=== PATIENT | female | born 1950 | race Caucasian/White ===

== ENCOUNTER 2016-04-05 08:00 | Day surgery (SDC) | payer BC ==
[2016-03-30 13:09] VITALS: BMI 69.1
--- NOTE | 2016-04-05 04:27 | P.GSHP ---
History of Present Illness H&P Date: 04/05/16 CHIEF COMPLAINT: GERD HISTORY OF PRESENT ILLNESS: The patient is a 65-year-old female who presents reports gastroesophageal reflux disease. Upper endoscopy was offered for further evaluation and management. PAST MEDICAL HISTORY: Please see list. PAST SURGICAL HISTORY: Please see list. MEDICATIONS: Please see list. ALLERGIES: Please see list. SOCIAL HISTORY: No illicit drug use FAMILY HISTORY: No reports of Crohn disease or ulcerative colitis. REVIEW OF ORGAN SYSTEMS: CONSTITUTIONAL: No reports of fevers or chills. GI: Denies any blood in stools or constipation. PHYSICAL EXAM: VITAL SIGNS: Stable GENERAL: Well-developed and pleasant in no acute distress. HEENT: No scleral icterus. Extraocular movements grossly intact. Moist buccal mucosa. NECK: Supple without lymphadenopathy. CHEST: Unlabored respirations. Equal bilateral excursions. CARDIOVASCULAR: Regular rate and rhythm. Distal 2+ pulses. ABDOMEN: Soft, nondistended. MUSCULOSKELETAL: No clubbing, cyanosis, or edema. ASSESSMENT: 1. Gastroesophageal reflux disease PLAN: 1. Recommend proceeding with an upper endoscopy Past Medical History Past Medical History: Eye Disorder, Fibromyalgia, GERD/Reflux, Hypertension, Memory Impairment, Osteoarthritis (OA), Thyroid Disorder Additional Past Medical History / Comment(s): macular degeneration and glaucoma merle eyes,axonal neuropathy, morbid obesity. IBS-freq diarrhea, states hands shakey. PT RECIDES AT [facility] AND "[facility]" TAKES CARE OF PATIENTS MEDICATIONS. BONE SPUR LT HIP, BULGING DISCS IN BACK, INCONTINENCE OF BOWEL AND BLADDER, KIDNEY DISEASE, MENTALLY DISABLED. CONTACT # FOR "[facility]" CELL #[phone]. ([phone]) , PT GUARDIAN IS AMY LOTT AND HIMSELF AND HIS DAUGHTER , ELIZABETH( RAMAN LOTT'S DAUGHTER) PROVIDE TRANSPORTATION TO PTS PAIN CLINIC APPTS. History of Any Multi-Drug Resistant Organisms: None Reported Past Surgical History: Adenoidectomy, Bariatric Surgery, Orthopedic Surgery, Tonsillectomy Additional Past Surgical History / Comment(s): GASTRIC SLEEVE 2009, PANNICULECTOMY,TRIGGER FINGER RELEASE,PAIN CLINIC PROCEDURE,EGD'S W/ DILATATION , LAMINECTOMY, CYST REMOVED FROM LT OVARY, KNEE INJECTIONS Past Anesthesia/Blood Transfusion Reactions: Family History of Problems w/ Anesthesia, Motion Sickness Additional Past Anesthesia/Blood Transfusion Reaction / Comment(s): PT AND BROTHER STATES "PT HAS NARROW AIRWAY", /BROTHER HAS CONFUSION WITH VERSED Past Psychological History: Depression Additional Psychological History / Comment(s): developmentally disabled". PER BROTHER ALBERTO- PT IS PATHOLOGICAL LIAR AND WILL SAY ANYTHING TO GET THE RESULTS SHE WANTS. ALSO STATES HAS SEVERE LIMITED COGNITIVE ABILITIES (CAN ONLY THINK OF THE HERE AND NOW) DOES NOT COMPREHEND PAST OR FUTURE TENSES. HAS IQ OF 62 Smoking Status: Never smoker Past Alcohol Use History: None Reported Past Drug Use History: None Reported - Past Family History Mother Family Medical History: Cancer, CVA/TIA Additional Family Medical History / Comment(s): PERSONALITY DISORDER, ALCOHOLIC, ABUSIVE, pharyngeal cancer, kidney disease Father Family Medical History: Cancer Additional Family Medical History / Comment(s): PANCREAS Brother(s) Family Medical History: Renal Disease Additional Family Medical History / Comment(s): CHRONIC RENAL FAILURE,CIDP NEUROPATHY Medications and Allergies Home Medications Medication Instructions Recorded Confirmed Type Levothyroxine Sodium [Synthroid] 25 mcg PO DAILY@0800 04/02/14 03/30/16 History Omeprazole [PriLOSEC] 40 mg PO DAILY@0800 04/02/14 03/30/16 History Cyanocobalamin [Vitamin B-12] 500 mcg PO DAILY@0800 10/18/15 03/30/16 History Ergocalciferol [Vitamin D2 50,000 unit PO TH 10/18/15 03/30/16 History (DRISDOL)] lamoTRIgine [LaMICtal] 50 mg PO BID@0800,2100 01/28/16 03/30/16 History Valsartan 320 mg PO DAILY@0800 03/05/16 03/30/16 History Albuterol Sulfate [Proair Hfa] 2 puff INHALATION RT-Q6H PRN 03/06/16 03/30/16 History Clotrimazole/Betameth Lotion 1 applic TOPICAL BID@0800,1700 03/06/16 03/30/16 History [Lotrisone] Loperamide [Imodium] 2 mg PO TID PRN 03/06/16 03/30/16 History Triamcinolone 0.1% Cream [Kenalog] 1 applic TOPICAL DAILY@0800 03/06/16 History Vortioxetine Hydrobromide 10 mg PO DAILY@0800 03/06/16 03/30/16 History [Trintellix] Mometasone Furoate [Mometasone 1 applic TOPICAL DAILY 03/30/16 03/30/16 History Furoate 0.1%] amLODIPine BESYLATE [Norvasc] 5 mg PO DAILY 03/30/16 03/30/16 History Allergies Allergy/AdvReac Type Severity Reaction Status Date / Time cefazolin sodium [From Ancef] Allergy Rash/Hives Verified 03/30/16 11:55 etodolac [From Lodine] Allergy Rash/Hives Verified 03/30/16 11:55 Iodinated Contrast Media - Allergy Rash/Hives Verified 03/30/16 11:55 Oral and [Iodinated Contrast Media - IV Dye] Iodine and Iodide Containing Allergy Rash/Hives Verified 03/30/16 11:55 Produc levofloxacin [From Levaquin] Allergy Swelling Verified 03/30/16 11:55 NSAIDS (Non-Steroidal Allergy Rash/Hives Verified 03/30/16 11:55 Anti-Inflamma sulfamethoxazole AdvReac Confusion Verified 03/30/16 11:55 [From Bactrim] trimethoprim [From Bactrim] AdvReac Confusion Verified 03/30/16 11:55
[~2016-04-05 08:00] MED LIST: LACTATED RINGERS 1,000 ML IV SCH; LIDOCAINE 1% 20 ML VIAL (10MG/ML) FOR IV START INTRADERMA PRN
[2016-04-05 08:31] VITALS: TEMP 97.4
[2016-04-05] MEDS ORDERED: PROPOFOL 10 MG/ML 20 ML VIAL IV ONE (08:38)
[2016-04-05] MEDS ORDERED: LIDOCAINE 1% INJ 10MG/ML (20 ML MDV) ONE (08:38)
--- NOTE | 2016-04-05 08:57 | P.PCN ---
Date of Procedure: 04/05/16 Description of Procedure: PREOPERATIVE DIAGNOSIS: Status post sleeve gastrectomy. Dysphagia. POSTOPERATIVE DIAGNOSIS: Status post sleeve gastrectomy. Dysphagia. Erosive esophagitis, chronic. Diaphragmatic hiatal hernia without obstruction. Chronic superficial gastritis. OPERATION: Esophagogastroduodenoscopy. SURGEON: Marisol Snow MD ANESTHESIA: MAC. INDICATIONS: The patient is a 65-year-old female who presents with a history of sleeve gastrectomy with dysphagia. She is over 5 years out from her bariatric procedure. Benefits and risks of the procedure were described. Informed consent was obtained. DESCRIPTION: The patient was brought into the endoscopy suite and laid in the left lateral decubitus position. An Olympus gastroscope was passed along the posterior oropharynx down to the distal esophagus where the squamocolumnar junction was at 37 centimeters from the incisors remarkable for chronic erosive esophagitis, LA grade A without ulceration. The stomach was entered where she had a 3-cm hiatal hernia with a diaphragmatic hiatus found at 40 cm. The sleeve reservoir was large allowing retroflexion of the scope to view the lower esophageal valve. Mild encroachment along the angularis incisura was also identified. Chronic gastritis albeit mild was found along the antrum. The first through third portion of the duodenum was examined and unremarkable. The stomach was desufflated. The patient tolerated the procedure well. FINDINGS: No acute ulceration found along her sleeve. No corkscrewing of her sleeve gastrectomy. Squamocolumnar junction at 37 cm from the incisors. Diaphragmatic hiatus at 40 cm. Large gastric reservoir with prior history of sleeve gastrectomy allowing retroflexion of the gastroscope along the antrum. Hiatal hernia 3 cm, fixed. LA grade A erosive esophagitis. No active duodenitis. Chronic gastritis. Mild encroachment along angularis incisura. RECOMMENDATIONS: Upper endoscopy as needed. May benefit from antireflux operation with hiatal hernia repair. Continue with current therapy. Recommend barium swallow for further investigative studies. Plan - Discharge Summary Discharge Medication List Levothyroxine Sodium [Synthroid] 25 mcg PO DAILY@79904/02/14 [History] Omeprazole [PriLOSEC] 40 mg PO DAILY@79904/02/14 [History] Cyanocobalamin [Vitamin B-12] 500 mcg PO DAILY@79910/18/15 [History] Ergocalciferol [Vitamin D2 (DRISDOL)] 50,000 unit PO TH 10/18/15 [History] lamoTRIgine [LaMICtal] 50 mg PO BID@0800,2100 01/28/16 [History] Valsartan 320 mg PO DAILY@0800 03/05/16 [History] Albuterol Sulfate [Proair Hfa] 2 puff INHALATION RT-Q6H PRN 03/06/16 [History] Clotrimazole/Betameth Lotion [Lotrisone] 1 applic TOPICAL BID@0800,1700 [History] Loperamide [Imodium] 2 mg PO TID PRN 03/06/16 [History] Triamcinolone 0.1% Cream [Kenalog] 1 applic TOPICAL DAILY@0800 03/06/16 [History ] Vortioxetine Hydrobromide [Trintellix] 10 mg PO DAILY@0800 03/06/16 [History] Baclofen [Lioresal] 5 mg PO TID #60 tab 03/07/16 [Rx] Doxepin [SINEquan] 30 mg PO HS cap 03/07/16 [Rx] Gabapentin [Neurontin] 600 mg PO TID #60 cap 03/07/16 [Rx] fentaNYL 50MCG/HR PATCH [Duragesic 50MCG/HR] 1 patch TRANSDERM Q72H #10 patch [Rx] Mometasone Furoate [Mometasone Furoate 0.1%] 1 applic TOPICAL DAILY 03/30/16 [ History] amLODIPine BESYLATE [Norvasc] 5 mg PO DAILY 03/30/16 [History] Follow up Appointment(s)/Referral(s): Marisol Snow MD [STAFF PHYSICIAN] - 04/12/16 Patient Instructions/Handouts: *[facility] - (Anesthesia) Endoscopy Discharge Instructions Discharge Disposition: HOME SELF-CARE
[2016-04-05 09:03] VITALS: RESP 18
[2016-04-05 09:32] VITALS: BP 138/78; PULSE 78
== END 2016-04-05 09:42 | disposition home or self-care (01) ==
LOC: ORWHC2ENDO 08:00
PROVIDERS: ATTEND Surgery Plastic and Reconstructive Surgery
DX: K21.0 Gastro-esophageal reflux disease with esophagitis (principal); I10 Essential (primary) hypertension; K44.9 Diaphragmatic hernia without obstruction or gangrene; K29.50 Unspecified chronic gastritis without bleeding; M79.7 Fibromyalgia; H35.30 Unspecified macular degeneration; R13.10 Dysphagia, unspecified; Z98.84 Bariatric surgery status; Z88.2 Allergy status to sulfonamides; Z88.8 Allergy status to other drugs, medicaments and biological substances; Z88.1 Allergy status to other antibiotic agents; Z91.041 Radiographic dye allergy status; Z79.899 Other long term (current) drug therapy; E66.01 Morbid (severe) obesity due to excess calories
CPT/HCPCS: 43235; J2001; J2704; 99153

== ENCOUNTER → 2016-04-26 | Outpatient (CLI) | payer BC ==
[2016-04-26 15:56] VITALS: BP 142/77; PULSE 74; RESP 18; TEMP 97.8; BMI 64.9
--- NOTE | 2016-04-26 23:55 | PN ---
DATE OF SERVICE: 04/26/2016 CHIEF COMPLAINT: Bariatric assessment. HISTORY OF PRESENT ILLNESS: Aubree Condon is a 65-year-old female with a very complicated bariatric history. She is accompanied by her guardian and actually has her brother, who is also co-guardianship on the phone. At the time of my evaluation, a group conference phone call was performed in the presence of her guardian as well as Rich, her brother, Sasha, nurse territory development manager, as well as Rachel, global marketing coordinator. Aubree Condon is a 65-year-old female who has a history of a previous sleeve gastrectomy performed at an outside institution several years ago. At her height of 4 feet 11 inches, her highest weight was 411 pounds. Today she comes in weighing 321 pounds. She has maintained a 90-pound weight loss. She has only achieved 34% excess weight loss. Her body mass index has been reduced from 83.2 to 64.9. Since her last visit in February 2016, she has maintained her weight loss. Prior to that she had lost another 13 pounds between December and January 2016. The main concerns of her guardians include poor followup, including the patient's inability to follow directions for her bariatric diet. Despite having additional aids such as a dietitian and personal trainers, the patient has difficulty maintaining her weight loss and following through with the program. Her family and guardians expressed concern. The patient did complete an upper endoscopy which was consistent with a symptomatic diaphragmatic hernia. At the time of my evaluation she denied any epigastric abdominal pain. She also reported to her guardian that her reflux is under control. Her medications including omeprazole control her symptoms. She reports occasional heartburn, particularly after eating fuller. She personally is interested in additional surgical options. Of note, upon my previous assessment after endoscopy, options including revisional surgery were reviewed, as she does have hiatal hernia. PAST MEDICAL HISTORY: 1. Morbid obesity. 2. Chronic pain syndrome. 3. Hypertension. 4. Gastroesophageal reflux disease. 5. Hypothyroidism. 6. Depression. 7. Seizure disorder. 8. Fibromyalgia. 9. Osteoarthritis. 10. Macular degeneration. 11. Glaucoma. 12. Axonal neuropathy. 13. Irritable bowel syndrome. 14. Diaphragmatic hiatal hernia. PAST SURGICAL HISTORY: 1. Adenoidectomy. 2. Sleeve gastrectomy. 3. Tonsillectomy. 4. Trigger finger release. 5. Multiple pain clinic procedures. 6. EGD with dilatation. 7. Laminectomy. MEDICATIONS: 1. Lamictal. 2. Duragesic. 3. Norvasc. 4. Trintellix. 5. Valsartan. 6. Kenalog. 7. Prilosec. 8. Mometasone topically. 9. Imodium. 10. Synthroid. 11. Neurontin. 12. Vitamin D. 13. Sinequan. 14. Vitamin B12. 15. Lotrisone. 16. Baclofen. 17. ProAir. ALLERGIES: 1. ANCEF. 2. LODINE. 3. IV CONTRAST. 4. LEVAQUIN. 5. NSAIDs. SOCIAL HISTORY: Her brother is her durable power of plant maintenance worker. No history of tobacco use. FAMILY HISTORY: Notable for morbid obesity. REVIEW OF SYSTEMS: CONSTITUTIONAL: Highest weight of 411 pounds. [place] body weight of 123 pounds. Current weight of 321 pounds. Body mass index of 64.9, reduced from 83.2. She has maintained a 90-pound weight loss. Body mass index has been reduced by 18 points. She has only achieved 34% excess weight loss. GASTROINTESTINAL: Has a diaphragmatic hiatal hernia confirmed by upper endoscopy. Also she reports gastroesophageal reflux disease. She also has history of irritable bowel syndrome, per discussion with her brother. NEUROLOGICAL: The patient also has a history of stroke with sequelae of blindness. This is blindness of the right eye. GENITOURINARY: History of acute renal failure approximately one week ago. HEENT: No reports of troubles with hearing. Otherwise, the troubles with her vision. Has intermittent dysphagia. ENDOCRINE: History of hypothyroidism. No reports of diabetes. RESPIRATORY: No noted report of sleep apnea. No reports of dyspnea on exertion. CARDIOVASCULAR: History of hypertension. No reports of recent chest pain. MUSCULOSKELETAL: History of diffuse joint arthritis. PSYCH: History of depression including bipolar. HEMATOLOGIC: No reports of easy bruising or bleeding. PHYSICAL EXAM: VITAL SIGNS: 97.8, 74, 18, 142/77, 4 feet 11 inches, 321 pounds. Body mass index 64.9. ABDOMEN: Protuberant, soft, nontender. GENERAL: Well-developed female in no acute distress. HEENT: No scleral icterus. Extraocular movements grossly intact. Moist buccal mucosa. Wears glasses. Hears conversational speech. NECK: Supple without lymphadenopathy. CHEST: Nonlabored respirations. Equal bilateral excursions. CARDIOVASCULAR: Regular rate and rhythm. MUSCULOSKELETAL: No clubbing, cyanosis, or edema. NEURO: No focal or lateralizing signs. Cranial nerves II to XII grossly intact. PSYCH: Flat affect. Alert and oriented to person, place, and time. STUDIES: Upper endoscopy report was reviewed with the patient's family with findings of a diaphragmatic hiatal hernia. No evidence of Curiel's esophagus was identified. Her hiatal hernia is approximately 3 cm. She had a large gastric reservoir identified with mild chronic gastritis. ASSESSMENT: 1. Morbid obesity due to excess calories. 2. Body mass index has been reduced from 83.2 to 64.9. 3. Prior history of acute renal failure, improved. 4. Dietary surveillance and counseling. 5. History of sleeve gastrectomy. 6. History of panniculectomy. 7. History of weight gain following bariatric procedure. 8. Depression. 9. Osteoarthritis. 10. Hypercholesterolemia. 11. Medical noncompliance with dietary plans of bariatric surgery. 12. Diaphragmatic hiatal hernia. 13. Gastroesophageal reflux disease. PLAN: 1. We had a lengthy discussion, at least over 30 minutes, regarding the complexity of Aubree's care. Her main challenge includes compliance with the care plan. 2. Her family also expressed alternatives of dietitian, including nutrition visits and home assessments and evaluations that have been performed. Aubree often selects foods that are inappropriate for her dietary guidelines. 3. As Aubree expresses concern about her gastroesophageal reflux disease, in fact this is fairly controlled with medications. We did discuss avoidance of trigger foods. 4. As she has been high risk for many surgical interventions, I did review all options, including nonsurgical versus surgical. As her hiatal hernia is not life-threatening, an alternative of medical management with medications may be feasible. 5. Should she wish to pursue any surgical intervention, I have recommended a specialty care center in [place], where she can benefit from potentially additional weight loss if she chooses. I did review with her that a revisional procedure is very high risk. More importantly, this may also pose mortality. This was communicated with the patient's guardians, including brother. 6. Alternatives include weight loss centers, specifically as a dormitory-style obesity clinic. Centers such as [facility] were reviewed, where she would be an in-house tenant and would be on strict 24-hour surveillance of weight loss for a prolonged period of time based on tuition. This option was discussed with the patient's guardian and brother, which they found feasible. 7. I have addressed all their potential questions and concerns regarding revisional surgery as well as hiatal hernia repair. Any surgical intervention, even laparoscopic, may pose some challenge, as the patient has more importantly noncompliance. 8. We have expressed to the patient's guardian and family that at the Bariatric Center we are most concerned about her well-being and her safety. We have recommended alternatives such as referral to a tuition-based dormitory-style weight loss center. Upon completion of our discussion, her family and guardian agreed to look into alternatives for weight loss which would most benefit Aubree. Thank you very much for allowing me to participate in the care of your patient. I have expressed that supervised weight loss may be performed; however, its success is based on Aubree's personal motivation. VIOLETTE
== END | disposition home or self-care (01) ==
LOC: BARWHC3 14:22
PROVIDERS: ATTEND Surgery Plastic and Reconstructive Surgery
DX: E66.01 Morbid (severe) obesity due to excess calories (principal); Z68.44 Body mass index [BMI] 60.0-69.9, adult; Z70.3 Counseling related to combined concerns regarding sexual attitude, behavior and orientation; Z09 Encounter for follow-up examination after completed treatment for conditions other than malignant neoplasm; Z90.3 Acquired absence of stomach [part of]; F32.9 Major depressive disorder, single episode, unspecified; M19.90 Unspecified osteoarthritis, unspecified site; E78.00 Pure hypercholesterolemia, unspecified; Z91.19 Patient's noncompliance with other medical treatment and regimen; K44.9 Diaphragmatic hernia without obstruction or gangrene; K21.9 Gastro-esophageal reflux disease without esophagitis; I10 Essential (primary) hypertension; E03.9 Hypothyroidism, unspecified; M79.7 Fibromyalgia; G40.909 Epilepsy, unspecified, not intractable, without status epilepticus; H35.30 Unspecified macular degeneration; H40.9 Unspecified glaucoma; G62.9 Polyneuropathy, unspecified; K58.9 Irritable bowel syndrome, unspecified; Z88.1 Allergy status to other antibiotic agents; Z88.6 Allergy status to analgesic agent; Z88.8 Allergy status to other drugs, medicaments and biological substances; Z91.041 Radiographic dye allergy status; Z79.899 Other long term (current) drug therapy
CPT/HCPCS: 99211

== ENCOUNTER → 2016-05-01 | Outpatient (CLI) | payer BC ==
--- NOTE | 2016-05-01 14:49 | XR ---
EXAMINATION TYPE: XR chest 2V DATE OF EXAM: 05/01/2016 2:43 PM COMPARISON: 03/04/16 HISTORY: Shortness of breath TECHNIQUE: Frontal and lateral views of the chest are obtained. FINDINGS: Scattered senescent parenchymal changes noted. Hyperinflation compatible with COPD. No evidence for infiltrate. No evidence for atelectasis. Heart size is stable. Mediastinal structures are stable and grossly unremarkable. No evidence for hilar prominence. Degenerative changes dorsal spine. IMPRESSION: 1. No evidence for acute pulmonary disease.
== END | disposition home or self-care (01) ==
LOC: RADXRMAIN 14:27
PROVIDERS: ATTEND Family Medicine
DX: R91.8 Other nonspecific abnormal finding of lung field (principal)
CPT/HCPCS: 71020

== ENCOUNTER 2016-05-11 08:50 | Day surgery (SDC) | payer BC ==
[2016-05-10 08:16] VITALS: BMI 66.0
[2016-05-11 09:49] VITALS: TEMP 97.6
[2016-05-11] MEDS: LACTATED RINGERS 1,000 ML IV SCH ×2 (09:50→09:56)
[2016-05-11] MEDS ORDERED: LIDOCAINE 1% 20 ML VIAL (10MG/ML) FOR IV START INTRADERMA ONE (09:51)
[2016-05-11] MEDS ORDERED: TRIAMCINOLONE ACETONIDE 40 MG/ML 1 ML VIAL ONE (09:52)
[2016-05-11] MEDS ORDERED: fentaNYL (PF) 50 MCG/ML 2 ML AMP ONE (09:52)
[2016-05-11] MEDS ORDERED: MIDAZOLAM 2 MG/2 ML VIAL ONE (09:52)
--- NOTE | 2016-05-11 10:40 | FL ---
Fluoroscopy INDICATION: Pain FINDINGS: Fluoroscopy time: 16 seconds. Images obtained: 4. IMPRESSIONS: 1. Documentation of fluoroscopy.
[2016-05-11] MEDS ORDERED: IV FLUID CONTINUATION 1,000 ML IV ONE (10:42)
[2016-05-11 10:46] VITALS: RESP 18
[2016-05-11 11:20] VITALS: BP 135/78; PULSE 78
--- NOTE | 2016-05-11 11:29 | P.PCN ---
Date of Procedure: 05/11/16 Surgeon: Aguila Dias Pathology: none sent Condition: stable Disposition: PACU Description of Procedure: PREOPERATIVE DIAGNOSIS: Lumbar spondylosis without myelopathy and facet arthropathy POSTOPERATIVE DIAGNOSIS: Lumbar spondylosis without myelopathy and facet arthropathy PROCEDURES: Left Radiofrequency thermocoagulation, L2, L3 and L4 medial branch, with fluoroscopic guidance. ANESTHESIA: 1% lidocaine plain; Conscious sedation with versed/fentanyl EBL: Minimal PROCEDURE INDICATION: The patient with low back pain secondary to lumbar arthropathy who had more than 50% relief of pain with previous diagnostic lumbar medial branch block with bupivacaine x 2. Patient presents for left sided RFA today after good relief from right sided procedure in January; no use of blood thinners. PROCEDURE DESCRIPTION / TECHNIQUE: The patient was seen and identified in the preoperative area. Risks, benefits, complications, and alternatives were discussed with the patient (including but not limited to incomplete pain relief , bleeding, infection, nerve damage, and allergies to medications), the patient agreed to proceed with the procedure and signed the consent after all questions were answered. Patient was taken to the OR and time out was completed to verify proper patient , position, laterality of pain, and allergies. Pt was placed in the prone position. IV was started. Vital signs remained stable throughout the procedure. A pillow was placed under the patients chest to decrease lordosis. The lumbosacral area was prepped and draped in the usual sterile fashion. Vital signs were closely monitored during the procedure. Conscious sedation was used during the procedure to decrease patients anxiety. Using AP and then oblique fluoroscopy, the eye of the James dog corresponding to the connection between the superior and transverse articular processes of left L2, L3 and L4 vertebral bodies were identified, marked, and localized with 1% lidocaine. Subsequently, a 20 gauge, 100-mm radiofrequency cannula with a 10-mm active tip was advanced guided by fluoroscopy to each of the eyes of the James dog at left L2, L3, and L4 medial branches. Each site then underwent sensory testing at 50 Hz and 0 to 1 volt and motor testing at 2 Hz and 0 to 3 volt with local stimulation, but no radicular symptoms down the legs. Thereafter the left L2, L3, and L4 medial branch sites underwent radiofrequency thermocoagulation at 80 degrees Celsius for 90 seconds after injecting 0.5 ml of PF lidocaine 1%. After thermocoagulation, 1 ml of the block solution containing Kenalog 40 mg and 2 mL of preservative-free normal saline was injected at the left L2, L3, and L4 medial branch levels after negative aspiration of CSF and blood and with no paresthesias. Cannulas were retracted while injecting lidocaine 1% until the needles were removed. At the end of the procedure, the skin was cleansed and bandages were applied. COMPLICATIONS: No acute complications. DISPOSITION / PLANS: The patient was placed in a supine position and transferred to the recovery area in a stable condition for observation and was discharged from the recovery room after meeting discharge criteria. Home discharge instructions given to the patient by the staff. The patient was reexamined prior to discharge and there were no issues. The patient will schedule a follow up in clinic in 4-6 weeks.
--- NOTE | 2016-05-13 06:15 | CDI ---
Dear Dr. iDas, Per your procedure note, Conscious sedation with Versed/Fentanyl is documented. The Pain Procedure Recored, however, has MAC checked off under anesthesia plan. This is conflicting documentation that needs clarification for proper reporting purposes. Please clarify if the anesthesia provided Araceli Condon was MAC ( Monitored Anesthesia Care) or Conscioius sedation/Moderate sedation. Please document this clarification on an addendum to the procedure note. Thank you for your time, Lucretia Goode,[facility] Outpatient Electrical Drafter Ofelia griffin [employer] [email or web address]
== END 2016-05-11 11:20 | disposition home or self-care (01) ==
LOC: ORPAIN 08:50
PROVIDERS: ATTEND Anesthesiology
DX: M47.816 Spondylosis without myelopathy or radiculopathy, lumbar region (principal); M46.96 Unspecified inflammatory spondylopathy, lumbar region
CPT/HCPCS: 99152; 64635; 64636 ×2; J2250; J3301; J3010

== ENCOUNTER 2016-05-28 11:32 | Emergency (ER) | payer BC ==
[2016-05-28 11:46] VITALS: BP 149/72; PULSE 87; RESP 18; TEMP 98
--- NOTE | 2016-05-28 12:02 | ED ---
General Adult HPI - General Chief complaint: Extremity Injury, Lower Stated complaint: RT KNEE PAIN Time Seen by Provider: 05/28/16 11:46 Source: patient, RN notes reviewed Mode of arrival: wheelchair Limitations: no limitations - History of Present Illness Initial comments: Patient's a 65-year-old female who presents emergency room today with a chief complaint of injury to the right knee that occurred approximately a week ago. She does admit that she believes she twisted it when she was stepping up into her house. She missed the pain in the proximal tibia. She states worse with flexion. She states she is able to bear weight and [place] but does have pain. Denies any other complaints associated symptoms. Patient denies any recent fever, chills, shortness of breath, chest pain, back pain, abdominal pain , nausea or vomiting, numbness or tingling, dysuria or hematuria, constipation or diarrhea, headaches or visual changes, or any other complaints. - Related Data Home Medications Medication Instructions Recorded Confirmed Levothyroxine Sodium [Synthroid] 25 mcg PO QAM 04/02/14 05/28/16 Omeprazole [PriLOSEC] 40 mg PO QAM 04/02/14 05/28/16 lamoTRIgine [LaMICtal] 100 mg PO QAM 01/28/16 05/28/16 Valsartan 320 mg PO QAM 03/05/16 05/28/16 Albuterol Sulfate [Proair Hfa] 2 puff INHALATION RT-Q6H PRN 03/06/16 05/28/16 Loperamide [Imodium] 2 mg PO TID PRN 03/06/16 05/28/16 Vortioxetine Hydrobromide 10 mg PO QAM 03/06/16 05/28/16 [Trintellix] amLODIPine BESYLATE [Norvasc] 5 mg PO DAILY 03/30/16 05/28/16 Doxepin [SINEquan] 20 mg PO HS 05/10/16 05/28/16 fentaNYL 75MCG/HR PATCH [Duragesic 1 applic TOPICAL Q72H 05/10/16 05/28/16 75MCG/HR] Baclofen [Lioresal] 10 mg PO TID 05/28/16 05/28/16 Cyanocobalamin (Vitamin B-12) 1,000 mcg PO QAM 05/28/16 05/28/16 [Vitamin B-12] Fluticasone Propionate [Flonase 1 spray EA NOSTRIL QAM 05/28/16 05/28/16 Allergy Relief] Previous Rx's Medication Instructions Recorded Gabapentin [Neurontin] 600 mg PO TID #60 cap 03/07/16 Allergies Allergy/AdvReac Type Severity Reaction Status Date / Time cefazolin sodium [From Ancef] Allergy Rash/Hives Verified 05/28/16 11:44 etodolac [From Lodine] Allergy Rash/Hives Verified 05/28/16 11:44 Iodinated Contrast Media - Allergy Rash/Hives Verified 05/28/16 11:44 Oral and [Iodinated Contrast Media - IV Dye] Iodine and Iodide Containing Allergy Rash/Hives Verified 05/28/16 11:44 Produc levofloxacin [From Levaquin] Allergy Swelling Verified 05/28/16 11:44 NSAIDS (Non-Steroidal Allergy Rash/Hives Verified 05/28/16 11:44 Anti-Inflamma sulfamethoxazole AdvReac Confusion Verified 05/28/16 11:44 [From Bactrim] trimethoprim [From Bactrim] AdvReac Confusion Verified 05/28/16 11:44 Review of Systems ROS Statement: Those systems with pertinent positive or pertinent negative responses have been documented in the HPI. ROS Other: All systems not noted in ROS Statement are negative. Past Medical History Past Medical History: Eye Disorder, Fibromyalgia, GERD/Reflux, Hypertension, Osteoarthritis (OA), Thyroid Disorder Additional Past Medical History / Comment(s): macular degeneration and glaucoma merle eyes,axonal neuropathy, morbid obesity will be having sleep study Jan 2016. IBS-freq diarrhea, states hands shakey. PT RECIDES AT [facility] AND "[facility]" TAKES CARE OF PATIENTS MEDICATIONS. CONTACT # FOR "[facility]" #[phone]. , PT GUARDIAN IS AMY LOTT AND HIMSELF AND HIS DAUGHTER , [facility] PROVIDE TRANSPORTATION TO PTS PAIN CLINIC APPTS. History of Any Multi-Drug Resistant Organisms: None Reported Past Surgical History: Adenoidectomy, Bariatric Surgery, Orthopedic Surgery, Tonsillectomy Additional Past Surgical History / Comment(s): GASTRIC SLEEVE 2009, PANNICULECTOMY,TRIGGER FINGER RELEASE,PAIN CLINIC PROCEDURE,EGD'S W/ DILATATION , laminnectomy Past Anesthesia/Blood Transfusion Reactions: Family History of Problems w/ Anesthesia, Motion Sickness Additional Past Anesthesia/Blood Transfusion Reaction / Comment(s): PT AND BROTHER STATES "PT HAS NARROW AIRWAY", /BROTHER HAS CONFUSION WITH VERSED Past Psychological History: Depression Additional Psychological History / Comment(s): developmentally disabled" Smoking Status: Never smoker Past Alcohol Use History: None Reported Past Drug Use History: None Reported - Past Family History Mother Family Medical History: Cancer Additional Family Medical History / Comment(s): PERSONALITY DISORDER, ALCOHOLIC, ABUSIVE, pharyngeal cancer, kidney disease Father Family Medical History: Cancer Additional Family Medical History / Comment(s): PANCREAS Brother(s) Family Medical History: Renal Disease Additional Family Medical History / Comment(s): CHRONIC RENAL FAILURE,CIDP NEUROPATHY General Exam - General Exam Comments Initial Comments: General: The patient is awake and alert, in no distress, and does not appear acutely ill. Neck: The neck is supple, there is no tenderness or JVD. Cardiovascular: There is a regular rate and rhythm. No murmur, rub or gallop is appreciated. Respiratory: Lungs are clear to auscultation, respirations are non-labored, breath sounds are equal. No wheezes, stridor, rales, or rhonchi. Musculoskeletal: Patient does have a normal appearance of the right knee when compared bilaterally. No obvious swelling. No deformity. Patient and laboratory able to bear weight. Mild tenderness over the proximal tibia. No other bony tenderness. Negative Homans. Neurological: A&O x 3. CN II-XII intact, There are no obvious motor or sensory deficits. Coordination appears grossly intact. Speech is normal. Skin: Skin is warm and dry and no rashes or lesions are noted. Psychiatric: Normal mood and affect. Limitations: no limitations Course Vital Signs 05/28/16 11:45 Temperature 98.0 F Pulse Rate 87 Respiratory 18 Rate Blood Pressure 149/72 O2 Sat by Pulse 98 Oximetry Medical Decision Making - Medical Decision Making X-ray reviewed are unremarkable. Results were discussed with the patient. Patient placed in Baljit wrap. Advised follow-up with orthopedic doctor over the next 2 days. Advised return for any other concerns. Advised ice elevate the affected area. Disposition Clinical Impression: Knee pain Disposition: HOME SELF-CARE Condition: Good Instructions: Knee Pain (ED) Additional Instructions: Please continue to ice elevate affected area and use Baljit wrap on up and moving around. Please do not sleep with the Baljit wrap on. Please follow-up the orthopedic doctor over the next 2 days. Please return to emergency room if the symptoms increase or worsen or for any other concerns. Referrals: Miguel Estrada DO [Primary Care Provider] - 1-2 days Chris Caceres MD [REFERRING] - 1-2 days Time of Disposition: 13:05
--- NOTE | 2016-05-28 12:43 | XR ---
EXAMINATION TYPE: XR knee complete RT DATE OF EXAM ORDERED: 05/28/2016 12:39 PM HISTORY: Pain. COMPARISON: None. FINDINGS: There is mild peaking of intercondylar spines. Joint spaces are reasonably well-maintained . No fracture, dislocation or joint effusion is seen. IMPRESSION: EARLIEST CHANGES OF OSTEOARTHRITIS.
== END 2016-05-28 13:14 | disposition home or self-care (01) ==
LOC: EC 11:32
DX: M25.561 Pain in right knee (principal); K21.9 Gastro-esophageal reflux disease without esophagitis; I10 Essential (primary) hypertension; M79.7 Fibromyalgia; K58.9 Irritable bowel syndrome, unspecified; F32.9 Major depressive disorder, single episode, unspecified; E07.9 Disorder of thyroid, unspecified; M19.90 Unspecified osteoarthritis, unspecified site; Z79.52 Long term (current) use of systemic steroids; Z79.899 Other long term (current) drug therapy; Z91.041 Radiographic dye allergy status; Z88.1 Allergy status to other antibiotic agents; Z88.6 Allergy status to analgesic agent; Z88.2 Allergy status to sulfonamides; Z88.8 Allergy status to other drugs, medicaments and biological substances; X50.1XXA Overexertion from prolonged static or awkward postures, initial encounter; Y92.009 Unspecified place in unspecified non-institutional (private) residence as the place of occurrence of the external cause
CPT/HCPCS: 99283

== ENCOUNTER → 2016-06-13 | Outpatient (CLI) | payer BC ==
[2016-06-13 12:57] VITALS: BP 149/69; PULSE 149; RESP 16; TEMP 98
--- NOTE | 2016-06-13 15:22 | P.PN ---
Subjective This is follow-up visit for this patient with a history of severe and chronic low back pain secondary to lumbar degenerative disc disease lumbar facet arthropathy, and failed back surgery syndrome and lumbar area we have done interventional pain management injection, Radiofrequency ablation of the medial branch lumbar area, she benefited significantly from the radiofrequency, but she continue to have Low back pain, the intensity of the pain increased with any activity, she denies any change in bowel movement or urination, she denies any Fever or night sweats, and no motor or sensory deficits, and she is currently on pain medication 1-fentanyl patch 75 g every 72 hours 2-back) 10 mg 3 times a day 3- Neurontin 600 mg 3 times a day Patient denies any side effects of the medication, denies excessive drowsiness or sleepiness, denies suicidal ideation, and reports that the current pain medication is NOT helping To control the pain and improve activity of daily living Physical Examinations : 1-Constitutiona : Cooperative , not in acute distress . 2-HEENT : nech ; supple , no Lymphadenopathy , no Thyromegaly , normal thyroid size . eyes : no ptosis , no icterus, no photophobia . ENT : normal of hearing , normal oropharynx , no Thrush . 3- Respiratory : Chest clear to auscultations Bilaterally , no wheezing , no Rhonchi . 4- Cardiovascular : regular rate and rhythem , S1 , S2 , no S3 , no S4. 5- Gastrointestinal : abdomen soft no tenderness , bowel sounds positive all four quadrents , no organomegally . 6- Genitourinary : Defferred . 7- neurologic : Cranial nerve II to XII intact , no focal neurological deffecit . 8-psychatric : alert , oriented X 3 , appropriate affect , intact judgment and insight . 9-Lymphatic : no Lymphadenopathy . 10- musculoskeltal : exams of the cervical spine = motor strength normal bilateral upper extremities facet loading test cervical area positive. exams of the Lumber spine = motor strength lower extremities ,thigh and legs .5/5 deep tendon reflexes : normal Knee Jerk , normal ankle Jerk . lumber facet Loading Test positive strait leg raising test positive at 30 degree , RT ,LT , Fabere test positive RT and positive LT . Range of motion: Range of motion in flexion of the lumbar spine 30 degrees Range of motion range of motion of extension of the lumbar spine 10 Assessment and plan = - Chronic low back pain secondary to lumbar degenerative disc disease , lumbar spondylosis with facet arthropathy without myelopathy , Failed back surgery syndrome and lumbar area, status post radiofrequency ablation of the medial branch lumbar area, and this helped her back pain 50% Currently she is complaining of low back pain again and most likely secondary to discogenic component/scar tissue on the lumbar spine - diagnoses, prognosis, and treatment options including but not limited to physical therapy, surgical interventions, interventional therapies , and medication management including narcotics and adjuvant medication were discussed with the patient and all The questions answered -medication management = patient getting prescription refills from her primary care and she should continue on the same medication -procedure= patient could benefit from caudal epidural steroid injections which will be done under fluoroscopy guidance . Objective - Vital Signs Vital signs: Vital Signs Temp 98 F 06/13/16 12:29 Pulse 149 H 06/13/16 12:29 Resp 16 06/13/16 12:29 BP 149/69 06/13/16 12:29 Pulse Ox 93 L 06/13/16 12:29 Intake & Output 06/12/16 06/13/16 06/13/16 18:59 06:59 18:59 Weight 145.603 kg
== END ==
LOC: PNWHC3 12:16
PROVIDERS: ATTEND Specialist
DX: M51.36 Other intervertebral disc degeneration, lumbar region (principal); M47.816 Spondylosis without myelopathy or radiculopathy, lumbar region; M46.86 Other specified inflammatory spondylopathies, lumbar region; G89.29 Other chronic pain; Z98.890 Other specified postprocedural states; Z79.891 Long term (current) use of opiate analgesic
CPT/HCPCS: 99211

== ENCOUNTER 2016-07-19 09:32 | Day surgery (SDC) | payer BC ==
[2016-07-18 08:33] VITALS: BMI 65.8
[2016-07-19 09:55] VITALS: TEMP 97.4
[2016-07-19] MEDS ORDERED: LIDOCAINE 1% 20 ML VIAL (10MG/ML) FOR IV START INTRADERMA ONE (09:59)
[2016-07-19] MEDS ORDERED: LACTATED RINGERS 1,000 ML IV SCH (10:00)
[2016-07-19] MEDS ORDERED: TRIAMCINOLONE ACETONIDE 40 MG/ML 1 ML VIAL ONE (10:15)
[2016-07-19] MEDS ORDERED: BUPIVACAINE (PF) 0.25% 30 ML VIAL ONE (10:15)
[2016-07-19] MEDS ORDERED: MIDAZOLAM 2 MG/2 ML VIAL ONE (10:15)
--- NOTE | 2016-07-19 10:36 | P.PCN ---
Date of Procedure: 07/19/16 Preoperative Diagnosis: Failed back surgery syndrome Postoperative Diagnosis: Same as above Procedure(s) Performed: Caudal epidural steroid injection fluoroscopic guidance with lysis of adhesions Anesthesia: other (Moderate sedation with IV Versed and fentanyl) Surgeon: Abdi Abbott Pathology: none sent Condition: stable Disposition: PACU Description of Procedure: The patient was seen in preop holding area consent was obtained then she was brought into the procedure room and placed in prone position. Skin was prepped with Betadine 3 and draped in a sterile manner. Lidocaine 1% was used to numb the skin over the target point that was at the sacral hiatus using the lateral view of fluoroscopy. I used 17-gauge Touhy epidural needle with a plastic sheath to go through the skin and into the sacral canal and then the plastic sheath was threaded in and metal core was taken out, then aRacz catheter was introduced of the way up to L5-S1 level with multiple back and forth movements to break up some adhesions. Then I injected 40 mg of Kenalog +2 MLS of Marcaine 0.25% +7 MLS of preservative free normal saline to a total volume of 10 MLS in epidural space. I did not use IVP dye was at the patient ALLERGIC reaction to IVP dye however she can tolerate Betadine on her skin as she states.
[2016-07-19] MEDS ORDERED: IV FLUID CONTINUATION 900 ML IV ONE (10:54)
[2016-07-19 10:56] VITALS: PULSE 69; RESP 16
[2016-07-19 11:02] VITALS: BP 136/72
--- NOTE | 2016-07-19 14:25 | FL ---
Fluoroscopy INDICATION: Pain FINDINGS: Fluoroscopy time: 26 seconds. Images obtained: 1. IMPRESSIONS: 1. Documentation of fluoroscopy.
== END 2016-07-19 11:35 | disposition home or self-care (01) ==
LOC: ORPAIN 09:32
PROVIDERS: ATTEND Anesthesiology
DX: M96.1 Postlaminectomy syndrome, not elsewhere classified (principal); Z88.2 Allergy status to sulfonamides; Z88.1 Allergy status to other antibiotic agents; Z88.8 Allergy status to other drugs, medicaments and biological substances; Z91.041 Radiographic dye allergy status
CPT/HCPCS: 62264; 99152; J2250; J3301

== ENCOUNTER → 2016-08-17 | Outpatient (CLI) | payer BC ==
--- NOTE | 2016-08-17 14:25 | BD ---
EXAMINATION TYPE: MG DEXA axial skeleton. DATE OF EXAM: 08/17/2016 10:15 AM COMPARISON: 2012 CLINICAL HISTORY: accidental fall Height: 4'11 Weight: 319 FRAX RISK QUESTIONS: Alcohol (3 or more units per day): no Family History (Parent hip fracture): no Glucocorticoids (More than 3mos): no (Ex: prednisone, prednisolone, methylprednisolone, dexamethasone, and hydrocortisone). History of Fracture in Adulthood: no Secondary Osteoporosis: 1. Type 1 Diabetes: no 2. Hyperthyroidism: no 3. Menopause before 45: yes 4. Malnutrition: no 5. Chronic liver disease: no Rheumatoid Arthritis: no Current Tobacco Use: no RISK FACTORS HISTORY OF: lumbar spine surgery : 2014 Active: Diet low in dairy products/other sources of calcium: Postmenopausal woman: Lost more than 2 inches in height since high school: Frequent falls: Poor Health: MEDICATIONS: Thyroid Medications: Which medication: Synthroid How Long: more than 10 years Additional Medications: blood pressure, pain, Additional History: fibromyalgia neuropathy EXAM MEASUREMENTS: Bone mineral densitometry was performed using the Advanced Image Enhancement System. Bone mineral density about the R hip (g/cm2): 0.852 Bone mineral density about the L hip (g/cm2): 0.908 T Score values are as follows: -----R Neck: -1.3 -----L Neck: -0.9 -----R Total: -0.5 -----L Total: -0.6 Bone mineral density has: Increased 12.1since study: 09/27/2012 IMPRESSION: Osteopenia (T Score between -2.5 and -1 as noted by T score values: Rt hip There is slightly increased risk of fracture and the patient may be considered for treatment. Re-Screen 2-5 years. Bone density has improved 12.1% from 09/27/2012 within the bilateral hips NOTE: T-SCORE=SD OF THE YOUNG ADULT MEAN.
== END | disposition home or self-care (01) ==
LOC: RADBDWWP 09:56
PROVIDERS: ATTEND Family Medicine
DX: M85.88 Other specified disorders of bone density and structure, other site (principal)
CPT/HCPCS: 77080

== ENCOUNTER → 2016-12-14 | Outpatient (CLI) | payer MEDICARE, BC ==
[2016-12-14 13:10] LABS: Basophils # (A) 0.1 k/uL (0-0.2); Basophils % (A) 1 %; CH 28.1; CHCM 32.3; Eosinophils # (A) 0.3 k/uL (0-0.7); Eosinophils % (A) 3 %; HDW 2.68; HGB 13.2 gm/dL (11.4-16.0); Luc # (Auto) 0.12; Luc % (Auto) 2; Lymphocytes # (A) 2.2 k/uL (1.0-4.8); Lymphocytes % (A) 28 %; MCH 27.4 pg (25.0-35.0); MCHC 31.4 g/dL (31.0-37.0); MCV 87.4 fL (80.0-100.0); Mean Platelet Volume 7.3; Monocytes # (A) 0.4 k/uL (0-1.0); Monocytes % (A) 5 %; Neutrophils # (A) 4.8 k/uL (1.3-7.7); Neutrophils % (A) 61 %; RBC 4.81 m/uL (3.80-5.40); RDW 15.7 % (11.5-15.5); WBC 7.8 k/uL (3.8-10.6); WBC (Perox) 7.74
[2016-12-14 14:14] LABS: Anion Gap 7 mmol/L; Blood Urea Nitrogen 12 mg/dL (7-17); Calcium 9.2 mg/dL (8.4-10.2); Carbon Dioxide 31 mmol/L (22-30); Chloride 105 mmol/L (98-107); Glucose 90 mg/dL (74-99); Non-African American GFR(MDRD) 56 (>60 ml/min/1.73 sqM); Potassium 4.3 mmol/L (3.5-5.1); Sodium 143 mmol/L (137-145)
[2016-12-14 15:04] LABS: Vitamin B12 847 pg/mL (239-931)
[2016-12-14 19:08] LABS: Iron Saturation 19.01 (12.00-45.00)
== END | disposition home or self-care (01) ==
LOC: LABWHC1 12:04
PROVIDERS: ATTEND Nurse Practitioner Family
DX: G62.89 Other specified polyneuropathies (principal); I10 Essential (primary) hypertension; D64.9 Anemia, unspecified; E55.9 Vitamin D deficiency, unspecified; R80.9 Proteinuria, unspecified
CPT/HCPCS: 36415; 80048; 82306; 82570; 82607; 82728; 83540; 83550; 84156; 85025

== ENCOUNTER 2017-04-06 23:01 | Inpatient (IN) | payer MEDICARE ==
--- NOTE | 2017-04-06 23:32 | ED ---
SOB HPI - General Chief Complaint: Shortness of Breath Stated Complaint: Lethargy Time Seen by Provider: 04/06/17 23:04 Source: patient Mode of arrival: EMS Limitations: no limitations - Related Data Home Medications Medication Instructions Recorded Confirmed Levothyroxine Sodium [Synthroid] 25 mcg PO QAM 04/02/14 07/19/16 Omeprazole [PriLOSEC] 40 mg PO QAM 04/02/14 07/19/16 lamoTRIgine [LaMICtal] 25 mg PO QAM 01/28/16 07/19/16 Valsartan 320 mg PO QAM 03/05/16 07/19/16 Albuterol Sulfate [Proair Hfa] 2 puff INHALATION RT-Q6H PRN 03/06/16 07/18/16 Loperamide [Imodium] 2 mg PO TID PRN 03/06/16 07/19/16 Vortioxetine Hydrobromide 10 mg PO QAM 03/06/16 07/19/16 [Trintellix] amLODIPine BESYLATE [Norvasc] 10 mg PO DAILY 03/30/16 07/19/16 Doxepin [SINEquan] 20 mg PO HS 05/10/16 07/19/16 fentaNYL 75MCG/HR PATCH [Duragesic 1 applic TOPICAL Q72H 05/10/16 07/19/16 75MCG/HR] Baclofen [Lioresal] 10 mg PO BID 05/28/16 07/19/16 Cyanocobalamin (Vitamin B-12) 1,000 mcg PO QAM 05/28/16 07/18/16 [Vitamin B-12] Fluticasone Propionate [Flonase 1 spray EA NOSTRIL QAM 05/28/16 07/18/16 Allergy Relief] Ergocalciferol (Vitamin D2) 50,000 unit PO Q7D 07/18/16 07/18/16 [Vitamin D2] Previous Rx's Medication Instructions Recorded Gabapentin [Neurontin] 600 mg PO TID #60 cap 03/07/16 Allergies Allergy/AdvReac Type Severity Reaction Status Date / Time cefazolin sodium [From Ancef] Allergy Rash/Hives Verified 07/18/16 08:25 etodolac [From Lodine] Allergy Rash/Hives Verified 07/18/16 08:25 Iodinated Contrast- Oral and Allergy Rash/Hives Verified 07/18/16 08:25 IV Dye [Iodinated Contrast Media - IV Dye] Iodine and Iodide Containing Allergy Rash/Hives Verified 07/18/16 08:25 Produc levofloxacin [From Levaquin] Allergy Swelling Verified 07/18/16 08:25 NSAIDS (Non-Steroidal Allergy Rash/Hives Verified 07/18/16 08:25 Anti-Inflamma sulfamethoxazole AdvReac Confusion Verified 07/18/16 08:25 [From Bactrim] trimethoprim [From Bactrim] AdvReac Confusion Verified 07/18/16 08:25 Review of Systems ROS Statement: Those systems with pertinent positive or pertinent negative responses have been documented in the HPI. ROS Other: All systems not noted in ROS Statement are negative. Past Medical History Past Medical History: Eye Disorder, Fibromyalgia, GERD/Reflux, Hypertension, Osteoarthritis (OA), Thyroid Disorder Additional Past Medical History / Comment(s): macular degeneration and glaucoma merle eyes,axonal neuropathy, morbid obesity will be having sleep study Jan 2016. IBS-freq diarrhea, states hands shakey. PT RECIDES AT [facility] AND "[facility]" TAKES CARE OF PATIENTS MEDICATIONS. CONTACT # FOR "[facility]" #[phone]. , PT GUARDIAN IS AMY LOTT AND HIMSELF AND HIS DAUGHTER , [facility] PROVIDE TRANSPORTATION TO [facility]TS PAIN CLINIC APPTS. History of Any Multi-Drug Resistant Organisms: None Reported Past Surgical History: Adenoidectomy, Bariatric Surgery, Orthopedic Surgery, Tonsillectomy Additional Past Surgical History / Comment(s): GASTRIC SLEEVE 2009, PANNICULECTOMY,TRIGGER FINGER RELEASE,PAIN CLINIC PROCEDURE,EGD'S W/ DILATATION , laminnectomy Past Anesthesia/Blood Transfusion Reactions: Family History of Problems w/ Anesthesia, Motion Sickness Additional Past Anesthesia/Blood Transfusion Reaction / Comment(s): PT AND BROTHER STATES "PT HAS NARROW AIRWAY", /BROTHER HAS CONFUSION WITH VERSED Past Psychological History: Depression Smoking Status: Never smoker Past Alcohol Use History: None Reported Past Drug Use History: None Reported - Past Family History Mother Family Medical History: Cancer Additional Family Medical History / Comment(s): PERSONALITY DISORDER, ALCOHOLIC, ABUSIVE, pharyngeal cancer, kidney disease Father Family Medical History: Cancer Additional Family Medical History / Comment(s): PANCREAS Brother(s) Family Medical History: Renal Disease Additional Family Medical History / Comment(s): CHRONIC RENAL FAILURE,CIDP NEUROPATHY General Exam Limitations: no limitations Course Vital Signs 04/06/17 23:03 Temperature 97.3 F L Pulse Rate 66 Respiratory 20 Rate O2 Sat by Pulse 90 L Oximetry Disposition Referrals: Miguel Estrada DO [Primary Care Provider] - 1-2 days
--- NOTE | 2017-04-06 23:42 | ED ---
Altered Mental Status HPI - General Chief Complaint: Shortness of Breath Stated Complaint: Lethargy Time Seen by Provider: 04/06/17 23:04 Source: patient Mode of arrival: EMS Limitations: altered mental status - History of Present Illness Initial Comments: This patient is a 66-year-old woman who comes in to be evaluated for altered mental status. The history comes from a friend of the patient who is here with her and also from the patient herself. The patient's friend relates that she had called the patient around 1 in the afternoon to arrange a meeting later, and that she noticed what sounded like slurred speech. When she went to see the patient at dinner time, she felt that the patient was confused and only answered 3 out of 5 questions correctly. Over the course of the night the patient also seemed to be breathing heavier than usual. The patient herself is states she does feel a little short of breath, but she denies chest pain or cough. She states that she did recently have a medication change but does not recall the name of the medicine that was restarted, for "shaking of her right hand." MD Complaint: altered mental status, confusion -: hour(s) Severity: moderate Consistency of Symptoms: getting worse Associated Symptoms: shortness of breath - Related Data Home Medications Medication Instructions Recorded Confirmed Levothyroxine Sodium [Synthroid] 25 mcg PO QAM 04/02/14 04/06/17 Omeprazole [PriLOSEC] 40 mg PO QAM 04/02/14 04/06/17 lamoTRIgine [LaMICtal] 25 mg PO QAM 01/28/16 04/06/17 Valsartan 320 mg PO QAM 03/05/16 04/06/17 Albuterol Sulfate [Proair Hfa] 2 puff INHALATION RT-Q6H PRN 03/06/16 04/06/17 Loperamide [Imodium] 2 mg PO TID PRN 03/06/16 07/19/16 Vortioxetine Hydrobromide 10 mg PO QAM 03/06/16 04/06/17 [Trintellix] amLODIPine BESYLATE [Norvasc] 10 mg PO DAILY 03/30/16 04/06/17 Doxepin [SINEquan] 20 mg PO HS 05/10/16 04/06/17 fentaNYL 75MCG/HR PATCH [Duragesic 1 applic TOPICAL Q72H 05/10/16 04/06/17 75MCG/HR] Baclofen [Lioresal] 10 mg PO BID 05/28/16 04/06/17 Cyanocobalamin (Vitamin B-12) 1,000 mcg PO QAM 05/28/16 04/06/17 [Vitamin B-12] Fluticasone Propionate [Flonase 1 spray EA NOSTRIL QAM 05/28/16 04/06/17 Allergy Relief] Ergocalciferol (Vitamin D2) 50,000 unit PO Q7D 07/18/16 04/06/17 [Vitamin D2] Previous Rx's Medication Instructions Recorded Gabapentin [Neurontin] 600 mg PO TID #60 cap 03/07/16 Allergies Allergy/AdvReac Type Severity Reaction Status Date / Time cefazolin sodium [From Ancef] Allergy Rash/Hives Verified 07/18/16 08:25 etodolac [From Lodine] Allergy Rash/Hives Verified 07/18/16 08:25 Iodinated Contrast- Oral and Allergy Rash/Hives Verified 07/18/16 08:25 IV Dye [Iodinated Contrast Media - IV Dye] Iodine and Iodide Containing Allergy Rash/Hives Verified 07/18/16 08:25 Produc levofloxacin [From Levaquin] Allergy Swelling Verified 07/18/16 08:25 NSAIDS (Non-Steroidal Allergy Rash/Hives Verified 07/18/16 08:25 Anti-Inflamma sulfamethoxazole AdvReac Confusion Verified 07/18/16 08:25 [From Bactrim] trimethoprim [From Bactrim] AdvReac Confusion Verified 07/18/16 08:25 Review of Systems ROS Statement: Those systems with pertinent positive or pertinent negative responses have been documented in the HPI. ROS Other: All systems not noted in ROS Statement are negative. Limitations: ROS unobtainable due to patients medical condition (Altered mental status) Constitutional: Reports: weakness. Denies: fever Respiratory: Reports: dyspnea. Denies: cough Cardiovascular: Denies: chest pain Gastrointestinal: Denies: abdominal pain, vomiting Musculoskeletal: Reports: back pain (Chronic) Neurological: Denies: headache Past Medical History Past Medical History: Eye Disorder, Fibromyalgia, GERD/Reflux, Hypertension, Osteoarthritis (OA), Thyroid Disorder Additional Past Medical History / Comment(s): macular degeneration and glaucoma merle eyes,axonal neuropathy, morbid obesity will be having sleep study Jan 2016. IBS-freq diarrhea, states hands shakey. PT RECIDES AT [facility] AND "[facility]" TAKES CARE OF PATIENTS MEDICATIONS. CONTACT # FOR "[facility]" #[phone]. , PT GUARDIAN IS AMY LOTT AND HIMSELF AND HIS DAUGHTER , ELIZABETH PROVIDE TRANSPORTATION TO PTS PAIN CLINIC APPTS. History of Any Multi-Drug Resistant Organisms: None Reported Past Surgical History: Adenoidectomy, Bariatric Surgery, Orthopedic Surgery, Tonsillectomy Additional Past Surgical History / Comment(s): GASTRIC SLEEVE 2009, PANNICULECTOMY,TRIGGER FINGER RELEASE,PAIN CLINIC PROCEDURE,EGD'S W/ DILATATION , laminnectomy Past Anesthesia/Blood Transfusion Reactions: Family History of Problems w/ Anesthesia, Motion Sickness Additional Past Anesthesia/Blood Transfusion Reaction / Comment(s): PT AND BROTHER STATES "PT HAS NARROW AIRWAY", /BROTHER HAS CONFUSION WITH VERSED Past Psychological History: Depression Smoking Status: Never smoker Past Alcohol Use History: None Reported Past Drug Use History: None Reported - Past Family History Mother Family Medical History: Cancer Additional Family Medical History / Comment(s): PERSONALITY DISORDER, ALCOHOLIC, ABUSIVE, pharyngeal cancer, kidney disease Father Family Medical History: Cancer Additional Family Medical History / Comment(s): PANCREAS Brother(s) Family Medical History: Renal Disease Additional Family Medical History / Comment(s): CHRONIC RENAL FAILURE,CIDP NEUROPATHY General Exam Limitations: no limitations General appearance: obese, other (Patient appears somnolent but is arousable to verbal stimuli) Head exam: Present: atraumatic, normocephalic Eye exam: Present: normal appearance. Absent: scleral icterus, conjunctival injection ENT exam: Present: mucous membranes dry Neck exam: Present: normal inspection, full ROM Respiratory exam: Present: normal lung sounds bilaterally. Absent: respiratory distress, wheezes, rales, rhonchi, stridor Cardiovascular Exam: Present: regular rate, normal rhythm, normal heart sounds. Absent: systolic murmur, diastolic murmur, rubs, gallop GI/Abdominal exam: Present: soft. Absent: distended, tenderness, guarding, rebound, rigid, mass Extremities exam: Present: normal inspection, normal capillary refill. Absent: pedal edema, calf tenderness Back exam: Present: normal inspection. Absent: CVA tenderness (R), CVA tenderness (L) Neurological exam: Present: altered, CN II-XII intact, other (Somnolent but arousable to voice.). Absent: motor sensory deficit Skin exam: Present: warm, dry, intact, normal color. Absent: rash Course Vital Signs 04/06/17 04/07/17 04/07/17 23:03 01:06 02:15 Temperature 97.3 F L Pulse Rate 66 51 L 50 L Respiratory 20 20 12 Rate Blood Pressure 198/143 91/41 94/52 O2 Sat by Pulse 90 L 97 98 Oximetry 04/07/17 04/07/17 04/07/17 02:40 02:50 03:00 Temperature 97 F L Pulse Rate Respiratory Rate Blood Pressure 97/55 95/50 O2 Sat by Pulse Oximetry Medical Decision Making - Lab Data Result diagrams: 04/06/17 23:30 04/06/17 23:30 Lab Results 04/06/17 04/06/17 04/06/17 Range/Units 23:30 23:30 23:30 WBC 12.7 H (3.8-10.6) k/uL RBC 4.75 (3.80-5.40) m/uL Hgb 13.2 (11.4-16.0) gm/dL Hct 42.3 (34.0-46.0) % MCV 89.1 (80.0-100.0) fL MCH 27.9 (25.0-35.0) pg MCHC 31.3 (31.0-37.0) g/dL RDW 14.6 (11.5-15.5) % Plt Count 318 (150-450) k/uL Neutrophils % 68 % Lymphocytes % 25 % Monocytes % 4 % Eosinophils % 2 % Basophils % 0 % Neutrophils # 8.6 H (1.3-7.7) k/uL Lymphocytes # 3.1 (1.0-4.8) k/uL Monocytes # 0.5 (0-1.0) k/uL Eosinophils # 0.2 (0-0.7) k/uL Basophils # 0.0 (0-0.2) k/uL Hypochromasia Slight PT (9.0-12.0) sec INR (<1.2) APTT (22.0-30.0) sec VBG pH (7.31-7.41) VBG pCO2 (37-51) mmHg VBG HCO3 (24-28) mmol/L Sodium (137-145) mmol/L Potassium (3.5-5.1) mmol/L Chloride (98-107) mmol/L Carbon Dioxide (22-30) mmol/L Anion Gap mmol/L BUN (7-17) mg/dL Creatinine (0.52-1.04) mg/dL Est GFR (MDRD) Af Amer (>60 ml/min/1.73 sqM) Est GFR (MDRD) Non-Af (>60 ml/min/1.73 sqM) Glucose (74-99) mg/dL Calcium (8.4-10.2) mg/dL Total Bilirubin (0.2-1.3) mg/dL AST (14-36) U/L ALT (9-52) U/L Alkaline Phosphatase (38-126) U/L Ammonia <9 (<30) umol/L Total Creatine Kinase 78 (30-135) U/L CK-MB (CK-2) 0.7 (0.0-2.4) ng/mL CK-MB (CK-2) Rel Index 0.9 Troponin I <0.012 (0.000-0.034) ng/mL Total Protein (6.3-8.2) g/dL Albumin (3.5-5.0) g/dL Urine Color Urine Appearance (Clear) Urine pH (5.0-8.0) Ur Specific [place] (1.001-1.035) Urine Protein (Negative) Urine Glucose (UA) (Negative) Urine Ketones (Negative) Urine Blood (Negative) Urine Nitrite (Negative) Urine Bilirubin (Negative) Urine Urobilinogen (<2.0) mg/dL Ur Leukocyte Esterase (Negative) Urine RBC (0-5) /hpf Urine WBC (0-5) /hpf Ur Squamous Epith Cells (0-4) /hpf Amorphous Sediment (None) /hpf Urine Bacteria (None) /hpf Hyaline Casts (0-2) /lpf Granular Casts (0) /lpf Urine Mucus (None) /hpf Urine Opiates Screen (NotDetected) Ur Oxycodone Screen (NotDetected) Urine Methadone Screen (NotDetected) Ur Propoxyphene Screen (NotDetected) Ur Barbiturates Screen (NotDetected) U Tricyclic Antidepress (NotDetected) Ur Phencyclidine Scrn (NotDetected) Ur Amphetamines Screen (NotDetected) U Methamphetamines Scrn (NotDetected) U Benzodiazepines Scrn (NotDetected) Urine Cocaine Screen (NotDetected) U Marijuana (THC) Screen (NotDetected) 04/06/17 04/06/17 04/06/17 Range/Units 23:30 23:30 23:58 WBC (3.8-10.6) k/uL RBC (3.80-5.40) m/uL Hgb (11.4-16.0) gm/dL Hct (34.0-46.0) % MCV (80.0-100.0) fL MCH (25.0-35.0) pg MCHC (31.0-37.0) g/dL RDW (11.5-15.5) % Plt Count (150-450) k/uL Neutrophils % % Lymphocytes % % Monocytes % % Eosinophils % % Basophils % % Neutrophils # (1.3-7.7) k/uL Lymphocytes # (1.0-4.8) k/uL Monocytes # (0-1.0) k/uL Eosinophils # (0-0.7) k/uL Basophils # (0-0.2) k/uL Hypochromasia PT 10.1 (9.0-12.0) sec INR 1.0 (<1.2) APTT 24.9 (22.0-30.0) sec VBG pH 7.38 (7.31-7.41) VBG pCO2 40 (37-51) mmHg VBG HCO3 23 L (24-28) mmol/L Sodium 141 (137-145) mmol/L Potassium 4.7 (3.5-5.1) mmol/L Chloride 100 (98-107) mmol/L Carbon Dioxide 29 (22-30) mmol/L Anion Gap 12 mmol/L BUN 39 H (7-17) mg/dL Creatinine 3.90 H (0.52-1.04) mg/dL Est GFR (MDRD) Af Amer 14 (>60 ml/min/1.73 sqM) Est GFR (MDRD) Non-Af 12 (>60 ml/min/1.73 sqM) Glucose 102 H (74-99) mg/dL Calcium 9.4 (8.4-10.2) mg/dL Total Bilirubin 0.8 (0.2-1.3) mg/dL AST 15 (14-36) U/L ALT 20 (9-52) U/L Alkaline Phosphatase 88 (38-126) U/L Ammonia (<30) umol/L Total Creatine Kinase (30-135) U/L CK-MB (CK-2) (0.0-2.4) ng/mL CK-MB (CK-2) Rel Index Troponin I (0.000-0.034) ng/mL Total Protein 7.5 (6.3-8.2) g/dL Albumin 4.3 (3.5-5.0) g/dL Urine Color Urine Appearance (Clear) Urine pH (5.0-8.0) Ur Specific [place] (1.001-1.035) Urine Protein (Negative) Urine Glucose (UA) (Negative) Urine Ketones (Negative) Urine Blood (Negative) Urine Nitrite (Negative) Urine Bilirubin (Negative) Urine Urobilinogen (<2.0) mg/dL Ur Leukocyte Esterase (Negative) Urine RBC (0-5) /hpf Urine WBC (0-5) /hpf Ur Squamous Epith Cells (0-4) /hpf Amorphous Sediment (None) /hpf Urine Bacteria (None) /hpf Hyaline Casts (0-2) /lpf Granular Casts (0) /lpf Urine Mucus (None) /hpf Urine Opiates Screen (NotDetected) Ur Oxycodone Screen (NotDetected) Urine Methadone Screen (NotDetected) Ur Propoxyphene Screen (NotDetected) Ur Barbiturates Screen (NotDetected) U Tricyclic Antidepress (NotDetected) Ur Phencyclidine Scrn (NotDetected) Ur Amphetamines Screen (NotDetected) U Methamphetamines Scrn (NotDetected) U Benzodiazepines Scrn (NotDetected) Urine Cocaine Screen (NotDetected) U Marijuana (THC) Screen (NotDetected) 04/07/17 Range/Units 00:25 WBC (3.8-10.6) k/uL RBC (3.80-5.40) m/uL Hgb (11.4-16.0) gm/dL Hct (34.0-46.0) % MCV (80.0-100.0) fL MCH (25.0-35.0) pg MCHC (31.0-37.0) g/dL RDW (11.5-15.5) % Plt Count (150-450) k/uL Neutrophils % % Lymphocytes % % Monocytes % % Eosinophils % % Basophils % % Neutrophils # (1.3-7.7) k/uL Lymphocytes # (1.0-4.8) k/uL Monocytes # (0-1.0) k/uL Eosinophils # (0-0.7) k/uL Basophils # (0-0.2) k/uL Hypochromasia PT (9.0-12.0) sec INR (<1.2) APTT (22.0-30.0) sec VBG pH (7.31-7.41) VBG pCO2 (37-51) mmHg VBG HCO3 (24-28) mmol/L Sodium (137-145) mmol/L Potassium (3.5-5.1) mmol/L Chloride (98-107) mmol/L Carbon Dioxide (22-30) mmol/L Anion Gap mmol/L BUN (7-17) mg/dL Creatinine (0.52-1.04) mg/dL Est GFR (MDRD) Af Amer (>60 ml/min/1.73 sqM) Est GFR (MDRD) Non-Af (>60 ml/min/1.73 sqM) Glucose (74-99) mg/dL Calcium (8.4-10.2) mg/dL Total Bilirubin (0.2-1.3) mg/dL AST (14-36) U/L ALT (9-52) U/L Alkaline Phosphatase (38-126) U/L Ammonia (<30) umol/L Total Creatine Kinase (30-135) U/L CK-MB (CK-2) (0.0-2.4) ng/mL CK-MB (CK-2) Rel Index Troponin I (0.000-0.034) ng/mL Total Protein (6.3-8.2) g/dL Albumin (3.5-5.0) g/dL Urine Color Yellow Urine Appearance Cloudy H (Clear) Urine pH 5.0 (5.0-8.0) Ur Specific [place] 1.020 (1.001-1.035) Urine Protein 1+ H (Negative) Urine Glucose (UA) Negative (Negative) Urine Ketones Negative (Negative) Urine Blood Small H (Negative) Urine Nitrite Negative (Negative) Urine Bilirubin 1+ H (Negative) Urine Urobilinogen 3.0 (<2.0) mg/dL Ur Leukocyte Esterase Trace H (Negative) Urine RBC 28 H (0-5) /hpf Urine WBC 4 (0-5) /hpf Ur Squamous Epith Cells 3 (0-4) /hpf Amorphous Sediment Rare H (None) /hpf Urine Bacteria Moderate H (None) /hpf Hyaline Casts 30 H (0-2) /lpf Granular Casts 39 (0) /lpf Urine Mucus Occasional H (None) /hpf Urine Opiates Screen Not Detected (NotDetected) Ur Oxycodone Screen Not Detected (NotDetected) Urine Methadone Screen Not Detected (NotDetected) Ur Propoxyphene Screen Not Detected (NotDetected) Ur Barbiturates Screen Detected H (NotDetected) U Tricyclic Antidepress Detected H (NotDetected) Ur Phencyclidine Scrn Not Detected (NotDetected) Ur Amphetamines Screen Not Detected (NotDetected) U Methamphetamines Scrn Not Detected (NotDetected) U Benzodiazepines Scrn Not Detected (NotDetected) Urine Cocaine Screen Not Detected (NotDetected) U Marijuana (THC) Screen Not Detected (NotDetected) - EKG Data -: EKG Interpreted by Mo EKG shows normal: sinus rhythm, axis (Normal), intervals (Normal), QRS complexes (Normal), ST-T waves (Normal) Rate: bradycardia (Rate approximately 57 bpm) Interpretation: normal EKG Disposition Clinical Impression: Acute renal failure (ARF), Uremic encephalopathy Disposition: ADMITTED IP TO THIS [facility] Condition: Poor
[2017-04-06 23:50] LABS: Basophils % (A) 0 %; Eosinophils # (A) 0.2 k/uL (0-0.7); Eosinophils % (A) 2 %; HCT 42.3 % (34.0-46.0); HGB 13.2 gm/dL (11.4-16.0); Hypochromasia Slight; Lymphocytes # (A) 3.1 k/uL (1.0-4.8); Lymphocytes % (A) 25 %; MCH 27.9 pg (25.0-35.0); MCHC 31.3 g/dL (31.0-37.0); MCV 89.1 fL (80.0-100.0); Mean Platelet Volume 6.8; Monocytes # (A) 0.5 k/uL (0-1.0); Monocytes % (A) 4 %; Neutrophils # (A) 8.6 k/uL (1.3-7.7); Neutrophils % (A) 68 %; Platelet Count 318 k/uL (150-450); RBC 4.75 m/uL (3.80-5.40); RDW 14.6 % (11.5-15.5); WBC 12.7 k/uL (3.8-10.6)
--- NOTE | 2017-04-06 23:56 | XR ---
EXAMINATION TYPE: XR chest 1V portable DATE OF EXAM: 04/06/2017 COMPARISON: 05/01/2016 HISTORY: Dizziness and weakness TECHNIQUE: Single frontal view of the chest is obtained. FINDINGS: Heart is enlarged. There is no gross heart failure. Thoracic aorta is atheromatous. Lungs are clear of consolidation. I see no definite pleural effusion. There are chest leads. IMPRESSION: Cardiomegaly. No heart failure. Heart appears increased compared to old exam.
[2017-04-06 23:57] LABS: Partial Thromboplastin Time 24.9 sec (22.0-30.0); Prothrombin Time 10.1 sec (9.0-12.0)
[2017-04-06 23:59] LABS: Albumin 4.3 g/dL (3.5-5.0); Calcium 9.4 mg/dL (8.4-10.2); Potassium 4.7 mmol/L (3.5-5.1); Total Bilirubin 0.8 mg/dL (0.2-1.3); Total Protein 7.5 g/dL (6.3-8.2)
--- NOTE | 2017-04-07 00:02 | CT ---
EXAMINATION TYPE: CT brain wo con DATE OF EXAM: 04/06/2017 COMPARISON: 03/04/2016 HISTORY: dizziness, weakness, lethargy CT DLP: 995.50 mGycm Automated exposure control for dose reduction was used. FINDINGS: There is some cerebral cortical atrophy. There is no mass effect nor midline shift. There is no sign of intracranial hemorrhage. The calvarium is intact. IMPRESSION: CEREBRAL ATROPHY. NO ACUTE INTRACRANIAL ABNORMALITY. NO CHANGE.
[2017-04-07] MEDS ORDERED: SODIUM CHLORIDE 0.9% 1,000 ML IV ONE ×2 (00:08→02:20)
[2017-04-07 00:10] LABS: Creatine Kinase 78 U/L (30-135)
[2017-04-07 00:14] LABS: VBG PH 7.38 (7.31-7.41)
[2017-04-07 00:23] LABS: Creatine Kinase MB 0.7 ng/mL (0.0-2.4); Troponin I <0.012 ng/mL (0.000-0.034)
[2017-04-07 00:39] LABS: Amorphous Sediment,Urine Rare /hpf; Appearance,Urine Cloudy (Clear); Bacteria,Urine Moderate /hpf; Bilirubin,Urine 1+ (Negative); Blood,Urine Small (Negative); Color,Urine Yellow; Glucose,Urine (UA) Negative (Negative); Granular Casts,Urine 39 /lpf (0); Hyaline Casts,Urine 30 /lpf (0-2); Ketones,Urine Negative (Negative); Leukocyte Esterase,Urine Trace (Negative); Mucus,Urine Occasional /hpf; Nitrite,Urine Negative (Negative); Protein,Urine 1+ (Negative); RBC,Urine 28 /hpf (0-5); Squamous Epithelial Cell,Urine 3 /hpf (0-4); WBC,Urine 4 /hpf (0-5)
[2017-04-07 00:46] LABS: Amphetamine Screen,Urine Not Detected (NotDetected); Barbiturate Screen,Urine Detected (NotDetected); Benzodiazepines Screen,Urine Not Detected (NotDetected); Cocaine Screen,Urine Not Detected (NotDetected); Methadone Screen, Urine Not Detected (NotDetected); Opiate Screen,Urine Not Detected (NotDetected); Oxycodone Screen, Urine Not Detected (NotDetected); Phencyclidine Screen,Urine Not Detected (NotDetected); Tricyclic Antidepressant,Urine Detected (NotDetected); Urn Cannabinoid Scrn Not Detected (NotDetected)
[2017-04-07] MEDS ORDERED: NALOXONE 0.4 MG/ML 1 ML VIAL IV PRN (00:53)
[2017-04-07] MEDS ORDERED: ACETAMINOPHEN TAB 325 MG TAB PO PRN (00:53)
[2017-04-07] MEDS ORDERED: LOPERAMIDE 2 MG CAP PO PRN (00:59)
[2017-04-07] MEDS ORDERED: ALBUTEROL NEBULIZED 2.5 MG/3 ML INHALATION PRN (00:59)
[2017-04-07] MEDS: LEVOTHYROXINE 25 MCG TAB PO SCH (06:50)
[2017-04-07] MEDS: SODIUM CHLORIDE 0.9% 1,000 ML IV SCH ×4 (07:56→18:30)
[2017-04-07] MEDS: HEPARIN SODIUM,PORCINE 5,000 UNIT/ML 1 ML VIAL SQ SCH ×3 (07:58→21:20)
[2017-04-07] MEDS: PANTOPRAZOLE 40 MG TABLET PO SCH (07:59)
[2017-04-07] MEDS: lamoTRIgine 25 MG TAB PO SCH (07:59)
[2017-04-07] MEDS: GABAPENTIN 300 MG CAP PO SCH ×2 (07:59→16:19)
[2017-04-07] MEDS: amLODIPine 10 MG TAB PO SCH (08:00)
[2017-04-07] MEDS: CYANOCOBALAMIN 500 MCG TAB PO SCH (08:00)
[2017-04-07] MEDS ORDERED: FLUTICASONE 50MCG/SPRAY NASAL 16GM EA NOSTRIL PRN (08:16)
[2017-04-07] MEDS ORDERED: VALSARTAN 160 MG TAB PO SCH (09:00)
[2017-04-07] MEDS ORDERED: FLUTICASONE 50MCG/SPRAY NASAL 16GM EA NOSTRIL SCH (09:00)
[2017-04-07] MEDS ORDERED: BACLOFEN 10 MG TAB PO SCH (09:00)
[2017-04-07] MEDS: NYSTATIN 100,000 UNIT/GM POWD 15 GM TOPICAL SCH ×2 (09:09→16:20)
--- NOTE | 2017-04-07 11:56 | P.NPCON ---
History of Present Illness - Reason for Consult Consult date: 04/07/17 acute renal failure - Chief Complaint Acute kidney injury. Fall accidental - History of Present Illness This patient is a 66-year-old woman who is seen in consultation for acute kidney injury. She came in with an accidental fall from her scooter and was on the floor may be for office hours not for too long. She was found to be somewhat confused and disoriented but has improved now. She states the fall was accidental there was no dizziness chest pain shortness of breath fever chills nausea vomiting diarrhea. No history of any bladder incontinence. Here in the hospital she does complain of some difficulty urinating. She is known with obesity, hypertension, irritable bowel syndrome, gastric sleeve surgery and laminectomy in the past. Creatinine was 1 on 12/14/2016 went up to 3.9 on admission. Other workup for confusion including computed tomography scan the brain and chemistries were all unremarkable. Drug screen was positive for barbiturates and tricyclic antidepressants. Past Medical History Past Medical History: Eye Disorder, Fibromyalgia, GERD/Reflux, Hypertension, Osteoarthritis (OA), Thyroid Disorder Additional Past Medical History / Comment(s): macular degeneration and glaucoma merle eyes,axonal neuropathy, morbid obesity will be having sleep study Jan 2016. IBS-freq diarrhea, states hands shakey. PT RECIDES AT [facility] AND "[facility]" TAKES CARE OF PATIENTS MEDICATIONS. CONTACT # FOR "[facility]" #[phone]. , PT GUARDIAN IS AMY LOTT AND HIMSELF AND HIS DAUGHTER , ELIZABETH PROVIDE TRANSPORTATION TO [facility] APPTS. History of Any Multi-Drug Resistant Organisms: None Reported Past Surgical History: Adenoidectomy, Bariatric Surgery, Orthopedic Surgery, Tonsillectomy Additional Past Surgical History / Comment(s): GASTRIC SLEEVE 2009, PANNICULECTOMY,TRIGGER FINGER RELEASE,PAIN CLINIC PROCEDURE,EGD'S W/ DILATATION , laminnectomy Past Anesthesia/Blood Transfusion Reactions: Family History of Problems w/ Anesthesia, Motion Sickness Additional Past Anesthesia/Blood Transfusion Reaction / Comment(s): PT AND BROTHER STATES "PT HAS NARROW AIRWAY", /BROTHER HAS CONFUSION WITH VERSED Past Psychological History: Depression Smoking Status: Never smoker Past Alcohol Use History: None Reported Past Drug Use History: None Reported - Past Family History Mother Family Medical History: Cancer Additional Family Medical History / Comment(s): PERSONALITY DISORDER, ALCOHOLIC, ABUSIVE, pharyngeal cancer, kidney disease Father Family Medical History: Cancer Additional Family Medical History / Comment(s): PANCREAS Brother(s) Family Medical History: Renal Disease Additional Family Medical History / Comment(s): CHRONIC RENAL FAILURE,CIDP NEUROPATHY Medications and Allergies Home Medications Medication Instructions Recorded Confirmed Type Levothyroxine Sodium [Synthroid] 25 mcg PO QAM 04/02/14 04/07/17 History Omeprazole [PriLOSEC] 40 mg PO QAM 04/02/14 04/07/17 History lamoTRIgine [LaMICtal] 25 mg PO QAM 01/28/16 04/07/17 History Valsartan 320 mg PO QAM 03/05/16 04/07/17 History Albuterol Sulfate [Proair Hfa] 2 puff INHALATION RT-Q6H PRN 03/06/16 04/07/17 History Loperamide [Imodium] 2 mg PO TID PRN 03/06/16 04/07/17 History Vortioxetine Hydrobromide 10 mg PO QAM 03/06/16 04/07/17 History [Trintellix] Gabapentin [Neurontin] 600 mg PO TID #60 cap 03/07/16 04/07/17 Rx amLODIPine BESYLATE [Norvasc] 10 mg PO DAILY 03/30/16 04/07/17 History Doxepin [SINEquan] 20 mg PO HS 05/10/16 04/07/17 History fentaNYL 75MCG/HR PATCH [Duragesic 1 applic TOPICAL Q72H 05/10/16 04/07/17 History 75MCG/HR] Baclofen [Lioresal] 10 mg PO BID 05/28/16 04/07/17 History Cyanocobalamin (Vitamin B-12) 1,000 mcg PO QAM 05/28/16 04/07/17 History [Vitamin B-12] Fluticasone Propionate [Flonase 1 spray EA NOSTRIL QAM PRN 05/28/16 04/07/17 History Allergy Relief] Ergocalciferol (Vitamin D2) 50,000 unit PO Q7D 07/18/16 04/07/17 History [Vitamin D2] Allergies Allergy/AdvReac Type Severity Reaction Status Date / Time cefazolin sodium [From Ancef] Allergy Rash/Hives Verified 04/07/17 11:06 etodolac [From Lodine] Allergy Rash/Hives Verified 04/07/17 11:06 Iodinated Contrast- Oral and Allergy Rash/Hives Verified 04/07/17 11:06 IV Dye [Iodinated Contrast Media - IV Dye] Iodine and Iodide Containing Allergy Rash/Hives Verified 04/07/17 11:06 Produc levofloxacin [From Levaquin] Allergy Swelling Verified 04/07/17 11:06 NSAIDS (Non-Steroidal Allergy Rash/Hives Verified 04/07/17 11:06 Anti-Inflamma sulfamethoxazole AdvReac Confusion Verified 04/07/17 11:06 [From Bactrim] trimethoprim [From Bactrim] AdvReac Confusion Verified 04/07/17 11:06 Physical Exam Vitals: Vital Signs Temp Pulse Pulse Resp BP BP Pulse Ox 04/07/17 07:03 98 04/07/17 07:00 96.8 F L 47 L 16 125/61 98 04/07/17 04:10 97.0 F L 60 16 167/115 95 04/07/17 03:00 97 F L 04/07/17 02:50 95/50 04/07/17 02:40 97/55 04/07/17 02:15 50 L 12 94/52 98 04/07/17 01:06 51 L 20 91/41 97 04/06/17 23:03 97.3 F L 66 20 198/143 90 L Intake and Output 04/06/17 04/07/17 04/07/17 22:59 06:59 14:59 Intake Total 120 Output Total 350 Balance -230 Intake: Oral 120 Output: Urine 350 Other: Voiding Method Bedpan Diaper # Voids 0 1 # Bowel Movements 0 0 Weight 150.139 kg On examination she is currently awake alert oriented. She is obese and looks like bedridden. She her admission blood pressure was 192/143 but subsequently is recorded in the 90s. This may be a difficult blood pressure. Because of her obesity her obesity. Her blood pressure may be somewhat difficult to obtain HEENT exam no JVP lymphadenopathy thyromegaly no carotid bruit neck is supple no facial asymmetry Heart sounds are unremarkable for any murmur rub gallop Abdomen soft nontender obese difficult to examine Lungs are clear to auscultation percussion but again because of obesity difficult exam Extremity exam reveals trace edema Neuro logically awake alert oriented but generalized weakness Bladder scan postvoid was 302 mL Results - Lab Results Most recent lab results Calcium 9.4 mg/dL (8.4-10.2) 04/06/17 23:30 04/06/17 23:30 04/06/17 23:30 Assessment and Plan Assessment: Impression. 1. Acute kidney injury from low blood pressure possibly, unsure of the blood pressure readings. Her creatinine was 1.01 12/14/2016 went up to 3.9 on admission. She had recently started on some medication for her hand tremors unchanged not sure of what it is. Possibility of neurogenic bladder is a consideration. Urinalysis unremarkable with 1+ proteinuria 28 rbc's 3 WBCs 2. Morbid obesity. 3. Transient mental status changes possibly from low blood pressure. 4. Gait instability with dependence on a scooter for mobility. Recommendation. 1 we will maintain IV fluids 75 mL of normal saline and hour. She was given 2 L bolus. 2. Hold blood pressure medications. She is on valsartan 320 mg, reduce the dose to 160 with hold orders for sys < 110. 3. BP cuff shoul dbe large on upper arm
[2017-04-07] MEDS ORDERED: NYSTATIN 100,000 UNIT/GM POWD 15 GM TOPICAL PRN (16:21)
--- NOTE | 2017-04-07 16:36 | XR ---
EXAMINATION TYPE: XR tibia fibula LT DATE OF EXAM: 04/07/2017 CLINICAL HISTORY: Left lower extremity pain status post fall TECHNIQUE: Two views of the left leg are obtained. Examination is somewhat suboptimal given patient habitus. COMPARISON: Left FINDINGS: There is no acute fracture or dislocation seen in the left tibia or fibula. The overlying soft tissue appears unremarkable. IMPRESSION: There is no acute fracture or dislocation seen in the tibia or fibula.
--- NOTE | 2017-04-07 16:38 | XR ---
EXAMINATION TYPE: XR femur LT DATE OF EXAM: 04/07/2017 CLINICAL HISTORY: Fall with pain. TECHNIQUE: Two views of the left femur are obtained. Examination is suboptimal given patient habitus . COMPARISON: None FINDINGS: No acute fracture subluxation is identified. There is an area of mineralization superior to the greater trochanter which could be related to heterotopic ossification or myositis ossificans. Ot her etiologies are not fully excluded but this is felt to be a benign entity. There is no acute fract ure or subluxation identified. No obvious interruption in the hip or knee joint is identified. IMPRESSION: No acute or fracture subluxation.
--- NOTE | 2017-04-07 16:40 | XR ---
EXAMINATION TYPE: XR Hip Complete LT DATE OF EXAM: 04/07/2017 CLINICAL HISTORY: Fall with pain. TECHNIQUE: AP and frogleg views of the left hip are obtained. COMPARISON: None. FINDINGS: No acute fracture subluxation is identified. There is a focus of mineralization identified within the soft tissue which is superior to the greater trochanter, this area measures 6.0 x 4.2 cm. It is felt to be a benign entity such as myositis ossificans. Other etiologies are not excluded. IMPRESSION: No acute fracture or subluxation.
--- NOTE | 2017-04-07 19:06 | HP ---
HISTORY AND PHYSICAL DATE OF ADMISSION: 04/07/2017 PRESENTING COMPLAINT: Acute confusion. HISTORY OF PRESENTING COMPLAINT: A 66-year-old patient Dr. Estrada whose chronic stable medical conditions include fibromyalgia, GERD, hypertension, osteoarthritis, axonal neuropathy, obesity, irritable bowel syndrome, developmental delay, gait dysfunction. The patient normally uses a wheelchair and is able to transfer herself to the bed. Patient became a bit confused, fell out of the wheelchair, was brought in here. The patient not able to give much of a history, though in the ER patient is found to have a BUN creatinine of 39/3.90, where just a few weeks ago the numbers were normal. The patient admitted for same. The patient does take quite a bit of pain medications. At this point patient's home medication list is not verified and I have just asked the nurse to get me the same. The patient is having some low back pain, though not too much, secondary to the fall. The patient does have chronic pain. REVIEW OF SYSTEMS: CONSTITUTIONAL: Tired. HEENT: None. RESPIRATORY: None. CARDIOVASCULAR: None. GASTROINTESTINAL: None. GENITOURINARY: Urinary incontinence. DERMATOLOGICAL: None. HEMATOLOGIC: None. LYMPHATIC: None. PSYCHIATRY: Continued lethargic. NEUROLOGICAL: None. MUSCULOSKELETAL: Low back pain. PAST MEDICAL HISTORY: Fibromyalgia, GERD, hypertension, osteoarthritis, axonal neuropathy, obesity, irritable bowel syndrome, developmental delay, gait dysfunction. PAST SURGICAL HISTORY: Adenoidectomy, bariatric surgery, orthopedic surgery, tonsillectomy, gastric sleeve, panniculectomy, trigger finger release, pain clinic procedures, EGD with dilatation, laminectomy. PSYCH HISTORY: Developmentally disabled with depression. SOCIALLY: Does not smoke or drink alcohol alcohol. Lives by herself. FAMILY HISTORY: Personality disorder, pharyngeal cancer, kidney disease. HOME MEDICATIONS: 1. Mysoline 50 mg q.h.s. 2. Lamictal 25 mg p.o. daily. 3. Bentyl 25-mcg patch. 4. Norvasc 10 mg p.o. daily. 5. Trintellix 10 mg p.o. daily. 6. Valsartan 325 mg p.o. daily. 7. Prilosec 40 mg p.o. daily. 8. Imodium 2 mg q.i.d. p.r.n. 9. Synthroid 25 mcg a day. 10.Neurontin 600 mg p.o. t.i.d. 11.Flonase 1 spray each nostril q.a.m. p.r.n. 12.Vitamin D2 50,000 units q.7 days. 13.Doxepin 20 mg q.h.s. 14.Vitamin B12 1000 mcg daily. 15.Baclofen 10 mg p.o. b.i.d. 16.ProAir 2 puffs every 6 hours p.r.n. ALLERGIES: To CEFAZOLIN, KETORALAC, IV CONTRAST DYE, LEVAQUIN, NSAIDS, BACTRIM. EXAMINATION: VITAL SIGNS: On presentation, temperature 97.3, pulse 66, respirations 20, blood pressure 91/41, pulse ox 97% on 2L. GENERAL APPEARANCE: Morbidly obese, BMI 66.1. Lying in bed, lethargic. EYES: Pupils equal. Conjunctivae normal. HEENT: Oral cavity: Dry mucous membranes. NECK: Short thick. JVD unable to assess. RESPIRATORY: Effort increased. LUNGS: Distant breath sounds. CARDIOVASCULAR: Heart sounds muffled. No edema. ABDOMEN: Soft, nontender. Liver and spleen not palpable. LYMPHATIC: No lymph nodes palpable in neck or axillae. PSYCHIATRY: Patient is able answer simple questions. NEUROLOGICAL: Pupils equal. No facial asymmetry. Moving all 4 limbs. MUSCULOSKELETAL: Mild tenderness in the lumbar spine area. No major tenderness. INVESTIGATION: White count 12.7, hemoglobin 13.2. Potassium 4.7, BUN 39, creatinine 3.90. UA showing trace leuko esterase. Urine drug screen positive for barbiturates and tricyclics. ASSESSMENT: 1. Acute metabolic encephalopathy from renal failure and the fact that patient is on Neurontin, likely prerenal. Acute tubular necrosis component cannot be ruled out. It may be noted that the patient is only on valsartan. 2. Chronic fibromyalgia. 3. Gastroesophageal reflux disease. 4. Essential hypertension. 5. Primary osteoarthritis in multiple joints. 6. Chronic axonal neuropathy. 7. Morbid obesity, BMI 66.9. 8. Irritable bowel syndrome. 9. Developmental delay. 10.Gait dysfunction with medical debility, able to transfer herself. PLAN: Will cut back on the baclofen to 5 mg 3 times a day. Will drop the Duragesic patch down to 25 mcg. Neurontin dose will be cut back in the setting of renal failure. The patient is hypotensive. Diovan will be discontinued. Patient will be given IV fluids. MMODL / IJN: [id number] /
[2017-04-07] MEDS: BACLOFEN 10 MG TAB PO SCH (21:18)
[2017-04-07] MEDS: PRIMIDONE 50 MG TAB PO SCH (21:19)
[2017-04-07] MEDS: DOXEPIN 10 MG CAP PO SCH (21:19)
[2017-04-08] MEDS: LEVOTHYROXINE 25 MCG TAB PO SCH (05:43)
[2017-04-08] MEDS: SODIUM CHLORIDE 0.9% 1,000 ML IV SCH ×3 (05:44→17:38)
[2017-04-08] MEDS ORDERED: VALSARTAN 160 MG TAB PO SCH (09:00)
[2017-04-08] MEDS ORDERED: ERGOCALCIFEROL 50,000 UNIT CAP PO SCH (09:00)
[2017-04-08 09:42] LABS: Calcium 8.8 mg/dL (8.4-10.2); Potassium 4.6 mmol/L (3.5-5.1)
[2017-04-08] MEDS: PANTOPRAZOLE 40 MG TABLET PO SCH (09:44)
[2017-04-08] MEDS: GABAPENTIN 100 MG CAP PO SCH ×4 (09:44→20:52)
[2017-04-08] MEDS: amLODIPine 10 MG TAB PO SCH (09:44)
[2017-04-08] MEDS: CYANOCOBALAMIN 500 MCG TAB PO SCH (09:44)
[2017-04-08] MEDS: HEPARIN SODIUM,PORCINE 5,000 UNIT/ML 1 ML VIAL SQ SCH ×3 (09:45→20:52)
[2017-04-08] MEDS: lamoTRIgine 25 MG TAB PO SCH (09:45)
[2017-04-08] MEDS: NON-FORMULARY DRUG (Vortioxetine Hydrobromide [Trintellix] 10 MG) PO SCH (12:41)
--- NOTE | 2017-04-08 12:48 | P.PN ---
Subjective Progress Note Date: 04/08/17 Principal diagnosis: This 66-year-old female is seen because of acute kidney injury after she fell from her scooter. She is not on the floor for to long. Acute kidney injury was deemed to be from low blood pressure possibly. Her obesity makes it difficult to accurately determine her blood pressure. She did respond to IV fluids with creatinine which was 1 on 12/14/2016, and then went up to 3.9 on admission and now is down to 1.39. She has no dizziness and never had any. No nausea vomiting no fever chills cough. She did not take any nonsteroidals. Complaints. She's been having difficulty ambulating because of bad knees and has been using a scooter Objective - Vital Signs Vital signs: Vital Signs Temp 97.5 F L 04/08/17 07:00 Pulse 61 04/08/17 07:00 Resp 20 04/08/17 07:00 BP 160/65 04/08/17 07:00 Pulse Ox 97 04/08/17 07:00 Intake & Output 04/07/17 04/08/17 04/08/17 18:59 06:59 18:59 Intake Total 360 240 Output Total 950 Balance -590 240 Weight 150.139 kg Intake: Oral 360 240 Output: Urine 650 Post Void Residual 300 Other: Voiding Method Bedside Commode Bedside Commode Diaper Diaper # Voids 1 2 # Bowel Movements 0 0 On examination she is currently awake alert oriented. She is obese and is bedridden HEENT exam no JVP lymphadenopathy thyromegaly neck is supple no facial asymmetry Heart sounds are unremarkable for any murmur rub gallop Abdomen soft nontender obese difficult to examine Lungs are clear to auscultation percussion but again because of obesity difficult exam Extremity exam reveals trace edema Neuro logically awake alert oriented but generalized weakness - Labs CBC & Chem 7: 04/06/17 23:30 04/08/17 08:14 Labs: Abnormal Lab Results - Last 24 Hours (Table) 04/08/17 Range/Units 08:14 Chloride 111 H (98-107) mmol/L BUN 25 H (7-17) mg/dL Creatinine 1.39 H (0.52-1.04) mg/dL Assessment and Plan Assessment: Impression. 1. Acute kidney injury from low blood pressure possibly, unsure of the blood pressure readings because of the obesity and difficulty in getting adequate blood pressure readings. Her creatinine was 1.01 12/14/2016 went up to 3.9 on admission. Started on IV fluids and Creatinine improved to 1.39 this morning. Possibility of neurogenic bladder is a consideration. Bladder scan had shown 302 mL of urine yesterday. We did not elect to put a Lo catheter and watch her. Urinalysis unremarkable with 1+ proteinuria 28 rbc's 3 WBCs 2. Morbid obesity. 3. Transient mental status changes possibly from low blood pressure. 4. Gait instability with dependence on a scooter for mobility. Recommendation. 1 discontinue IV fluid. She can be discharged from nephrological perspective. we will maintain IV fluids 75 mL of normal saline and hour. She was given 2 L bolus. 2. Continue valsartan at 160 mg down from 320 mg, him for a little higher blood pressure than usual just so that a falsely high pressure may be recorded because of difficulty in obtaining her blood pressure because of the obesity 3. BP cuff shoul dbe large on upper arm
[2017-04-08] MEDS: BACLOFEN 10 MG TAB PO SCH ×3 (13:22→20:51)
--- NOTE | 2017-04-08 20:43 | PN ---
PROGRESS NOTE DATE OF SERVICE: 04/08/17 ATTENDING NOTE: Patient seen and examined by me. I discussed with nurse practitioner Ms. Beltran. Patient admitted with acute metabolic encephalopathy from acute renal failure. Doing a bit better today, tolerating a diet. The patient also pain medicines were cut back. Diuretics were cut back. PHYSICAL EXAMINATION: Temperature 97.6, pulse 83, blood pressure 102/53, pulse ox 95% on 2 L. Lying in bed more awake. Lungs decreased breath sounds. INVESTIGATIONS: Potassium 4.6, BUN 25, creatinine 1.39. ASSESSMENT: Acute metabolic encephalopathy from renal failure, some medication induced and some from renal failure. PLAN: We will keep the patient on current medication and dosage. Blood pressure still running a bit on the lower side. We will keep the patient off the Diovan. The patient remains on normal saline. Check electrolytes in the morning. MMODL / IJN: [id number] /
[2017-04-08] MEDS: DOXEPIN 10 MG CAP PO SCH (20:51)
[2017-04-08] MEDS: PRIMIDONE 50 MG TAB PO SCH (20:52)
--- NOTE | 2017-04-08 21:37 | P.PN ---
Progress Note - Text Progress Note Date: 04/08/17 DATE OF SERVICE: 04/08/2017 PRESENTING COMPLAINT: Acute confusion HISTORY OF PRESENT ILLNESS: 66-year-old female who presented to the emergency department after she sustained a fall from her wheelchair was found by a friend. Diagnostics revealed patient have a BUN and creatinine of 39 over 3.90 where a few weeks ago her numbers were normal. Admitted for acute metabolic encephalopathy secondary to acute renal failure. INTERVAL HISTORY: 04/08/2017: Lying in bed appears comfortable. Kidney numbers have improved, nephrology has signed off the case.Able to answer simple straightforward questions, tolerating her diet, last BM prior to admission, able to get about with max assistance and a wheelchair or scooter. REVIEW OF SYSTEMS: Done for constitutional ,cardiovascular, GI, pulmonary with relevant findings as above. CURRENT MEDICATIONS Tylenol, albuterol, Norvasc, baclofen, vitamin B12, Sinequan, fentanyl, gabapentin, Flonase, heparin, Lamictal, Synthroid, Imodium, Narcan, nystatin, Protonix, Mysoline. PHYSICAL EXAM VITAL SIGNS: Temperature 97.5, pulse 61, respiratory rate 20, blood pressure 160/65, oxygen saturation 97% on 2 L. GENERAL APPEARANCE: Lying in bed, not in distress. HEENT: Normocephalic, Pupils equal. Conjunctiva normal. JVD not raised. Mass not palpable.: RESPIRATORY: Respiratory effort increased. Lungs distant to auscultation. CARDIOVASCULAR: First and second sounds normal. No edema. ABDOMEN: Soft. Liver and spleen not palpable. No tenderness. No mass palpable. PSYCHIATRY: Able to answer simple questions MUSCULOSKELETAL: Mild tenderness in the lumbar spine area, INVESTIGATIONS: Chloride 111, BUN 25, creatinine 1.39 ASSESSMENT: -Acute metabolic encephalopathy from renal failure and the fact that the patient is on Neurontin, likely prerenal. Acute tubular necrosis component cannot be ruled out. -Chronic fibromyalgia. -Gastroesophageal reflux disease. -Essential hypertension. -Primary osteoarthritis of multiple joints. -Chronic axonal neuropathy -Morbid obesity body mass index 66.9. -Irritable bowel syndrome -Developed mental delay. -Gait dysfunction with medical debility, able to transfer self. PLAN: BUN and creatinine have responded well to IV fluids, Hold valsartan due to low blood pressures. Remains on normal saline. Follow labs. Plan of care discussed at the bedside we will continue to follow closely. [employer] SPECIALIST statement: Patient was seen and examined by nurse practitioner Zoey Beltran and all elements of the case discussed with attending Dr. Sahu
[2017-04-08 23:28] VITALS: RESP 16
[2017-04-09] MEDS: LEVOTHYROXINE 25 MCG TAB PO SCH (06:14)
[2017-04-09 08:09] VITALS: BP 126/80; PULSE 62; TEMP 98
[2017-04-09 08:17] LABS: Basophils % (A) 0 %; Eosinophils # (A) 0.2 k/uL (0-0.7); Eosinophils % (A) 4 %; HCT 38.9 % (34.0-46.0); Lymphocytes # (A) 2.3 k/uL (1.0-4.8); Lymphocytes % (A) 40 %; MCH 27.3 pg (25.0-35.0); MCHC 30.7 g/dL (31.0-37.0); MCV 88.7 fL (80.0-100.0); Mean Platelet Volume 7.1; Monocytes # (A) 0.2 k/uL (0-1.0); Monocytes % (A) 4 %; Neutrophils # (A) 2.9 k/uL (1.3-7.7); Neutrophils % (A) 50 %; Platelet Count 262 k/uL (150-450); RBC 4.39 m/uL (3.80-5.40); RDW 14.6 % (11.5-15.5); WBC 5.7 k/uL (3.8-10.6)
[2017-04-09 08:38] LABS: Anion Gap 9 mmol/L; Blood Urea Nitrogen 16 mg/dL (7-17); Calcium 8.9 mg/dL (8.4-10.2); Carbon Dioxide 26 mmol/L (22-30); Chloride 110 mmol/L (98-107); Glucose 87 mg/dL (74-99); Potassium 4.3 mmol/L (3.5-5.1); Sodium 145 mmol/L (137-145)
[2017-04-09] MEDS: amLODIPine 10 MG TAB PO SCH (08:57)
[2017-04-09] MEDS: PANTOPRAZOLE 40 MG TABLET PO SCH (08:57)
[2017-04-09] MEDS: lamoTRIgine 25 MG TAB PO SCH (08:58)
[2017-04-09] MEDS: BACLOFEN 10 MG TAB PO SCH (08:58)
[2017-04-09] MEDS: HEPARIN SODIUM,PORCINE 5,000 UNIT/ML 1 ML VIAL SQ SCH (08:58)
[2017-04-09] MEDS: GABAPENTIN 100 MG CAP PO SCH (08:58)
[2017-04-09] MEDS: CYANOCOBALAMIN 500 MCG TAB PO SCH (08:58)
[2017-04-09] MEDS: SODIUM CHLORIDE 0.9% 1,000 ML IV SCH (08:59)
[2017-04-09] MEDS: NON-FORMULARY DRUG (Vortioxetine Hydrobromide [Trintellix] 10 MG) PO SCH (08:59)
--- NOTE | 2017-04-10 06:09 | DS ---
DISCHARGE SUMMARY DATE OF ADMISSION: 04/07/2017 DATE OF DISCHARGE: 04/09/2017 FINAL DIAGNOSES: 1. Acute metabolic encephalopathy from acute renal failure. 2. Acute metabolic encephalopathy, likely from pain medications. 3. Acute renal failure from decreased oral intake, likely prerenal. 4. Chronic fibromyalgia. 5. Gastroesophageal reflux disease. 6. Essential hypertension. 7. Primary osteoarthritis multiple joints. 8. Chronic axonal neuropathy. 9. Morbid obesity, body mass index 66.9. 10.Irritable bowel syndrome. 11.Developmental delay. 12.Gait dysfunction with medical debility, able to transfer from wheelchair to the bed. HOSPITAL COURSE: This patient came with altered mental status and acute renal failure. The patient's creatinine was 3.9 and by the time of discharge, it did come down to 1.09. The patient's blood pressure is running very low, hence the valsartan was discontinued. Continued on the amlodipine. The patient's Duragesic patch dose was cut back from 75 to 25, and also dose of Neurontin was cut back to half. The patient tolerating her diet well and doing well. Care was discussed with the patient. On examination, A/O x3. Lungs are clear. HOME GO MEDICATIONS: 1. Synthroid 25 mcg a day. 2. Prilosec 40 mg a day. 3. Lamictal 25 mg a day. 4. ProAir 2 puffs q.6 p.r.n. 5. Imodium 2 mg p.o. t.i.d. p.r.n. 6. Trintellix 10 mg p.o. daily. 7. Norvasc 10 mg p.o. daily. 8. Sinequan 20 mg p.o. q.h.s. 9. Vitamin B12, 1000 mcg p.o. daily. 10.Flonase 1 spray each nostril q. daily p.r.n. 11.Vitamin D2, 50,000 units p.o. q.7 days. 12.Mysoline new dose of 25 mg 3 times a day. 13.Baclofen 5 mg p.o. t.i.d. 14.Neurontin 300 mg p.o. t.i.d. new dose. 15.Duragesic patch 25 mcg new dose. Follow up with Dr. Estrada in 3 days. CONSULTATIONS: Dr. Simeon from nephrology. MMODL / IJN: [id number] /
--- NOTE | 2017-04-14 19:49 | PN ---
PROGRESS NOTE DATE OF SERVICE: 04/09/2017. The patient is seen for followup for acute kidney injury. She is actually going home today. She was hypotensive and her blood pressure is now improved with IV fluids. Serum creatinine was 3.9, it is down to 1.09 now. EXAMINATION: Blood pressure was 126/80, heart rate 62 per minute. She is afebrile. Examination of the heart S1, S2. Examination of the lungs decreased breath sounds at the bases. Abdomen is soft, nontender. Lower extremity shows no significant edema. LAB: Show sodium 145, potassium 4.3, serum creatinine 1.09. ASSESSMENT: 1. Acute kidney injury, prerenal, associated with hypotension, hypovolemia, currently improved. 2. Chronic kidney disease NKF stage 2-3. 3. Obesity. 4. Confusion related to hypotension and hypoperfusion. PLAN: The patient is stable from Nephrology standpoint. Follow up in the office. MMODL / IJN: [id number] /
== END 2017-04-09 14:35 | disposition home or self-care (01) | DRG 682 ==
LOC: EC 23:01 → 4MS4W 04-07 01:01
PROVIDERS: ADMIT Hospitalist; ATTEND Hospitalist
DX: N17.0 Acute kidney failure with tubular necrosis (principal); G92 Toxic encephalopathy; I95.9 Hypotension, unspecified; E66.01 Morbid (severe) obesity due to excess calories; G62.9 Polyneuropathy, unspecified; Z68.44 Body mass index [BMI] 60.0-69.9, adult; K21.9 Gastro-esophageal reflux disease without esophagitis; M79.7 Fibromyalgia; I10 Essential (primary) hypertension; M19.91 Primary osteoarthritis, unspecified site; K58.9 Irritable bowel syndrome, unspecified; M54.5 Low back pain; F32.9 Major depressive disorder, single episode, unspecified; H35.30 Unspecified macular degeneration; R62.50 Unspecified lack of expected normal physiological development in childhood; T39.95XA Adverse effect of unspecified nonopioid analgesic, antipyretic and antirheumatic, initial encounter; H40.9 Unspecified glaucoma; R25.1 Tremor, unspecified; R26.2 Difficulty in walking, not elsewhere classified; Z79.899 Other long term (current) drug therapy; Z88.8 Allergy status to other drugs, medicaments and biological substances; Z88.1 Allergy status to other antibiotic agents; Z91.041 Radiographic dye allergy status; Z80.8 Family history of malignant neoplasm of other organs or systems; Z81.8 Family history of other mental and behavioral disorders; Z98.84 Bariatric surgery status; Z90.89 Acquired absence of other organs; W05.0XXA Fall from non-moving wheelchair, initial encounter
CPT/HCPCS: 36415; 51701; 70450; 71045; 73502; 80048; 80053; 80306; 81001; 82140; 82550; 82553; 82803; 84484; 85025; 85610; 85730; 93005; 94760; 96360; 96361; 99285

== ENCOUNTER → 2017-05-01 | Outpatient (CLI) | payer MEDICARE, BC ==
[2017-05-01 11:42] VITALS: BP 143/87; PULSE 76; RESP 18; TEMP 97.8
--- NOTE | 2017-05-01 12:11 | P.PN ---
Progress Note - Text Progress Note Date: 05/01/17 This is a 66-year-old female who is morbidly obese with chronic lower back pain. The patient had multiple interventional pain procedures previously and she did well with the lumbar medial branch RFA which was done about one year ago. The patient comes back today with increasing pain on the right side of her lower back. She does have a history of lumbar fusion with hardware placement previously. The patient is alert oriented 3 no apparent distress. She came in with her guardian. She has tenderness on the right side of her lumbar spine in the paravertebral area.. She has well-healed scar from her previous lumbar fusion. The patient gets [place] 5 mg from her primary care physician. I think the patient may benefit from getting right lumbar medial branch RFA around her fusion levels. The procedure was explained to the patient and her questions were answered. The patient also has an appointment to see Dr. Bass by the end of April.
== END | disposition home or self-care (01) ==
LOC: PNWHC3 11:00
PROVIDERS: ATTEND Anesthesiology
DX: G89.29 Other chronic pain (principal); M54.5 Low back pain; Z79.891 Long term (current) use of opiate analgesic; Z98.890 Other specified postprocedural states
CPT/HCPCS: 99211

== ENCOUNTER 2017-06-04 07:51 | Day surgery (SDC) | payer MEDICARE, BC ==
[2017-06-01 09:05] VITALS: BMI 66.9
[2017-06-04 09:28] VITALS: TEMP 97.8
[2017-06-04] MEDS ORDERED: LIDOCAINE 1% 20 ML VIAL (10MG/ML) FOR IV START INTRADERMA ONE (09:30)
[2017-06-04] MEDS ORDERED: LACTATED RINGERS 1,000 ML IV ONE (09:30)
--- NOTE | 2017-06-04 10:17 | P.PCN ---
Date of Procedure: 06/04/17 Surgeon: Abdi Abbott Condition: stable Disposition: PACU Description of Procedure: PREOPERATIVE DIAGNOSIS: Lumbar spondylosis without myelopathy, supermorbid obesity POSTOPERATIVE DIAGNOSIS: Lumbar spondylosis without myelopathy,supermorbid obesity PROCEDURES : Radiofrequency thermocoagulation,L2-4, L3-L4, and L5-S1 medial branch, with fluoroscopic guidance. The RFA was done 2 levels above and 2 levels below her lumbar fusion which was between L3 and L4 ANESTHESIA: IV moderate conscious sedation with versed and fentanyl and local infiltration with lidocaine 1% 5 ml EBL: Minimal PROCEDURE INDICATION: The patient with low back pain secondary to lumbar facet arthropathy who had more than 50% relief of her pain with previous diagnostic lumbar medial branch block with bupivacaine. PROCEDURE DESCRIPTION / TECHNIQUE: The patient was seen and identified in the preoperative area. Risks, benefits, complications, including but not limited to risk of infection ,bleeding , allergic reactions to the medications and no complete pain relief , and alternatives were discussed with the patient, the patient agreed to proceed with the procedure and signed the consent. IV was started. Vital signs remained stable throughout the procedure. Patient was taken to the OR and time out was completed. The patient was placed in the prone position on the procedure table. The lumber area was prepped and draped in the usual sterile fashion. . Vital signs were closely monitored during the procedure .IV sedation was used during the procedure to decrease patients anxiety. The patient had lumbar fusion between L3 and L4 and the RFA was done two levels above and 2 levels below this fusion The target points were identified as follows: For the L5-S1 level which corresponds to the dorsal ramus of L5 the target point was at the superior medial aspect of the sacral ala on the RT side of the spine on the AP view of fluoroscopy and for the L1, L2, and L3 medial branches the target points were at the connection between the transverse process and the superior articular process of L1,L2, L3, respectively on the Rt oblique view of fluoroscopy. skin was marked, and localized with 1% lidocaineat these points. Subsequently, an [id number] radiofrequency needles with a 10-mm curved active tips were advanced guided by fluoroscopy to each of the target points mentioned above in a superior medial direction to get the active tips as parallel as possible to the medial branches tracks. AP, oblique, and lateral views of fluoroscopy were used to verify needle tips position. Each level then underwent motor testing at 2.5 Hz and 0 to 3 volt with local stimulation, but no radicular symptoms down the legs. Thereafter radiofrequency thermocoagulation at 80 degrees celsius for 90 seconds after injecting 1 ml of PF Marcaine 0.5%(3 mls) with 40 mg of Kenalog. At the end of the procedure, the skin was cleansed and bandages were applied. COMPLICATIONS: No acute complications. DISPOSITION / PLANS: The patient was placed in a supine position and transferred to the recovery area in a stable condition for observation and was discharged from the recovery room after meeting discharge criteria. Home discharge instructions given to the patient by the staff. The patient was reexamined prior to discharge. The patient will schedule a follow up in the clinic in 2-4 weeks.
[2017-06-04 10:26] VITALS: RESP 16
--- NOTE | 2017-06-04 10:28 | FL ---
EXAMINATION TYPE: FL guided pain mgmt statistic DATE OF EXAM: 06/04/2017 HISTORY: Flouroscopy time 48 seconds of fluoroscopy provided. IMPRESSION: 1. Fluoroscopy time.
[2017-06-04 10:39] VITALS: BP 115/68; PULSE 63
[2017-06-04] MEDS ORDERED: IV FLUID CONTINUATION 1,000 ML IV ONE (10:50)
== END 2017-06-04 12:02 | disposition home or self-care (01) ==
LOC: ORPAIN 07:51
PROVIDERS: ATTEND Anesthesiology
DX: M47.816 Spondylosis without myelopathy or radiculopathy, lumbar region (principal); E66.01 Morbid (severe) obesity due to excess calories; Z68.44 Body mass index [BMI] 60.0-69.9, adult; I10 Essential (primary) hypertension; E11.9 Type 2 diabetes mellitus without complications; Z88.6 Allergy status to analgesic agent; Z88.1 Allergy status to other antibiotic agents; Z91.048 Other nonmedicinal substance allergy status
CPT/HCPCS: 64635; 64636 ×2; J2250; J3301; J3010; 99152; 99153

== ENCOUNTER 2017-06-15 09:43 | Emergency (ER) | payer MEDICARE ==
[2017-06-15] MEDS ORDERED: SODIUM CHLORIDE 0.9% 1,000 ML IV STA (09:46)
[2017-06-15 10:19] LABS: Appearance,Urine Turbid (Clear); Bacteria,Urine Occasional /hpf; Bilirubin,Urine Negative (Negative); Blood,Urine Moderate (Negative); Color,Urine Yellow; Glucose,Urine (UA) Negative (Negative); Ketones,Urine Negative (Negative); Leukocyte Esterase,Urine Large (Negative); Mucus,Urine Occasional /hpf; Nitrite,Urine Negative (Negative); Protein,Urine 1+ (Negative); RBC,Urine 28 /hpf (0-5); Specific Gravity,Urine 1.012 (1.001-1.035); Squamous Epithelial Cell,Urine 1 /hpf (0-4); Urobilinogen,Urine <2.0 mg/dL (<2.0); WBC,Urine 7 /hpf (0-5)
[2017-06-15 10:34] LABS: Basophils # (A) 0.1 k/uL (0-0.2); Basophils % (A) 0 %; Eosinophils # (A) 0.2 k/uL (0-0.7); Eosinophils % (A) 1 %; HCT 43.9 % (34.0-46.0); HGB 13.4 gm/dL (11.4-16.0); Lymphocytes # (A) 2.6 k/uL (1.0-4.8); Lymphocytes % (A) 17 %; MCH 26.2 pg (25.0-35.0); MCHC 30.6 g/dL (31.0-37.0); MCV 85.4 fL (80.0-100.0); Monocytes # (A) 0.7 k/uL (0-1.0); Monocytes % (A) 4 %; Neutrophils # (A) 11.7 k/uL (1.3-7.7); Neutrophils % (A) 76 %; Platelet Count 369 k/uL (150-450); RBC 5.14 m/uL (3.80-5.40); RDW 14.2 % (11.5-15.5); WBC 15.4 k/uL (3.8-10.6)
[2017-06-15] MEDS ORDERED: MORPHINE SULFATE/PF 10MG/10ML VL IVP STA (10:39)
--- NOTE | 2017-06-15 10:40 | XR ---
Abdomen HISTORY: Pain Frontal view of the abdomen on 2 images Lung bases are clear. Exam is somewhat limited by patient body habitus. There is no evident pneumoper itoneum or bowel obstruction. Renal calcifications are present bilaterally, calcification superimpose d over the left kidney measures 9 mm. Calcification over the right renal hilum measures 1 cm. Postop change noted in the lower lumbar spine. Possible additional calcification of the left kidney may be v ascular. Calcifications within the pelvis may be vascular. IMPRESSION: Bilateral nephrolithiasis. Indeterminate pelvic calcifications.
[2017-06-15 10:55] LABS: Albumin 3.8 g/dL (3.5-5.0); Calcium 9.4 mg/dL (8.4-10.2); Potassium 4.1 mmol/L (3.5-5.1); Total Protein 6.9 g/dL (6.3-8.2)
--- NOTE | 2017-06-15 11:15 | ED ---
General Adult HPI - General Chief complaint: Urogenital Stated complaint: Abdominal pain Time Seen by Provider: 06/15/17 09:46 Source: patient, EMS, RN notes reviewed Mode of arrival: EMS Limitations: no limitations - History of Present Illness Initial comments: Is a 66-year-old female presents emergency Department chief complaint of left flank pain. Patient states that symptoms started this morning. She has a history kidney stones and feels somewhat. Patient states that the pain slowly wraps around. She denies any vomiting states she's nauseated. Patient denies any known vaginal bleeding or vaginal discharge. She states her was some blood in her urine. She also has some dysuria. Patient has chest pain, shortness breath, headache, dizziness, confusion. She did have a hospitalization in March for encephalopathy. Patient family member in the room states that she is at her normal baseline. - Related Data Home Medications Medication Instructions Recorded Confirmed Levothyroxine Sodium [Synthroid] 25 mcg PO QAM 04/02/14 06/15/17 Albuterol Sulfate [Proair Hfa] 2 puff INHALATION RT-Q6H PRN 03/06/16 06/15/17 Vortioxetine Hydrobromide 10 mg PO QAM 03/06/16 06/15/17 [Trintellix] amLODIPine BESYLATE [Norvasc] 5 mg PO DAILY 03/30/16 06/15/17 Doxepin [SINEquan] 20 mg PO HS 05/10/16 06/15/17 Cyanocobalamin (Vitamin B-12) 1,000 mcg PO QAM 05/28/16 06/15/17 [Vitamin B-12] Fluticasone Propionate [Flonase 2 spray EA NOSTRIL QAM PRN 05/28/16 06/15/17 Allergy Relief] Baclofen [Lioresal] 10 mg PO TID 05/01/17 06/15/17 Clotrimazole/Betameth Lotion 1 applic TOPICAL BID 05/01/17 06/15/17 [Lotrisone] HYDROcodone/APAP 5-325MG [[place] 2 tab PO BID PRN 05/01/17 06/15/17 5-325] Loratadine [Claritin] 10 mg PO DAILY 05/01/17 06/15/17 Oyster Shell Calcium 500 mg PO BID 05/01/17 06/15/17 Simvastatin [Zocor] 20 mg PO HS 05/01/17 06/15/17 Triamcinolone 0.1% Cream [Kenalog] 1 applic TOPICAL DAILY 05/01/17 06/15/17 Ergocalciferol [Vitamin D2] 50,000 unit PO TH 06/15/17 06/15/17 Loperamide [Imodium] 2 mg PO TID PRN 06/15/17 06/15/17 Ranitidine HCl [Zantac] 150 mg PO BID 06/15/17 06/15/17 lamoTRIgine [LaMICtal] 25 mg PO DAILY 06/15/17 06/15/17 Previous Rx's Medication Instructions Recorded Gabapentin [Neurontin] 300 mg PO TID #60 cap 04/09/17 fentaNYL 25MCG/HR PATCH [Duragesic 1 patch TRANSDERM Q72H #7 patch 04/09/17 25MCG/HR] Cephalexin [Keflex] 500 mg PO Q6HR #20 cap 06/15/17 Hydrocodone/Acetaminophen [[place] 1 tab PO Q6HR PRN #15 tab 06/15/17 5-325] Nitrofurantoin Monohyd/M-Cryst 100 mg PO Q12HR #14 cap 06/15/17 [Macrobid] Sulfamethox-Tmp 800-160Mg [Bactrim 1 each PO Q12HR #10 tab 06/15/17 Ds] Allergies Allergy/AdvReac Type Severity Reaction Status Date / Time cefazolin sodium [From Ancef] Allergy Rash/Hives Verified 06/15/17 10:25 etodolac [From Lodine] Allergy Rash/Hives Verified 06/15/17 10:25 Iodinated Contrast- Oral and Allergy Rash/Hives Verified 06/15/17 10:25 IV Dye [Iodinated Contrast Media - IV Dye] Iodine and Iodide Containing Allergy Rash/Hives Verified 06/15/17 10:25 Produc levofloxacin [From Levaquin] Allergy Swelling Verified 06/15/17 10:25 NSAIDS (Non-Steroidal Allergy Rash/Hives Verified 06/15/17 10:25 Anti-Inflamma sulfamethoxazole AdvReac Confusion Verified 06/15/17 10:25 [From Bactrim] trimethoprim [From Bactrim] AdvReac Confusion Verified 06/15/17 10:25 Review of Systems ROS Statement: Those systems with pertinent positive or pertinent negative responses have been documented in the HPI. ROS Other: All systems not noted in ROS Statement are negative. Past Medical History Past Medical History: Eye Disorder, Fibromyalgia, GERD/Reflux, Hypertension, Osteoarthritis (OA), Thyroid Disorder Additional Past Medical History / Comment(s): macular degeneration and glaucoma merle eyes,axonal neuropathy, morbid obesity will be having sleep study Jan 2016. IBS-freq diarrhea, states hands shakey. PT RECIDES AT [facility] AND "[facility]" TAKES CARE OF PATIENTS MEDICATIONS. CONTACT # FOR "[facility]" #[phone]. , PT GUARDIAN IS AMY LOTT AND HIMSELF AND HIS DAUGHTER , [facility] PROVIDE TRANSPORTATION TO PTS PAIN CLINIC APPTS. History of Any Multi-Drug Resistant Organisms: None Reported Past Surgical History: Adenoidectomy, Bariatric Surgery, Orthopedic Surgery, Tonsillectomy Additional Past Surgical History / Comment(s): GASTRIC SLEEVE 2009, PANNICULECTOMY,TRIGGER FINGER RELEASE,PAIN CLINIC PROCEDURE,EGD'S W/ DILATATION , laminnectomy Past Anesthesia/Blood Transfusion Reactions: Family History of Problems w/ Anesthesia, Motion Sickness Additional Past Anesthesia/Blood Transfusion Reaction / Comment(s): PT AND BROTHER STATES "PT HAS NARROW AIRWAY", /BROTHER HAS CONFUSION WITH VERSED Past Psychological History: Depression Smoking Status: Never smoker - Past Family History Mother Family Medical History: Cancer Additional Family Medical History / Comment(s): PERSONALITY DISORDER, ALCOHOLIC, ABUSIVE, pharyngeal cancer, kidney disease Father Family Medical History: Cancer Additional Family Medical History / Comment(s): PANCREAS Brother(s) Family Medical History: Renal Disease Additional Family Medical History / Comment(s): CHRONIC RENAL FAILURE,CIDP NEUROPATHY General Exam Limitations: no limitations General appearance: alert, in no apparent distress Head exam: Present: atraumatic, normocephalic, normal inspection Neck exam: Present: normal inspection. Absent: tenderness, meningismus, lymphadenopathy Respiratory exam: Present: normal lung sounds bilaterally. Absent: respiratory distress, wheezes, rales, rhonchi, stridor Cardiovascular Exam: Present: regular rate, normal rhythm, normal heart sounds. Absent: systolic murmur, diastolic murmur, rubs, gallop, clicks GI/Abdominal exam: Present: soft, normal bowel sounds. Absent: distended, tenderness, guarding, rebound, rigid Back exam: Present: CVA tenderness (L) (Minimal). Absent: CVA tenderness (R) Skin exam: Present: warm, dry, intact, normal color. Absent: rash Course Vital Signs 06/15/17 10:05 Temperature 98.1 F Pulse Rate 68 Respiratory 16 Rate Blood Pressure 175/84 O2 Sat by Pulse 96 Oximetry Medical Decision Making - Medical Decision Making 66-year-old female presents emergency Department chief complaint of left flank pain. Patient has hematuria consistent with kidney stones. Patient 7 mild white cells in her urine will be given antibiotics for 5 days. She'll follow- up return for any worsening symptoms. - Lab Data Result diagrams: 06/15/17 10:15 06/15/17 10:15 Lab Results 06/15/17 06/15/17 06/15/17 Range/Units 10:00 10:15 10:15 WBC 15.4 H (3.8-10.6) k/uL RBC 5.14 (3.80-5.40) m/uL Hgb 13.4 (11.4-16.0) gm/dL Hct 43.9 (34.0-46.0) % MCV 85.4 (80.0-100.0) fL MCH 26.2 (25.0-35.0) pg MCHC 30.6 L (31.0-37.0) g/dL RDW 14.2 (11.5-15.5) % Plt Count 369 (150-450) k/uL Neutrophils % 76 % Lymphocytes % 17 % Monocytes % 4 % Eosinophils % 1 % Basophils % 0 % Neutrophils # 11.7 H (1.3-7.7) k/uL Lymphocytes # 2.6 (1.0-4.8) k/uL Monocytes # 0.7 (0-1.0) k/uL Eosinophils # 0.2 (0-0.7) k/uL Basophils # 0.1 (0-0.2) k/uL Sodium 145 (137-145) mmol/L Potassium 4.1 (3.5-5.1) mmol/L Chloride 106 (98-107) mmol/L Carbon Dioxide 26 (22-30) mmol/L Anion Gap 13 mmol/L BUN 23 H (7-17) mg/dL Creatinine 1.16 H (0.52-1.04) mg/dL Est GFR (CKD-EPI)AfAm 57 (>60 ml/min/1.73 sqM) Est GFR (CKD-EPI)NonAf 50 (>60 ml/min/1.73 sqM) Glucose 107 H (74-99) mg/dL Calcium 9.4 (8.4-10.2) mg/dL Total Bilirubin 1.0 (0.2-1.3) mg/dL AST 12 L (14-36) U/L ALT 14 (9-52) U/L Alkaline Phosphatase 101 (38-126) U/L Total Protein 6.9 (6.3-8.2) g/dL Albumin 3.8 (3.5-5.0) g/dL Amylase 52 (30-110) U/L Lipase 98 (23-300) U/L Urine Color Yellow Urine Appearance Turbid H (Clear) Urine pH 7.0 (5.0-8.0) Ur Specific [place] 1.012 (1.001-1.035) Urine Protein 1+ H (Negative) Urine Glucose (UA) Negative (Negative) Urine Ketones Negative (Negative) Urine Blood Moderate H (Negative) Urine Nitrite Negative (Negative) Urine Bilirubin Negative (Negative) Urine Urobilinogen <2.0 (<2.0) mg/dL Ur Leukocyte Esterase Large H (Negative) Urine RBC 28 H (0-5) /hpf Urine WBC 7 H (0-5) /hpf Ur Squamous Epith Cells 1 (0-4) /hpf Urine Bacteria Occasional H (None) /hpf Urine Mucus Occasional H (None) /hpf Disposition Clinical Impression: Hematuria, Nephrolithiasis Disposition: HOME SELF-CARE Condition: Stable Instructions: Kidney Stones (ED) Additional Instructions: Please return to the Emergency Department if symptoms worsen or any other concerns. Prescriptions: Cephalexin [Keflex] 500 mg PO Q6HR #20 cap Hydrocodone/Acetaminophen [[place]orndike 5-325] 1 tab PO Q6HR PRN #15 tab PRN Reason: Pain Nitrofurantoin Monohyd/M-Cryst [Macrobid] 100 mg PO Q12HR #14 cap Sulfamethox-Tmp 800-160Mg [Bactrim Ds] 1 each PO Q12HR #10 tab Referrals: Miguel Estrada DO [Primary Care Provider] - 1-2 days Time of Disposition: 11:15
[2017-06-15 11:39] VITALS: BP 136/95; PULSE 79; RESP 18; TEMP 98
== END 2017-06-15 12:34 | disposition home or self-care (01) ==
LOC: EC 09:43
DX: N20.0 Calculus of kidney (principal); K21.9 Gastro-esophageal reflux disease without esophagitis; I10 Essential (primary) hypertension; E07.9 Disorder of thyroid, unspecified; K58.9 Irritable bowel syndrome, unspecified; F32.9 Major depressive disorder, single episode, unspecified; E66.01 Morbid (severe) obesity due to excess calories; Z68.44 Body mass index [BMI] 60.0-69.9, adult; Z79.899 Other long term (current) drug therapy; Z88.2 Allergy status to sulfonamides; Z88.1 Allergy status to other antibiotic agents; Z91.041 Radiographic dye allergy status; Z88.8 Allergy status to other drugs, medicaments and biological substances; Z88.6 Allergy status to analgesic agent; Z98.84 Bariatric surgery status
CPT/HCPCS: 36415; 80053; 82150; 83690; 85025; 81001; 74018; 99284; 96374; 96361 ×2; J2270

== ENCOUNTER → 2017-09-05 | Outpatient (CLI) | payer MEDICARE ==
[2017-09-05 13:53] LABS: Basophils # (A) 0.1 k/uL (0-0.2); Basophils % (A) 0 %; Eosinophils # (A) 0.2 k/uL (0-0.7); Eosinophils % (A) 2 %; HCT 41.7 % (34.0-46.0); HGB 13.6 gm/dL (11.4-16.0); Lymphocytes # (A) 2.2 k/uL (1.0-4.8); Lymphocytes % (A) 18 %; MCH 28.2 pg (25.0-35.0); MCHC 32.5 g/dL (31.0-37.0); MCV 86.8 fL (80.0-100.0); Mean Platelet Volume 6.8; Monocytes # (A) 0.5 k/uL (0-1.0); Monocytes % (A) 4 %; Neutrophils # (A) 8.8 k/uL (1.3-7.7); Neutrophils % (A) 74 %; Platelet Count 357 k/uL (150-450); RDW 14.8 % (11.5-15.5); WBC 11.9 k/uL (3.8-10.6)
[2017-09-05 14:04] LABS: Partial Thromboplastin Time 24.9 sec (22.0-30.0); Prothrombin Time 9.8 sec (9.0-12.0)
[2017-09-05 14:21] LABS: Calcium 9.6 mg/dL (8.4-10.2)
[2017-09-05 14:24] LABS: Amorphous Sediment,Urine Occasional /hpf; Appearance,Urine Cloudy (Clear); Bacteria,Urine Moderate /hpf; Bilirubin,Urine Negative (Negative); Blood,Urine Moderate (Negative); Color,Urine Light Yellow; Glucose,Urine (UA) Negative (Negative); Hyaline Casts,Urine 1 /lpf (0-2); Ketones,Urine Negative (Negative); Leukocyte Esterase,Urine Moderate (Negative); Mucus,Urine Rare /hpf; Nitrite,Urine Negative (Negative); Protein,Urine Trace (Negative); RBC,Urine 18 /hpf (0-5); Specific Gravity,Urine 1.008 (1.001-1.035); Squamous Epithelial Cell,Urine 1 /hpf (0-4); Urobilinogen,Urine <2.0 mg/dL (<2.0); WBC,Urine 3 /hpf (0-5)
--- NOTE | 2017-09-05 14:26 | XR ---
EXAMINATION TYPE: XR chest 2V DATE OF EXAM: 09/05/2017 COMPARISON: 04/06/2017 HISTORY: Preoperative clearance. TECHNIQUE: Frontal and lateral views of the chest are obtained. FINDINGS: There is no focal air space opacity, pleural effusion, or pneumothorax seen. The cardiac silhouette size is upper limits of normal. The osseous structures are intact. Mild acromioclavicula r arthropathy is noted. IMPRESSION: No acute cardiopulmonary process.
== END | disposition home or self-care (01) ==
LOC: LABPAT 12:28
PROVIDERS: ATTEND Orthopaedic Surgery Orthopaedic Surgery of the Spine
DX: Z18.12 Retained nonmagnetic metal fragments (principal); Z01.812 Encounter for preprocedural laboratory examination; I65.8 Occlusion and stenosis of other precerebral arteries
CPT/HCPCS: 36415; 71046; 80048; 81001; 85025; 85610; 85730; 87070

== ENCOUNTER → 2017-09-20 | Outpatient (CLI) | payer MEDICARE ==
[2017-09-20 10:49] LABS: Albumin 3.8 g/dL (3.5-5.0); Calcium 8.7 mg/dL (8.4-10.2); Total Bilirubin 0.9 mg/dL (0.2-1.3); Total Protein 6.5 g/dL (6.3-8.2)
--- NOTE | 2017-09-20 11:46 | US ---
EXAMINATION TYPE: US kidneys/renal and bladder DATE OF EXAM: 09/20/2017 COMPARISON: NONE CLINICAL HISTORY: R80.9 Proteinuria. Proteinuria, morbidly obese patient EXAM MEASUREMENTS: Right Kidney: 10.6 x 5.7 x 5.4 cm Left Kidney: 9.5 x 5.3 x 5.4 cm Technically difficult and limited study due to patient body habitus Right Kidney: hydronephrosis extending into calyces Left Kidney: no hydronephrosis or masses seen Bladder: wnl Bilateral Jets seen: no Incidental finding: multiple stones seen within gallbladder with largest measuring 2.0cm IMPRESSION: 1. Moderate right-sided hydronephrosis.
== END | disposition home or self-care (01) ==
LOC: RADUSWWP 09:59
PROVIDERS: ATTEND Internal Medicine Nephrology
DX: N13.30 Unspecified hydronephrosis (principal); R80.9 Proteinuria, unspecified
CPT/HCPCS: 36415; 76770; 80053

== ENCOUNTER → 2017-10-02 | Outpatient (CLI) | payer MEDICARE ==
--- NOTE | 2017-10-02 08:58 | CT ---
EXAMINATION TYPE: CT abdomen pelvis wo con DATE OF EXAM: 10/02/2017 COMPARISON: None HISTORY: Per patient Abnormal Ultrasound. Recurrent UTI CT DLP: 2455.2 mGycm Examination of the solid and hollow viscera is limited given the lack of contrast. FINDINGS: LUNG BASES: No evidence for nodule. No evidence for infiltrate. LIVER/GB: Numerous large gallstones identified.. No space-occupying hepatic lesion. PANCREAS: No pancreatic mass identified. No inflammatory process seen. SPLEEN: No evidence for splenomegaly. No intrasplenic lesions seen. ADRENALS: No adrenal nodules identified. No evidence for thickening. KIDNEYS: Right UPJ calculus measuring 8.6 mm in greatest transverse dimension resulting in moderate r ight-sided hydronephrosis. No additional right-sided renal calculi seen. Calculus lower pole left kid aarti nonobstructing measuring 6.4 mm.. BOWEL: Appendix has a normal appearance. No evidence of bowel obstruction. No inflammatory process. Lymph nodes: No evidence for adenopathy greater than 1 cm. Abdominal aorta: Atheromatous changes seen. No evidence for aneurysm. Genital organs: No significant abnormality. Other: Postoperative and degenerative changes lumbar spine. IMPRESSION: 1. Right UPJ calculus resulting in moderate right-sided hydronephrosis. 2. Nonobstructing left-sided nephrolithiasis.
== END | disposition home or self-care (01) ==
LOC: RADCTMAIN 08:13
PROVIDERS: ATTEND Urology
DX: N13.2 Hydronephrosis with renal and ureteral calculous obstruction (principal)
CPT/HCPCS: 74176

== ENCOUNTER → 2017-10-17 | Outpatient (CLI) | payer MEDICARE ==
[2017-10-17 10:41] LABS: Basophils % (A) 0 %; Eosinophils # (A) 0.3 k/uL (0-0.7); Eosinophils % (A) 3 %; HCT 40.3 % (34.0-46.0); HGB 12.2 gm/dL (11.4-16.0); Hypochromasia Slight; Lymphocytes % (A) 25 %; MCH 26.5 pg (25.0-35.0); MCHC 30.3 g/dL (31.0-37.0); MCV 87.3 fL (80.0-100.0); Mean Platelet Volume 6.5; Monocytes # (A) 0.4 k/uL (0-1.0); Monocytes % (A) 5 %; Neutrophils # (A) 5.2 k/uL (1.3-7.7); Neutrophils % (A) 64 %; Platelet Count 347 k/uL (150-450); RBC 4.62 m/uL (3.80-5.40); WBC 8.1 k/uL (3.8-10.6)
[2017-10-17 10:45] LABS: Calcium 9.2 mg/dL (8.4-10.2); Potassium 3.7 mmol/L (3.5-5.1)
== END | disposition home or self-care (01) ==
LOC: LABWHC1 09:25
PROVIDERS: ATTEND Urology
DX: Z01.812 Encounter for preprocedural laboratory examination (principal); R35.0 Frequency of micturition; R31.29 Other microscopic hematuria; N20.0 Calculus of kidney; E03.9 Hypothyroidism, unspecified; Z79.899 Other long term (current) drug therapy
CPT/HCPCS: 36415; 80048; 85025; 87086

== ENCOUNTER 2017-11-20 10:06 | Day surgery (SDC) | payer MEDICARE ==
[2017-11-14 15:58] VITALS: BMI 64.0
[~2017-11-20 10:06] MED LIST changes: +DEXAMETHASONE SOD PHOSPHATE 10 MG/ML 1 ML VIAL IV ONE; +LEVOFLOXACIN 500MG-D5W PMX 500 MG in DEXTROSE/WATER 1 100ML.BAG IVPB ONE; +MIDAZOLAM 2 MG/2 ML VIAL IV PRN; +ONDANSETRON 4 MG/2 ML VIAL IVP ONE; +ceFAZolin IN SWFI 2 GM/20 ML SYRINGE IVP ONE; +fentaNYL (PF) 50 MCG/ML 2 ML AMP IV PRN; +metroNIDAZOLE-NS PMX 500 MG in SALINE 1 100ML.BAG IVPB ONE
[2017-11-20 10:43] VITALS: TEMP 99.2
--- NOTE | 2017-11-20 11:34 | P.GSHP ---
History of Present Illness H&P Date: 11/20/17 Chief Complaint: Right renal calculus, recurrent UTI The patient is a 67-year-old white female scheduled to undergo back surgery. Her preoperative evaluation revealed evidence of right hydronephrosis. She ultimately underwent a computed tomography scan, revealing moderate right hydronephrosis due to an 8.6 mm right UPJ calculus. The scan also showed a nonobstructing 6.4 mm left lower pole renal calculus. Alternative treatment options were reviewed, and the patient elected to undergo ureteroscopic removal of the calculus. However, she has had chronic UTIs, for which she is currently taking Levaquin. In view of this, she will undergo placement of a right ureteral stent, with the hopes that this will improve the ability to eradicate the UTI and allow ureteroscopy to be safely performed. - Constitutional Constitutional: Denies fever - Cardiovascular Cardiovascular: Reports high blood pressure - Genitourinary (Female) Genitourinary: Reports hematuria, Reports kidney stones, Denies dysuria - Psychiatric Psychiatric: Reports depression Past Medical History Past Medical History: Eye Disorder, Fibromyalgia, GERD/Reflux, Hypertension, Osteoarthritis (OA), Thyroid Disorder Additional Past Medical History / Comment(s): macular degeneration and glaucoma merle eyes,axonal neuropathy, morbid obesity will be having sleep study Jan 2016. IBS-freq diarrhea, states hands shakey. PT RECIDES AT [facility] AND "[facility]" TAKES CARE OF PATIENTS MEDICATIONS. CONTACT # FOR "[facility]" #[phone]. , PT GUARDIAN IS AMY LOTT AND HIMSELF AND HIS DAUGHTER , [facility] PROVIDE TRANSPORTATION TO [facility]TS PAIN CLINIC APPTS. History of Any Multi-Drug Resistant Organisms: None Reported Past Surgical History: Adenoidectomy, Bariatric Surgery, Orthopedic Surgery, Tonsillectomy Additional Past Surgical History / Comment(s): GASTRIC SLEEVE 2009, PANNICULECTOMY,TRIGGER FINGER RELEASE,PAIN CLINIC PROCEDURE,EGD'S W/ DILATATION , laminnectomy. Past Anesthesia/Blood Transfusion Reactions: Family History of Problems w/ Anesthesia, Motion Sickness Additional Past Anesthesia/Blood Transfusion Reaction / Comment(s): PT AND BROTHER STATES "PT HAS NARROW AIRWAY", /BROTHER HAS CONFUSION WITH VERSED Smoking Status: Never smoker - Past Family History Mother Family Medical History: Cancer, CVA/TIA Additional Family Medical History / Comment(s): PERSONALITY DISORDER, ALCOHOLIC, ABUSIVE, pharyngeal cancer, kidney disease Father Family Medical History: Cancer, Coronary Artery Disease (CAD) Additional Family Medical History / Comment(s): PANCREAS,CABG Brother(s) Family Medical History: AICD/Pacemaker Additional Family Medical History / Comment(s): PACEMAKER,lbbb,bradycardia Medications and Allergies Home Medications Medication Instructions Recorded Confirmed Type Levothyroxine Sodium [Synthroid] 25 mcg PO QAM 04/02/14 11/20/17 History Vortioxetine Hydrobromide 10 mg PO QAM 03/06/16 11/20/17 History [Trintellix] Doxepin [SINEquan] 20 mg PO HS 05/10/16 11/14/17 History Cyanocobalamin (Vitamin B-12) 1,000 mcg PO QAM 05/28/16 11/14/17 History [Vitamin B-12] Gabapentin [Neurontin] 300 mg PO TID #60 cap 04/09/17 11/14/17 Rx fentaNYL 25MCG/HR PATCH [Duragesic 1 patch TRANSDERM Q72H #7 patch 04/09/17 Rx 25MCG/HR] Baclofen [Lioresal] 5 mg PO TID 05/01/17 11/14/17 History Loratadine [Claritin] 10 mg PO DAILY 05/01/17 11/14/17 History Oyster Shell Calcium 500 mg PO BID 05/01/17 11/14/17 History Simvastatin [Zocor] 20 mg PO HS 05/01/17 11/14/17 History Ranitidine HCl [Zantac] 150 mg PO BID 06/15/17 11/20/17 History Ergocalciferol [Vitamin D2] 50,000 unit PO TH 09/06/17 11/15/17 History Ferrous Sulfate [Feosol] 325 mg PO DAILY 09/06/17 11/15/17 History Hydrocodone/Acetaminophen [[place] 1 tab PO BID PRN 09/06/17 11/20/17 History 5-325] lamoTRIgine [LaMICtal] 100 mg PO DAILY 09/06/17 11/20/17 History Allergies Allergy/AdvReac Type Severity Reaction Status Date / Time cefazolin sodium [From [facility]] Allergy Rash/Hives Verified 11/20/17 10:25 etodolac [From Lodine] Allergy Rash/Hives Verified 11/20/17 10:25 Iodinated Contrast- Oral and Allergy Rash/Hives Verified 11/20/17 10:25 IV Dye [Iodinated Contrast Media - IV Dye] Iodine and Iodide Containing Allergy Rash/Hives Verified 11/20/17 10:25 Produc levofloxacin [From Levaquin] Allergy Swelling Verified 11/20/17 10:25 NSAIDS (Non-Steroidal Allergy Rash/Hives Verified 11/20/17 10:25 Anti-Inflamma sulfamethoxazole AdvReac Confusion Verified 11/20/17 10:25 [From Bactrim] trimethoprim [From Bactrim] AdvReac Confusion Verified 11/20/17 10:25 Surgical - Exam Vital Signs Temp Pulse Resp BP Pulse Ox 99.2 F 79 18 163/72 93 L 11/20/17 10:41 11/20/17 10:41 11/20/17 10:41 11/20/17 10:41 11/20/17 10:41 - General well developed, well nourished, no distress - Neck no masses, trachea midline - Respiratory normal respiratory effort, clear to auscultation - Cardiovascular Rhythm: regular Abnormal Heart Sounds: no systolic murmur, no diastolic murmur, no rub, no S3 Gallop, no S4 Gallop, no click, no other - Abdomen Abdomen: soft, non tender, no guarding, no rigid, no rebound Results - Imaging CT scan - abdomen: report reviewed, image reviewed Assessment and Plan (1) Hydronephrosis with renal and ureteral calculous obstruction Current Visit: No Status: Acute Code(s): N13.2 - HYDRONEPHROSIS WITH RENAL AND URETERAL CALCULOUS OBSTRUCTION SNOMED Code(s): 650249484 Plan: Cystoscopy, right ureteral stent insertion. The procedure has been reviewed in detail with the patient and her brother, who is an deputy commonwealth's attorney. The rationale for the procedure was discussed, as well as potential risks. These include anesthesia, bleeding, ureteral injury, and inability to successfully place the stent.
[2017-11-20] MEDS ORDERED: PROPOFOL 10 MG/ML 20 ML VIAL IV ONE (12:11)
[2017-11-20] MEDS ORDERED: LIDOCAINE 1% INJ 10MG/ML (20 ML MDV) ONE (12:11)
--- NOTE | 2017-11-20 13:10 | P.OP ---
Date of Procedure: 11/20/17 Preoperative Diagnosis: Right renal calculus Postoperative Diagnosis: Same Procedure(s) Performed: Cystoscopy, right ureteral stent insertion Anesthesia: HI Surgeon: Jamey Delgado Estimated Blood Loss (ml): 0 IV fluids (ml): 400 Pathology: none sent Condition: stable Disposition: PACU Indications for Procedure: The patient is a 67-year-old white female scheduled to undergo back surgery. Her preoperative evaluation revealed evidence of right hydronephrosis. She ultimately underwent a computed tomography scan, revealing moderate right hydronephrosis due to an 8.6 mm right UPJ calculus. The scan also showed a nonobstructing 6.4 mm left lower pole renal calculus. Alternative treatment options were reviewed, and the patient elected to undergo ureteroscopic removal of the calculus. However, she has had chronic UTIs, for which she is currently taking Levaquin. In view of this, she will undergo placement of a right ureteral stent, with the hopes that this will improve the ability to eradicate the UTI and allow ureteroscopy to be safely performed. Operative Findings: Right lower pole renal calculus Description of Procedure: The patient was taken to the operating room and placed in the dorsolithotomy position, with legs supported in Charles stirrups. The external genitalia was prepped and draped sterilely. The 30 lens was used to introduce the 22-Mauritanian Stortz cystoscopic sheath through the urethra and into the bladder under direct vision. The bladder was examined in its entirety. Both ureteral orifices were of normal anatomic location and configuration, and clear urine effluxed from both. No tumors or foreign bodies were seen. A 0.035 inch Glidewire was passed through the cystoscope. The right ureteral orifice was cannulated, and the Glidewire was slowly advanced up to the renal pelvis. At this time, it was evident that the calculus had refluxed back into a lower pole calyx and was no longer obstructing at the ureteropelvic junction. A 24 cm, 6-Mauritanian double-J ureteral stent was placed over the wire. Proper stent positioning was verified fluoroscopically and endoscopically. The bladder was emptied and the cystoscope removed. The patient tolerated the procedure well was taken to the recovery room in stable condition.
[2017-11-20 13:16] VITALS: RESP 16
[2017-11-20 14:00] VITALS: BP 146/85; PULSE 62
--- NOTE | 2017-11-20 14:53 | FL ---
Fluoroscopy INDICATION: Pain FINDINGS: Fluoroscopy time: 18 seconds. Images obtained: 1. IMPRESSIONS: 1. Documentation of fluoroscopy.
== END 2017-11-20 15:05 | disposition home or self-care (01) ==
LOC: OR 10:06
PROVIDERS: ATTEND Urology
DX: N13.2 Hydronephrosis with renal and ureteral calculous obstruction (principal); K21.9 Gastro-esophageal reflux disease without esophagitis; I10 Essential (primary) hypertension; M19.90 Unspecified osteoarthritis, unspecified site; M79.7 Fibromyalgia; N39.0 Urinary tract infection, site not specified; E07.9 Disorder of thyroid, unspecified; E66.01 Morbid (severe) obesity due to excess calories; E78.5 Hyperlipidemia, unspecified; Z98.84 Bariatric surgery status; Z88.2 Allergy status to sulfonamides; Z88.6 Allergy status to analgesic agent; Z88.3 Allergy status to other anti-infective agents; Z91.041 Radiographic dye allergy status; Z82.49 Family history of ischemic heart disease and other diseases of the circulatory system; Z79.899 Other long term (current) drug therapy; Z68.44 Body mass index [BMI] 60.0-69.9, adult
CPT/HCPCS: 52332; C2625; C1769; J2250; J1100; J2405; J2001; J2704

== ENCOUNTER → 2017-12-07 | Day surgery (SDC) | payer MEDICARE ==
[2017-12-03 16:14] VITALS: BMI 64.0
--- NOTE | 2017-12-04 06:39 | P.GSHP ---
History of Present Illness H&P Date: 12/04/17 Chief Complaint: Right Renal Calculus The patient is a 67-year-old white female scheduled to undergo back surgery. Her preoperative evaluation revealed evidence of right hydronephrosis. She ultimately underwent a computed tomography scan, revealing moderate right hydronephrosis due to an 8.6 mm right UPJ calculus. The scan also showed a nonobstructing 6.4 mm left lower pole renal calculus. Alternative treatment options were reviewed, and the patient elected to undergo ureteroscopic removal of the calculus. However, she has had chronic UTIs, for which she has been treated with multiple courses of antibiotics. She underwent placement of a right ureteral stent on November 20, 2017, but the bacteriuria has persisted despite antibiotics. at the time of stent placement, the calculus was noted to be located within a lower pole calyx. She now comes for ureteroscopic removal of the calculus. - Constitutional Constitutional: Denies chills, Denies fever - Gastrointestinal Gastrointestinal: Reports diarrhea (by April) - Genitourinary (Male) Genitourinary: Reports flank pain, Reports kidney stones Past Medical History Past Medical History: Eye Disorder, Fibromyalgia, GERD/Reflux, Hypertension, Osteoarthritis (OA), Sleep Apnea/CPAP/BIPAP, Thyroid Disorder Additional Past Medical History / Comment(s): Macular degeneration, glaucoma merle eyes. Axonal neuropathy, morbid obesity. HX SLEEP APNEA. IBS-freq diarrhea. States hands shakey. KIDNEY STONES, CURRENT. C/O BAD BACK. PT RECIDES AT [facility], [facility]" TAKES CARE OF RX. CONTACT # FOR "[facility]" #[phone]. GUARDIAN IS AMY OLTT, HE & DAUGHTER, ELIZABETH PROVIDE TRANSPORTATION. History of Any Multi-Drug Resistant Organisms: None Reported Past Surgical History: Adenoidectomy, Back Surgery, Bariatric Surgery, Orthopedic Surgery, Tonsillectomy Additional Past Surgical History / Comment(s): GASTRIC SLEEVE 2009, PANNICULECTOMY,TRIGGER FINGER RELEASE, PAIN CLINIC PROCEDURE, EGD'S W/ DILATATION, Laminectomy. CYSTOSCOPE, RT URETERAL STENT. Past Anesthesia/Blood Transfusion Reactions: Family History of Problems w/ Anesthesia, Motion Sickness Additional Past Anesthesia/Blood Transfusion Reaction / Comment(s): PT AND BROTHER STATES "PT HAS NARROW AIRWAY", BROTHER HAS CONFUSION WITH VERSED. Smoking Status: Never smoker - Past Family History Mother Family Medical History: Cancer, CVA/TIA Additional Family Medical History / Comment(s): PERSONALITY DISORDER, ALCOHOLIC, ABUSIVE, pharyngeal cancer, kidney disease Father Family Medical History: Cancer, Coronary Artery Disease (CAD) Additional Family Medical History / Comment(s): PANCREAS,CABG Brother(s) Family Medical History: AICD/Pacemaker Additional Family Medical History / Comment(s): PACEMAKER,lbbb,bradycardia Medications and Allergies Home Medications Medication Instructions Recorded Confirmed Type Levothyroxine Sodium [Synthroid] 25 mcg PO QAM 04/02/14 12/03/17 History Vortioxetine Hydrobromide 10 mg PO QAM 03/06/16 12/03/17 History [Trintellix] Doxepin [SINEquan] 20 mg PO HS 05/10/16 12/03/17 History Cyanocobalamin (Vitamin B-12) 1,000 mcg PO QAM 05/28/16 12/03/17 History [Vitamin B-12] Gabapentin [Neurontin] 300 mg PO TID #60 cap 04/09/17 12/03/17 Rx fentaNYL 25MCG/HR PATCH [Duragesic 1 patch TRANSDERM Q72H #7 patch 04/09/1701/10 Rx 25MCG/HR] Baclofen [Lioresal] 5 mg PO TID 05/01/17 12/03/17 History Loratadine [Claritin] 10 mg PO DAILY 05/01/17 12/03/17 History Oyster Shell Calcium 500 mg PO BID 05/01/17 12/03/17 History Simvastatin [Zocor] 20 mg PO HS 05/01/17 12/03/17 History Ranitidine HCl [Zantac] 150 mg PO BID 06/15/17 12/03/17 History Ergocalciferol [Vitamin D2] 50,000 unit PO TH 09/06/17 12/03/17 History Ferrous Sulfate [Feosol] 325 mg PO DAILY 09/06/17 12/03/17 History Hydrocodone/Acetaminophen [[place] 1 tab PO Q6H PRN 09/06/17 12/03/17 History 5-325] lamoTRIgine [LaMICtal] 100 mg PO DAILY 09/06/17 12/03/17 History Amoxic-Pot Clav 500-125 mg 1 tab PO DAILY 12/03/17 12/03/17 History [Augmentin 500-125 mg] Diphenox-Atrop 2.5-0.025 mg 1 - 2 tab PO QID PRN 12/03/17 12/03/17 History [Lomotil] Fluticasone Nasal [place] [Flonase 2 spr EA NOSTRIL DAILY 12/03/17 12/03/17 History Nasal [place]] Furosemide [Lasix] 20 mg PO DAILY 12/03/17 12/03/17 History Allergies Allergy/AdvReac Type Severity Reaction Status Date / Time cefazolin sodium [From Ancef] Allergy Rash/Hives Verified 12/03/17 15:35 etodolac [From Lodine] Allergy Rash/Hives Verified 12/03/17 15:35 Iodinated Contrast- Oral and Allergy Rash/Hives Verified 12/03/17 15:35 IV Dye [Iodinated Contrast Media - IV Dye] Iodine and Iodide Containing Allergy Rash/Hives Verified 12/03/17 15:35 Produc levofloxacin [From Levaquin] Allergy Swelling Verified 12/03/17 15:35 NSAIDS (Non-Steroidal Allergy Rash/Hives Verified 12/03/17 15:35 Anti-Inflamma sulfamethoxazole AdvReac Confusion Verified 12/03/17 15:35 [From Bactrim] trimethoprim [From Bactrim] AdvReac Confusion Verified 12/03/17 15:35 Surgical - Exam - General well developed, well nourished, no distress, obese - Neck no masses, trachea midline - Respiratory normal respiratory effort, clear to auscultation - Cardiovascular Rhythm: regular Abnormal Heart Sounds: no systolic murmur, no diastolic murmur, no rub, no S3 Gallop, no S4 Gallop, no click, no other - Abdomen Abdomen: soft, non tender, no guarding, no rigid, no rebound Assessment and Plan (1) Calculus of kidney Status: Acute Code(s): N20.0 - CALCULUS OF KIDNEY SNOMED Code(s): 73997772 Plan: Cystoscopy, right ureteral stent removal, right ureteroscopy with Holmium laser lithotripsy. The procedure has been reviewed in detail with the patient, her legal guardian, and her brother (who is an tax attorney). The rationale for the procedure has been discussed, along with potential risks. These include anesthesia, bleeding, infection, and ureteral injury. They also understand the possibility that this will not alleviate her back pain or UTIs.
[~2017-12-07] MED LIST changes: +AMPICILLIN-SULBACTAM 3 GM in SODIUM CHLORIDE 0.9% 100 ML IVPB ONE; +GENTAMICIN 120 MG in SODIUM CHLORIDE 0.9% 100 ML IVPB ONE; +LACTATED RINGERS 1,000 ML IV ONE; -LEVOFLOXACIN 500MG-D5W PMX 500 MG in DEXTROSE/WATER 1 100ML.BAG IVPB ONE; +LIDOCAINE 1% 20 ML VIAL (10MG/ML) FOR IV START INTRADERMA ONE; +LIDOCAINE 1% INJ 10MG/ML (20 ML MDV) ONE; -MIDAZOLAM 2 MG/2 ML VIAL IV PRN; +MIDAZOLAM 2 MG/2 ML VIAL ONE; +PROPOFOL 10 MG/ML 20 ML VIAL IV ONE; +SCOPOLAMINE 1.5MG/72HR PATCH TRANSDERM ONE; +SUCCINYLCHOLINE CHLORIDE VIAL 200 MG/10 ML VIAL IV ONE; -ceFAZolin IN SWFI 2 GM/20 ML SYRINGE IVP ONE; -fentaNYL (PF) 50 MCG/ML 2 ML AMP IV PRN; +hydrALAZINE HCL 20 MG/ML 1 ML VIAL IVP ONE; -metroNIDAZOLE-NS PMX 500 MG in SALINE 1 100ML.BAG IVPB ONE
--- NOTE | 2017-12-07 11:25 | XR ---
EXAMINATION TYPE: XR KUB DATE OF EXAM: 12/07/2017 COMPARISON: 06/15/2017 INDICATION: Renal stone TECHNIQUE: Single view abdomen frontal projection supine view FINDINGS: There is a normal bowel gas pattern. Psoas margins are normal. No organomegaly is present. Postsurgical changes are present L4-L5. Catheter stent is within the right abdomen. There is a 1.7 x 1 mid to inferior pole right kidney. Previous left-sided stones are not as well-visualized due to mo tion artifact but may be present currently measuring 0.7 cm. IMPRESSION: 1. Bilateral renal stones appear stable.
--- NOTE | 2017-12-07 11:31 | FL ---
Fluoroscopy INDICATION: Pain FINDINGS: Fluoroscopy time: 39 seconds. Images obtained: 2. IMPRESSIONS: 1. Documentation of fluoroscopy.
[2017-12-07] MEDS: HYDROmorphone 1 MG/ML 1 ML SYRINGE IVP PRN ×4 (11:41→12:27)
--- NOTE | 2017-12-07 11:42 | P.OP ---
Date of Procedure: 12/07/17 Preoperative Diagnosis: Right renal calculus Postoperative Diagnosis: Same Procedure(s) Performed: Cystoscopy, right ureteroscopy with Holmium laser lithotripsy and stone basketing, right ureteral stent change Anesthesia: NANCYA Surgeon: Jamey Delgado Estimated Blood Loss (ml): 5 IV fluids (ml): 1,300 Pathology: other (Calculus) Condition: stable Disposition: PACU Indications for Procedure: The patient is a 67-year-old white female scheduled to undergo back surgery. Her preoperative evaluation revealed evidence of right hydronephrosis. She ultimately underwent a computed tomography scan, revealing moderate right hydronephrosis due to an 8.6 mm right UPJ calculus. The scan also showed a nonobstructing 6.4 mm left lower pole renal calculus. Alternative treatment options were reviewed, and the patient elected to undergo ureteroscopic removal of the calculus. However, she has had chronic UTIs, for which she has been treated with multiple courses of antibiotics. She underwent placement of a right ureteral stent on November 20, 2017, but the bacteriuria has persisted despite antibiotics. at the time of stent placement, the calculus was noted to be located within a lower pole calyx. She now comes for ureteroscopic removal of the calculus. Operative Findings: 1) Right lower pole renal calculus, fragmented completely. 2) Right proximal ureteral injury. Description of Procedure: The patient was taken to the operating room and placed in the dorsolithotomy position, with legs supported in Charles stirrups. The external genitalia was prepped and draped sterilely. The 30 lens was used to introduce the 22-And[place]ran Stortz cystoscopic sheath through the urethra and into the bladder under direct vision. The bladder was examined in its entirety. No tumors or foreign bodies were seen. Grasping forceps were used to grasp the stent along with the cystoscope. A 0.038 inch Glidewire was passed through the stent and up to the right renal pelvis. An 11/13-[place] ureteral access catheter was passed over the wire, up to the proximal ureter. The mini flexible ureteroscope was advanced through the ureteral access catheter sheath and into the right renal pelvis. The calculus was identified within a lower pole calyx. The 200 micron Holmium laser probe was passed through the ureteroscope, and lithotripsy was performed. The calculus was very dense, likely composed of calcium oxalate monohydrate. Initially, a dusting technique was utilized, but this proved to be suboptimal due to the density of the calculus. Ultimately, the power settings were increased and the calculus was fragmented. "Popcorning" of the calculi fragments was then performed. This was continued until the calculus appeared to be adequately fragmented. At this time, the decision was made to remove as many fragments as possible using the nitinol basket. However, as a calculus fragment was removed, it became stuck within the proximal ureter. With some manipulation, it was possible to dislodge the calculus from the basket. It was decided to abort any further basketing, and the ureteroscope was advanced back into the lower pole calyx and an additional popcorning of the calculi fragments was performed, leaving the remaining calculus fragments extremely small. The ureteroscope was then withdrawn, and the ureter was inspected. A small mucosal tear was noted, and there appeared to be a calculus fragment embedded within it. A safety wire was passed up the ureter, and the Holmium laser was used to fragment this calculus. As the calculus fragmented, a small cavity was created within the ureteral wall. At no point was fat seen, which would have indicated a full-thickness perforation. After fragmenting the calculus, pulsating irrigation was utilized to remove some of the fragments from the ureteral wall. However, some could not be removed and these were ultimately removed using the nitinol basket and a tedious manner. Upon completion, there were no residual calculus fragments noted within the ureteral wall. The ureteroscope was removed, along with the ureteral access catheter sheath, and the Glidewire was backloaded into the cystoscope, which was then passed into the bladder. A 24 cm, 6-Andorran double-J ureteral stent was placed over the wire. Proper stent positioning was verified fluoroscopically and endoscopically. The bladder was emptied and the cystoscope removed. The patient tolerated the procedure well and was taken to the recovery room in stable condition.
[2017-12-07 11:52] VITALS: TEMP 97.1
[2017-12-07 13:10] VITALS: RESP 18
[2017-12-07 13:57] VITALS: PULSE 77
[2017-12-07 13:58] VITALS: BP 137/82
== END | disposition home or self-care (01) ==
LOC: OR 05:33
PROVIDERS: ATTEND Urology
DX: N20.0 Calculus of kidney (principal); M79.7 Fibromyalgia; K21.9 Gastro-esophageal reflux disease without esophagitis; I10 Essential (primary) hypertension; M19.90 Unspecified osteoarthritis, unspecified site; G47.30 Sleep apnea, unspecified; Z99.89 Dependence on other enabling machines and devices; E07.9 Disorder of thyroid, unspecified; E66.01 Morbid (severe) obesity due to excess calories; Z68.44 Body mass index [BMI] 60.0-69.9, adult; Z98.84 Bariatric surgery status; Z79.2 Long term (current) use of antibiotics; Z79.890 Hormone replacement therapy; Z79.891 Long term (current) use of opiate analgesic; Z79.51 Long term (current) use of inhaled steroids; Z79.899 Other long term (current) drug therapy; Z88.1 Allergy status to other antibiotic agents; Z91.041 Radiographic dye allergy status; Z88.2 Allergy status to sulfonamides; Z88.8 Allergy status to other drugs, medicaments and biological substances; Z91.048 Other nonmedicinal substance allergy status
CPT/HCPCS: 82365; 74018; 52356; C2625; C1758 ×2; C1769; J2250; J0330; J0360; J1580; J1100; J2405; J2001; J1170; J0295; J2704

== ENCOUNTER → 2018-01-29 | Outpatient (CLI) | payer MEDICARE ==
--- NOTE | 2018-01-29 16:06 | US ---
EXAMINATION TYPE: US kidneys/renal and bladder DATE OF EXAM: 01/29/2018 COMPARISON: CT 10/02/17, US 09/20/17 CLINICAL HISTORY: R93.4 Hx of hydronephrosis. and renal stones EXAM MEASUREMENTS: Right Kidney: 9.7 x 5.6 x 4.8 cm Left Kidney: 10.1 x 5.1 x 4.5 cm Post Void Residual Volume: bladder insufficiently full to evaluate Right Kidney: 1.1 cm calcified foci seen in lower pole Left Kidney: Medial cyst = 1.4 x 1.1 x 0.8 cm, Lateral cyst = 0.6 x x 0.5 cm, lower pole calcified focus= 1.0 cm Bladder: bladder insufficiently full to evaluate. Bilateral Jets seen: Yes Normal Post Void Residual: bladder insufficiently full to evaluate. IMPRESSION: 1. Inferior pole right renal stone without hydronephrosis. 2. Left renal cysts
== END | disposition home or self-care (01) ==
LOC: RADUSWWP 08:46
PROVIDERS: ATTEND Urology
DX: N20.0 Calculus of kidney (principal); N28.1 Cyst of kidney, acquired
CPT/HCPCS: 76770

== ENCOUNTER → 2018-04-01 | Outpatient (CLI) | payer MEDICARE ==
[2018-04-01 11:23] LABS: Basophils % (A) 1 %; Eosinophils # (A) 0.2 k/uL (0-0.7); Eosinophils % (A) 3 %; HCT 44.4 % (34.0-46.0); HGB 13.6 gm/dL (11.4-16.0); Lymphocytes # (A) 2.2 k/uL (1.0-4.8); Lymphocytes % (A) 27 %; MCH 27.3 pg (25.0-35.0); MCHC 30.7 g/dL (31.0-37.0); MCV 88.9 fL (80.0-100.0); Mean Platelet Volume 6.3; Monocytes # (A) 0.3 k/uL (0-1.0); Monocytes % (A) 4 %; Neutrophils % (A) 63 %; Platelet Count 336 k/uL (150-450); RBC 4.99 m/uL (3.80-5.40); RDW 15.4 % (11.5-15.5); WBC 7.9 k/uL (3.8-10.6)
[2018-04-01 11:41] LABS: Appearance,Urine Clear (Clear); Bacteria,Urine Occasional /hpf; Bilirubin,Urine Negative (Negative); Blood,Urine Negative (Negative); Color,Urine Light Yellow; Glucose,Urine (UA) Negative (Negative); Ketones,Urine Negative (Negative); Leukocyte Esterase,Urine Trace (Negative); Mucus,Urine Rare /hpf; Nitrite,Urine Negative (Negative); Protein,Urine Negative (Negative); RBC,Urine 2 /hpf (0-5); Specific Gravity,Urine 1.006 (1.001-1.035); Squamous Epithelial Cell,Urine 2 /hpf (0-4); Urobilinogen,Urine <2.0 mg/dL (<2.0); WBC,Urine 9 /hpf (0-5)
[2018-04-01 17:34] LABS: Iron Saturation 32.43 (12.00-45.00)
[2018-04-01 17:41] LABS: Albumin 4.2 g/dL (3.80-4.90); Anion Gap 8.2 mmol/L (4.00-12.00); Calcium 9.2 mg/dL (8.7-10.3); Carbon Dioxide 29.8 mmol/L (21.6-31.8); Phosphorus 2.6 mg/dL (2.4-5.1); Uric Acid 6.2 mg/dL (2.9-7.7)
[2018-04-01 17:42] LABS: Vitamin D 25 Hydroxy 48.7 ng/mL (30.0-100.0)
[2018-04-01 18:02] LABS: Parathyroid Hormone Intact 129.9 pg/mL (14.0-72.0)
[2018-04-01 18:21] LABS: Creatinine,Urine Random 26.4 mg/dL
[2018-04-01 18:57] LABS: Total Protein,Urine Random 5.8 mg/dL (0.0-13.5)
== END ==
LOC: LABWHC1 10:26
PROVIDERS: ATTEND Internal Medicine Nephrology
DX: M10.9 Gout, unspecified (principal); E55.9 Vitamin D deficiency, unspecified; N18.3 Chronic kidney disease, stage 3 (moderate); N25.81 Secondary hyperparathyroidism of renal origin; D63.1 Anemia in chronic kidney disease; N39.0 Urinary tract infection, site not specified
CPT/HCPCS: 36415; 80048; 81001; 82040; 82306; 82570; 82728; 83540; 83550; 83735; 83970; 84100; 84156; 84550; 85025

== ENCOUNTER → 2018-04-01 | Outpatient (CLI) | payer MEDICARE ==
--- NOTE | 2018-04-04 12:19 | MM ---
Reason for exam: screening (asymptomatic). Last mammogram was performed 6 years and 10 months ago. History: Patient is postmenopausal and is nulliparous. Cancelled Left Needle Localization of the left breast, February 21, 2011. MG Screening Mammo w CAD Bilateral CC and MLO view(s) were taken. Prior study comparison: May 17, 2011, left diagnostic mammogram w/CAD. January 17, 2011, [facility] DIGITAL LEFT BREAST MAMMOGRAM w/CAD. There are scattered fibroglandular densities. New suspicious nodular focal asymmetry at the 9 o'clock posterior position right breast. ASSESSMENT: Incomplete: need additional imaging evaluation, BI-RAD 0 RECOMMENDATION: Ultrasound and special view mammogram of the right breast. 3D
== END ==
LOC: RADMAMWWP 10:00
PROVIDERS: ATTEND Family Medicine
DX: Z12.31 Encounter for screening mammogram for malignant neoplasm of breast (principal)
CPT/HCPCS: 77067

== ENCOUNTER → 2018-04-16 | Outpatient (CLI) | payer MEDICARE ==
--- NOTE | 2018-04-16 10:35 | USB ---
Reason for exam: additional evaluation requested from abnormal screening. History: Patient is postmenopausal and is nulliparous. Cancelled Left Needle Localization of the left breast, February 21, 2011. Physical Findings: Nurse Summary: a 1 x 1 cm right breast mass and a 1 cm palpable node are noted. US Breast Workup RT Right limited breast ultrasound including focal area of concern, retroareolar and axilla demonstrates a 8 x 8 x 7 mm irregular solid hypoechoic lesion at 9 o' clock, and in the axillary tail there are 4 solid lesion a 7 mm, 7 mm, 6 mm, and a 10 mm all solid believed to be small but suspicious lymph nodes. These results were verbally communicated with the patient and result sheet given to the patient on 04/16/18. ASSESSMENT: Suspicious, BI-RAD 4 RECOMMENDATION: Ultrasound core biopsy of the right breast 9 o'clock lesion and largest axillary lymph node. Called with mammographic findings and has scheduled an appointment for the patient for 04/25/18 at 11:00am with Dr. Haque. The ultrsound guided core biopsy is to be done on 05/02/18 at 12:20pm. A folow up with Dr. Haque is scheduled for 05/09/18 at 11:00am. PRELIMINARY REPORT CALLED AND FAXED TO DR. HAQUE ON 04/16/18. [facility]
== END ==
LOC: RADUSWWP 08:01
PROVIDERS: ATTEND Family Medicine
DX: R92.8 Other abnormal and inconclusive findings on diagnostic imaging of breast (principal)

== ENCOUNTER → 2018-04-25 | Outpatient (CLI) | payer MEDICARE ==
[2018-04-25 11:20] VITALS: BP 156/78; PULSE 67; RESP 18; TEMP 97.7
--- NOTE | 2018-04-25 12:00 | P.GSHP ---
History of Present Illness H&P Date: 04/25/18 Chief Complaint: abnormal mammogram and ultrasound of the right breast Jill is a 67-year-old white female who is a resident of [facility] who on a routine screening mammogram on 04-01-18 she was noted to have an area of concern at the 9 o'clock position of the right breast. She subsequently was recommended to undergo a right breast ultrasound, this wa done on 04-16-18 and on the right breast ultrasound she was noted to have an 8 x 8 x 7 mm irregular solid lesion at 9:00. Additionally for solid lesions 7, 7, 6, and 10 mm were noted in the axilla all believed to be lymph nodes of some concern. Additionally the nurse reported palpating a 1 x 1 cm right breast mass and a 1 cm palpable node. The patient does not feel anything of concern in her breasts. The patient denies any history of trauma or infection in the breast. The patient in January 2011 was recommended to undergo a left breast needle localization biopsy which she canceled. In the left breast on these radiographs nothing of concern has been identified. The patient has no nipple discharge or skin changes of concern. Family History: mother: throat father: pancreatic Hormonal history: Menarche:11 : none menopause: late 40's BCP: 6 months, than an IUD hormones: none Past Surgical History: 1. back surgery/lamenectomy (fentanyl patch) 2. excess skin removal 3. gastric bypass Medical History: 1. fibromyalgia 2. HTN 3. kidney failure Social History: smoke: none alcohol: none drugs: none - Constitutional Constitutional: Denies chills, Denies fever - EENT Comment: pressure in her eyes, Eyes: denies blurred vision, denies pain Ears: deny: decreased hearing, tinnitus Ears, nose, mouth and throat: Denies headache, Denies sore throat - Breasts Breasts: bilateral: as per HPI - Cardiovascular Cardiovascular: Reports high blood pressure - Respiratory Respiratory: Denies cough, Denies 7 - Gastrointestinal Comment: status post gastric bypass Gastrointestinal: Denies abdominal pain, Denies diarrhea, Denies nausea, Denies vomiting - Genitourinary (Female) Comment: Frequent UTIs Genitourinary: Reports kidney stones - Menstruation Menstruation: Reports postmenopausal - Musculoskeletal Comment: back pain, arthritis, fibromyalgia - Integumentary Integumentary: Denies pruritus, Denies rash - Neurological Comment: tremor seen by neurology Neurological: Denies numbness, Denies weakness - Psychiatric Psychiatric: Reports depression - Endocrine Comment: thyroid disorder Endocrine: Denies fatigue, Denies weight change - Hematologic/Lymphatic Comment: none - Allergic/Immunologic Comment: see list cefazolin, etodolac, iodine, ANSAIDS Allergic/Immunologic: Reports as per HPI Past Medical History Past Medical History: Eye Disorder, Fibromyalgia, GERD/Reflux, Hypertension, Osteoarthritis (OA), Sleep Apnea/CPAP/BIPAP, Thyroid Disorder Additional Past Medical History / Comment(s): Macular degeneration, glaucoma merle eyes. Axonal neuropathy, morbid obesity. HX SLEEP APNEA. IBS-freq diarrhea. States hands shakey. KIDNEY STONES, CURRENT. C/O BAD BACK. PT RECIDES AT [facility], "[facility]" TAKES CARE OF RX. CONTACT # FOR "[facility]" #[phone]. GUARDIAN IS AMY KAYLIE, HE & DAUGHTER, ELIZABETH PROVIDE TRANSPORTATION. History of Any Multi-Drug Resistant Organisms: None Reported Past Surgical History: Adenoidectomy, Back Surgery, Bariatric Surgery, Orthopedic Surgery, Tonsillectomy Additional Past Surgical History / Comment(s): GASTRIC SLEEVE 2009, PANNICULECTOMY,TRIGGER FINGER RELEASE, PAIN CLINIC PROCEDURE, EGD'S W/ DILATATION, Laminectomy. CYSTOSCOPE, RT URETERAL STENT. Past Anesthesia/Blood Transfusion Reactions: Family History of Problems w/ Anesthesia, Motion Sickness Additional Past Anesthesia/Blood Transfusion Reaction / Comment(s): PT AND BROTHER STATES "PT HAS NARROW AIRWAY", BROTHER HAS CONFUSION WITH VERSED. Past Psychological History: Depression Additional Psychological History / Comment(s): "Developmentally Disabled" Smoking Status: Never smoker Past Alcohol Use History: None Reported Past Drug Use History: None Reported - Past Family History Mother Family Medical History: Cancer, CVA/TIA Additional Family Medical History / Comment(s): PERSONALITY DISORDER, ALCOHOLIC, ABUSIVE, pharyngeal cancer, kidney disease Father Family Medical History: Cancer, Coronary Artery Disease (CAD) Additional Family Medical History / Comment(s): PANCREAS,CABG Brother(s) Family Medical History: AICD/Pacemaker Additional Family Medical History / Comment(s): PACEMAKER,lbbb,bradycardia Medications and Allergies Home Medications Medication Instructions Recorded Confirmed Type Levothyroxine Sodium [Synthroid] 25 mcg PO QAM 04/02/14 04/25/18 History Vortioxetine Hydrobromide 10 mg PO QAM 03/06/16 04/25/18 History [Trintellix] Doxepin [SINEquan] 20 mg PO HS 05/10/16 04/25/18 History Cyanocobalamin (Vitamin B-12) 1,000 mcg PO QAM 05/28/16 04/25/18 History [Vitamin B-12] fentaNYL 25MCG/HR PATCH [Duragesic 1 patch TRANSDERM Q72H #7 patch 04/09/17 Rx 25MCG/HR] Baclofen [Lioresal] 5 mg PO TID 05/01/17 04/25/18 History Loratadine [Claritin] 10 mg PO DAILY 05/01/17 04/25/18 History Simvastatin [Zocor] 20 mg PO HS 05/01/17 04/25/18 History Ranitidine HCl [Zantac] 150 mg PO BID 06/15/17 04/25/18 History Ergocalciferol [Vitamin D2] 50,000 unit PO TH 09/06/17 04/25/18 History Ferrous Sulfate [Feosol] 325 mg PO DAILY 09/06/17 04/25/18 History lamoTRIgine [LaMICtal] 100 mg PO DAILY 09/06/17 04/25/18 History Fluticasone Nasal [place] [Flonase 2 spr EA NOSTRIL DAILY PRN 12/03/17 04/25/18 History Nasal [place]] Gabapentin [Neurontin] 400 mg PO TID 04/19/18 04/25/18 History Allergies Allergy/AdvReac Type Severity Reaction Status Date / Time cefazolin sodium [From Ancef] Allergy Rash/Hives Verified 04/25/18 11:07 etodolac [From Lodine] Allergy Rash/Hives Verified 04/25/18 11:07 Iodinated Contrast- Oral and Allergy Rash/Hives Verified 04/25/18 11:07 IV Dye [Iodinated Contrast Media - IV Dye] Iodine and Iodide Containing Allergy Rash/Hives Verified 04/25/18 11:07 Produc levofloxacin [From Levaquin] Allergy Swelling Verified 04/25/18 11:07 NSAIDS (Non-Steroidal Allergy Rash/Hives Verified 04/25/18 11:07 Anti-Inflamma sulfamethoxazole AdvReac Confusion Verified 04/25/18 11:07 [From Bactrim] trimethoprim [From Bactrim] AdvReac Confusion Verified 04/25/18 11:07 Surgical - Exam Vital Signs Temp Pulse Resp BP 97.7 F 67 18 156/78 04/25/18 11:13 04/25/18 11:13 04/25/18 11:13 04/25/18 11:13 BMI 64 - General obese - Eyes normal ocular movement - ENT no hearing loss, no congestion - Neck no masses, trachea midline - Respiratory normal respiratory effort, clear to auscultation - Cardiovascular Rhythm: regular Heart Sounds: normal: S1, S2 - Abdomen Abdomen: soft, non tender, no guarding, no rigid, no rebound - Integumentary no rash - Neurologic no disoriented, no combative - Musculoskeletal trouble with ambulation, use a walker or wheel chair - Psychiatric oriented to time, oriented to person, oriented to place, speech is normal, memory intact Breast examination: Right breast: Multi-positional exam no dominant masses or nodules of concern particular attention was paid to the 9 o'clock position and no specific lesion was identified Right axilla: No adenopathy of concern Left breast: Multi-positional exam no dominant masses or nodules of concern Left axilla: No adenopathy of concern Results Mammogram and ultrasound results reviewed Assessment and Plan Assessment: Impression: 1. Radiographic abnormality mammographic and ultrasound in the right breast 2. Fibrocystic breast changes 3. Chronic back pain requiring fentanyl patch 4. Fibromyalgia 5. Questionable hypertension 6. History of kidney stones 7. morbid obesity 8. Thyroid disorder 9. GERD 10. Tremor/evaluated by neurology 11. axonal neuropathy Plan: 1. Ultrasound-guided core biopsy of breast and axillary lesion 2. Medical management of medical conditions 3. Follow-up 1 week after ultrasound core biopsies CC: Dr. Estrada
== END ==
LOC: WWCWWP 11:12
PROVIDERS: ATTEND Surgery
DX: Z53.9 Procedure and treatment not carried out, unspecified reason (principal)

== ENCOUNTER → 2018-05-01 | Day surgery (SDC) | payer MEDICARE ==
[2018-05-01 13:28] VITALS: RESP 16; BMI 64.2
[2018-05-01 14:32] VITALS: BP 145/83; PULSE 80; TEMP 98
--- NOTE | 2018-05-01 14:45 | USB ---
EXAMINATION TYPE: US biopsy breast VAD RT, US biopsy breast add'l VAD RT, MG diagnostic mammo RT wo CAD DATE OF EXAM: 05/01/2018 CLINICAL HISTORY: R92.8 ABN VIKI. TECHNIQUE: Ultrasound guided core biopsy of right 9:00 breast and right axillary lymph node. COMPARISON: NONE FINDINGS: The procedure of ultrasound guided core biopsy was explained to the patient. Benefits, alternatives, and risks were discussed. An informed consent was then obtained. The patient was placed in supine positioning for imaging and for the procedure. The overlying skin was prepped and draped in usual sterile fashion. Lidocaine buffered with bicarbonate was used as anesthetic into the skin and subcutaneous tissue up to area of concern in the right 9:00 breast and right axillary lymph node. Under ultrasound guidance, a 12-gauge vacuum assisted biopsy gun device was used to obtain 4 core samples 9:00 lesion and 3 samples right axillary lymph nodes. Clips were deployed at each site with verification mammograms demonstrating appropriate placement. The patient tolerated the procedure well without any immediate complication. The patient was kept in the radiology department for short stay after the procedure and then discharged home in stable condition. IMPRESSION: Successful, uncomplicated ultrasound guided core biopsy of area of concern in the right 9:00 breast and right axillary lymph node. , full pathology results to follow. Pathology Results: Malignant A. RIGHT BREAST, NINE O'CLOCK, ULTRASOUND GUIDED CORE BIOPSY: Invasive well differentiated ductal carcinoma (Grade 1). See Surgical Pathology Cancer Case Summary. B. RIGHT AXILLA, ULTRASOUND GUIDED CORE BIOPSY: Benign lymph node tissue. Recommendation Surgical consult of the right breast. 9 o'clock surgical consult. Axilla findings may be concordant. The axillary nodes may be reactive. Assessment via surgical excision of the sentinel node recommended for confirmation. [facility]
== END ==
LOC: RADUSWWP 13:07
PROVIDERS: ATTEND Surgery
DX: C50.911 Malignant neoplasm of unspecified site of right female breast (principal)
CPT/HCPCS: 19083; 38505; 10035; 88305; 88342; 88341; 77065; A4648; J2001; 19084

== ENCOUNTER → 2018-05-09 | Outpatient (CLI) | payer MEDICARE ==
[2018-05-09 11:59] VITALS: BP 134/63; PULSE 61; RESP 16; TEMP 96.4
--- NOTE | 2018-05-09 12:28 | P.PN ---
Subjective Progress Note Date: 05/09/18 Principal diagnosis: Core biopsy right breast positive for invasive ductal carcinoma, core biopsy of the axilla benign lymph node Jill is a 67-year-old white female status post right breast core biopsy positive for invasive ductal carcinoma, 8 mm lesion, right axillary ultrasound core biopsy benign lymph node. The patient is morbidly obese and comes with a caregiver. The patient's brother was present via phone conversation for discussion of the results. The patient has no complaints following her biopsy. Objective - Vital Signs Vital signs: Vital Signs Temp 96.4 F L 05/09/18 11:56 Pulse 61 05/09/18 11:56 Resp 16 05/09/18 11:56 BP 134/63 05/09/18 11:56 Pulse Ox 94 L 05/09/18 11:56 Intake & Output 05/08/18 05/09/18 05/09/18 18:59 06:59 18:59 Weight 144.696 kg - Constitutional General appearance: Present: obese - EENT Eyes: Present: EOMI ENT: Present: hearing grossly normal - Integumentary Integumentary Comment(s): Core biopsy site area examined, mild ecchymosis No evidence of infection Assessment and Plan Assessment: Impression: 1. Invasive ductal carcinoma grade 1 right breast 2. Right axillary ultrasound core biopsy benign lymph node 3. Patient multiple comorbid factors including morbid obesity and stage III kidney disease 4. Additional axillary nodes of some concern reviewed with radiology they feel that a metals sales representative sample was obtained however would recommend sentinel node biopsy Plan: 1. I discussed at length with the patient and her brother the results of her core biopsies. I discussed surgical options which would include lumpectomy, sentinel node biopsy possible axillary node dissection and radiation therapy, versus mastectomy plus or minus reconstruction with sentinel node biopsy possible axillary node dissection. After discussion with the patient and her brother the patient has opted for a mastectomy. The patient is not interested in radiation therapy. The patient is not interested in reconstruction. 2. Patient's case will be presented at tumor board 3. Medical clearance via Dr. Estrada and Dr. Horan will be obtained Cc: Dr. Estrada
== END ==
LOC: WWCWWP 11:04
PROVIDERS: ATTEND Surgery
DX: Z53.9 Procedure and treatment not carried out, unspecified reason (principal)

== ENCOUNTER 2018-06-25 09:52 | Inpatient (IN) | payer MEDICARE ==
[2018-06-25] MEDS ORDERED: SODIUM CHLORIDE 0.9% 500 ML 500 ML IV STA (10:23)
--- NOTE | 2018-06-25 10:47 | ED ---
Recheck HPI - General Chief Complaint: Recheck/Abnormal Lab/Rx Stated Complaint: LIVER ENZYMES HIGH Time Seen by Provider: 06/25/18 10:23 Source: patient, RN notes reviewed Mode of arrival: wheelchair Limitations: no limitations - History of Present Illness Initial Comments: This a 67-year-old female presents emergency Department with chief complaint of elevated liver enzymes. Patient states that she had some back discomfort any urinary symptoms last week was placed on antibiotic. Patient states she follow- up on Sunday in which she did labwork was found to have an elevated liver enzymes. They initially schedule outpatient ultrasound though they felt that she needed to have more prompt care secondary to bilirubin of 12.8. Patient has no scaling of the skin, eyes. Patient denies any current nausea vomiting diarrhea constipation. Patient is unsure what antibiotic she is taking. Denies any known fever or chills no chest pain or shortness breath. Patient had no prior surgeries of her liver, gallbladder, appendix. She did require gastric bypass. - Related Data Home Medications Medication Instructions Recorded Confirmed Levothyroxine Sodium [Synthroid] 25 mcg PO QAM 04/02/14 06/25/18 Vortioxetine Hydrobromide 10 mg PO QAM 03/06/16 06/25/18 [Trintellix] Doxepin [SINEquan] 10 mg PO HS 05/10/16 06/25/18 Cyanocobalamin (Vitamin B-12) 1,000 mcg PO QAM 05/28/16 06/25/18 [Vitamin B-12] Baclofen [Lioresal] 10 mg PO BID 05/01/17 06/25/18 Loratadine [Claritin] 10 mg PO DAILY 05/01/17 06/25/18 Simvastatin [Zocor] 20 mg PO HS 05/01/17 06/25/18 Ranitidine HCl [Zantac] 150 mg PO BID 06/15/17 06/25/18 Ergocalciferol [Vitamin D2] 50,000 unit PO Q7D 09/06/17 06/25/18 Ferrous Sulfate [Feosol] 325 mg PO DAILY 09/06/17 06/25/18 lamoTRIgine [LaMICtal] 100 mg PO DAILY 09/06/17 06/25/18 Fluticasone Nasal [place] [Flonase 2 spr EA NOSTRIL DAILY 12/03/17 06/25/18 Nasal [place]] Gabapentin [Neurontin] 400 mg PO TID 04/19/18 06/25/18 Allopurinol [Zyloprim] 100 mg PO DAILY 06/17/18 06/25/18 Clotrimazole/Betameth Cream 1 applic TOPICAL BID 06/17/18 06/25/18 [Lotrisone] Albuterol Inhaler [Ventolin Hfa 2 puff INHALATION RT-Q6H PRN 06/25/18 06/25/18 Inhaler] Diphenoxylate HCl/Atropine 1 tab PO TID PRN 06/25/18 06/25/18 [Lomotil 2.5-0.025 mg Tablet] lamoTRIgine [LaMICtal] 25 mg PO HS 06/25/18 06/25/18 Previous Rx's Medication Instructions Recorded fentaNYL 25MCG/HR PATCH [Duragesic 1 patch TRANSDERM Q72H #7 patch 04/09/17 25MCG/HR] Allergies Allergy/AdvReac Type Severity Reaction Status Date / Time cefazolin sodium [From Ancef] Allergy Mild Rash/Hives Verified 06/25/18 11:02 etodolac [From Lodine] Allergy Rash/Hives Verified 06/25/18 11:02 Iodinated Contrast- Oral and Allergy Rash/Hives Verified 06/25/18 11:02 IV Dye [Iodinated Contrast Media - IV Dye] Iodine and Iodide Containing Allergy Rash/Hives Verified 06/25/18 11:02 Produc levofloxacin [From Levaquin] Allergy Swelling Verified 06/25/18 11:02 NSAIDS (Non-Steroidal Allergy Rash/Hives Verified 06/25/18 11:02 Anti-Inflamma sulfamethoxazole AdvReac Confusion, Verified 06/25/18 11:02 [From Bactrim] Increased Bun & Cr levels trimethoprim [From Bactrim] AdvReac Confusion, Verified 06/25/18 11:02 Increased Bun & Creat Review of Systems ROS Statement: Those systems with pertinent positive or pertinent negative responses have been documented in the HPI. ROS Other: All systems not noted in ROS Statement are negative. Past Medical History Past Medical History: Eye Disorder, Fibromyalgia, GERD/Reflux, Hypertension, Osteoarthritis (OA), Sleep Apnea/CPAP/BIPAP, Thyroid Disorder Additional Past Medical History / Comment(s): Macular degeneration, glaucoma merle eyes. Axonal neuropathy, morbid obesity. HX SLEEP APNEA. IBS-freq diarrhea. States hands shakey. KIDNEY STONES, CURRENT. C/O BAD BACK. PT RECIDES AT [facility], "JAMARCUS MORALES" TAKES CARE OF RX. CONTACT # FOR "JAMARCUS MORALES" #[phone]. GUARDIAN IS AMY LOTT, HE & DAUGHTER, ELIZABETH PROVIDE TRANSPORTATION. History of Any Multi-Drug Resistant Organisms: None Reported Past Surgical History: Adenoidectomy, Back Surgery, Bariatric Surgery, Orthopedic Surgery, Tonsillectomy Additional Past Surgical History / Comment(s): GASTRIC SLEEVE 2009, PANNICULECTOMY,TRIGGER FINGER RELEASE, PAIN CLINIC PROCEDURE, EGD'S W/ DILATATION, Laminectomy. CYSTOSCOPE, RT URETERAL STENT. Past Anesthesia/Blood Transfusion Reactions: Family History of Problems w/ Anesthesia, Motion Sickness Additional Past Anesthesia/Blood Transfusion Reaction / Comment(s): PT AND BROTHER STATES "PT HAS NARROW AIRWAY", BROTHER HAS CONFUSION WITH VERSED. Past Psychological History: Depression Smoking Status: Never smoker Past Alcohol Use History: None Reported Past Drug Use History: None Reported - Past Family History Mother Family Medical History: Cancer, CVA/TIA Additional Family Medical History / Comment(s): PERSONALITY DISORDER, ALCOH OLIC,ABUSIVE, pharyngeal cancer, kidney disease Father Family Medical History: Cancer, Coronary Artery Disease (CAD) Additional Family Medical History / Comment(s): PANCREAS,CABG Brother(s) Family Medical History: AICD/Pacemaker Additional Family Medical History / Comment(s): PACEMAKER,lbbb,bradycardia General Exam Limitations: no limitations General appearance: alert, in no apparent distress Head exam: Present: atraumatic, normocephalic, normal inspection Eye exam: Present: PERRL, EOMI, scleral icterus. Absent: normal appearance, conjunctival injection, periorbital swelling ENT exam: Present: normal oropharynx, mucous membranes moist, TM's normal bilaterally. Absent: normal exam (Yellowing noted on the tongue) Neck exam: Present: normal inspection, full ROM. Absent: tenderness, meningismus, lymphadenopathy Respiratory exam: Present: normal lung sounds bilaterally. Absent: respiratory distress, wheezes, rales, rhonchi, stridor Cardiovascular Exam: Present: regular rate, normal rhythm, normal heart sounds. Absent: systolic murmur, diastolic murmur, rubs, gallop, clicks GI/Abdominal exam: Present: soft, tenderness (Mild right), normal bowel sounds. Absent: distended, guarding, rebound, rigid Neurological exam: Present: alert, oriented X3, CN II-XII intact Skin exam: Present: warm, dry, intact, normal color, other (Icterus). Absent: rash Course Vital Signs 06/25/18 10:13 Temperature 98.5 F Pulse Rate 89 Respiratory 18 Rate Blood Pressure 162/94 O2 Sat by Pulse 97 Oximetry Medical Decision Making - Medical Decision Making 67 show female presented for abnormal labs. Patient has elevated bilirubin, transaminitis. Ultrasound shows cholelithiasis with no evidence of obstruction this time. Patient will be admitted for GI consult possible ERCP. - Lab Data Result diagrams: 06/25/18 11:15 06/25/18 11:15 Lab Results 06/25/18 06/25/18 06/25/18 Range/Units 11:15 11:15 11:15 WBC 8.3 (3.8-10.6) k/uL RBC 5.15 (3.80-5.40) m/uL Hgb 14.7 (11.4-16.0) gm/dL Hct 47.1 H (34.0-46.0) % MCV 91.5 (80.0-100.0) fL MCH 28.5 (25.0-35.0) pg MCHC 31.1 (31.0-37.0) g/dL RDW 15.7 H (11.5-15.5) % Plt Count 296 (150-450) k/uL Neutrophils % 66 % Lymphocytes % 22 % Monocytes % 6 % Eosinophils % 3 % Basophils % 1 % Neutrophils # 5.5 (1.3-7.7) k/uL Lymphocytes # 1.8 (1.0-4.8) k/uL Monocytes # 0.5 (0-1.0) k/uL Eosinophils # 0.3 (0-0.7) k/uL Basophils # 0.0 (0-0.2) k/uL PT 10.7 (9.0-12.0) sec INR 1.0 (<1.2) APTT 27.8 (22.0-30.0) sec Sodium 141 (137-145) mmol/L Potassium 3.7 (3.5-5.1) mmol/L Chloride 102 (98-107) mmol/L Carbon Dioxide 27 (22-30) mmol/L Anion Gap 12 mmol/L BUN 16 (7-17) mg/dL Creatinine 1.13 H (0.52-1.04) mg/dL Est GFR (CKD-EPI)AfAm 59 (>60 ml/min/1.73 sqM) Est GFR (CKD-EPI)NonAf 51 (>60 ml/min/1.73 sqM) Glucose 100 H (74-99) mg/dL Calcium 9.6 (8.4-10.2) mg/dL Total Bilirubin 14.1 H (0.2-1.3) mg/dL AST 204 H (14-36) U/L ALT 222 H (9-52) U/L Alkaline Phosphatase 569 H (38-126) U/L Ammonia (<30) umol/L Total Protein 7.5 (6.3-8.2) g/dL Albumin 4.1 (3.5-5.0) g/dL Amylase 41 (30-110) U/L Lipase 95 (23-300) U/L Hepatitis A IgM Ab 06/25/18 06/25/18 Range/Units 11:15 11:44 WBC (3.8-10.6) k/uL RBC (3.80-5.40) m/uL Hgb (11.4-16.0) gm/dL Hct (34.0-46.0) % MCV (80.0-100.0) fL MCH (25.0-35.0) pg MCHC (31.0-37.0) g/dL RDW (11.5-15.5) % Plt Count (150-450) k/uL Neutrophils % % Lymphocytes % % Monocytes % % Eosinophils % % Basophils % % Neutrophils # (1.3-7.7) k/uL Lymphocytes # (1.0-4.8) k/uL Monocytes # (0-1.0) k/uL Eosinophils # (0-0.7) k/uL Basophils # (0-0.2) k/uL PT (9.0-12.0) sec INR (<1.2) APTT (22.0-30.0) sec Sodium (137-145) mmol/L Potassium (3.5-5.1) mmol/L Chloride (98-107) mmol/L Carbon Dioxide (22-30) mmol/L Anion Gap mmol/L BUN (7-17) mg/dL Creatinine (0.52-1.04) mg/dL Est GFR (CKD-EPI)AfAm (>60 ml/min/1.73 sqM) Est GFR (CKD-EPI)NonAf (>60 ml/min/1.73 sqM) Glucose (74-99) mg/dL Calcium (8.4-10.2) mg/dL Total Bilirubin (0.2-1.3) mg/dL AST (14-36) U/L ALT (9-52) U/L Alkaline Phosphatase (38-126) U/L Ammonia 16 (<30) umol/L Total Protein (6.3-8.2) g/dL Albumin (3.5-5.0) g/dL Amylase (30-110) U/L Lipase (23-300) U/L Hepatitis A IgM Ab NEGATIVE Disposition Clinical Impression: Hyperbilirubinemia, Cholelithiasis, Transaminitis Disposition: ADMITTED IP TO THIS [facility] Condition: Fair Referrals: Miguel Estrada DO [Primary Care Provider] - 1-2 days
[2018-06-25 11:59] LABS: Albumin 4.1 g/dL (3.5-5.0); Calcium 9.6 mg/dL (8.4-10.2); Potassium 3.7 mmol/L (3.5-5.1); Total Bilirubin 14.1 mg/dL (0.2-1.3); Total Protein 7.5 g/dL (6.3-8.2)
[2018-06-25 12:00] LABS: Partial Thromboplastin Time 27.8 sec (22.0-30.0); Prothrombin Time 10.7 sec (9.0-12.0)
[2018-06-25 12:08] LABS: Basophils % (A) 1 %; Eosinophils # (A) 0.3 k/uL (0-0.7); Eosinophils % (A) 3 %; HCT 47.1 % (34.0-46.0); HGB 14.7 gm/dL (11.4-16.0); Lymphocytes # (A) 1.8 k/uL (1.0-4.8); Lymphocytes % (A) 22 %; MCH 28.5 pg (25.0-35.0); MCHC 31.1 g/dL (31.0-37.0); MCV 91.5 fL (80.0-100.0); Mean Platelet Volume 7.1; Monocytes # (A) 0.5 k/uL (0-1.0); Monocytes % (A) 6 %; Neutrophils # (A) 5.5 k/uL (1.3-7.7); Neutrophils % (A) 66 %; Platelet Count 296 k/uL (150-450); RBC 5.15 m/uL (3.80-5.40); RDW 15.7 % (11.5-15.5); WBC 8.3 k/uL (3.8-10.6)
--- NOTE | 2018-06-25 12:51 | US ---
EXAMINATION TYPE: US abdomen limited DATE OF EXAM: 06/25/2018 COMPARISON: NONE CLINICAL HISTORY: Pain. EXAM MEASUREMENTS: Liver Length: 20.5 cm Gallbladder Wall: 0.3 cm CBD: 0.6 cm Right Kidney: 10.7 x 3.9 x 4.9 cm Patient 4'11", 310lbs, technically difficult. Pancreas: portions visualized wnl Liver: prominent vessels vs liver varices, hepatomegaly Gallbladder: stones Evidence for sonographic Galicia's sign: no CBD: wnl Right Kidney: echogenic focus measuring 0.7 x 0.6 x 0.8cm IMPRESSION: 1. Cholelithiasis. 2. Hepatomegaly with coarsened echo pattern to the liver and prominent vessels within the liver is co uld be on the basis of portal hypertension and diffuse hepatocellular disease. Hepatic steatosis in t he differential diagnosis. Given the limitation of this exam cannot exclude intrahepatic biliary dila tion. Recommend follow-up CT scan of the abdomen. 3. Nonobstructing right renal calculus measuring 8 mm.
[2018-06-25 13:04] LABS: Hepatitis A AB IgM Index 0.01; Hepatitis A Antibody IgM NEGATIVE
[2018-06-25] MEDS ORDERED: ONDANSETRON 4 MG/2 ML VIAL IVP PRN (13:08)
[2018-06-25] MEDS: SODIUM CHLORIDE 0.9% 1,000 ML IV SCH (13:28)
[2018-06-25] MEDS ORDERED: IOPAMIDOL-300 CONTRAST 30 ML VIAL (ORAL USE) PO PRN (15:25)
[2018-06-25] MEDS ORDERED: ALBUTEROL NEBULIZED 2.5 MG/3 ML INHALATION PRN (15:26)
--- NOTE | 2018-06-25 15:50 | XR ---
EXAMINATION TYPE: XR chest 1V portable DATE OF EXAM: 06/25/2018 COMPARISON: 08/10/2017 HISTORY: Shortness of breath TECHNIQUE: Single frontal view of the chest is obtained. FINDINGS: Technique limits assessment of the lung bases. The heart is prominent. No obvious pneumoth orax. No obvious consolidation. No pleural effusion. Mild fullness of the right paratracheal stripe. IMPRESSION: Limited exam. Cardiomegaly with Limited assessment of the lung bases particularly on the left demonstrate no defin ite focal infiltrate on the right. Subsegmental consolidation on the left not excluded recommend foll ow-up PA and lateral views.
[2018-06-25] MEDS: BARIUM SULFATE 450 ML ORAL.SUSP BOTTLE PO PRN ×2 (16:04→19:03)
[2018-06-25 16:42] LABS: Bilirubin, Conjugated 7.6 mg/dL (0.0-0.3); Bilirubin, Delta 3.3 mg/dL (0.0-0.2); Bilirubin,Unconjugated 2.6 mg/dL (0.0-1.1); Total Bilirubin 13.5 mg/dL (0.2-1.3)
--- NOTE | 2018-06-25 17:25 | HP ---
HISTORY AND PHYSICAL CHIEF COMPLAINT: Jaundice. HISTORY OF PRESENT ILLNESS: This 67-year-old woman with a past medical history of multiple medical problems, including history of fibromyalgia, history of GERD, hypertension, DJD, history of sleep apnea, history of macular degeneration, adenoidectomy, back surgery, being followed by Dr. Miguel Estrada in the outpatient setting, was apparently supposed to have breast cancer surgery today by Dr. Haque; possibly lumpectomy; however, the patient had jaundice and complained of some weakness. Dr. Miguel Estrada saw her and she was subsequently taken to [facility], admitted for further evaluation and treatment. The patient had some UTI. Patient was on antibiotics. The patient was found to have elevated LFTs 12.8. The patient was sent to [facility] for further evaluation and treatment. The bilirubin was found to be 14.1, AST is 204, ALT is 222. Alkaline phosphatase was also elevated. The ultrasound of abdomen showed hepatomegaly, possibly intrahepatic disease. Biliary obstruction cannot be ruled out and the patient also had cholelithiasis. Patient admitted for further evaluation. There is no history of any fever, rigor or chills. No history of headache, loss of consciousness, seizures. The patient also is mentally challenged apparently and is living in an assisted-living home. PAST MEDICAL HISTORY: 1. Fibromyalgia. 2. GERD. 3. Hypertension. 4. DJD. 5. History of sleep apnea. 6. History of hypothyroidism. 7. Macular degeneration. 8. History of glaucoma, bilateral eyes. 9. Adenoidectomy. 10.Back surgery. 11.History of gastric sleeve surgery. 12.History of panniculectomy. 13.History of anxiety, depression. HOME MEDICATIONS: 1. Trintellix 10 mg each morning. 2. Zocor 20 mg at bedtime. 3. Zantac 150 mg b.i.d. 4. Ventolin 2 puffs q.6 p.r.n. 5. Synthroid 25 mcg p.o. each morning. 6. Neurontin 400 mg p.o. t.i.d.. 7. Lomotil 2.5 t.i.d. p.r.n. 8. Lamictal 25 mg at bedtime and 100 mg daily. 9. Duragesic patch 25 mcg q.72 hours. 10.Flonase nasal spray. 11.Iron sulfate 320 mg p.o. daily. 12.Claritin 10 mg p.o. daily. 13.Vitamin D2 50,000 q.7 days. 14.Sinequan 10 mg at bedtime. 15.Vitamin B12 1000 mg each morning. 16.Lotrisone application b.i.d. 17.Lioresal 10 mg p.o. b.i.d. 18.Zyloprim 100 mg p.o. daily. ALLERGIES: 1. ANCEF. 2. LODINE. 3. IODINATED CONTRAST DYES. 4. LEVAQUIN. 5. NSAIDS. 6. BACTRIM. FAMILY HISTORY: History of CVA, personality disorder, alcohol. SOCIAL HISTORY: No history of alcohol. No history of smoking. REVIEW OF SYSTEMS: ENT: No diminished hearing. No diminished vision. CARDIOVASCULAR SYSTEM: No angina, palpitations. RESPIRATORY SYSTEM: No cough, hemoptysis. GI: As mentioned earlier. : As mentioned earlier. NERVOUS SYSTEM: As mentioned earlier. ALLERGY/IMMUNOLOGY: No asthma, hayfever. MUSCULOSKELETAL: As mentioned earlier. HEMATOLOGY/ONCOLOGY: No history of anemia. ENDOCRINE: No history of diabetes. Hypothyroidism. CONSTITUTIONAL: As mentioned earlier. DERMATOLOGY: Negative. RHEUMATOLOGY: Negative. PSYCHIATRY: As mentioned earlier. PHYSICAL EXAMINATION: Patient is alert and oriented x3. Pulse 79, blood pressure 161/104, respiration 16, temperature 97.3, pulse ox 96% on room air. HEENT: Conjunctivae icteric. Oral mucosa icteric. NECK: No jugular venous distention. No carotid bruit. No lymph node enlargement. No thyroid enlargement. CARDIOVASCULAR SYSTEM: S1, S2 muffled. No S3. No S4. RESPIRATORY SYSTEM: Breath sounds diminished at the bases. A few scattered rhonchi and crackles. ABDOMEN: Soft, obese, non-tender. No mass palpable. LEGS: No edema. No swelling. NERVOUS SYSTEM: Higher functions as mentioned earlier. Moves all 4 limbs. No focal motor or sensory deficit. No hepatic flap noted. LYMPHATICS: No lymph node palpable in neck, axillae or groin. SKIN: Jaundiced. JOINTS: No active deforming arthropathy. LABS: WBC 8.3, hemoglobin 14.7, creatinine 1.13, glucose 100 and total bilirubin is 14.1, AST 204, ALT is 222, and alkaline phosphatase is 569. Ultrasound of the abdomen showed cholelithiasis and hepatomegaly, though cannot rule out intrahepatic biliary dilatation. Nonobstructing right renal calculus. ASSESSMENT: 1. Severe jaundice and hepatitis for evaluation, possibly medication-induced. 2. Increased AST and ALT. 3. Increased alkaline phosphatase. Rule out intrahepatic biliary obstruction. 4. Increased creatinine; possibly mild acute renal failure. 5. History of fibromyalgia. 6. History of breast cancer, right, for surgery. 7. Gastroesophageal reflux disease. 8. Hypertension. 9. History of degenerative joint disease. 10.History of sleep apnea. 11.Hypothyroidism. 12.Macular degeneration. 13.History of glaucoma. 14.History of axonal neuropathy. 15.Irritable bowel syndrome. 16.History of tremors. 17.History of adenoidectomy. 18.History of back surgery. 19.History of bariatric surgery. 20.History of panniculectomy. 21.History of gastric sleeve. 22.History of anxiety, depression. 23.Developmentally disabled. 24.FULL CODE. RECOMMENDATIONS AND DISCUSSION: In this 67-year-old woman who presented with multiple complex medical issues, we will monitor the patient closely, continue the current management, continue symptomatic treatment. I would recommend repeat labs in the morning and monitor bilirubin closely, fractionated bilirubin. Exact etiology of hepatitis is unknown at this time. Hepatocellular jaundice is being favored at this time. Acute hepatitis panel is pending. Rule out medication-induced jaundice also as a possibility. I would recommend a CT scan of the abdomen and pelvis with only p.o. contrast; no IV contrast. Gastroenterology consultation will monitor the PT, INR closely. DVT prophylaxis. Resume levothyroxine. Hold psych medications because of the possibility of hepatic injury. Otherwise, prognosis guarded because of multiple complex medical issues. I also recommend a psych consult for depression. Further recommendations to follow. A copy of this dictation is being forwarded to Dr. Estrada, who is the primary physician. MMODL / IJN: [id number] / MTDD
[2018-06-25 20:07] LABS: Hepatitis B Core IgM Non-Reactive (Non-Reactive)
--- NOTE | 2018-06-25 20:33 | CT ---
EXAMINATION TYPE: CT abdomen pelvis wo con DATE OF EXAM: 06/25/2018 COMPARISON: 10/02/2017 HISTORY: Pt is jaundiced, r/o cirrhosis. CT DLP: 1070 mGycm Automated exposure control for dose reduction was used. TECHNIQUE: Helical acquisition of images was performed from the lung bases through the pelvis. There is oral contrast only. FINDINGS: There is some mild atelectasis at the lung bases posteriorly. Heart is enlarged. There is no pericard ial effusion. There are surgical clips around the stomach from bariatric surgery. The gallbladder is dilated and measures 5.7 cm in diameter. There are 2 large calcified gallstones. The bile ducts are n ot dilated. Liver shows no focal defect. Spleen appears normal. There is no pancreatic mass. There is no adrenal mass. Kidneys have normal size. There is a 1 cm calculus lower pole left kidney. There is 7 mm calculus lower pole right kidney. There is no hydronephrosis. Ureters are not dilated. There is no retroperitoneal adenopathy. I see no evidence of a bowel obstruction. There are a few sigmoid diverticula without evidence of div erticulitis. There is no ascites. There is no free air. The appendix appears normal. There is no evid ence of a bowel obstruction. There is no inguinal hernia. There is no free fluid in the pelvis. There is no ascites. There is no mesenteric edema. There is posterior fusion surgery at L4-5. There is no lumbar compression fracture. I see no focal umer ne destruction. There is no evidence of abdominal varices. IMPRESSION: CARDIOMEGALY. MINIMAL SUBSEGMENTAL ATELECTASIS AT THE LUNG BASES. LARGE CALCIFIED GALLSTONES. DILATED GALLBLADDER IS A CHANGE COMPARED TO OLD EXAM AND CONSISTENT WITH CHOLECYSTITIS. MILD COLONIC DIVERTICULOSIS. I DO NOT SEE EVIDENCE OF CIRRHOSIS. I SEE NO SIGN OF PORT AL VENOUS HYPERTENSION. Nonobstructing renal calculi. There is clearing of the right side obstruction compared to old CT scan .
[2018-06-25] MEDS: PANTOPRAZOLE 40 MG/10 ML VIAL IVP SCH (21:43)
[2018-06-25] MEDS: ALPRAZolam 0.25 MG TAB PO PRN (21:52)
[2018-06-25] MEDS: CLOTRIMAZOLE/BETAMETH 1-0.05% CREAM 45 GM TUBE TOPICAL SCH (22:53)
--- NOTE | 2018-06-25 23:29 | P.CONS ---
History of Present Illness - Reason for Consult Consult date: 06/25/18 Elevated liver enzymes Requesting physician: Jair Blankenship - Chief Complaint Abnormal lab draw - History of Present Illness 67-year-old female with a medical history significant for fibromyalgia, osteoarthritis, ANJEL, breast cancer, and GERD who presented to the hospital for further evaluation of abnormal labs. The patient had laboratory evaluation performed in the outpatient setting which was significant for elevation in her liver enzymes. She was instructed to contact the hospital for further evaluation. The patient denies any prior reports of liver disease or episodes of jaundice. She reports she noted the healing of her skin over the weekend. She denies any prior history of heavy alcohol use or viral hepatitis. No blood transfusions in the past or tattoos. The patient did note associated darkening of her urine. She does report being started on antibiotic over the weekend for treatment of a urinary tract infection which she believes was Macrobid. She denies any herbal supplementations at home, was believed she has been treated with antibiotics in the recent past. No sick contacts, recent travel or unusual foods. On presentation to the hospital the patient had an ultrasound which showed cholelithiasis and hepatomegaly with no renal calculi noted. Computed tomography scan was significant for cardiomegaly with large calcified gallstones and a dilated gallbladder with no CBD dilation, intrahepatic biliary dilation or cirrhosis noted. Hemoglobin 14.7, platelet count 296,000, total bilirubin 14.1, alkaline phosphatase 569, AST 204, ALT 222. Viral hepatitis panel was negative. Review of Systems REVIEW OF SYSTEMS: CONSTITUTIONAL: Denies any fevers, chills, weight change or fatigue. CARDIOVASCULAR: Denies any chest pain, palpitations high or low blood pressures RESPIRATORY: Denies any shortness of breath, hemoptysis or cough. GENITOURINARY: No dysuria or hematuria, but the patient does report dark urine. MUSCULOSKELETAL: No weakness reported. SKIN: Denies any new rashes or lesions, or pallor but the patient does report jaundice since this past weekend. PSYCHIATRIC: Denies any depression or anxiety. NEUROLOGY: Denies headache, denies any new focal deficits. EARS/NOSE/THROAT: No recent hearing change, congestion, nasal discharge or sore throat. EYES: No pain in eyes, discharge or change in vision. GASTROINTESTINAL: As per HPI. Past Medical History Past Medical History: Cancer, Eye Disorder, Fibromyalgia, GERD/Reflux, Hypertension, Osteoarthritis (OA), Sleep Apnea/CPAP/BIPAP, Thyroid Disorder Additional Past Medical History / Comment(s): Macular degeneration, glaucoma merle eyes. Axonal neuropathy, morbid obesity. IBS-freq diarrhea. Tremors; PT RECIDES AT [facility], [facility]" TAKES CARE OF RX. GUARDIAN IS AMY LOTT & brother Dileep Condon; RIGHT BREAST CANCER-NO CHEMO/RADIATION- SCHEDULED FOR MASTECTOMY History of Any Multi-Drug Resistant Organisms: None Reported Past Surgical History: Adenoidectomy, Back Surgery, Bariatric Surgery, Orthopedic Surgery, Tonsillectomy Additional Past Surgical History / Comment(s): GASTRIC SLEEVE 2009, PANNICULECTOMY,TRIGGER FINGER RELEASE, PAIN CLINIC PROCEDURE-BACK INJECTIONS, EGD'S W/ DILATATION, Laminectomy. CYSTOSCOPE, RT URETERAL STENT. KIDNEY STONE REMOVAL Past Anesthesia/Blood Transfusion Reactions: Family History of Problems w/ Anesthesia Additional Past Anesthesia/Blood Transfusion Reaction / Comm: PT AND BROTHER STATES "PT HAS NARROW AIRWAY", BROTHER HAS CONFUSION WITH VERSED. Past Psychological History: Anxiety, Depression Additional Psychological History / Comment(s): "Developmentally Disabled" Smoking Status: Never smoker Past Alcohol Use History: None Reported Past Drug Use History: None Reported - Past Family History Mother Family Medical History: Cancer, CVA/TIA Additional Family Medical History / Comment(s): PERSONALITY DISORDER, ALCOHOLIC,ABUSIVE, pharyngeal cancer, kidney disease Father Family Medical History: Cancer, Coronary Artery Disease (CAD) Additional Family Medical History / Comment(s): PANCREAS,CABG Brother(s) Family Medical History: AICD/Pacemaker Additional Family Medical History / Comment(s): PACEMAKER,lbbb,bradycardia Medications and Allergies Home Medications Medication Instructions Recorded Confirmed Type Levothyroxine Sodium [Synthroid] 25 mcg PO QAM 04/02/14 06/25/18 History Vortioxetine Hydrobromide 10 mg PO QAM 03/06/16 06/25/18 History [Trintellix] Doxepin [SINEquan] 10 mg PO HS 05/10/16 06/25/18 History Cyanocobalamin (Vitamin B-12) 1,000 mcg PO QAM 05/28/16 06/25/18 History [Vitamin B-12] fentaNYL 25MCG/HR PATCH [Duragesic 1 patch TRANSDERM Q72H #7 patch 01/15/18 04/02/19 Rx 25MCG/HR] Baclofen [Lioresal] 10 mg PO BID 05/01/17 06/25/18 History Loratadine [Claritin] 10 mg PO DAILY 05/01/17 06/25/18 History Simvastatin [Zocor] 20 mg PO HS 05/01/17 06/25/18 History Ranitidine HCl [Zantac] 150 mg PO BID 06/15/17 06/25/18 History Ergocalciferol [Vitamin D2] 50,000 unit PO Q7D 09/06/17 06/25/18 History Ferrous Sulfate [Feosol] 325 mg PO DAILY 09/06/17 06/25/18 History lamoTRIgine [LaMICtal] 100 mg PO DAILY 09/06/17 06/25/18 History Fluticasone Nasal [place] [Flonase 2 spr EA NOSTRIL DAILY 12/03/17 06/25/18 History Nasal [place]] Gabapentin [Neurontin] 400 mg PO TID 04/19/18 06/25/18 History Allopurinol [Zyloprim] 100 mg PO DAILY 06/17/18 06/25/18 History Clotrimazole/Betameth Cream 1 applic TOPICAL BID 06/17/18 06/25/18 History [Lotrisone] Albuterol Inhaler [Ventolin Hfa 2 puff INHALATION RT-Q6H PRN 06/25/18 06/25/18 History Inhaler] Diphenoxylate HCl/Atropine 1 tab PO TID PRN 06/25/18 06/25/18 History [Lomotil 2.5-0.025 mg Tablet] lamoTRIgine [LaMICtal] 25 mg PO HS 06/25/18 06/25/18 History Allergies Allergy/AdvReac Type Severity Reaction Status Date / Time cefazolin sodium [From Ancef] Allergy Mild Rash/Hives Verified 06/25/18 11:02 etodolac [From Lodine] Allergy Rash/Hives Verified 06/25/18 11:02 Iodinated Contrast- Oral and Allergy Rash/Hives Verified 06/25/18 11:02 IV Dye [Iodinated Contrast Media - IV Dye] Iodine and Iodide Containing Allergy Rash/Hives Verified 06/25/18 11:02 Produc levofloxacin [From Levaquin] Allergy Swelling Verified 06/25/18 11:02 NSAIDS (Non-Steroidal Allergy Rash/Hives Verified 06/25/18 11:02 Anti-Inflamma sulfamethoxazole AdvReac Confusion, Verified 06/25/18 11:02 [From Bactrim] Increased Bun & Cr levels trimethoprim [From Bactrim] AdvReac Confusion, Verified 06/25/18 11:02 Increased Bun & Creat Physical Exam Vitals: Vital Signs Temp Pulse Pulse Resp BP BP Pulse Ox 06/25/18 21:30 98.0 F 79 18 154/98 91 L 06/25/18 17:10 65 133/79 06/25/18 14:15 97.6 F 79 16 161/104 96 06/25/18 13:33 61 20 163/88 95 06/25/18 13:18 59 L 18 172/96 96 06/25/18 10:13 98.5 F 89 18 162/94 97 Intake and Output 06/25/18 06/25/18 06/26/18 14:59 22:59 06:59 Other: # Voids 0 # Bowel Movements 0 Weight 140.614 kg On physical examination, patient appears comfortable in no apparent distress. HEAD: Normocephalic, atraumatic. EYES: Bilateral scleral icterus. No conjunctival injection. MOUTH: No lesions, tongue midline. NECK: Trachea midline, no gross abnormalities. CHEST: Clear to auscultation with no wheezing or rhonchi appreciated. HEART: Regular rate and rhythm. ABDOMEN: Soft, obese. Bowel sounds are positive. No organomegaly. No guarding or rigidity. EXTREMITIES: No pedal edema. SKIN: No rashes, jaundice. NEUROLOGIC: Alert and oriented x3. No asterixis noted. No focal deficits. Results CBC & Chem 7: 06/25/18 11:15 06/25/18 11:15 Labs: Abnormal Lab Results - Last 24 Hours (Table) 06/25/18 06/25/18 06/25/18 Range/Units 11:15 11:15 16:20 Hct 47.1 H (34.0-46.0) % RDW 15.7 H (11.5-15.5) % Creatinine 1.13 H (0.52-1.04) mg/dL Glucose 100 H (74-99) mg/dL Total Bilirubin 14.1 H 13.5 H (0.2-1.3) mg/dL Conjugated Bilirubin 7.6 H (0.0-0.3) mg/dL Unconjugated Bilirubin 2.6 H (0.0-1.1) mg/dL Delta Bilirubin 3.3 H (0.0-0.2) mg/dL AST 204 H (14-36) U/L ALT 222 H (9-52) U/L Alkaline Phosphatase 569 H (38-126) U/L CT scan - abdomen: report reviewed (Computed tomography scan was significant for cardiomegaly with large calcified gallstones and a dilated gallbladder with no C BD dilation, intrahepatic biliary dilation or cirrhosis noted.) Assessment and Plan (1) Transaminitis Narrative/Plan: Patient presenting with new onset jaundice and findings of market elevation in her liver enzymes and predominantly a cholestatic pattern. No evidence of biliary dilation to suggest choledocholithiasis on CT and ultrasound or el evation in white count or fevers to raise concern for cholangitis, full liver serologies will be ordered to rule out intrinsic liver disease, however given the acuity of the elevation and the patient's reports of exposure to antibiotics concern is for a drug-induced liver injury. Current Visit: Yes Status: Acute Code(s): R74.0 - NONSPEC ELEV OF LEVELS OF TRANSAMNS & LACTIC ACID DEHYDRGNSE SNOMED Code(s): 096557414 (2) Cholelithiasis Current Visit: Yes Status: Acute Code(s): K80.20 - CALCULUS OF GALLBLADDER W/O CHOLECYSTITIS W/O OBSTRUCTION SNOMED Code(s): 431932343 (3) Hyperbilirubinemia Current Visit: Yes Status: Acute Code(s): E80.6 - OTHER DISORDERS OF BILIRUBIN METABOLISM SNOMED Code(s): 60551366 Plan: Supportive care Ultrasound and CT reviewed Continue to monitor liver enzymes Continue to monitor INR Avoid hepatotoxic medications Full liver serologies ordered Patient may benefit from MRCP for further evaluation of the biliary tree, although given findings from ultrasound and computed tomography scan choledocholithiasis is less likely No plans for ERCP at this time Thank you for allowing us to participate in the care of this patient we will continue to follow
[2018-06-26] MEDS: SODIUM CHLORIDE 0.9% 1,000 ML IV SCH ×2 (02:56→12:49)
[2018-06-26] MEDS: ALPRAZolam 0.25 MG TAB PO PRN ×2 (05:29→21:26)
[2018-06-26] MEDS: LEVOTHYROXINE 25 MCG TAB PO SCH (05:32)
[2018-06-26 06:56] LABS: Appearance,Urine Turbid (Clear); Bacteria,Urine Few /hpf; Bilirubin,Urine 3+ (Negative); Blood,Urine Moderate (Negative); Color,Urine Dark Brown; Glucose,Urine (UA) Negative (Negative); Hyaline Casts,Urine 28 /lpf (0-2); Ketones,Urine Negative (Negative); Leukocyte Esterase,Urine Large (Negative); Mucus,Urine Few /hpf; Nitrite,Urine Negative (Negative); PH, Urine 5.5 (5.0-8.0); Protein,Urine 1+ (Negative); RBC,Urine 10 /hpf (0-5); Specific Gravity,Urine 1.022 (1.001-1.035); Squamous Epithelial Cell,Urine 101 /hpf (0-4); WBC,Urine 114 /hpf (0-5)
[2018-06-26] MEDS: PANTOPRAZOLE 40 MG/10 ML VIAL IVP SCH (09:07)
[2018-06-26] MEDS: CLOTRIMAZOLE/BETAMETH 1-0.05% CREAM 45 GM TUBE TOPICAL SCH ×2 (09:08→21:26)
[2018-06-26] MEDS: FLUTICASONE 50MCG/SPRAY NASAL 16GM EA NOSTRIL SCH (09:08)
[2018-06-26 10:10] LABS: Basophils # (A) 0.1 k/uL (0-0.2); Basophils % (A) 1 %; Eosinophils # (A) 0.2 k/uL (0-0.7); Eosinophils % (A) 2 %; HCT 42.9 % (34.0-46.0); HGB 13.3 gm/dL (11.4-16.0); Lymphocytes # (A) 1.7 k/uL (1.0-4.8); Lymphocytes % (A) 20 %; MCH 28.3 pg (25.0-35.0); MCHC 30.9 g/dL (31.0-37.0); MCV 91.7 fL (80.0-100.0); Mean Platelet Volume 7.2; Monocytes # (A) 0.5 k/uL (0-1.0); Monocytes % (A) 5 %; Neutrophils # (A) 6.3 k/uL (1.3-7.7); Neutrophils % (A) 71 %; Platelet Count 266 k/uL (150-450); RBC 4.67 m/uL (3.80-5.40); RDW 15.9 % (11.5-15.5); WBC 8.9 k/uL (3.8-10.6)
[2018-06-26 10:20] LABS: Albumin 3.7 g/dL (3.5-5.0); Bilirubin, Conjugated 7.6 mg/dL (0.0-0.3); Bilirubin, Delta 3.3 mg/dL (0.0-0.2); Bilirubin,Unconjugated 2.8 mg/dL (0.0-1.1); Calcium 9.1 mg/dL (8.4-10.2); Potassium 3.5 mmol/L (3.5-5.1); Total Bilirubin 13.7 mg/dL (0.2-1.3); Total Protein 6.9 g/dL (6.3-8.2)
[2018-06-26 10:28] LABS: INR 1.1 (<1.2); Prothrombin Time 11.3 sec (9.0-12.0)
[2018-06-26] MEDS: HYDROmorphone 0.5 MG/0.5 ML SYRINGE IVP PRN ×2 (12:47→21:26)
--- NOTE | 2018-06-26 13:19 | P.CN ---
Psychiatric Consult - . Consult date: 06/26/18 Consult:: 06/26/18 09:56 Depression Assessment and Plan Assessment: This a 67-year-old female presents emergency Department with chief complaint of elevated liver enzymes. Patient states that she had some back discomfort any urinary symptoms last week was placed on antibiotic. Patient states she follow- up on Sunday in which she did labwork was found to have an elevated liver en zymes. They initially schedule outpatient ultrasound though they felt that she needed to have more prompt care secondary to bilirubin of 12.8. Patient has no scaling of the skin, eyes. Patient denies any current nausea vomiting diarrhea constipation. Patient is unsure what antibiotic she is taking. Denies any known fever or chills no chest pain or shortness breath. Patient had no prior surgeries of her liver, gallbladder, appendix. She did require gastric bypass. - Related Data Home Medications Medication Instructions Recorded Confirmed Levothyroxine Sodium [Synthroid] 25 mcg PO QAM 04/02/14 06/25/18 Vortioxetine Hydrobromide 10 mg PO QAM 03/06/16 06/25/18 [Trintellix] Doxepin [SINEquan] 10 mg PO HS 05/10/16 06/25/18 Cyanocobalamin (Vitamin B-12) 1,000 mcg PO QAM 05/28/16 06/25/18 [Vitamin B-12] Baclofen [Lioresal] 10 mg PO BID 05/01/17 06/25/18 Loratadine [Claritin] 10 mg PO DAILY 05/01/17 06/25/18 Simvastatin [Zocor] 20 mg PO HS 05/01/17 06/25/18 Ranitidine HCl [Zantac] 150 mg PO BID 06/15/17 06/25/18 Ergocalciferol [Vitamin D2] 50,000 unit PO Q7D 09/06/17 06/25/18 Ferrous Sulfate [Feosol] 325 mg PO DAILY 09/06/17 06/25/18 lamoTRIgine [LaMICtal] 100 mg PO DAILY 09/06/17 06/25/18 Fluticasone Nasal [place] [Flonase 2 spr EA NOSTRIL DAILY 12/03/17 06/25/18 Nasal [place]] Gabapentin [Neurontin] 400 mg PO TID 04/19/18 06/25/18 Allopurinol [Zyloprim] 100 mg PO DAILY 06/17/18 06/25/18 Clotrimazole/Betameth Cream 1 applic TOPICAL BID 06/17/18 06/25/18 [Lotrisone] Albuterol Inhaler [Ventolin Hfa 2 puff INHALATION RT-Q6H PRN 06/25/18 06/25/18 Inhaler] Diphenoxylate HCl/Atropine 1 tab PO TID PRN 06/25/18 06/25/18 [Lomotil 2.5-0.025 mg Tablet] lamoTRIgine [LaMICtal] 25 mg PO HS 06/25/18 06/25/18 Previous Rx's Medication Instructions Recorded fentaNYL 25MCG/HR PATCH [Duragesic 1 patch TRANSDERM Q72H #7 patch 04/09/17 25MCG/HR] Allergies Allergy/AdvReac Type Severity Reaction Status Date / Time cefazolin sodium [From Ancef] Allergy Mild Rash/Hives Verified 06/25/18 11:02 etodolac [From Lodine] Allergy Rash/Hives Verified 06/25/18 11:02 Iodinated Contrast- Oral and Allergy Rash/Hives Verified 06/25/18 11:02 IV Dye [Iodinated Contrast Media - IV Dye] Iodine and Iodide Containing Allergy Rash/Hives Verified 06/25/18 11:02 Produc levofloxacin [From Levaquin] Allergy Swelling Verified 06/25/18 11:02 NSAIDS (Non-Steroidal Allergy Rash/Hives Verified 06/25/18 11:02 Anti-Inflamma sulfamethoxazole AdvReac Confusion, Verified 06/25/18 11:02 [From Bactrim] Increased Bun & Cr levels trimethoprim [From Bactrim] AdvReac Confusion, Verified 06/25/18 11:02 Increased Bun & Creat Past Medical History Past Medical History: Eye Disorder, Fibromyalgia, GERD/Reflux, Hypertension, Osteoarthritis (OA), Sleep Apnea/CPAP/BIPAP, Thyroid Disorder Additional Past Medical History / Comment(s): Macular degeneration, glaucoma merle eyes. Axonal neuropathy, morbid obesity. HX SLEEP APNEA. IBS-freq diarrhea. States hands shakey. KIDNEY STONES, CURRENT. C/O BAD BACK. PT RECIDES AT [facility], "[email or web address] [facility] [employer]" TAKES CARE OF RX. CONTACT # FOR "[facility]" #[phone]. GUARDIAN IS AMY LOTT, HE & DAUGHTER, ELIZABETH PROVIDE TRANSPORTATION. History of Any Multi-Drug Resistant Organisms: None Reported Past Surgical History: Adenoidectomy, Back Surgery, Bariatric Surgery, Orthopedic Surgery, Tonsillectomy Additional Past Surgical History / Comment(s): GASTRIC SLEEVE 2009, PANNICULECTOMY,TRIGGER FINGER RELEASE, PAIN CLINIC PROCEDURE, EGD'S W/ DILATATION, Laminectomy. CYSTOSCOPE, RT URETERAL STENT. Past Anesthesia/Blood Transfusion Reactions: Family History of Problems w/ Anesthesia, Motion Sickness Additional Past Anesthesia/Blood Transfusion Reaction / Comment(s): PT AND BROTHER STATES "PT HAS NARROW AIRWAY", BROTHER HAS CONFUSION WITH VERSED. Past Psychological History: Depression Smoking Status: Never smoker Past Alcohol Use History: None Reported Past Drug Use History: None Reported - Past Family History Mother Family Medical History: Cancer, CVA/TIA Additional Family Medical History / Comment(s): PERSONALITY DISORDER, ALCOHOLIC,ABUSIVE, pharyngeal cancer, kidney disease Father Family Medical History: Cancer, Coronary Artery Disease (CAD) Additional Family Medical History / Comment(s): PANCREAS,CABG Brother(s) Family Medical History: AICD/Pacemaker Additional Family Medical History / Comment(s): PACEMAKER,lbbb,bradycardia Mental Status Examination - Pleasant 67 year old female who has juandice due to elevated liver enzymes who is worried about her sleep. General Appearance: [well groomed, casual, appears stated age Speech/Language: [spontaneous Attitude/Behavior: [cooperative Mood: [euthymic, euphoric, anxious Affect: [full range, lively Orientation: [time, person, place situation] Thought Content: [wnl,denies delusions, obsessions, phobias, other] Risk Factors: [suicidal (ideations, plan), and/or Homicidal (ideations, plan), other] Perception: [wnl, denies hallucinations (auditory, visual, tactile), other] Thought Processes: [goal-oriented Concentration/Attention Span: [wnl] [Per observation and interview with the saloni benavidez] Recent Memory: [wnl Remote Memory: [wnl] [past events, as related history] Intelligence: [ average] [based on history, based on vocabulary, syntax, grammar, and content] Judgement: [good] [per patient's behavior/history of present illness] Insight: [good] [understanding severity of illness/history of present illness] Psychiatric impression:drug induced jaundice; major depression recurrent-in remission Psychiatric recommendation: add ambien 10 mg at bedtime and could repeat if necessary thank you for the consult Jayson Garcia D.O., PhD (1) Mood disorder Current Visit: Yes Status: Acute Priority: Low Code(s): F39 - UNSPECIFIED MOOD [AFFECTIVE] DISORDER SNOMED Code(s): 94809789 Time with Patient: Less than 30
--- NOTE | 2018-06-26 14:33 | P.GSCN ---
<Mary Jurado - Last Filed: 06/26/18 14:31> History of Present Illness Consult date: 06/26/18 Reason for Consult: gallstones Requesting physician: Jair Blankenship History of present illness: CHIEF COMPLAINT: Gallstones HISTORY OF PRESENT ILLNESS: 67-year-old female who was admitted to the hospital secondary to abnormal labs. General surgery was consulted for evaluation of gallstones. Patient seen and examined this morning at the bedside. Patient is very tearful and states she is very depressed. Patient reports she was started on antibiotic Sunday for urinary tract infection. She does not remember the name of the antibiotic. She reports having abdominal pain that started Sunday, mostly in her right upper quadrant. She denies nausea or vomiting. She reports having a bowel movement Sunday that was normal in characteristics. She does report dark colored urine over the past few days and discoloration of her skin. Denies hematemesis, hematochezia, or melena. Patient denies history of gallbladder problems in the past. Denies alcohol abuse. Denies history of hepatitis. PAST MEDICAL HISTORY: See list. PAST SURGICAL HISTORY: See list. SOCIAL HISTORY: No illicit drug use. REVIEW OF SYSTEMS: CONSTITUTIONAL: Denies fever or chills. HEENT: Denies blurred vision, vision changes, or eye pain. Denies hemoptysis CARDIOVASCULAR: Denies chest pain or pressure. RESPIRATORY: No shortness of breath. GASTROINTESTINAL: Refer to HPI for pertinent findings HEMATOLOGIC: Denies bleeding disorders. GENITOURINARY: Denies any blood in urine. SKIN: Denies pruitis. Denies rash. Reports jaundice. PHYSICAL EXAM: VITAL SIGNS: Reviewed. GENERAL: Well-developed in no acute distress. Tearful. HEENT: Bilateral sclera icterus. Extraocular movements grossly intact. Moist buccal mucosa. Head is atraumatic, normocephalic. ABDOMEN: Soft. Nondistended. Nontender. Obese. Positive bowel sounds. NEUROLOGIC: Alert and oriented. Cranial nerves II through XII grossly intact. IMAGING: Per radiologist dictation: 1. Abdominal ultrasound: Cholelithiasis. Hepatomegaly with coarsened echo pattern to the liver and prominent vessels within the liver could be on the basis of portal hypertension and diffuse hepatocellular disease. Hepatic steatosis is in the differential diagnosis. Nonobstructing right renal calculus measuring 8 mm. No sonographic Galicia sign. Gallbladder wall is 0.3 cm. common bile duct 0.[address] abdomen and pelvis: Large calcified gallstones. Dilated gallbladder. Mild colonic diverticulosis. ASSESSMENT: 1. Cholelithiasis 2. Transaminitis, possibly drug-induced 3. Hyperbilirubinemia 4. Jaundice 5. Possible portal hypertension per US 6. History of sleep gastrectomy, 2008 7. Morbid obesity: BMI 62.6 PLAN: Case discussed with Dr. Snow. No surgical intervention recommended. Continue workup per GI service. Continue to monitor labs. Diet as tolerated. Nurse practitioner note has been reviewed by physician. Signing provider agrees with the documented findings, assessment, and plan of care. Past Medical History Past Medical History: Cancer, Eye Disorder, Fibromyalgia, GERD/Reflux, Hypertension, Osteoarthritis (OA), Sleep Apnea/CPAP/BIPAP, Thyroid Disorder Additional Past Medical History / Comment(s): Macular degeneration, glaucoma merle eyes. Axonal neuropathy, morbid obesity. IBS-freq diarrhea. Tremors; PT RECIDES AT [facility], "[facility]" TAKES CARE OF RX. GUARDIAN IS AMY LOTT & brother Dileep Condon; RIGHT BREAST CANCER-NO CHEMO/RADIATION- SCHEDULED FOR MASTECTOMY History of Any Multi-Drug Resistant Organisms: None Reported Past Surgical History: Adenoidectomy, Back Surgery, Bariatric Surgery, Orthopedic Surgery, Tonsillectomy Additional Past Surgical History / Comment(s): GASTRIC SLEEVE 2009, PANNICULECTOMY,TRIGGER FINGER RELEASE, PAIN CLINIC PROCEDURE-BACK INJECTIONS, EGD'S W/ DILATATION, Laminectomy. CYSTOSCOPE, RT URETERAL STENT. KIDNEY STONE REMOVAL Past Anesthesia/Blood Transfusion Reactions: Family History of Problems w/ Anesthesia Additional Past Anesthesia/Blood Transfusion Reaction / Comm: PT AND BROTHER STATES "PT HAS NARROW AIRWAY", BROTHER HAS CONFUSION WITH VERSED. Past Psychological History: Anxiety, Depression Additional Psychological History / Comment(s): "Developmentally Disabled" Smoking Status: Never smoker Past Alcohol Use History: None Reported Past Drug Use History: None Reported - Past Family History Mother Family Medical History: Cancer, CVA/TIA Additional Family Medical History / Comment(s): PERSONALITY DISORDER, ALCOHOL IC,ABUSIVE, pharyngeal cancer, kidney disease Father Family Medical History: Cancer, Coronary Artery Disease (CAD) Additional Family Medical History / Comment(s): PANCREAS,CABG Brother(s) Family Medical History: AICD/Pacemaker Additional Family Medical History / Comment(s): PACEMAKER,lbbb,bradycardia Medications and Allergies Home Medications Medication Instructions Recorded Confirmed Type Levothyroxine Sodium [Synthroid] 25 mcg PO QAM 04/02/14 06/25/18 History Vortioxetine Hydrobromide 10 mg PO QAM 03/06/16 06/25/18 History [Trintellix] Doxepin [SINEquan] 10 mg PO HS 05/10/16 06/25/18 History Cyanocobalamin (Vitamin B-12) 1,000 mcg PO QAM 05/28/16 06/25/18 History [Vitamin B-12] fentaNYL 25MCG/HR PATCH [Duragesic 1 patch TRANSDERM Q72H #7 patch 04/09/17 06/25/18 Rx 25MCG/HR] Baclofen [Lioresal] 10 mg PO BID 05/01/17 06/25/18 History Loratadine [Claritin] 10 mg PO DAILY 05/01/17 06/25/18 History Simvastatin [Zocor] 20 mg PO HS 05/01/17 06/25/18 History Ranitidine HCl [Zantac] 150 mg PO BID 06/15/17 06/25/18 History Ergocalciferol [Vitamin D2] 50,000 unit PO Q7D 09/06/17 06/25/18 History Ferrous Sulfate [Feosol] 325 mg PO DAILY 09/06/17 06/25/18 History lamoTRIgine [LaMICtal] 100 mg PO DAILY 09/06/17 06/25/18 History Fluticasone Nasal Bessie [Flonase 2 spr EA NOSTRIL DAILY 12/03/17 06/25/18 History Nasal Bessie] Gabapentin [Neurontin] 400 mg PO TID 04/19/18 06/25/18 History Allopurinol [Zyloprim] 100 mg PO DAILY 06/17/18 06/25/18 History Clotrimazole/Betameth Cream 1 applic TOPICAL BID 06/17/18 06/25/18 History [Lotrisone] Albuterol Inhaler [Ventolin Hfa 2 puff INHALATION RT-Q6H PRN 06/25/18 06/25/18 History Inhaler] Diphenoxylate HCl/Atropine 1 tab PO TID PRN 06/25/18 06/25/18 History [Lomotil 2.5-0.025 mg Tablet] lamoTRIgine [LaMICtal] 25 mg PO HS 06/25/18 06/25/18 History Allergies Allergy/AdvReac Type Severity Reaction Status Date / Time cefazolin sodium [From Ancef] Allergy Mild Rash/Hives Verified 06/25/18 11:02 etodolac [From Lodine] Allergy Rash/Hives Verified 06/25/18 11:02 Iodinated Contrast- Oral and Allergy Rash/Hives Verified 06/25/18 11:02 IV Dye [Iodinated Contrast Media - IV Dye] Iodine and Iodide Containing Allergy Rash/Hives Verified 06/25/18 11:02 Produc levofloxacin [From Levaquin] Allergy Swelling Verified 06/25/18 11:02 NSAIDS (Non-Steroidal Allergy Rash/Hives Verified 06/25/18 11:02 Anti-Inflamma sulfamethoxazole AdvReac Confusion, Verified 06/25/18 11:02 [From Bactrim] Increased Bun & Cr levels trimethoprim [From Bactrim] AdvReac Confusion, Verified 06/25/18 11:02 Increased Bun & Creat Surgical - Exam Vital Signs Temp Pulse Resp BP Pulse Ox 98.5 F 89 18 162/94 97 06/25/18 10:13 06/25/18 10:13 06/25/18 10:13 06/25/18 10:13 06/25/18 10:13 Results - Labs 06/26/18 09:46 06/26/18 09:46 Abnormal Lab Results - Last 24 Hours (Table) 06/25/18 06/26/18 06/26/18 Range/Units 16:20 05:37 09:46 MCHC 30.9 L (31.0-37.0) g/dL RDW 15.9 H (11.5-15.5) % Glucose (74-99) mg/dL Total Bilirubin 13.5 H (0.2-1.3) mg/dL Conjugated Bilirubin 7.6 H (0.0-0.3) mg/dL Unconjugated Bilirubin 2.6 H (0.0-1.1) mg/dL Delta Bilirubin 3.3 H (0.0-0.2) mg/dL AST (14-36) U/L ALT (9-52) U/L Alkaline Phosphatase (38-126) U/L Urine Appearance Turbid H (Clear) Urine Protein 1+ H (Negative) Urine Blood Moderate H (Negative) Urine Bilirubin 3+ H (Negative) Ur Leukocyte Esterase Large H (Negative) Urine RBC 10 H (0-5) /hpf Urine WBC 114 H (0-5) /hpf Ur Squamous Epith Cells 101 H (0-4) /hpf Urine Bacteria Few H (None) /hpf Hyaline Casts 28 H (0-2) /lpf Urine Mucus Few H (None) /hpf 06/26/18 Range/Units 09:46 MCHC (31.0-37.0) g/dL RDW (11.5-15.5) % Glucose 122 H (74-99) mg/dL Total Bilirubin 13.7 H (0.2-1.3) mg/dL Conjugated Bilirubin 7.6 H (0.0-0.3) mg/dL Unconjugated Bilirubin 2.8 H (0.0-1.1) mg/dL Delta Bilirubin 3.3 H (0.0-0.2) mg/dL AST 153 H (14-36) U/L ALT 190 H (9-52) U/L Alkaline Phosphatase 488 H (38-126) U/L Urine Appearance (Clear) Urine Protein (Negative) Urine Blood (Negative) Urine Bilirubin (Negative) Ur Leukocyte Esterase (Negative) Urine RBC (0-5) /hpf Urine WBC (0-5) /hpf Ur Squamous Epith Cells (0-4) /hpf Urine Bacteria (None) /hpf Hyaline Casts (0-2) /lpf Urine Mucus (None) /hpf Diabetes panel 06/26/18 Range/Units 09:46 Sodium 140 (137-145) mmol/L Potassium 3.5 (3.5-5.1) mmol/L Chloride 105 (98-107) mmol/L Carbon Dioxide 25 (22-30) mmol/L BUN 15 (7-17) mg/dL Creatinine 0.91 (0.52-1.04) mg/dL Glucose 122 H (74-99) mg/dL Calcium 9.1 (8.4-10.2) mg/dL AST 153 H (14-36) U/L ALT 190 H (9-52) U/L Alkaline Phosphatase 488 H (38-126) U/L Total Protein 6.9 (6.3-8.2) g/dL Albumin 3.7 (3.5-5.0) g/dL Calcium panel 06/26/18 Range/Units 09:46 Calcium 9.1 (8.4-10.2) mg/dL Albumin 3.7 (3.5-5.0) g/dL Pituitary panel 06/26/18 Range/Units 09:46 Sodium 140 (137-145) mmol/L Potassium 3.5 (3.5-5.1) mmol/L Chloride 105 (98-107) mmol/L Carbon Dioxide 25 (22-30) mmol/L BUN 15 (7-17) mg/dL Creatinine 0.91 (0.52-1.04) mg/dL Glucose 122 H (74-99) mg/dL Calcium 9.1 (8.4-10.2) mg/dL Adrenal panel 06/25/18 06/26/18 Range/Units 16:20 09:46 Sodium 140 (137-145) mmol/L Potassium 3.5 (3.5-5.1) mmol/L Chloride 105 (98-107) mmol/L Carbon Dioxide 25 (22-30) mmol/L BUN 15 (7-17) mg/dL Creatinine 0.91 (0.52-1.04) mg/dL Glucose 122 H (74-99) mg/dL Calcium 9.1 (8.4-10.2) mg/dL Total Bilirubin 13.5 H 13.7 H (0.2-1.3) mg/dL AST 153 H (14-36) U/L ALT 190 H (9-52) U/L Alkaline Phosphatase 488 H (38-126) U/L Total Protein 6.9 (6.3-8.2) g/dL Albumin 3.7 (3.5-5.0) g/dL Assessment and Plan (1) History of sleeve gastrectomy Current Visit: Yes Status: Acute Code(s): Z90.3 - ACQUIRED ABSENCE OF STOMACH [PART OF] SNOMED Code(s): 949015297 (2) Morbid obesity with BMI of 60.0-69.9, adult Current Visit: Yes Status: Acute Code(s): E66.01 - MORBID (SEVERE) OBESITY DUE TO EXCESS CALORIES; Z68.44 - BODY MASS INDEX (BMI) 60.0-69.9, ADULT SNOMED Code(s): 368591057 (3) Cholelithiasis Current Visit: Yes Status: Acute Code(s): K80.20 - CALCULUS OF GALLBLADDER W/O CHOLECYSTITIS W/O OBSTRUCTION SNOMED Code(s): 921435096 (4) Hyperbilirubinemia Current Visit: Yes Status: Acute Code(s): E80.6 - OTHER DISORDERS OF BILIRUBIN METABOLISM SNOMED Code(s): 56816855 (5) Transaminitis Current Visit: Yes Status: Acute Code(s): R74.0 - NONSPEC ELEV OF LEVELS OF TRANSAMNS & LACTIC ACID DEHYDRGNSE SNOMED Code(s): 821515988 <Marisol Snow - Last Filed: 06/26/18 20:45> Surgical - Exam Vital Signs Temp Pulse Resp BP Pulse Ox 98.5 F 89 18 162/94 97 06/25/18 10:13 06/25/18 10:13 06/25/18 10:13 06/25/18 10:13 06/25/18 10:13 Results - Labs 06/26/18 09:46 06/26/18 09:46 Abnormal Lab Results - Last 24 Hours (Table) 06/26/18 06/26/18 06/26/18 Range/Units 05:37 09:46 09:46 MCHC 30.9 L (31.0-37.0) g/dL RDW 15.9 H (11.5-15.5) % Glucose 122 H (74-99) mg/dL Iron (50-170) ug/dL Total Bilirubin 13.7 H (0.2-1.3) mg/dL Conjugated Bilirubin 7.6 H (0.0-0.3) mg/dL Unconjugated Bilirubin 2.8 H (0.0-1.1) mg/dL Delta Bilirubin 3.3 H (0.0-0.2) mg/dL AST 153 H (14-36) U/L ALT 190 H (9-52) U/L Alkaline Phosphatase 488 H (38-126) U/L Total Protein (PEP) (6.2-8.2) g/dL Urine Appearance Turbid H (Clear) Urine Protein 1+ H (Negative) Urine Blood Moderate H (Negative) Urine Bilirubin 3+ H (Negative) Ur Leukocyte Esterase Large H (Negative) Urine RBC 10 H (0-5) /hpf Urine WBC 114 H (0-5) /hpf Ur Squamous Epith Cells 101 H (0-4) /hpf Urine Bacteria Few H (None) /hpf Hyaline Casts 28 H (0-2) /lpf Urine Mucus Few H (None) /hpf 06/26/18 06/26/18 Range/Units 09:46 09:46 MCHC (31.0-37.0) g/dL RDW (11.5-15.5) % Glucose (74-99) mg/dL Iron 37 L (50-170) ug/dL Total Bilirubin (0.2-1.3) mg/dL Conjugated Bilirubin (0.0-0.3) mg/dL Unconjugated Bilirubin (0.0-1.1) mg/dL Delta Bilirubin (0.0-0.2) mg/dL AST (14-36) U/L ALT (9-52) U/L Alkaline Phosphatase (38-126) U/L Total Protein (PEP) 6.0 L (6.2-8.2) g/dL Urine Appearance (Clear) Urine Protein (Negative) Urine Blood (Negative) Urine Bilirubin (Negative) Ur Leukocyte Esterase (Negative) Urine RBC (0-5) /hpf Urine WBC (0-5) /hpf Ur Squamous Epith Cells (0-4) /hpf Urine Bacteria (None) /hpf Hyaline Casts (0-2) /lpf Urine Mucus (None) /hpf Microbiology - Last 24 Hours (Table) 06/26/18 05:37 Urine Culture - Preliminary Urine,Clean Catch Diabetes panel 06/26/18 Range/Units 09:46 Sodium 140 (137-145) mmol/L Potassium 3.5 (3.5-5.1) mmol/L Chloride 105 (98-107) mmol/L Carbon Dioxide 25 (22-30) mmol/L BUN 15 (7-17) mg/dL Creatinine 0.91 (0.52-1.04) mg/dL Glucose 122 H (74-99) mg/dL Calcium 9.1 (8.4-10.2) mg/dL AST 153 H (14-36) U/L ALT 190 H (9-52) U/L Alkaline Phosphatase 488 H (38-126) U/L Total Protein 6.9 (6.3-8.2) g/dL Albumin 3.7 (3.5-5.0) g/dL Calcium panel 06/26/18 Range/Units 09:46 Calcium 9.1 (8.4-10.2) mg/dL Albumin 3.7 (3.5-5.0) g/dL Pituitary panel 06/26/18 Range/Units 09:46 Sodium 140 (137-145) mmol/L Potassium 3.5 (3.5-5.1) mmol/L Chloride 105 (98-107) mmol/L Carbon Dioxide 25 (22-30) mmol/L BUN 15 (7-17) mg/dL Creatinine 0.91 (0.52-1.04) mg/dL Glucose 122 H (74-99) mg/dL Calcium 9.1 (8.4-10.2) mg/dL Adrenal panel 06/26/18 Range/Units 09:46 Sodium 140 (137-145) mmol/L Potassium 3.5 (3.5-5.1) mmol/L Chloride 105 (98-107) mmol/L Carbon Dioxide 25 (22-30) mmol/L BUN 15 (7-17) mg/dL Creatinine 0.91 (0.52-1.04) mg/dL Glucose 122 H (74-99) mg/dL Calcium 9.1 (8.4-10.2) mg/dL Total Bilirubin 13.7 H (0.2-1.3) mg/dL AST 153 H (14-36) U/L ALT 190 H (9-52) U/L Alkaline Phosphatase 488 H (38-126) U/L Total Protein 6.9 (6.3-8.2) g/dL Albumin 3.7 (3.5-5.0) g/dL Assessment and Plan (1) Hepatocellular dysfunction Current Visit: Yes Status: Acute Code(s): K76.89 - OTHER SPECIFIED DISEASES OF LIVER SNOMED Code(s): 82569792 (2) Jaundice of recent onset Current Visit: Yes Status: Acute Code(s): R17 - UNSPECIFIED JAUNDICE SNOMED Code(s): 91393710 (3) Seizure disorder Current Visit: Yes Status: Acute Code(s): G40.909 - EPILEPSY, UNSP, NOT INTRACTABLE, WITHOUT STATUS EPILEPTICUS SNOMED Code(s): 737763190 (4) Hypothyroidism Current Visit: Yes Status: Acute Code(s): E03.9 - HYPOTHYROIDISM, UNSPECIFIED SNOMED Code(s): 07692164 (5) Cholelithiasis Current Visit: Yes Status: Acute Code(s): K80.20 - CALCULUS OF GALLBLADDER W/O CHOLECYSTITIS W/O OBSTRUCTION SNOMED Code(s): 372096696 (6) History of sleeve gastrectomy Current Visit: Yes Status: Acute Code(s): Z90.3 - ACQUIRED ABSENCE OF STOMACH [PART OF] SNOMED Code(s): 927883000 (7) Hyperbilirubinemia Current Visit: Yes Status: Acute Code(s): E80.6 - OTHER DISORDERS OF BILIRUBIN METABOLISM SNOMED Code(s): 14965430 (8) Mood disorder Current Visit: Yes Status: Acute Priority: Low Code(s): F39 - UNSPECIFIED MOOD [AFFECTIVE] DISORDER SNOMED Code(s): 32838897 (9) Morbid obesity with BMI of 60.0-69.9, adult Current Visit: Yes Status: Acute Code(s): E66.01 - MORBID (SEVERE) OBESITY DUE TO EXCESS CALORIES; Z68.44 - BODY MASS INDEX (BMI) 60.0-69.9, ADULT SNOMED Code(s): 029003540 (10) Transaminitis Current Visit: Yes Status: Acute Code(s): R74.0 - NONSPEC ELEV OF LEVELS OF TRANSAMNS & LACTIC ACID DEHYDRGNSE SNOMED Code(s): 667116446 (11) Spondylolisthesis Current Visit: No Status: Acute Code(s): M43.10 - SPONDYLOLISTHESIS, SITE UNSPECIFIED SNOMED Code(s): 059323189 Plan: See above. I agree with FIELD INTERVIEWER assessment. Additionally, he brother was on the phone providing additional history as he is also her guardian. He expresses concern of breast cancer spread to liver and hip including back pain where her laminectomy has been deferred. She denies any current abdominal pain. She is tolerating diet. LFTs are improving. REVIEW OF ORGAN SYSTEMS: CONSTITUTIONAL: No fevers or chills. Moderate weight loss over 90 pounds from sleeve gastrectomy over 5+ years ago. HEENT: No troubles with hearing. No reports of dysphagia. Wears glasses. ENDOCRINE: Has thyroid disorders. No diabetes. CARDIOVASCULAR: No recent heart attack. Past chest pain. RESPIRATORY: No shortness of breath or pneumonia. GASTROINTESTINAL: No reports of recent blood in stools. Has GERD. NEURO: No reports of recent stroke. Has seizure disorders. PSYCH: Has depression. No suicidal ideation HEMATOLOGIC: No easy bruising or bleeding LYMPHATIC: The patient denies any lumps and bumps around the neck. GENITOURINARY: Denies any blood in urine or increased urinary frequency. MUSCULOSKELETAL: Has back pain, stiffness and joint arthritis. SKIN: No skin cancer or rash. Past panniculitis. PHYSICAL EXAM: VITALS: Reviewed CONSTITUTIONAL: Well developed and in no acute distress. EYES: Conjuctivae with sclera icterus. Extraocular movements grossly intact. HEAD, EARS, NOSE, THROAT: Dry buccal mucosa. Head is atraumatic, normocephalic. Hears conversational speech. No nasal drainage. NECK: Supple. No JV distention. RESPIRATORY: Non-labored respirations and equal bilateral excursions. CARDIOVASCULAR: Regular rate and rhythm. Extremities without edema. Palpable 2+ radial pulses. ABDOMEN: Soft. Nondistended. Nontender. LYMPH: No neck lymphadenopathy. No axillary lymphadenopathy. MUSCULOSKELETAL: Nail and fingers with good capillary refill. No clubbing, cyanosis or edema. SKIN: Warm and well perfused with good skin turgor. NEUROLOGIC: Cranial nerves I through XII grossly intact. Sensation upper and e xtremities intact. No focal or lateralizing signs. PSYCH: Appropriate affect. Alert and oriented to person, place and time. CLINCAL LABS: Reviewed. LFTs elevated. INR normal. RADIOLOGY: Report reviewed. IMAGING: Independently reviewed CT of the abdomen and pelvis with large over 1+ cm multiple gallstones without large stones in CBD. US gallbladder reviewed with CBD within normal limits. Gallstones confirmed. ASSESSMENT: 1. Jaundice due to hepatocellular injury 2. Gallstones 3. Super morbid obesity 4. Breast cancer PLAN: 1. No surgical intervention for active hepatocellular disease including portal hypertension. 2. Agree with MRCP may be feasible to elucidate common bile duct and biliary pathology 3. Conference call confirmed with brother of treatment plan of no ch olecystectomy with active liver disease. 4. Recommend management of breast cancer
--- NOTE | 2018-06-26 14:36 | P.GSHP ---
History of Present Illness H&P Date: 06/26/18 Chief Complaint: Jaundice/abdominal pain Aubree is a 67 year old white female who is a resident of [facility]. She underwent a routine screening mammogram on 1718 and was noted to have an area of concern at the 9 o'clock position of the right breast. She underwent a breast ultrasound and was noted to have an 8 x 8 8 x 7 mm irregular solid lesion at 9:00. She additionally had several lesions in the axilla all believed to be lymph nodes of some concern. The patient did not feel anything of concern in her breast. The patient denied any history of trauma or infection in the breast. The patient had an ultrasound core biopsy of the area of concern in the right breast as well as a lymph node. The lesion in the breast was positive for invasive ductal carcinoma. The lesion in the lymph node was benign. The patient was last seen 05/09/2018. At that time I discussed at length with the patient as well as her brother over the phone the results of the biopsies. Surgical options were discussed which included lumpectomy, sentinel node biopsy possible axillary node dissection, versus mastectomy plus or minus reconstruction with sentinel node biopsy possible axillary node dissection. After discussion with the patient her brother the patient opted for mastectomy. The patient was not interested in reconstruction. The patient was scheduled for a mastectomy with sentinel node biopsy however prior to this being performed she developed jaundice. She presented with right-sided abdominal discomfort and jaundice. She was instructed to come to the hospital where she was noted to have a bilirubin of 14.1, alkaline phosphatase 569, AST 2 therefore, a LT to 22. Viral hepatitis panel was negative. The patient was seen in consultation by the GI service and they did not feel there was necessary to do an ERCP. The patient had a CAT scan performed which revealed large calcified gallstones. Dilated gallbladder was a change compared to an old exam and felt to be consistent with cholecystitis. She was noted to have mild colonic diverticulosis. No evidence of cirrhosis was noted on the CAT scan. The patient had nonobstructing renal calculi. She had some cardiomegaly with minimal subsegmental atelectasis at the lung bases. Repeat bilirubin was 13.7, AST 153, a LT 190, alk phos 488. Blood cell count 8.9, hemoglobin 13.3. Past medical history: 1. Fibromyalgia 2. GERD 3. Hypertension 4. DJD 5. Sleep apnea 6. Hypothyroidism 7. Macular degeneration 8. Glaucoma 9. Adenoidectomy 10. Back surgery 11. History of gastric sleeve surgery 12. Panniculectomy 13. Anxiety depression 14. History of renal disease 15. Morbid obesity 16. Recent diagnosis of right breast cancer 17. Morbid obesity Home medications 1. Trental X 2. Zocor 3. Zantac 4. Ventolin 5. Synthroid 6. Neurontin 7. Lomotil 8. Lamictal 9. Duragesic patch 10. Flonase 11. Iron sulfate 12. Claritin 13. Vitamin D 2 14. Sinequan 15. Vitamin B12 16. Lotrisone 17. lioresal 18. Zyloprim ALLERGIES: 1. Ancef 2. Clonidine 3. Iodinated contrast dyes 4. Levaquin 5. Nonsteroidal 6. Bactrim Family history: Mother: Personality disorder, alcohol, pharyngeal cancer, kidney disease, cancer, CVA/TIA Father: Pancreatic, coronary artery disease Brother: Pacemaker - Constitutional Constitutional: Denies chills, Denies fever - EENT Comment: pressure in her eyes Ears: deny: decreased hearing, tinnitus - Breasts Breasts: bilateral: as per HPI - Cardiovascular Cardiovascular: Reports high blood pressure - Respiratory Respiratory: Denies cough, Denies 7 - Gastrointestinal Comment: status post gastric bypass - Genitourinary (Female) Genitourinary: Reports kidney stones - Menstruation Menstruation: Reports postmenopausal - Musculoskeletal Comment: Back pain, arthritis, fibromyalgia - Integumentary Comment: Jaundice Integumentary: Reports color changes - Neurological Neurological: Reports tremors - Psychiatric Psychiatric: Reports depression - Endocrine Comment: thyroid disorder - Hematologic/Lymphatic Comment: none - Allergic/Immunologic Allergic/Immunologic: Reports as per HPI Past Medical History Past Medical History: Cancer, Eye Disorder, Fibromyalgia, GERD/Reflux, Hypertension, Osteoarthritis (OA), Sleep Apnea/CPAP/BIPAP, Thyroid Disorder Additional Past Medical History / Comment(s): Macular degeneration, glaucoma merle eyes. Axonal neuropathy, morbid obesity. IBS-freq diarrhea. Tremors; PT RECIDES AT [facility], "The Medical Team" TAKES CARE OF RX. GUARDIAN IS AMY LOTT & brother Dileep Condon; RIGHT BREAST CANCER-NO CHEMO/RADIATION- SCHEDULED FOR MASTECTOMY History of Any Multi-Drug Resistant Organisms: None Reported Past Surgical History: Adenoidectomy, Back Surgery, Bariatric Surgery, Orthopedic Surgery, Tonsillectomy Additional Past Surgical History / Comment(s): GASTRIC SLEEVE 2009, PANNICULECTOMY,TRIGGER FINGER RELEASE, PAIN CLINIC PROCEDURE-BACK INJECTIONS, EGD'S W/ DILATATION, Laminectomy. CYSTOSCOPE, RT URETERAL STENT. KIDNEY STONE REMOVAL Past Anesthesia/Blood Transfusion Reactions: Family History of Problems w/ Anesthesia Additional Past Anesthesia/Blood Transfusion Reaction / Comment(s): PT AND BROTHER STATES "PT HAS NARROW AIRWAY", BROTHER HAS CONFUSION WITH VERSED. Past Psychological History: Anxiety, Depression Additional Psychological History / Comment(s): "Developmentally Disabled" Smoking Status: Never smoker Past Alcohol Use History: None Reported Past Drug Use History: None Reported - Past Family History Mother Family Medical History: Cancer, CVA/TIA Additional Family Medical History / Comment(s): PERSONALITY DISORDER, ALCOHOLIC,ABUSIVE, pharyngeal cancer, kidney disease Father Family Medical History: Cancer, Coronary Artery Disease (CAD) Additional Family Medical History / Comment(s): PANCREAS,CABG Brother(s) Family Medical History: AICD/Pacemaker Additional Family Medical History / Comment(s): PACEMAKER,lbbb,bradycardia Medications and Allergies Home Medications Medication Instructions Recorded Confirmed Type Levothyroxine Sodium [Synthroid] 25 mcg PO QAM 04/02/14 06/25/18 History Vortioxetine Hydrobromide 10 mg PO QAM 03/06/16 06/25/18 History [Trintellix] Doxepin [SINEquan] 10 mg PO HS 05/10/16 06/25/18 History Cyanocobalamin (Vitamin B-12) 1,000 mcg PO QAM 05/28/16 06/25/18 History [Vitamin B-12] fentaNYL 25MCG/HR PATCH [Duragesic 1 patch TRANSDERM Q72H #7 patch 04/09/17 06/25/18 Rx 25MCG/HR] Baclofen [Lioresal] 10 mg PO BID 05/01/17 06/25/18 History Loratadine [Claritin] 10 mg PO DAILY 05/01/17 06/25/18 History Simvastatin [Zocor] 20 mg PO HS 05/01/17 06/25/18 History Ranitidine HCl [Zantac] 150 mg PO BID 06/15/17 06/25/18 History Ergocalciferol [Vitamin D2] 50,000 unit PO Q7D 09/06/17 06/25/18 History Ferrous Sulfate [Feosol] 325 mg PO DAILY 09/06/17 06/25/18 History lamoTRIgine [LaMICtal] 100 mg PO DAILY 09/06/17 06/25/18 History Fluticasone Nasal [place] [Flonase 2 spr EA NOSTRIL DAILY 12/03/17 06/25/18 History Nasal [place]] Gabapentin [Neurontin] 400 mg PO TID 04/19/18 06/25/18 History Allopurinol [Zyloprim] 100 mg PO DAILY 06/17/18 06/25/18 History Clotrimazole/Betameth Cream 1 applic TOPICAL BID 06/17/18 06/25/18 History [Lotrisone] Albuterol Inhaler [Ventolin Hfa 2 puff INHALATION RT-Q6H PRN 06/25/18 06/25/18 History Inhaler] Diphenoxylate HCl/Atropine 1 tab PO TID PRN 06/25/18 06/25/18 History [Lomotil 2.5-0.025 mg Tablet] lamoTRIgine [LaMICtal] 25 mg PO HS 06/25/18 06/25/18 History Allergies Allergy/AdvReac Type Severity Reaction Status Date / Time cefazolin sodium [From Ancef] Allergy Mild Rash/Hives Verified 06/25/18 11:02 etodolac [From Lodine] Allergy Rash/Hives Verified 06/25/18 11:02 Iodinated Contrast- Oral and Allergy Rash/Hives Verified 06/25/18 11:02 IV Dye [Iodinated Contrast Media - IV Dye] Iodine and Iodide Containing Allergy Rash/Hives Verified 06/25/18 11:02 Produc levofloxacin [From Levaquin] Allergy Swelling Verified 06/25/18 11:02 NSAIDS (Non-Steroidal Allergy Rash/Hives Verified 06/25/18 11:02 Anti-Inflamma sulfamethoxazole AdvReac Confusion, Verified 06/25/18 11:02 [From Bactrim] Increased Bun & Cr levels trimethoprim [From Bactrim] AdvReac Confusion, Verified 06/25/18 11:02 Increased Bun & Creat Surgical - Exam Vital Signs Temp Pulse Resp BP Pulse Ox 98.5 F 89 18 162/94 97 06/25/18 10:13 06/25/18 10:13 06/25/18 10:13 06/25/18 10:13 06/25/18 10:13 BMI 62.6 - General obese - Eyes Jaundice normal ocular movement - ENT no hearing loss - Neck trachea midline - Respiratory normal respiratory effort, clear to auscultation - Cardiovascular Rhythm: regular Heart Sounds: normal: S1, S2 - Abdomen Mild tender right upper quadrant, no guarding or rebound No organomegaly - Integumentary jaundice - Neurologic no disoriented, no combative - Musculoskeletal laying in bed - Psychiatric oriented to time, oriented to person, oriented to place, speech is normal, memory intact Results Function studies reveal White count: 8.9 Hemoglobin: 13.3 Total bilirubin 13.7 AST 153 A LT [address] findings reveal a large calcified gallstones, dilated gallbladder consistent with cholecystitis GI consultation reviewed - Labs 06/26/18 09:46 06/26/18 09:46 Abnormal Lab Results - Last 24 Hours (Table) 06/25/18 06/26/18 06/26/18 Range/Units 16:20 05:37 09:46 MCHC 30.9 L (31.0-37.0) g/dL RDW 15.9 H (11.5-15.5) % Glucose (74-99) mg/dL Total Bilirubin 13.5 H (0.2-1.3) mg/dL Conjugated Bilirubin 7.6 H (0.0-0.3) mg/dL Unconjugated Bilirubin 2.6 H (0.0-1.1) mg/dL Delta Bilirubin 3.3 H (0.0-0.2) mg/dL AST (14-36) U/L ALT (9-52) U/L Alkaline Phosphatase (38-126) U/L Urine Appearance Turbid H (Clear) Urine Protein 1+ H (Negative) Urine Blood Moderate H (Negative) Urine Bilirubin 3+ H (Negative) Ur Leukocyte Esterase Large H (Negative) Urine RBC 10 H (0-5) /hpf Urine WBC 114 H (0-5) /hpf Ur Squamous Epith Cells 101 H (0-4) /hpf Urine Bacteria Few H (None) /hpf Hyaline Casts 28 H (0-2) /lpf Urine Mucus Few H (None) /hpf 06/26/18 Range/Units 09:46 MCHC (31.0-37.0) g/dL RDW (11.5-15.5) % Glucose 122 H (74-99) mg/dL Total Bilirubin 13.7 H (0.2-1.3) mg/dL Conjugated Bilirubin 7.6 H (0.0-0.3) mg/dL Unconjugated Bilirubin 2.8 H (0.0-1.1) mg/dL Delta Bilirubin 3.3 H (0.0-0.2) mg/dL AST 153 H (14-36) U/L ALT 190 H (9-52) U/L Alkaline Phosphatase 488 H (38-126) U/L Urine Appearance (Clear) Urine Protein (Negative) Urine Blood (Negative) Urine Bilirubin (Negative) Ur Leukocyte Esterase (Negative) Urine RBC (0-5) /hpf Urine WBC (0-5) /hpf Ur Squamous Epith Cells (0-4) /hpf Urine Bacteria (None) /hpf Hyaline Casts (0-2) /lpf Urine Mucus (None) /hpf Diabetes panel 06/26/18 Range/Units 09:46 Sodium 140 (137-145) mmol/L Potassium 3.5 (3.5-5.1) mmol/L Chloride 105 (98-107) mmol/L Carbon Dioxide 25 (22-30) mmol/L BUN 15 (7-17) mg/dL Creatinine 0.91 (0.52-1.04) mg/dL Glucose 122 H (74-99) mg/dL Calcium 9.1 (8.4-10.2) mg/dL AST 153 H (14-36) U/L ALT 190 H (9-52) U/L Alkaline Phosphatase 488 H (38-126) U/L Total Protein 6.9 (6.3-8.2) g/dL Albumin 3.7 (3.5-5.0) g/dL Calcium panel 06/26/18 Range/Units 09:46 Calcium 9.1 (8.4-10.2) mg/dL Albumin 3.7 (3.5-5.0) g/dL Pituitary panel 06/26/18 Range/Units 09:46 Sodium 140 (137-145) mmol/L Potassium 3.5 (3.5-5.1) mmol/L Chloride 105 (98-107) mmol/L Carbon Dioxide 25 (22-30) mmol/L BUN 15 (7-17) mg/dL Creatinine 0.91 (0.52-1.04) mg/dL Glucose 122 H (74-99) mg/dL Calcium 9.1 (8.4-10.2) mg/dL Adrenal panel 06/25/18 06/26/18 Range/Units 16:20 09:46 Sodium 140 (137-145) mmol/L Potassium 3.5 (3.5-5.1) mmol/L Chloride 105 (98-107) mmol/L Carbon Dioxide 25 (22-30) mmol/L BUN 15 (7-17) mg/dL Creatinine 0.91 (0.52-1.04) mg/dL Glucose 122 H (74-99) mg/dL Calcium 9.1 (8.4-10.2) mg/dL Total Bilirubin 13.5 H 13.7 H (0.2-1.3) mg/dL AST 153 H (14-36) U/L ALT 190 H (9-52) U/L Alkaline Phosphatase 488 H (38-126) U/L Total Protein 6.9 (6.3-8.2) g/dL Albumin 3.7 (3.5-5.0) g/dL Assessment and Plan Assessment: Impression: 1. Right upper quadrant tenderness with jaundice 2. Right breast cancer 3. Fibromyalgia 4. GERD 5. Hypertension 6. Degenerative joint disease 7. Sleep apnea 8. Hypothyroidism 9. Macular degeneration 10. Glaucoma 11. Status post adenoidectomy 12. Status post back surgery 13. Status post gastric sleeve surgery 14. Status post panniculectomy 15. Anxiety/depression 16. Amylase and lipase normal on admission Plan: 1. Right upper quadrant tenderness with jaundice and gallstones consider surgical consultation 2. Appreciate GI consult 3. The patient's breast cancer does not appear to be related to her recent jaundice and right upper quadrant pain 4. Medical management of medical conditions 5. We will await resolution of the jaundice/liver disease prior to surgical intervention for the breast cancer Cc: Dr. Blankenship, Dr. Estrada
--- NOTE | 2018-06-26 17:26 | PN ---
PROGRESS NOTE DATE OF SERVICE: 06/26/2018 This 67-year-old woman who was admitted with severe jaundice and acute hepatitis possibly is being closely monitored. The patient is complaining of severe pain. Patient also has depression. Patient is on multiple medications; possibly drug-induced hepatitis being also considered. Multiple consultants, including Gastroenterology and Surgery, are following the patient closely. Past medical history reviewed. REVIEW OF SYSTEMS: CARDIOVASCULAR SYSTEM: No angina, palpitations. RESPIRATORY SYSTEM: No cough, hemoptysis. GI: As mentioned earlier. : No dysuria or retention. NERVOUS SYSTEM: No numbness, weakness. CURRENT MEDICATIONS: Reviewed. They include: 1. Ventolin 2.5 q.6 p.r.n. 2. Xanax 0.25 t.i.d. 3. Lotrisone topically. 4. Flonase. 5. Dilaudid. 6. Synthroid. 7. Zofran. 8. Protonix. 9. Ambien. PHYSICAL EXAMINATION: Patient is alert, oriented x3. Pulse is 72, blood pressure 154/83, respiration 16, temperature 98 degrees, pulse ox 92% on room air. HEENT: Conjunctivae icteric. NECK: No jugular venous distention. CARDIOVASCULAR SYSTEM: S1, S2 muffled. No S3. No S4. RESPIRATORY SYSTEM: Breath sounds diminished at the bases. A few scattered rhonchi. ABDOMEN: Soft, non-tender. No mass palpable. NERVOUS SYSTEM: No focal deficit. LABS: WBC 8.9, hemoglobin 13.3. LFTs 13.5 mostly, conjugated 7.6, and glucose 122. AST is 153 and ALT is 190, still elevated significantly. Alkaline phosphatase is 488. UA noted. Acute hepatitis panel is negative. ASSESSMENT: 1. Severe jaundice and acute hepatitis for evaluation, possibly drug-induced, possibly infective. 2. Increased AST, ALT. 3. Increased alkaline phosphatase. Rule out intrahepatic biliary obstruction. 4. Increased creatinine, possibly mild acute renal failure. 5. History of chronic kidney disease, stage III. 6. Cholelithiasis. 7. History of fibromyalgia. 8. History of breast cancer, right, for surgery. 9. Gastroesophageal reflux disease. 10.Hypertension. 11.History of degenerative joint disease. 12.Obstructive sleep apnea. 13.Hypothyroidism. 14.History of macular degeneration. 15.History of glaucoma. 16.History of axonal neuropathy. 17.History of irritable bowel syndrome. 18.History of tremors. 19.History of adenoidectomy. 20.History of developmental delay. 21.History of back surgery. 22.History of bariatric surgery. 23.History of panniculitis. 24.History of gastric sleeve surgery. 25.Anxiety, depression. 26.FULL CODE. RECOMMENDATIONS AND DISCUSSION: I recommend to continue current medications, continue with the monitoring, symptomatic treatment. I had a detailed discussion with the patient's brother, Rubio Condon, at , in [place]. He is the patient's legal guardian. I would recommend holding off the pain medications and antipsychotics as much as possible. A small dose of IV Dilaudid may be tried to alleviate some of the pain. Otherwise, psychiatric evaluation has been sought to fine tune the psych medications. Currently most of her medications are off because of the concerns about hepatotoxicity. We will continue to monitor and closely follow with Dr. Munroe of Gastroenterology, who is following the patient closely. I would also recommend a urine culture, blood culture; rule out any acute UTI also. Prognosis is guarded because of the multiple complex medical issues. Further recommendations to follow. MMODL / IJN: [id number] /
[2018-06-26 18:59] LABS: Iron Saturation 13.26 (12.00-45.00)
--- NOTE | 2018-06-26 19:26 | P.PN ---
Subjective Progress Note Date: 06/26/18 Principal diagnosis: Elevated liver enzymes, jaundice Tolerate diet, no acute complaints. No abdominal pain reported. Still jaundice. Objective - Vital Signs Vital signs: Vital Signs Temp 98.0 F 06/26/18 14:07 Pulse 72 06/26/18 14:07 Resp 16 06/26/18 14:07 BP 154/83 06/26/18 14:07 Pulse Ox 92 L 06/26/18 14:07 Intake & Output 06/26/18 06/26/18 06/27/18 06:59 18:59 06:59 Intake Total 700 Balance 700 Intake: Oral 700 Other: # Voids 3 1 # Bowel Movements 0 - Exam On physical examination, patient appears comfortable in no apparent distress. HEAD: Normocephalic, atraumatic. EYES: Scleral icterus. No conjunctival injection. MOUTH: No lesions, tongue midline. NECK: Trachea midline, no gross abnormalities. CHEST: Clear to auscultation with no wheezing or rhonchi appreciated. HEART: Regular rate and rhythm. ABDOMEN: Soft, obese. Bowel sounds are positive. No organomegaly. No guarding or rigidity. EXTREMITIES: No pedal edema. SKIN: No rashes, jaundice. NEUROLOGIC: Alert and oriented x3. No focal deficits. - Labs CBC & Chem 7: 06/26/18 09:46 06/26/18 09:46 Labs: Abnormal Lab Results - Last 24 Hours (Table) 06/26/18 06/26/18 06/26/18 Range/Units 05:37 09:46 09:46 MCHC 30.9 L (31.0-37.0) g/dL RDW 15.9 H (11.5-15.5) % Glucose 122 H (74-99) mg/dL Iron (50-170) ug/dL Total Bilirubin 13.7 H (0.2-1.3) mg/dL Conjugated Bilirubin 7.6 H (0.0-0.3) mg/dL Unconjugated Bilirubin 2.8 H (0.0-1.1) mg/dL Delta Bilirubin 3.3 H (0.0-0.2) mg/dL AST 153 H (14-36) U/L ALT 190 H (9-52) U/L Alkaline Phosphatase 488 H (38-126) U/L Total Protein (PEP) (6.2-8.2) g/dL Urine Appearance Turbid H (Clear) Urine Protein 1+ H (Negative) Urine Blood Moderate H (Negative) Urine Bilirubin 3+ H (Negative) Ur Leukocyte Esterase Large H (Negative) Urine RBC 10 H (0-5) /hpf Urine WBC 114 H (0-5) /hpf Ur Squamous Epith Cells 101 H (0-4) /hpf Urine Bacteria Few H (None) /hpf Hyaline Casts 28 H (0-2) /lpf Urine Mucus Few H (None) /hpf 06/26/18 06/26/18 Range/Units 09:46 09:46 MCHC (31.0-37.0) g/dL RDW (11.5-15.5) % Glucose (74-99) mg/dL Iron 37 L (50-170) ug/dL Total Bilirubin (0.2-1.3) mg/dL Conjugated Bilirubin (0.0-0.3) mg/dL Unconjugated Bilirubin (0.0-1.1) mg/dL Delta Bilirubin (0.0-0.2) mg/dL AST (14-36) U/L ALT (9-52) U/L Alkaline Phosphatase (38-126) U/L Total Protein (PEP) 6.0 L (6.2-8.2) g/dL Urine Appearance (Clear) Urine Protein (Negative) Urine Blood (Negative) Urine Bilirubin (Negative) Ur Leukocyte Esterase (Negative) Urine RBC (0-5) /hpf Urine WBC (0-5) /hpf Ur Squamous Epith Cells (0-4) /hpf Urine Bacteria (None) /hpf Hyaline Casts (0-2) /lpf Urine Mucus (None) /hpf Microbiology - Last 24 Hours (Table) 06/26/18 05:37 Urine Culture - Preliminary Urine,Clean Catch Assessment and Plan (1) Transaminitis Narrative/Plan: Patient presenting with new onset jaundice and findings of market elevation in her liver enzymes and predominantly a cholestatic pattern. No evidence of biliary dilation to suggest choledocholithiasis on CT and ultrasound or elevation in white count or fevers to raise concern for cholangitis, full liver serologies will be ordered to rule out intrinsic liver disease, however given the acuity of the elevation and the patient's reports of exposure to antibiotics concern is for a drug-induced liver injury. Current Visit: Yes Status: Acute Code(s): R74.0 - NONSPEC ELEV OF LEVELS OF TRANSAMNS & LACTIC ACID DEHYDRGNSE SNOMED Code(s): 539206989 (2) Cholelithiasis Current Visit: Yes Status: Acute Code(s): K80.20 - CALCULUS OF GALLBLADDER W/O CHOLECYSTITIS W/O OBSTRUCTION SNOMED Code(s): 513453143 (3) Hyperbilirubinemia Current Visit: Yes Status: Acute Code(s): E80.6 - OTHER DISORDERS OF BILIRUBIN METABOLISM SNOMED Code(s): 01165919 Plan: Supportive care Ultrasound and CT reviewed Continue to monitor liver enzymes Continue to monitor INR Avoid hepatotoxic medications Full liver serologies pending Patient may benefit from MRCP for further evaluation of the biliary tree, although given findings from ultrasound and computed tomography scan choledocholithiasis is less likely No plans for ERCP at this time Thank you for allowing us to participate in the care of this patient we will continue to follow
[2018-06-26] MEDS: PANTOPRAZOLE 40 MG TABLET PO SCH (21:26)
[2018-06-26] MEDS: ZOLPIDEM 10 MG TAB PO SCH (21:26)
[2018-06-27] MEDS: SODIUM CHLORIDE 0.9% 1,000 ML IV SCH ×2 (05:40→17:43)
[2018-06-27] MEDS: LEVOTHYROXINE 25 MCG TAB PO SCH (06:25)
[2018-06-27] MEDS: PANTOPRAZOLE 40 MG TABLET PO SCH ×2 (08:08→17:43)
[2018-06-27] MEDS: HYDROmorphone 0.5 MG/0.5 ML SYRINGE IVP PRN ×2 (08:08→22:29)
[2018-06-27] MEDS: ALPRAZolam 0.25 MG TAB PO PRN ×2 (08:08→22:28)
[2018-06-27] MEDS: CLOTRIMAZOLE/BETAMETH 1-0.05% CREAM 45 GM TUBE TOPICAL SCH ×2 (08:10→22:30)
[2018-06-27] MEDS: FLUTICASONE 50MCG/SPRAY NASAL 16GM EA NOSTRIL SCH (08:11)
[2018-06-27 10:29] LABS: Albumin 3.17 g/dL (3.80-4.90); Gamma Globulin 0.79 g/dL (0.70-1.50)
[2018-06-27 11:04] LABS: INR 1.1 (<1.2); Prothrombin Time 11.2 sec (9.0-12.0)
[2018-06-27 11:11] LABS: Albumin 3.5 g/dL (3.5-5.0); Potassium 3.7 mmol/L (3.5-5.1); Total Bilirubin 14.5 mg/dL (0.2-1.3); Total Protein 6.7 g/dL (6.3-8.2)
[2018-06-27 11:43] LABS: Liver/Kidney Microsome Antibod 1.6 UNITS (<=20)
--- NOTE | 2018-06-27 11:48 | P.PN ---
<Mary Jurado - Last Filed: 06/27/18 11:43> Subjective Progress Note Date: 06/27/18 CHIEF COMPLAINT: Gallstones HISTORY OF PRESENT ILLNESS: Patient examined this morning at the bedside. She denies abdominal pain. She does complain of back pain this morning, which is chronic. She is tolerating PO intake. Denies nausea or vomiting. Jaundice slight ly improving. AST 140. ALT 167. Bilirubin 14.5. PHYSICAL EXAM: VITAL SIGNS: Reviewed. GENERAL: Well-developed in no acute distress. HEENT: Bilateral sclera icterus. Extraocular movements grossly intact. Moist buccal mucosa. Head is atraumatic, normocephalic. ABDOMEN: Soft. Nondistended. Nontender. Obese. Positive bowel sounds. NEUROLOGIC: Alert and oriented. Cranial nerves II through XII grossly intact. ASSESSMENT: 1. Cholelithiasis 2. Transaminitis 3. Hyperbilirubinemia 4. Jaundice 5. Portal hypertension per US 6. History of sleep gastrectomy, 2008 7. Morbid obesity: BMI 62.6 8. History of breast cancer PLAN: No surgical intervention recommended. Continue workup per GI service. Continue to monitor labs. Diet as tolerated. Nurse practitioner note has been reviewed by physician. Signing provider agrees with the documented findings, assessment, and plan of care. Objective - Vital Signs Vital signs: Vital Signs Temp 98.0 F 06/27/18 07:00 Pulse 75 06/27/18 07:00 Resp 16 06/27/18 07:00 BP 141/89 06/27/18 07:00 Pulse Ox 95 06/27/18 07:00 Intake & Output 06/26/18 06/27/18 06/27/18 18:59 06:59 18:59 Intake Total 700 600 Balance 700 600 Intake: Intake, IV Titration 600 Amount Sodium Chloride 0.9% 1, 600 000 ml @ 75 mls/hr IV . [id number] [facility] Rx#:[id number] Oral 700 Other: # Voids 1 1 1 - Labs CBC & Chem 7: 06/26/18 09:46 06/27/18 10:21 Labs: Abnormal Lab Results - Last 24 Hours (Table) 06/26/18 06/26/18 06/27/18 Range/Units 09:46 09:46 10:21 Glucose 108 H (74-99) mg/dL Iron 37 L (50-170) ug/dL Total Bilirubin 14.5 H (0.2-1.3) mg/dL AST 140 H (14-36) U/L ALT 167 H (9-52) U/L Alkaline Phosphatase 511 H (38-126) U/L Total Protein (PEP) 6.0 L (6.2-8.2) g/dL Albumin (PEP) 3.17 L (3.80-4.90) g/dL Jabjl-4-Cgxghrhwo 0.53 H (0.10-0.40) g/dL Microbiology - Last 24 Hours (Table) 06/26/18 05:37 Urine Culture - Preliminary Urine,Clean Catch Assessment and Plan (1) History of sleeve gastrectomy Current Visit: Yes Status: Acute Code(s): Z90.3 - ACQUIRED ABSENCE OF STOMACH [PART OF] SNOMED Code(s): 565573414 (2) Morbid obesity with BMI of 60.0-69.9, adult Current Visit: Yes Status: Acute Code(s): E66.01 - MORBID (SEVERE) OBESITY DUE TO EXCESS CALORIES; Z68.44 - BODY MASS INDEX (BMI) 60.0-69.9, ADULT SNOMED Code(s): 922748415 (3) Cholelithiasis Current Visit: Yes Status: Acute Code(s): K80.20 - CALCULUS OF GALLBLADDER W/O CHOLECYSTITIS W/O OBSTRUCTION SNOMED Code(s): 715202707 (4) Hyperbilirubinemia Current Visit: Yes Status: Acute Code(s): E80.6 - OTHER DISORDERS OF BILIRUBIN METABOLISM SNOMED Code(s): 29937673 (5) Transaminitis Current Visit: Yes Status: Acute Code(s): R74.0 - NONSPEC ELEV OF LEVELS OF TRANSAMNS & LACTIC ACID DEHYDRGNSE SNOMED Code(s): 815411205 <Marisol Snow - Last Filed: 06/27/18 21:40> Objective - Vital Signs Vital signs: Vital Signs Temp 97.9 F 06/27/18 15:00 Pulse 69 06/27/18 15:00 Resp 16 06/27/18 16:00 BP 137/84 06/27/18 15:00 Pulse Ox 94 L 06/27/18 15:00 Intake & Output 06/27/18 06/27/18 06/28/18 06:59 18:59 06:59 Intake Total 600 Balance 600 Intake: Intake, IV Titration 600 Amount Sodium Chloride 0.9% 1, 600 000 ml @ 75 mls/hr IV . [id number] [facility] Rx#:[id number] Other: # Voids 1 3 - Labs CBC & Chem 7: 06/27/18 10:21 06/27/18 10:21 Labs: Abnormal Lab Results - Last 24 Hours (Table) 06/26/18 06/27/18 06/27/18 Range/Units 09:46 10:21 10:21 RDW 16.1 H (11.5-15.5) % Glucose 108 H (74-99) mg/dL Total Bilirubin 14.5 H (0.2-1.3) mg/dL AST 140 H (14-36) U/L ALT 167 H (9-52) U/L Alkaline Phosphatase 511 H (38-126) U/L Albumin (PEP) 3.17 L (3.80-4.90) g/dL Mnzjs-9-Spnatwltj 0.53 H (0.10-0.40) g/dL Microbiology - Last 24 Hours (Table) 06/26/18 13:46 Blood Culture - Preliminary Blood No Growth after 24 hours 06/26/18 05:37 Urine Culture - Preliminary Urine,Clean Catch Assessment and Plan (1) Hepatocellular dysfunction Current Visit: Yes Status: Acute Code(s): K76.89 - OTHER SPECIFIED DISEASES OF LIVER SNOMED Code(s): 08164360 (2) Jaundice of recent onset Current Visit: Yes Status: Acute Code(s): R17 - UNSPECIFIED JAUNDICE SNOMED Code(s): 50172791 (3) Seizure disorder Current Visit: Yes Status: Acute Code(s): G40.909 - EPILEPSY, UNSP, NOT INTRACTABLE, WITHOUT STATUS EPILEPTICUS SNOMED Code(s): 501758162 (4) Hypothyroidism Current Visit: Yes Status: Acute Code(s): E03.9 - HYPOTHYROIDISM, UNSPECIFIED SNOMED Code(s): 82919652 (5) Cholelithiasis Current Visit: Yes Status: Acute Code(s): K80.20 - CALCULUS OF GALLBLADDER W/O CHOLECYSTITIS W/O OBSTRUCTION SNOMED Code(s): 793920106 (6) History of sleeve gastrectomy Current Visit: Yes Status: Acute Code(s): Z90.3 - ACQUIRED ABSENCE OF STOMACH [PART OF] SNOMED Code(s): 470892791 (7) Hyperbilirubinemia Current Visit: Yes Status: Acute Code(s): E80.6 - OTHER DISORDERS OF BILIRUBIN METABOLISM SNOMED Code(s): 49536288 (8) Mood disorder Current Visit: Yes Status: Acute Priority: Low Code(s): F39 - UNSPECIFIED MOOD [AFFECTIVE] DISORDER SNOMED Code(s): 73763402 (9) Morbid obesity with BMI of 60.0-69.9, adult Current Visit: Yes Status: Acute Code(s): E66.01 - MORBID (SEVERE) OBESITY DUE TO EXCESS CALORIES; Z68.44 - BODY MASS INDEX (BMI) 60.0-69.9, ADULT SNOMED Code(s): 589278065 (10) Transaminitis Current Visit: Yes Status: Acute Code(s): R74.0 - NONSPEC ELEV OF LEVELS OF TRANSAMNS & LACTIC ACID DEHYDRGNSE SNOMED Code(s): 218124564 (11) Spondylolisthesis Current Visit: No Status: Acute Code(s): M43.10 - SPONDYLOLISTHESIS, SITE UNSPECIFIED SNOMED Code(s): 494091865 Plan: Agree with above. HPI: Patient resting comfortable. No reports of abdominal pain. Jaundice and hyperbilirubinemia more pronounced and worse today. PHYSICAL EXAM: VITALS: Reviewed CONSTITUTIONAL: Well developed and in no acute distress. EYES: Conjuctivae with sclera icterus. Extraocular movements grossly intact. HEAD, EARS, NOSE, THROAT: Dry buccal mucosa. Head is atraumatic, normocephalic. Hears conversational speech. No nasal drainage. NECK: Supple. No JV distention. RESPIRATORY: Non-labored respirations and equal bilateral excursions. CARDIOVASCULAR: Regular rate and rhythm. Palpable 2+ radial pulses. ABDOMEN: Soft. Nondistended. Nontender. LYMPH: No neck lymphadenopathy. No axillary lymphadenopathy. MUSCULOSKELETAL: No clubbing, cyanosis or edema. SKIN: Warm and well perfused with good skin turgor. Jaundice NEUROLOGIC: Cranial nerves I through XII grossly intact. Sensation upper and extremities intact. No focal or lateralizing signs. PSYCH: Appropriate affect. Alert and oriented to person, place and time. CLINCAL LABS: Reviewed. LFTs elevated worse compared to yesterday ASSESSMENT: 1. Jaundice due to hepatocellular injury 2. Gallstones 3. Super morbid obesity 4. Breast cancer PLAN: 1. Recommend MRCP otherwise with worsening liver function, recommend transfer to [facility] for her active liver disease history of gallstones. 2. More serologies are pending.
[2018-06-27 13:10] LABS: Ceruloplasmin 45.8 mg/dL (20.0-60.0)
[2018-06-27 14:51] LABS: Anisocytosis Slight; Basophils % (A) 1 %; Eosinophils # (A) 0.2 k/uL (0-0.7); Eosinophils % (A) 2 %; HCT 42.1 % (34.0-46.0); HGB 13.4 gm/dL (11.4-16.0); Hypochromasia Slight; Lymphocytes # (A) 1.8 k/uL (1.0-4.8); Lymphocytes % (A) 21 %; MCHC 31.9 g/dL (31.0-37.0); MCV 90.8 fL (80.0-100.0); Mean Platelet Volume 9.1; Monocytes # (A) 0.5 k/uL (0-1.0); Monocytes % (A) 6 %; Neutrophils # (A) 5.8 k/uL (1.3-7.7); Neutrophils % (A) 69 %; Platelet Count 266 k/uL (150-450); RBC 4.64 m/uL (3.80-5.40); RDW 16.1 % (11.5-15.5); WBC 8.5 k/uL (3.8-10.6)
--- NOTE | 2018-06-27 17:24 | P.PN ---
Subjective Progress Note Date: 06/27/18 Principal diagnosis: Elevated bilirubin/ abdominal pain The patient is a 67-year-old white female who presented with elevated liver function studies and right upper quadrant abdominal discomfort. CAT scan revealed a large calcified gallstones. Dilated gallbladder was a change compared to old examination and felt to be consistent with possible cholecystitis. The patient has been seen and evaluated by both GI and surgery. They have not recommended any intervention at this time. We will function studies today reveal a bilirubin which is a 14.5, AST 140, a LT 167, and alk miranda phosphatase of 511. Objective - Vital Signs Vital signs: Vital Signs Temp 98.0 F 06/27/18 07:00 Pulse 75 06/27/18 07:00 Resp 16 06/27/18 16:00 BP 141/89 06/27/18 07:00 Pulse Ox 95 06/27/18 07:00 Intake & Output 06/26/18 06/27/18 06/27/18 18:59 06:59 18:59 Intake Total 700 600 Balance 700 600 Intake: Intake, IV Titration 600 Amount Sodium Chloride 0.9% 1, 600 000 ml @ 75 mls/hr IV . [id number] [facility] Rx#:[id number] Oral 700 Other: # Voids 1 1 3 - Constitutional General appearance: Present: obese - EENT Eyes: Present: EOMI ENT: Present: hearing grossly normal - Respiratory Respiratory: bilateral: CTA - Cardiovascular Rhythm: regular Heart sounds: normal: S1, S2 - Gastrointestinal General gastrointestinal: Present: soft - Integumentary Integumentary: Present: jaundiced - Psychiatric Psychiatric: Present: A&O x's 3, appropriate affect, intact judgment & insight - Labs CBC & Chem 7: 06/27/18 10:21 06/27/18 10:21 Labs: Abnormal Lab Results - Last 24 Hours (Table) 06/26/18 06/26/18 06/27/18 Range/Units 09:46 09:46 10:21 RDW 16.1 H (11.5-15.5) % Glucose (74-99) mg/dL Iron 37 L (50-170) ug/dL Total Bilirubin (0.2-1.3) mg/dL AST (14-36) U/L ALT (9-52) U/L Alkaline Phosphatase (38-126) U/L Total Protein (PEP) 6.0 L (6.2-8.2) g/dL Albumin (PEP) 3.17 L (3.80-4.90) g/dL Vghhv-0-Exxwpoezq 0.53 H (0.10-0.40) g/dL 06/27/18 Range/Units 10:21 RDW (11.5-15.5) % Glucose 108 H (74-99) mg/dL Iron (50-170) ug/dL Total Bilirubin 14.5 H (0.2-1.3) mg/dL AST 140 H (14-36) U/L ALT 167 H (9-52) U/L Alkaline Phosphatase 511 H (38-126) U/L Total Protein (PEP) (6.2-8.2) g/dL Albumin (PEP) (3.80-4.90) g/dL Jlaxq-4-Yamnxgixa (0.10-0.40) g/dL Microbiology - Last 24 Hours (Table) 06/26/18 13:46 Blood Culture - Preliminary Blood No Growth after 24 hours 06/26/18 05:37 Urine Culture - Preliminary Urine,Clean Catch Assessment and Plan Assessment: Impression: 1. jaundice 2. Right breast cancer 3. Fibromyalgia 4. GERD 5. Hypertension 6. Degenerative joint disease 7. Sleep apnea 8. Hypothyroidism 9. Macular degeneration 10. Glaucoma 11. Status post adenoidectomy 12. Status post back surgery 13. Status post gastric sleeve surgery 14. Status post panniculectomy 15. Anxiety/depression 16. Amylase and lipase normal on admission 17. morbid obesity Plan: 1. Right upper quadrant tenderness with jaundice and gallstones appreciate surgical consultation 2. Appreciate GI consult 3. The patient's breast cancer does not appear to be related to her recent jaundice and right upper quadrant pain 4. Medical management of medical conditions 5. We will await resolution of the jaundice/liver disease prior to surgical intervention for the breast cancer 6. Consider MRCP Cc: Dr. Blankenship, Dr. Estrada
--- NOTE | 2018-06-27 20:59 | PN ---
PROGRESS NOTE DATE OF SERVICE: 06/27/2018 This 67-year-old woman who was admitted with jaundice also had acute hepatitis. Patient is being closely monitored at this time. The patient also had possibly drug- induced hepatitis. The patient is on multiple medications, including psych medications. Patient was suspected to have some UTI also. Cultures are pending at this time. LFTs are still elevated. Bilirubin is 14.5, mostly conjugated, and AST is 140, ALT is 167, alkaline phosphatase 511. Multiple serology tests are negative at this time, including ceruloplasmin. Past medical history reviewed. REVIEW OF SYSTEMS: CARDIOVASCULAR SYSTEM: No angina, palpitations. RESPIRATORY SYSTEM: As mentioned earlier. GI: As mentioned earlier. : No dysuria or retention. NERVOUS SYSTEM: No numbness, weakness. CURRENT MEDICATIONS: Reviewed. They include: 1. Ventolin 2.5 q.i.d. p.r.n. 2. Xanax 0.25 t.i.d. 3. Lotrisone 1 application b.i.d. 4. Flonase. 5. Dilaudid 0.25 q.3 p.r.n. 6. Synthroid 25 mcg p.o. each morning. 7. Zofran 4 mg q.8 p.r.n. 8. Protonix 40 mg b.i.d. 9. Ambien 10 mg at bedtime. PHYSICAL EXAMINATION: Patient is alert, oriented x3. Pulse 75, blood pressure 141/89, respiration 16, temperature 98 degrees, pulse ox 94% on room air. HEENT: Conjunctivae icteric. Oral mucosa icteric. NECK: No jugular venous distention. No carotid bruit. No lymph node enlargement. CARDIOVASCULAR SYSTEM: S1, S2 muffled. No S3. No S4. RESPIRATORY SYSTEM: Breath sounds diminished at the bases. A few scattered rhonchi. No crackles. ABDOMEN: Soft, non-tender. No mass palpable. LEGS: No edema. No swelling. NERVOUS SYSTEM: Higher functions as mentioned earlier. Moves all 4 limbs. No focal motor or sensory deficit. LYMPHATICS: No lymph node palpable in neck, axillae or groin. SKIN: No ulcer, rash, bleeding. JOINTS: No active deforming arthropathy. LABS: WBC 8.5, hemoglobin 13.4. LFTs are noted. ASSESSMENT: 1. Severe jaundice, possibly hepatocellular, with acute hepatitis, possibly drug- induced, possibly infective. 2. Increased AST and ALT. 3. Increased alkaline phosphatase. 4. Intrahepatic biliary obstruction unlikely. 5. Increased creatinine with possible mild acute renal failure. 6. History of chronic kidney disease, stage III. 7. Cholelithiasis. 8. History of fibromyalgia. 9. History of breast cancer, right, for surgery. 10.Rule out urinary tract infection. 11.Gastroesophageal reflux disease. 12.Hypertension. 13.History of degenerative joint disease. 14.Obstructive sleep apnea. 15.Hypothyroidism. 16.History of macular degeneration. 17.History of glaucoma. 18.History of axonal neuropathy. 19.History of irritable bowel syndrome. 20.Tremors. 21.Adenoidectomy. 22.History of developmental delay. 23.History of back surgery. 24.History of bariatric surgery. 25.History of panniculitis. 26.History of gastric sleeve surgery. 27.History of anxiety, depression. 28.FULL CODE. RECOMMENDATIONS AND DISCUSSION: I recommend to continue current medications, continue with the monitoring, symptomatic treatment. Otherwise at this time I recommend continuing with observation and avoid antipsychotic medications. I would also recommend continuing with the bronchodilators. Small dose of pain medications. Discussed with the patient at length. I also discussed with the brother over the phone yesterday. We will also consult Infectious Diseases as well as Gastroenterology. Guarded prognosis. Further recommendations to follow. MRCP has been ordered by Gastroenterology. MMMIKHAILL / BULMARO: [id number] /
--- NOTE | 2018-06-27 22:16 | P.PN ---
Subjective Progress Note Date: 06/27/18 Principal diagnosis: Elevated liver enzymes, jaundice Tolerating diet, no acute complaints. No abdominal pain reported. Still jaundiced. Objective - Vital Signs Vital signs: Vital Signs Temp 97.9 F 06/27/18 15:00 Pulse 69 06/27/18 15:00 Resp 16 06/27/18 16:00 BP 137/84 06/27/18 15:00 Pulse Ox 94 L 06/27/18 15:00 Intake & Output 06/27/18 06/27/18 06/28/18 06:59 18:59 06:59 Intake Total 600 Balance 600 Intake: Intake, IV Titration 600 Amount Sodium Chloride 0.9% 1, 600 000 ml @ 75 mls/hr IV . [id number] [facility] Rx#:[id number] Other: # Voids 1 3 1 - Exam On physical examination, patient appears comfortable in no apparent distress. HEAD: Normocephalic, atraumatic. EYES: Scleral icterus. No conjunctival injection. MOUTH: No lesions, tongue midline. NECK: Trachea midline, no gross abnormalities. CHEST: Clear to auscultation with no wheezing or rhonchi appreciated. HEART: Regular rate and rhythm. ABDOMEN: Soft, obese. Bowel sounds are positive. No organomegaly. No guarding or rigidity. EXTREMITIES: No pedal edema. SKIN: No rashes, jaundice. NEUROLOGIC: Alert and oriented x3. No focal deficits. - Labs CBC & Chem 7: 06/27/18 10:21 06/27/18 10:21 Labs: Abnormal Lab Results - Last 24 Hours (Table) 06/26/18 06/27/18 06/27/18 Range/Units 09:46 10:21 10:21 RDW 16.1 H (11.5-15.5) % Glucose 108 H (74-99) mg/dL Total Bilirubin 14.5 H (0.2-1.3) mg/dL AST 140 H (14-36) U/L ALT 167 H (9-52) U/L Alkaline Phosphatase 511 H (38-126) U/L Albumin (PEP) 3.17 L (3.80-4.90) g/dL Cbtlg-9-Ufatjezap 0.53 H (0.10-0.40) g/dL Microbiology - Last 24 Hours (Table) 06/26/18 13:46 Blood Culture - Preliminary Blood No Growth after 24 hours 06/26/18 05:37 Urine Culture - Preliminary Urine,Clean Catch Assessment and Plan (1) Transaminitis Narrative/Plan: Patient presenting with new onset jaundice and findings of market elevation in her liver enzymes and predominantly a cholestatic pattern. No evidence of biliary dilation to suggest choledocholithiasis on CT and ultrasound or elevation in white count or fevers to raise concern for cholangitis, full liver serologies have been normal to date including alpha-1 antitrypsin, ASMA, AMA, and a, iron studies, ceruloplasmin, hepatitis A/B/C with other viral studies pending, given the nature of the elevation and the patient's reports of exposure to antibiotics concern is for a drug-induced liver injury. Current Visit: Yes Status: Acute Code(s): R74.0 - NONSPEC ELEV OF LEVELS OF TRANSAMNS & LACTIC ACID DEHYDRGNSE SNOMED Code(s): 259354206 (2) Cholelithiasis Current Visit: Yes Status: Acute Code(s): K80.20 - CALCULUS OF GALLBLADDER W/O CHOLECYSTITIS W/O OBSTRUCTION SNOMED Code(s): 063485800 (3) Hyperbilirubinemia Current Visit: Yes Status: Acute Code(s): E80.6 - OTHER DISORDERS OF BILIRUBIN METABOLISM SNOMED Code(s): 71116999 Plan: Supportive care Ultrasound and CT reviewed Continue to monitor liver enzymes Continue to monitor INR Avoid hepatotoxic medications Full liver serologies negative to date including alpha-1 antitrypsin, iron studies, ceruloplasmin, ANGEL, ASMA, AMA, hepatitis A/B/C, liver kidney antibody with other viral studies pending MRI/MRCP ordered No plans for ERCP at this time Thank you for allowing us to participate in the care of this patient we will continue to follow
[2018-06-27] MEDS: ZOLPIDEM 10 MG TAB PO SCH (22:28)
[2018-06-28] MEDS: LEVOTHYROXINE 25 MCG TAB PO SCH (05:34)
[2018-06-28] MEDS: HYDROmorphone 0.5 MG/0.5 ML SYRINGE IVP PRN ×4 (05:34→19:27)
[2018-06-28] MEDS: ALPRAZolam 0.25 MG TAB PO PRN ×3 (05:34→20:57)
[2018-06-28] MEDS: PANTOPRAZOLE 40 MG TABLET PO SCH ×2 (08:58→17:11)
[2018-06-28] MEDS: SODIUM CHLORIDE 0.9% 1,000 ML IV SCH ×2 (08:59→17:11)
[2018-06-28] MEDS: CLOTRIMAZOLE/BETAMETH 1-0.05% CREAM 45 GM TUBE TOPICAL SCH ×2 (09:00→21:13)
[2018-06-28] MEDS: FLUTICASONE 50MCG/SPRAY NASAL 16GM EA NOSTRIL SCH (09:00)
[2018-06-28 09:18] LABS: INR 1.1 (<1.2); Prothrombin Time 11.8 sec (9.0-12.0)
[2018-06-28 09:30] LABS: ALT 152 U/L (9-52); AST 119 U/L (14-36); Albumin 3.4 g/dL (3.5-5.0); Alkaline Phosphatase 504 U/L (38-126); Anion Gap 9 mmol/L; Bilirubin, Delta 3.5 mg/dL (0.0-0.2); Bilirubin,Unconjugated 2.6 mg/dL (0.0-1.1); Blood Urea Nitrogen 11 mg/dL (7-17); Carbon Dioxide 24 mmol/L (22-30); Chloride 107 mmol/L (98-107); Glucose 113 mg/dL (74-99); Potassium 3.5 mmol/L (3.5-5.1); Sodium 140 mmol/L (137-145); Total Bilirubin 14.1 mg/dL (0.2-1.3); Total Protein 6.6 g/dL (6.3-8.2)
[2018-06-28 09:32] LABS: Anisocytosis Slight; Basophils # (A) 0.1 k/uL (0-0.2); Basophils % (A) 1 %; Eosinophils # (A) 0.3 k/uL (0-0.7); Eosinophils % (A) 4 %; HCT 41.5 % (34.0-46.0); HGB 13.4 gm/dL (11.4-16.0); Lymphocytes # (A) 1.8 k/uL (1.0-4.8); Lymphocytes % (A) 24 %; MCH 29.2 pg (25.0-35.0); MCHC 32.3 g/dL (31.0-37.0); MCV 90.5 fL (80.0-100.0); Mean Platelet Volume 7.8; Monocytes # (A) 0.4 k/uL (0-1.0); Monocytes % (A) 5 %; Neutrophils # (A) 4.9 k/uL (1.3-7.7); Neutrophils % (A) 65 %; Platelet Count 267 k/uL (150-450); RBC 4.58 m/uL (3.80-5.40); RDW 16.4 % (11.5-15.5); WBC 7.5 k/uL (3.8-10.6)
--- NOTE | 2018-06-28 15:20 | P.PN ---
Subjective Progress Note Date: 06/28/18 CHIEF COMPLAINT: Gallstones HISTORY OF PRESENT ILLNESS: Patient examined this morning at the bedside. She denies abdominal pain. She continues to complain of chronic back pain. Patient was scheduled for MRCP today but testing was unable to be completed secondary to patient's body habitus. She is tolerating oral diet. Denies nausea or vomiting. Bilirubin 14.1. AST 119. ALT 152. No plans to transfer patient to outside facility for MRCP per nursing. PHYSICAL EXAM: VITAL SIGNS: Reviewed. GENERAL: Well-developed in no acute distress. HEENT: Bilateral sclera icterus. Extraocular movements grossly intact. Moist buccal mucosa. Head is atraumatic, normocephalic. ABDOMEN: Soft. Nondistended. Nontender. Obese. Positive bowel sounds. NEUROLOGIC: Alert and oriented. Cranial nerves II through XII grossly intact. ASSESSMENT: 1. Cholelithiasis 2. Transaminitis 3. Hyperbilirubinemia 4. Jaundice 5. Portal hypertension per US 6. History of sleep gastrectomy, 2008 7. Morbid obesity: BMI 62.6 8. History of breast cancer PLAN: No surgical intervention recommended. Continue workup per GI service. Diet as tolerated. We will sign off. Please reconsult if needed. Nurse practitioner note has been reviewed by physician. Signing provider agrees with the documented findings, assessment, and plan of care. Objective - Vital Signs Vital signs: Vital Signs Temp 97.9 F 06/28/18 13:15 Pulse 66 06/28/18 13:15 Resp 18 06/28/18 13:15 BP 125/79 06/28/18 13:15 Pulse Ox 94 L 06/28/18 13:15 Intake & Output 06/27/18 06/28/18 06/28/18 18:59 06:59 18:59 Intake Total 600 600 Balance 600 600 Intake: Intake, IV Titration 600 Amount Sodium Chloride 0.9% 1, 600 000 ml @ 75 mls/hr IV . [id number] [facility] Rx#:[id number] Oral 600 Other: # Voids 3 1 2 - Labs CBC & Chem 7: 06/28/18 08:57 06/28/18 08:57 Labs: Abnormal Lab Results - Last 24 Hours (Table) 06/28/18 06/28/18 Range/Units 08:57 08:57 RDW 16.4 H (11.5-15.5) % Glucose 113 H (74-99) mg/dL Total Bilirubin 14.1 H (0.2-1.3) mg/dL Conjugated Bilirubin 8.0 H (0.0-0.3) mg/dL Unconjugated Bilirubin 2.6 H (0.0-1.1) mg/dL Delta Bilirubin 3.5 H (0.0-0.2) mg/dL AST 119 H (14-36) U/L ALT 152 H (9-52) U/L Alkaline Phosphatase 504 H (38-126) U/L Albumin 3.4 L (3.5-5.0) g/dL Microbiology - Last 24 Hours (Table) 06/26/18 13:46 Blood Culture - Preliminary Blood No Growth after 24 hours Assessment and Plan (1) History of sleeve gastrectomy Current Visit: Yes Status: Acute Code(s): Z90.3 - ACQUIRED ABSENCE OF STOMACH [PART OF] SNOMED Code(s): 404309636 (2) Morbid obesity with BMI of 60.0-69.9, adult Current Visit: Yes Status: Acute Code(s): E66.01 - MORBID (SEVERE) OBESITY DUE TO EXCESS CALORIES; Z68.44 - BODY MASS INDEX (BMI) 60.0-69.9, ADULT SNOMED Code(s): 079166835 (3) Cholelithiasis Current Visit: Yes Status: Acute Code(s): K80.20 - CALCULUS OF GALLBLADDER W/O CHOLECYSTITIS W/O OBSTRUCTION SNOMED Code(s): 351401082 (4) Hyperbilirubinemia Current Visit: Yes Status: Acute Code(s): E80.6 - OTHER DISORDERS OF BILIRU BIN METABOLISM SNOMED Code(s): 57903441 (5) Transaminitis Current Visit: Yes Status: Acute Code(s): R74.0 - NONSPEC ELEV OF LEVELS OF TRANSAMNS & LACTIC ACID DEHYDRGNSE SNOMED Code(s): 203858847
[2018-06-28 17:37] LABS: EBV-VCA (IgG) >8.0 AI
--- NOTE | 2018-06-28 19:11 | P.PN ---
Subjective Progress Note Date: 06/28/18 Principal diagnosis: Elevated liver enzymes, jaundice Tolerating diet, no acute complaints. No abdominal pain reported. Still jaundiced. Objective - Vital Signs Vital signs: Vital Signs Temp 97.9 F 06/28/18 13:15 Pulse 66 06/28/18 13:15 Resp 18 06/28/18 13:15 BP 125/79 06/28/18 13:15 Pulse Ox 94 L 06/28/18 13:15 Intake & Output 06/28/18 06/28/18 06/29/18 06:59 18:59 06:59 Intake Total 600 600 Balance 600 600 Intake: Intake, IV Titration 600 Amount Sodium Chloride 0.9% 1, 600 000 ml @ 75 mls/hr IV . [id number] TOSHIA Rx#:[id number] Oral 600 Other: # Voids 1 2 - Exam On physical examination, patient appears comfortable in no apparent distress. HEAD: Normocephalic, atraumatic. EYES: Scleral icterus. No conjunctival injection. MOUTH: No lesions, tongue midline. NECK: Trachea midline, no gross abnormalities. CHEST: Clear to auscultation with no wheezing or rhonchi appreciated. HEART: Regular rate and rhythm. ABDOMEN: Soft, obese. Bowel sounds are positive. No organomegaly. No guarding or rigidity. EXTREMITIES: No pedal edema. SKIN: No rashes, jaundice. NEUROLOGIC: Alert and oriented x3. No focal deficits. - Labs CBC & Chem 7: 06/28/18 08:57 06/28/18 08:57 Labs: Abnormal Lab Results - Last 24 Hours (Table) 06/28/18 06/28/18 06/28/18 Range/Units 08:57 08:57 08:57 RDW 16.4 H (11.5-15.5) % Glucose 113 H (74-99) mg/dL Total Bilirubin 14.1 H (0.2-1.3) mg/dL Conjugated Bilirubin 8.0 H (0.0-0.3) mg/dL Unconjugated Bilirubin 2.6 H (0.0-1.1) mg/dL Delta Bilirubin 3.5 H (0.0-0.2) mg/dL AST 119 H (14-36) U/L ALT 152 H (9-52) U/L Alkaline Phosphatase 504 H (38-126) U/L Albumin 3.4 L (3.5-5.0) g/dL EBV Capsid Ag IgG Intrp POSITIVE H (NEGATIVE) EBV EA IgG Ab Interp POSITIVE H (NEGATIVE) EBV Nuc Ag IgG Interp POSITIVE H (NEGATIVE) Microbiology - Last 24 Hours (Table) 06/26/18 13:46 Blood Culture - Preliminary Blood No Growth after 48 hours Assessment and Plan (1) Transaminitis Narrative/Plan: Patient presenting with new onset jaundice and findings of market elevation in her liver enzymes and predominantly a cholestatic pattern. No evidence of biliary dilation to suggest choledocholithiasis on CT and ultrasound or elevation in white count or fevers to raise concern for cholangitis, full liver serologies have been normal to date including alpha-1 antitrypsin, ASMA, AMA, and a, iron studies, ceruloplasmin, hepatitis A/B/C with other viral studies pending, given the nature of the elevation and the patient's reports of exposure to antibiotics concern is for a drug-induced liver injury. Current Visit: Yes Status: Acute Code(s): R74.0 - NONSPEC ELEV OF LEVELS OF TRANSAMNS & LACTIC ACID DEHYDRGNSE SNOMED Code(s): 545536190 (2) Cholelithiasis Current Visit: Yes Status: Acute Code(s): K80.20 - CALCULUS OF GALLBLADDER W/O CHOLECYSTITIS W/O OBSTRUCTION SNOMED Code(s): 797807710 (3) Hyperbilirubinemia Current Visit: Yes Status: Acute Code(s): E80.6 - OTHER DISORDERS OF BILIRUBIN METABOLISM SNOMED Code(s): 61853954 Plan: Supportive care Ultrasound and CT reviewed Continue to monitor liver enzymes Continue to monitor INR Avoid hepatotoxic medications Full liver serologies negative to date including alpha-1 antitrypsin, iron studies, ceruloplasmin, ANGEL, ASMA, AMA, hepatitis A/B/C, liver kidney antibody with other viral studies pending MRI/MRCP not performed due to body habitus No plans for ERCP at this time Thank you for allowing us to participate in the care of this patient we will continue to follow
--- NOTE | 2018-06-28 20:19 | PN ---
PROGRESS NOTE DATE OF SERVICE: 06/28/2018 This 67-year-old woman who was admitted with jaundice also had elevated LFTs. Possibility of drug-induced hepatitis is considered. The patient is on multiple psych medications also. Multiple consultants are following the patient closely, including Gastroenterology and Surgery. Past medical history reviewed. REVIEW OF SYSTEMS: CARDIOVASCULAR SYSTEM: No angina, palpitations. RESPIRATORY SYSTEM: As mentioned earlier. GI: As mentioned earlier. : No dysuria or retention. NERVOUS SYSTEM: No numbness, weakness. CURRENT MEDICATIONS: Reviewed. They include: 1. Ventolin 2.5 q.6 p.r.n. 2. Xanax 0.25 t.i.d. 3. Lotrisone. 4. Pepcid 20 mg at bedtime. 5. Flonase. 6. Dilaudid. 7. Synthroid. 8. Zofran. 9. Protonix. 10.Ambien. 11.P.r.n. medications. PHYSICAL EXAMINATION: The patient is alert, oriented x2. The pulse is 66, blood pressure 125/79, respiration 18, temperature 97.8, pulse ox 94% on room air. HEENT: Conjunctivae icteric. Oral mucosa moist. NECK: No jugular venous distention. No carotid bruit. No lymph node enlargement. CARDIOVASCULAR SYSTEM: S1, S2 muffled. RESPIRATORY SYSTEM: Breath sounds diminished at the bases. A few scattered rhonchi. No crackles. ABDOMEN: Soft, obese, non-tender. No mass palpable. No guarding. No rigidity. No ascites. LEGS: No edema. No swelling. NERVOUS SYSTEM: Higher functions as mentioned earlier. Moves all 4 limbs. No focal motor or sensory deficit. LYMPHATICS: No lymph node palpable in neck, axillae or groin. SKIN: No ulcer, rash, bleeding. JOINTS: No active deforming arthropathy. LABS: WBC 7.5, hemoglobin 13.4. Glucose 113. Bilirubin is 14.1, conjugated bilirubin 8, delta bilirubin 3.5. AST is 119, ALT is 152, alkaline phosphatase is 504. Albumin is 3.4. ASSESSMENT: 1. Severe jaundice; possible acute hepatocellular jaundice with acute hepatitis, possibly drug-induced; infective unlikely. 2. Increased AST, ALT. 3. Increased alkaline phosphatase, stable. 4. Intrahepatic biliary obstruction unlikely. 5. History of chronic kidney disease, stage III. 6. Cholelithiasis. 7. History of fibromyalgia. 8. History of breast cancer. 9. Right foot surgery. 10.History of gastroesophageal reflux disease. 11.Hypertension. 12.History of degenerative joint disease. 13.History of obstructive sleep apnea. 14.History of hypothyroidism. 15.History of macular degeneration. 16.History of glaucoma. 17.History of axonal neuropathy. 18.History of irritable bowel syndrome. 19.History of tremors. 20.History of adenoidectomy. 21.History of developmental delay. 22.History of back surgery. 23.History of recent urinary tract infection; was on Macrobid. 24.History of bariatric surgery. 25.History of panniculitis. 26.History of gastric sleeve surgery. 27.Anxiety, depression. 28.FULL CODE. RECOMMENDATIONS AND DISCUSSION: In this 67-year-old woman who presented with multiple complex medical issues, we will monitor the patient closely, continue the current medications, continue with symptomatic treatment. Will obtain the microbiology. Most recent cultures are negative. Currently the patient is not on any antibiotics. I would recommend to continue with infectious disease evaluation. Continue the rest of the medications. Symptomatic treatment will be provided. Closely follow the LFTs. Discussed with Dr. Munroe, who agrees with the therapeutic plan and diagnosis. Prognosis guarded. Further recommendations to follow. MMODL / IJN: [id number] /
[2018-06-28] MEDS: FAMOTIDINE 20 MG TAB PO SCH (20:57)
[2018-06-28] MEDS: ZOLPIDEM 10 MG TAB PO SCH (20:57)
[2018-06-29] MEDS: HYDROmorphone 0.5 MG/0.5 ML SYRINGE IVP PRN ×5 (00:44→20:36)
[2018-06-29] MEDS: LEVOTHYROXINE 25 MCG TAB PO SCH (05:02)
[2018-06-29] MEDS: CLOTRIMAZOLE/BETAMETH 1-0.05% CREAM 45 GM TUBE TOPICAL SCH ×2 (09:01→20:37)
[2018-06-29] MEDS: SODIUM CHLORIDE 0.9% 1,000 ML IV SCH ×2 (09:01→20:32)
[2018-06-29] MEDS: PANTOPRAZOLE 40 MG TABLET PO SCH ×2 (09:01→16:37)
[2018-06-29] MEDS: FLUTICASONE 50MCG/SPRAY NASAL 16GM EA NOSTRIL SCH (09:01)
[2018-06-29] MEDS: ALPRAZolam 0.25 MG TAB PO PRN (09:09)
--- NOTE | 2018-06-29 10:02 | P.PN ---
Progress Note - Text Progress Note Date: 06/29/18 The patient still quite jaundiced. Her bilirubin is 14. On exam her vital signs are stable. Her abdomen is soft. No surgical intervention is planned at this point. Patient will continue to receive supportive care.
[2018-06-29 12:05] LABS: Anisocytosis Slight; Basophils # (A) 0.1 k/uL (0-0.2); Basophils % (A) 1 %; Eosinophils # (A) 0.3 k/uL (0-0.7); Eosinophils % (A) 4 %; HCT 41.2 % (34.0-46.0); Lymphocytes # (A) 1.9 k/uL (1.0-4.8); Lymphocytes % (A) 24 %; MCH 28.6 pg (25.0-35.0); MCHC 31.7 g/dL (31.0-37.0); MCV 90.4 fL (80.0-100.0); Mean Platelet Volume 7.8; Monocytes # (A) 0.4 k/uL (0-1.0); Monocytes % (A) 4 %; Neutrophils # (A) 5.3 k/uL (1.3-7.7); Neutrophils % (A) 65 %; Platelet Count 269 k/uL (150-450); RBC 4.55 m/uL (3.80-5.40); RDW 16.7 % (11.5-15.5); WBC 8.1 k/uL (3.8-10.6)
[2018-06-29 12:19] LABS: INR 1.2 (<1.2); Prothrombin Time 12.1 sec (9.0-12.0)
[2018-06-29 12:23] LABS: ALT 130 U/L (9-52); AST 96 U/L (14-36); Albumin 3.3 g/dL (3.5-5.0); Alkaline Phosphatase 515 U/L (38-126); Anion Gap 9 mmol/L; Blood Urea Nitrogen 10 mg/dL (7-17); Calcium 8.9 mg/dL (8.4-10.2); Carbon Dioxide 24 mmol/L (22-30); Chloride 108 mmol/L (98-107); Glucose 89 mg/dL (74-99); Potassium 3.7 mmol/L (3.5-5.1); Sodium 141 mmol/L (137-145); Total Bilirubin 14.4 mg/dL (0.2-1.3); Total Protein 6.4 g/dL (6.3-8.2)
--- NOTE | 2018-06-29 13:25 | P.PN ---
Progress Note - Text Interval history: This patient is a 67-year-old female who is known to my outpatient practice. She carries a diagnosis of major depressive disorder and generalized anxiety disorder. She is currently admitted to the medical floor as she presented jaundice with markedly elevated liver enzymes and bilirubin. The patient states that she appeared jaundiced last weekend. She has been seen by several specialists including surgery and infectious disease. The patient states that she feels anxious and would like to go home. She reports some difficulty sleeping but the Ambien started by Dr. Garcia provided some relief. She states her appetite is markedly reduced. In outpatient setting previously we had used Ativan with some success and we discussed using that in place of Xanax. We discussed we would refrain from restarting her psychiatric medicine until her liver function improved. She reports no suicidal ideation intent or plan. She reports no symptoms of psychosis. Chronically she is a very emotionally expressive person and will demonstrate tremor with anxiety. I have treated her for several years now. She had failed several medication trials until we reach the combination of Trintellix 10 mg daily Lamictal 100 mg daily and the doxepin 10 mg at bedtime as needed for insomnia. Since then she has been psychiatrically stable across numerous visits. Mental status exam: The patient is a morbidly obese female she appears jaundiced with scleral icterus. She is dressed in hospital attire. She is wearing her eyeglasses. She recognizes me on approach by name. She indicates she feels anxious and sad as she wants to go home. She is able to verbalize an understanding of her current medical situation and I am informed she has been compliant with treatment. She reports no suicidal or homicidal ideation intent or plan she is endorsing no psychosis and there is no observed evidence of psyc hosis. She does not appear hypomanic or manic. Insight and judgment grossly intact. Plan: Major depressive disorder, generalized anxiety disorder: At this time we will discontinue the Xanax and initiate Ativan 0.5 mg up to 3 times daily as needed for anxiety. She has had some success with that medication in managing anxiety in the past. We will refrain from restarting psychotropic medication until liver function improves. Although the 3 psychotropic medications we were using each have a rare risk of causing hepatotoxicity the etiology of her current presentation is unknown. We will continue to follow patient while medically admitted.
[2018-06-29] MEDS: LORazepam 0.5 MG TAB PO PRN ×2 (13:56→21:51)
--- NOTE | 2018-06-29 19:36 | P.CONS ---
History of Present Illness - Reason for Consult Consult date: 06/29/18 - Chief Complaint Jaundiced and UTI - History of Present Illness 67 -year-old female who has multiple medical troubles that includes diminished mental capacity, a urinary tract infections and a history of anxiety and depression. She does follow with psychiatry and is on multiple agents. They have been reviewed and were not thought to be the etiology of her current markedly elevated bilirubin. The patient herself is a poor historian and other than relating that she was on several antibiotics including most recently Macrobid she does not recall other new acute changes. The patient is bright yellow with her profound jaundice but is denying significant nausea or emesis. She has severe anxiety. She denies urinary symptoms. She has no burning or discomfort. She does have some incontinence. Review of Systems HEENT:Denies headache or acute visual change. Denies sinus or mouth discomforts. Denies neck stiffness or pain. Denies significant oral cavity pain. Denies difficulty on swallowing. Lungs: Denies significant shortness of breath, cough, sputum production, or hemoptysis. Cardiovascular: Denies significant shortness of breath, chest pain, chest wall pain, orthopnea, dyspnea on exertion, syncope Gastrointestinal:Denies nausea, vomiting, diarrhea, constipation, hematemesis, melena, hematochezia. No no significant change of bowel habit noticed. Musculoskeletal: denies significant myalgias or arthralgias. No new joint swelling. Denies new back pain. Skin: Deep jaundice Neuro: Denies headache or visual change. Denies any new onset weakness or difficulty with ambulation. Denies falls or seizures. Psychiatric: Severe anxiety and depression. Endocrine: Chronic fatigue weight stable Past Medical History Past Medical History: Cancer, Eye Disorder, Fibromyalgia, GERD/Reflux, Hype rtension, Osteoarthritis (OA), Sleep Apnea/CPAP/BIPAP, Thyroid Disorder Additional Past Medical History / Comment(s): Macular degeneration, glaucoma merle eyes. Axonal neuropathy, morbid obesity. IBS-freq diarrhea. Tremors; PT RECIDES AT [facility], "[facility]" TAKES CARE OF RX. GUARDIAN IS AMY LOTT & brother Dileep Condon; RIGHT BREAST CANCER-NO CHEMO/RADIATION- SCHEDULED FOR MASTECTOMY History of Any Multi-Drug Resistant Organisms: None Reported Past Surgical History: Adenoidectomy, Back Surgery, Bariatric Surgery, Orthopedic Surgery, Tonsillectomy Additional Past Surgical History / Comment(s): GASTRIC SLEEVE 2009, PANNICULECTOMY,TRIGGER FINGER RELEASE, PAIN CLINIC PROCEDURE-BACK INJECTIONS, EGD'S W/ DILATATION, Laminectomy. CYSTOSCOPE, RT URETERAL STENT. KIDNEY STONE R EMOVAL Past Anesthesia/Blood Transfusion Reactions: Family History of Problems w/ Anesthesia Additional Past Anesthesia/Blood Transfusion Reaction / Comm: PT AND BROTHER STATES "PT HAS NARROW AIRWAY", BROTHER HAS CONFUSION WITH VERSED. Past Psychological History: Anxiety, Depression Additional Psychological History / Comment(s): "Developmentally Disabled" Smoking Status: Never smoker Past Alcohol Use History: None Reported Past Drug Use History: None Reported - Past Family History Mother Family Medical History: Cancer, CVA/TIA Additional Family Medical History / Comment(s): PERSONALITY DISORDER, ALCOHOLIC,ABUSIVE, pharyngeal cancer, kidney disease Father Family Medical History: Cancer, Coronary Artery Disease (CAD) Additional Family Medical History / Comment(s): PANCREAS,CABG Brother(s) Family Medical History: AICD/Pacemaker Additional Family Medical History / Comment(s): PACEMAKER,lbbb,bradycardia Medications and Allergies Home Medications and Allergies Comment(s): Current Medications Albuterol Sulfate (Ventolin Nebulized) 2.5 mg INHALATION RT-Q6H PRN PRN Reason: Shortness Of Breath Betamethasone/Clotrimazole (Lotrisone) 1 applic TOPICAL BID [facility] Last Admin: 06/29/18 09:01 Dose: 1 applic Documented by: Famotidine (Pepcid) 20 mg PO HS [facility] Last Admin: 06/28/18 20:57 Dose: 20 mg Documented by: Fluticasone Propionate (Flonase Nasal [place]) 2 spray EA NOSTRIL DAILY [facility] Last Admin: 06/29/18 09:01 Dose: Not Given Documented by: Hydromorphone HCl (Dilaudid) 0.25 mg IVP Q3HR PRN PRN Reason: Severe Pain Last Admin: 06/29/18 14:44 Dose: 0.25 mg Documented by: Sodium Chloride (Saline 0.9%) 1,000 mls @ 75 mls/hr IV .[id number] [facility] Last Admin: 06/29/18 09:01 Dose: 75 mls/hr Documented by: Levothyroxine Sodium (Synthroid) 25 mcg PO QAM@0630 [facility] Last Admin: 06/29/18 05:02 Dose: 25 mcg Documented by: Lorazepam (Ativan) 0.5 mg PO TID PRN PRN Reason: Anxiety Last Admin: 06/29/18 13:56 Dose: 0.5 mg Documented by: Ondansetron HCl (Zofran) 4 mg IVP Q8HR PRN PRN Reason: Nausea And Vomiting Pantoprazole Sodium (Protonix) 40 mg PO AC-BID [facility] Last Admin: 06/29/18 16:37 Dose: 40 mg Documented by: Zolpidem Tartrate (Ambien) 10 mg PO [facility] Last Admin: 06/28/18 20:57 Dose: 10 mg Documented by: Home Medications Medication Instructions Recorded Confirmed Type Levothyroxine Sodium [Synthroid] 25 mcg PO QA 04/02/14 06/25/18 History Vortioxetine Hydrobromide 10 mg PO [facility] 03/06/16 06/25/18 History [Trintellix] Doxepin [SINEquan] 10 mg PO 05/10/16 06/25/18 History Cyanocobalamin (Vitamin B-12) 1,000 mcg PO QAM 05/28/16 06/25/18 History [Vitamin B-12] fentaNYL 25MCG/HR PATCH [Duragesic 1 patch TRANSDERM Q72H #7 patch 04/09/17 06/25/18 Rx 25MCG/HR] Baclofen [Lioresal] 10 mg PO BID 05/01/17 06/25/18 History Loratadine [Claritin] 10 mg PO DAILY 05/01/17 06/25/18 History Simvastatin [Zocor] 20 mg PO HS 05/01/17 06/25/18 History Ranitidine HCl [Zantac] 150 mg PO BID 06/15/17 06/25/18 History Ergocalciferol [Vitamin D2] 50,000 unit PO Q7D 09/06/17 06/25/18 History Ferrous Sulfate [Feosol] 325 mg PO DAILY 09/06/17 06/25/18 History lamoTRIgine [LaMICtal] 100 mg PO DAILY 09/06/17 06/25/18 History Fluticasone Nasal [place] [Flonase 2 spr EA NOSTRIL DAILY 12/03/17 06/25/18 History Nasal [place]] Gabapentin [Neurontin] 400 mg PO TID 04/19/18 06/25/18 History Allopurinol [Zyloprim] 100 mg PO DAILY 06/17/18 06/25/18 History Clotrimazole/Betameth Cream 1 applic TOPICAL BID 06/17/18 06/25/18 History [Lotrisone] Albuterol Inhaler [Ventolin Hfa 2 puff INHALATION RT-Q6H PRN 06/25/18 06/25/18 History Inhaler] Diphenoxylate HCl/Atropine 1 tab PO TID PRN 06/25/18 06/25/18 History [Lomotil 2.5-0.025 mg Tablet] lamoTRIgine [LaMICtal] 25 mg PO HS 06/25/18 06/25/18 History Allergies Allergy/AdvReac Type Severity Reaction Status Date / Time cefazolin sodium [From Ancef] Allergy Mild Rash/Hives Verified 06/25/18 11:02 etodolac [From L[place]ine] Allergy Rash/Hives Verified 06/25/18 11:02 Iodinated Contrast- Oral and Allergy Rash/Hives Verified 06/25/18 11:02 IV Dye [Iodinated Contrast Media - IV Dye] Iodine and Iodide Containing Allergy Rash/Hives Verified 06/25/18 11:02 Produc levofloxacin [From Levaquin] Allergy Swelling Verified 06/25/18 11:02 NSAIDS (Non-Steroidal Allergy Rash/Hives Verified 06/25/18 11:02 Anti-Inflamma sulfamethoxazole AdvReac Confusion, Verified 06/25/18 11:02 [From Bactrim] Increased Bun & Cr levels trimethoprim [From Bactrim] AdvReac Confusion, Verified 06/25/18 11:02 Increased Bun & Creat Physical Exam Vitals: Vital Signs Temp Pulse Resp BP Pulse Ox 06/29/18 14:36 97.6 F 80 20 158/86 95 06/29/18 05:30 97.9 F 69 18 117/78 93 L 06/28/18 21:15 98.2 F 61 16 141/79 93 L Intake and Output 06/29/18 06/29/18 06/29/18 06:59 14:59 22:59 Intake Total 200 Balance 200 Intake: Oral 200 Other: Voiding Method Toilet Toilet # Voids 5 2 HEENT: Brightly icteric conjunctiva are pink and moist nasal mucosa grossly intact without significant lesions, there is no thrush. Anicteric oral cavity Neck: The neck is supple without significant lymphadenopathy or thyromegaly. Lungs: Good bilateral air entry without significant crackles or wheezing. There is no significant bronchial sounds. There is no egophony or dullness. Heart: Regular rate and rhythm with an audible S1-S2, no S3 no S4. There is no significant murmur click or rub, PMI was nondisplaced. Abdomen: Positive bowel sounds soft minimal tenderness in the lower quadrants without palpable masses or organomegaly. There was no guarding or rebound. Extremities: The upper extremities have excellent pulses they are symmetric, no significant petechiae or telangiectasia. No splinter hemorrhages were noted. Groceries have some chronic edema but no open ulcers are seen Skin is brightly jaundice no other ulcers Neuro: Awake alert oriented to person and place. She has developmental delay and significant and severe anxiety cries readily through the exam wondering to go home. She has a visitor who tries to calm her. Results CBC & Chem 7: 06/29/18 11:12 06/29/18 11:12 Labs: Abnormal Lab Results - Last 24 Hours (Table) 06/29/18 06/29/18 06/29/18 Range/Units 11:12 11:12 11:12 RDW 16.7 H (11.5-15.5) % PT 12.1 H (9.0-12.0) sec INR 1.2 H (<1.2) Chloride 108 H (98-107) mmol/L Total Bilirubin 14.4 H (0.2-1.3) mg/dL AST 96 H (14-36) U/L ALT 130 H (9-52) U/L Alkaline Phosphatase 515 H (38-126) U/L Albumin 3.3 L (3.5-5.0) g/dL Microbiology - Last 24 Hours (Table) 06/26/18 13:46 Blood Culture - Preliminary Blood No Growth after 72 hours 06/26/18 05:37 Urine Culture - Final Urine,Clean Catch Group D Not Enterococcus Laboratory Results WBC 8.1 k/uL (3.8-10.6) 06/29/18 11:12 RBC 4.55 m/uL (3.80-5.40) 06/29/18 11:12 Hgb 13.0 gm/dL (11.4-16.0) 06/29/18 11:12 Hct 41.2 % (34.0-46.0) 06/29/18 11:12 MCV 90.4 fL (80.0-100.0) 06/29/18 11:12 MCH 28.6 pg (25.0-35.0) 06/29/18 11:12 MCHC 31.7 g/dL (31.0-37.0) 06/29/18 11:12 RDW 16.7 % (11.5-15.5) H 06/29/18 11:12 Plt Count 269 k/uL (150-450) 06/29/18 11:12 Neutrophils % 65 % 06/29/18 11:12 Lymphocytes % 24 % 06/29/18 11:12 Monocytes % 4 % 06/29/18 11:12 Eosinophils % 4 % 06/29/18 11:12 Basophils % 1 % 06/29/18 11:12 Neutrophils # 5.3 k/uL (1.3-7.7) 06/29/18 11:12 Lymphocytes # 1.9 k/uL (1.0-4.8) 06/29/18 11:12 Monocytes # 0.4 k/uL (0-1.0) 06/29/18 11:12 Eosinophils # 0.3 k/uL (0-0.7) 06/29/18 11:12 Basophils # 0.1 k/uL (0-0.2) 06/29/18 11:12 Hypochromasia Slight 06/27/18 10:21 Anisocytosis Slight 06/29/18 11:12 PT 12.1 sec (9.0-12.0) H 06/29/18 11:12 INR 1.2 (<1.2) H 06/29/18 11:12 APTT 27.8 sec (22.0-30.0) 06/25/18 11:15 Sodium 141 mmol/L (137-145) 06/29/18 11:12 Potassium 3.7 mmol/L (3.5-5.1) 06/29/18 11:12 Chloride 108 mmol/L (98-107) H 06/29/18 11:12 Carbon Dioxide 24 mmol/L (22-30) 06/29/18 11:12 Anion Gap 9 mmol/L 06/29/18 11:12 BUN 10 mg/dL (7-17) 06/29/18 11:12 Creatinine 0.78 mg/dL (0.52-1.04) 06/29/18 11:12 Est GFR (CKD-EPI)AfAm >90 (>60 ml/min/1.73 sqM) 06/29/18 11:12 Est GFR (CKD-EPI)NonAf 80 (>60 ml/min/1.73 sqM) 06/29/18 11:12 Glucose 89 mg/dL (74-99) 06/29/18 11:12 Calcium 8.9 mg/dL (8.4-10.2) 06/29/18 11:12 Iron 37 ug/dL (50-170) L 06/26/18 09:46 TIBC 279 ug/dL (228-460) 06/26/18 09:46 Iron Saturation 13.26 (12.00-45.00) 06/26/18 09:46 Ferritin 277.9 ng/mL (10.0-291.0) 06/26/18 09:46 Total Bilirubin 14.4 mg/dL (0.2-1.3) H 06/29/18 11:12 Conjugated Bilirubin 8.0 mg/dL (0.0-0.3) H 06/28/18 08:57 Unconjugated Bilirubin 2.6 mg/dL (0.0-1.1) H 06/28/18 08:57 Delta Bilirubin 3.5 mg/dL (0.0-0.2) H 06/28/18 08:57 AST 96 U/L (14-36) H 06/29/18 11:12 ALT 130 U/L (9-52) H 06/29/18 11:12 Alkaline Phosphatase 515 U/L (38-126) H 06/29/18 11:12 Ammonia 16 umol/L (<30) 06/25/18 11:15 Total Protein 6.4 g/dL (6.3-8.2) 06/29/18 11:12 Total Protein (PEP) 6.0 g/dL (6.2-8.2) L 06/26/18 09:46 Albumin 3.3 g/dL (3.5-5.0) L 06/29/18 11:12 Albumin (PEP) 3.17 g/dL (3.80-4.90) L 06/26/18 09:46 Xxmub-8-Eaqtvtejw 0.53 g/dL (0.10-0.40) H 06/26/18 09:46 Yxxyk-0-Xqzlxgwuj 0.71 g/dL (0.60-1.00) 06/26/18 09:46 Beta Globulins 0.79 g/dL (0.60-1.30) 06/26/18 09:46 Gamma Globulins 0.79 g/dL (0.70-1.50) 06/26/18 09:46 PEP Interpretation SEE NOTE 06/26/18 09:46 Aemdt-0-Gftkdjgjrkf 180.0 mg/dL (99.0-242.0) 06/26/18 09:46 Ceruloplasmin 45.8 mg/dL (20.0-60.0) 06/26/18 09:46 Amylase 41 U/L (30-110) 06/25/18 11:15 Lipase 95 U/L (23-300) 06/25/18 11:15 Urine Color Dark Brown 06/26/18 05:37 Urine Appearance Turbid (Clear) H 06/26/18 05:37 Urine pH 5.5 (5.0-8.0) 06/26/18 05:37 Ur Specific [place] 1.022 (1.001-1.035) 06/26/18 05:37 Urine Protein 1+ (Negative) H 06/26/18 05:37 Urine Glucose (UA) Negative (Negative) 06/26/18 05:37 Urine Ketones Negative (Negative) 06/26/18 05:37 Urine Blood Moderate (Negative) H 06/26/18 05:37 Urine Nitrite Negative (Negative) 06/26/18 05:37 Urine Bilirubin 3+ (Negative) H 06/26/18 05:37 Urine Urobilinogen 2.0 mg/dL (<2.0) 06/26/18 05:37 Ur Leukocyte Esterase Large (Negative) H 06/26/18 05:37 Urine RBC 10 /hpf (0-5) H 06/26/18 05:37 Urine WBC 114 /hpf (0-5) H 06/26/18 05:37 Ur Squamous Epith Cells 101 /hpf (0-4) H 06/26/18 05:37 Urine Bacteria Few /hpf (None) H 06/26/18 05:37 Hyaline Casts 28 /lpf (0-2) H 06/26/18 05:37 Urine Mucus Few /hpf (None) H 06/26/18 05:37 ANGEL Screen NEGATIVE (NEGATIVE) 06/26/18 09:46 Anti-Mitochondrial Ab 5.8 UNITS (<=20) 06/26/18 09:46 Anti-Smooth Muscle Ab 13 UNITS (<20) 06/26/18 09:46 Liver/Kid Microsomes Ab 1.6 UNITS (<=20) 06/26/18 09:46 EBV Capsid Ag IgG Ab >8.0 AI 06/28/18 08:57 EBV Capsid Ag IgG Intrp POSITIVE (NEGATIVE) H 06/28/18 08:57 EBV Capsid Ag IgM Ab <0.2 AI 06/28/18 08:57 EBV Capsid Ag IgM Intrp NEGATIVE (NEGATIVE) 06/28/18 08:57 EBV Early Antigen IgG >8.0 AI 06/28/18 08:57 EBV EA IgG Ab Interp POSITIVE (NEGATIVE) H 06/28/18 08:57 EBV Nuclear Ag IgG Ab >8.0 AI 06/28/18 08:57 EBV Nuc Ag IgG Interp POSITIVE (NEGATIVE) H 06/28/18 08:57 Hepatitis A IgM Ab NEGATIVE 06/25/18 11:44 Hep Bs Antigen Non-Reactive (Non-Reactive) 06/25/18 11:15 Hep B Core IgM Ab Non-Reactive (Non-Reactive) 06/25/18 11:15 Hep C IgG Ab Non-Reactive (Non-Reactive) 06/25/18 11:15 Microbiology 06/26/18 13:46 Blood Blood Culture - Preliminary No Growth after 72 hours 06/26/18 05:37 Urine,Clean Catch Urine Culture - Final Group D Not Enterococcus Assessment and Plan (1) Morbid obesity with BMI of 60.0-69.9, adult Current Visit: Yes Status: Acute Code(s): E66.01 - MORBID (SEVERE) OBESITY DUE TO EXCESS CALORIES; Z68.44 - BODY MASS INDEX (BMI) 60.0-69.9, ADULT SNOMED Code(s): 274095180 (2) Cholelithiasis Current Visit: Yes Status: Acute Code(s): K80.20 - CALCULUS OF GALLBLADDER W/O CHOLECYSTITIS W/O OBSTRUCTION SNOMED Code(s): 005817692 (3) Jaundice of recent onset Current Visit: Yes Status: Acute Code(s): R17 - UNSPECIFIED JAUNDICE SN OMED Code(s): 64145999 (4) Asymptomatic bacteriuria Narrative/Plan: 67-year-old female who has a history of significant psychiatric di sease and developmental delay who presents to Hospital with gross jaundice. Initially the patient recently has been treated for several urinary tract infections and most recently was treated with Macrodantin. She has been seen by hepatology workup is in process. There is not evidence of an acute viral process at this time. Autoimmune workup is in process and negative so far. Drug-induced process appears to be most likely. There is no notation of any severe functional compromise of the liver at this point in time and is being watched closely by hepatology. The patient doesn't this point in time relates a many urinary infections. However upon questioning she does not seem to have symptoms. She hasn't had fevers or chills, she does not have dysuria or hematuria. She does have difficu lties urinary frequency but again does take medications for that. We discuss future we should avoid antibiotic therapy unless she has become symptomatic as far as urinary infection. This will reduce drug exposure. It also make it much more likely that when she is truly ill we will have active antibiotic therapy to treat her infection. At this time there is no evidence of a infectious etiology to her jaundice. Current Visit: Yes Status: Acute Code(s): R82.71 - BACTERIURIA SNOMED Code(s): 273119578
[2018-06-29] MEDS: ZOLPIDEM 10 MG TAB PO SCH (20:31)
[2018-06-29] MEDS: FAMOTIDINE 20 MG TAB PO SCH (20:31)
[2018-06-30] MEDS: HYDROmorphone 0.5 MG/0.5 ML SYRINGE IVP PRN ×5 (02:43→20:07)
[2018-06-30] MEDS: LEVOTHYROXINE 25 MCG TAB PO SCH (05:19)
[2018-06-30] MEDS: PANTOPRAZOLE 40 MG TABLET PO SCH ×2 (07:08→15:01)
[2018-06-30] MEDS: CLOTRIMAZOLE/BETAMETH 1-0.05% CREAM 45 GM TUBE TOPICAL SCH ×2 (07:09→20:08)
[2018-06-30] MEDS: FLUTICASONE 50MCG/SPRAY NASAL 16GM EA NOSTRIL SCH (07:09)
[2018-06-30] MEDS: LORazepam 0.5 MG TAB PO PRN ×2 (07:11→20:07)
--- NOTE | 2018-06-30 07:27 | PN ---
PROGRESS NOTE DATE OF SERVICE: 06/29/2018 This 67-year-old woman who was admitted with severe jaundice, also had a possible acute hepatocellular jaundice. The patient's bilirubin is still elevated at 14.4. The liver enzymes are 96 and 130, slightly better compared to yesterday. remained high. No chest pain. No palpitations. No fever. EXAM: Alert and oriented x3. Pulse is 80, blood pressure 115/58, respiration 20,, temperature 97.2, pulse ox 94% on room air. HEENT: Conjunctivae normal. Oral mucosa moist. NECK: No jugular venous distention. No lymph node enlargement. CARDIOVASCULAR: S1, S2. RESPIRATORY: Diminished breath sounds at the bases. A few scattered rhonchi. ABDOMEN: Soft, nontender. LEGS: No swelling. NERVOUS SYSTEM: No focal deficits. LAB STUDIES: WBC 8, hemoglobin 13, INR 1.2. ASSESSMENT: 1. Severe jaundice, possible acute hepatocellular jaundice or acute hepatitis, possibly drug induced. 2. Increased AST ALT. 3. Alkaline phosphatase stable. 4. History of chronic kidney disease stage III. 5. Cholelithiasis. 6. History of fibromyalgia. 7. History of breast cancer. 8. Right foot surgery. 9. Gastroesophageal reflux disease. 10.Hypertension. 11.History of degenerative joint disease. 12.History of obstructive sleep apnea. 13.Hypothyroidism. 14.History of macular degeneration. 15.History of glaucoma. 16.History of axonal neuropathy. 17.History of irritable bowel syndrome. 18.History of tremors. 19.History of adenoidectomy. 20.History of developmental delay. 21.History of back surgery. 22.History of recent urinary tract infection, was on Macrobid. 23.History of bariatric surgery. 24.History of pancolitis. 25.History of gastric sleeve surgery. 26.Anxiety, depression. 27.FULL CODE. RECOMMENDATIONS AND DISCUSSION: Recommend to continue current medications, continue current management, continue symptomatic treatment. Otherwise, at this time repeat labs, avoid hepatotoxic medications, closely follow with Gastroenterology. Guarded prognosis. Closely follow with multiple consultants. Further recommendations to follow. MMODL / IJN: [id number] / MTDD
[2018-06-30] MEDS: SODIUM CHLORIDE 0.9% 1,000 ML IV SCH (11:09)
[2018-06-30 11:45] LABS: Anisocytosis Slight; Basophils # (A) 0.1 k/uL (0-0.2); Basophils % (A) 1 %; Eosinophils # (A) 0.4 k/uL (0-0.7); Eosinophils % (A) 4 %; HCT 40.6 % (34.0-46.0); HGB 13.1 gm/dL (11.4-16.0); Lymphocytes # (A) 2.2 k/uL (1.0-4.8); Lymphocytes % (A) 27 %; MCH 29.2 pg (25.0-35.0); MCHC 32.4 g/dL (31.0-37.0); MCV 90.1 fL (80.0-100.0); Mean Platelet Volume 7.7; Monocytes # (A) 0.4 k/uL (0-1.0); Monocytes % (A) 5 %; Neutrophils # (A) 5.1 k/uL (1.3-7.7); Neutrophils % (A) 62 %; Platelet Count 297 k/uL (150-450); RDW 17.1 % (11.5-15.5); WBC 8.3 k/uL (3.8-10.6)
[2018-06-30 11:59] LABS: Albumin 3.4 g/dL (3.5-5.0); Calcium 8.8 mg/dL (8.4-10.2); INR 1.2 (<1.2); Potassium 3.6 mmol/L (3.5-5.1); Prothrombin Time 12.7 sec (9.0-12.0); Total Protein 6.5 g/dL (6.3-8.2)
[2018-06-30 12:11] LABS: Total Bilirubin 15.3 mg/dL (0.2-1.3)
--- NOTE | 2018-06-30 15:18 | PN ---
PROGRESS NOTE INTERVAL HISTORY: The patient is found in her room. She is lying in bed. She is watching TV. Upon approach, she states her mood is better. She is feeling less anxious. She reports finding the Ativan more helpful than Xanax. Other documentation was reviewed. She is reporting no suicidal ideation, intent, or plan. She is reporting no symptoms of psychosis. She is hoping that she is going to stabilize and will be discharged soon from the hospital. MENTAL STATUS EXAM: The patient is a morbidly obese female. She is significantly jaundiced with scleral icterus. She is wearing her eyeglasses. She was eating her dessert when I enter the room. Again, she denies having any suicidal or homicidal ideation, intent, or plan. There is no evidence of psychosis. She does not appear hypomanic or manic. She is demonstrating no verbal or physical aggressiveness. In discussing her care, she becomes briefly tearful and this is a chronic finding with this patient. She does have below average intellect. ASSESSMENT AND PLAN: Major depressive disorder, generalized anxiety disorder, intellectual disability. The patient will be continued on Ativan as needed for anxiety. There is no imminent safety risk. She does not require inpatient psychiatric hospitalization. We will continue to follow as needed while she is medically admitted. We will refrain from restarting her psychotropic medications at this time. MMODL / IJN: [id number] /
--- NOTE | 2018-06-30 18:48 | PN ---
PROGRESS NOTE DATE OF SERVICE: 06/30/2018 This 67-year-old woman who was admitted with severe jaundice, also had acute hepatocellular jaundice. The bilirubin is being closely monitored. Currently today it is 15.3. AST and ALT are showing some diminishing trends. The patient has been closely monitored. No chest pain. No palpitations. No fever. EXAM: Eyes are icteric. Pulse is 66, blood pressure 157/80, respiratory 20, temperature 97 degrees, pulse ox 94% on room air. HEENT: Conjunctivae icteric. CARDIOVASCULAR: S1, S2. RESPIRATORY: Breath sounds diminished in the bases. No rhonchi, no crackles. ABDOMEN: Soft, nontender. No mass palpable. LEGS: No edema. No swelling. NERVOUS SYSTEM: No focal deficits. LABS: WBC 8.2, hemoglobin 13.1. INR 1.2. LFTs are noted. ASSESSMENT: 1. Severe jaundice, possible acute hepatocellular jaundice or acute hepatitis, possibly drug induced. 2. Increased AST and ALT. 3. Group D, not enterococcus from the urine cultures. 4. Alkaline phosphatase is high. 5. History of chronic kidney stage III. 6. Cholelithiasis. 7. History of fibromyalgia. 8. History of breast cancer. 9. History of right foot surgery. 10.History of gastroesophageal reflux disease. 11.Hypertension. 12.History of degenerative joint disease. 13.History of obstructive sleep apnea. 14.Hypothyroidism. 15.History of macular degeneration. 16.History of glaucoma. 17.History of axonal neuropathy. 18.History of irritable bowel syndrome. 19.History of tremors. 20.History of adenoidectomy. 21.History of developmental delay. 22.History of back surgery. 23.History of recent urinary tract infection, was on Macrobid. 24.History of bariatric surgery. 25.History of skinner colitis. 26.History of gastric sleeve surgery. 27.Anxiety, depression. 28.FULL CODE. RECOMMENDATIONS AND DISCUSSION: I recommend to continue the current medications, continue monitoring and symptomatic treatment. The most recent urine culture showed group D enterococcus. We will continue to monitor. Continue to follow with Dr. Rucker. Further recommendation to follow. Will repeat the labs tomorrow and gastroenterology following the patient closely. MMODL / IJN: [id number] /
[2018-06-30] MEDS: FAMOTIDINE 20 MG TAB PO SCH (20:07)
[2018-06-30] MEDS: ZOLPIDEM 10 MG TAB PO SCH (20:07)
[2018-07-01] MEDS: HYDROmorphone 0.5 MG/0.5 ML SYRINGE IVP PRN ×4 (01:04→15:22)
[2018-07-01] MEDS: LORazepam 0.5 MG TAB PO PRN ×3 (04:24→15:23)
[2018-07-01] MEDS: SODIUM CHLORIDE 0.9% 1,000 ML IV SCH ×2 (04:27→06:51)
[2018-07-01] MEDS: LEVOTHYROXINE 25 MCG TAB PO SCH (05:18)
[2018-07-01] MEDS: FLUTICASONE 50MCG/SPRAY NASAL 16GM EA NOSTRIL SCH (06:50)
[2018-07-01] MEDS: PANTOPRAZOLE 40 MG TABLET PO SCH ×2 (06:51→15:23)
[2018-07-01] MEDS: CLOTRIMAZOLE/BETAMETH 1-0.05% CREAM 45 GM TUBE TOPICAL SCH ×2 (06:51→20:10)
[2018-07-01 09:12] LABS: Albumin 3.2 g/dL (3.5-5.0); Calcium 8.6 mg/dL (8.4-10.2); Potassium 3.3 mmol/L (3.5-5.1); Total Protein 6.3 g/dL (6.3-8.2)
[2018-07-01 09:16] LABS: Anisocytosis Slight; Basophils # (A) 0.1 k/uL (0-0.2); Basophils % (A) 1 %; Eosinophils # (A) 0.3 k/uL (0-0.7); Eosinophils % (A) 4 %; HCT 40.1 % (34.0-46.0); Lymphocytes # (A) 2.2 k/uL (1.0-4.8); Lymphocytes % (A) 28 %; MCH 29.1 pg (25.0-35.0); MCHC 32.4 g/dL (31.0-37.0); MCV 89.8 fL (80.0-100.0); Mean Platelet Volume 7.9; Monocytes # (A) 0.4 k/uL (0-1.0); Monocytes % (A) 5 %; Neutrophils # (A) 4.8 k/uL (1.3-7.7); Neutrophils % (A) 61 %; Platelet Count 291 k/uL (150-450); RBC 4.46 m/uL (3.80-5.40); RDW 17.2 % (11.5-15.5); WBC 7.9 k/uL (3.8-10.6)
[2018-07-01 09:20] LABS: INR 1.3 (<1.2); Prothrombin Time 13.1 sec (9.0-12.0)
[2018-07-01 09:52] LABS: Total Bilirubin 15.3 mg/dL (0.2-1.3)
[2018-07-01] MEDS ORDERED: PHYTONADIONE 10 MG in SODIUM CHLORIDE 0.9% 50 ML IVPB STA (12:23)
[2018-07-01] MEDS: FAMOTIDINE 20 MG TAB PO SCH (20:11)
[2018-07-01] MEDS: ZOLPIDEM 10 MG TAB PO SCH (20:11)
--- NOTE | 2018-07-01 23:07 | P.PN ---
Subjective Progress Note Date: 07/01/18 Principal diagnosis: Elevated liver enzymes, jaundice Tolerating diet, no acute complaints. No abdominal pain reported. Still jaundiced. Objective - Vital Signs Vital signs: Vital Signs Temp 98.2 F 07/01/18 21:10 Pulse 79 07/01/18 21:10 Resp 16 07/01/18 21:10 BP 146/84 07/01/18 21:10 Pulse Ox 94 L 07/01/18 21:10 Intake & Output 07/01/18 07/01/18 07/02/18 06:59 18:59 06:59 Intake Total 600 Balance 600 Intake: Oral 600 Other: Voiding Method Toilet Toilet # Voids 5 4 2 # Bowel Movements 1 - Exam On physical examination, patient appears comfortable in no apparent distress. HEAD: Normocephalic, atraumatic. EYES: Scleral icterus. No conjunctival injection. MOUTH: No lesions, tongue midline. NECK: Trachea midline, no gross abnormalities. CHEST: Clear to auscultation with no wheezing or rhonchi appreciated. HEART: Regular rate and rhythm. ABDOMEN: Soft, obese. Bowel sounds are positive. No organomegaly. No guarding or rigidity. EXTREMITIES: No pedal edema. SKIN: No rashes, jaundice. NEUROLOGIC: Alert and oriented x3. No focal deficits. - Labs CBC & Chem 7: 07/01/18 08:17 07/01/18 08:17 Labs: Abnormal Lab Results - Last 24 Hours (Table) 07/01/18 07/01/18 07/01/18 Range/Units 08:17 08:17 08:17 RDW 17.2 H (11.5-15.5) % PT 13.1 H (9.0-12.0) sec INR 1.3 H (<1.2) Potassium 3.3 L (3.5-5.1) mmol/L Chloride 109 H (98-107) mmol/L Glucose 116 H (74-99) mg/dL Total Bilirubin 15.3 H* (0.2-1.3) mg/dL AST 93 H (14-36) U/L ALT 108 H (9-52) U/L Alkaline Phosphatase 567 H (38-126) U/L Albumin 3.2 L (3.5-5.0) g/dL Microbiology - Last 24 Hours (Table) 06/26/18 13:46 Blood Culture - Preliminary Blood No Growth after 120 hours Assessment and Plan (1) Transaminitis Narrative/Plan: Patient presenting with new onset jaundice and findings of market elevation in her liver enzymes and predominantly a cholestatic pattern. No evidence of biliary dilation to suggest choledocholithiasis on CT and ultrasound or elevation in white count or fevers to raise concern for cholangitis, full liver serologies have been normal to date including alpha-1 antitrypsin, ASMA, AMA, and a, iron studies, ceruloplasmin, hepatitis A/B/C with other viral studies pen ding, given the nature of the elevation and the patient's reports of exposure to antibiotics concern is for a drug-induced liver injury. Current Visit: Yes Status: Acute Code(s): R74.0 - NONSPEC ELEV OF LEVELS OF TRANSAMNS & LACTIC ACID DEHYDRGNSE SNOMED Code(s): 734178766 (2) Cholelithiasis Current Visit: Yes Status: Acute Code(s): K80.20 - CALCULUS OF GALLBLADDER W/O CHOLECYSTITIS W/O OBSTRUCTION SNOMED Code(s): 772064129 (3) Hyperbilirubinemia Current Visit: Yes Status: Acute Code(s): E80.6 - OTHER DISORDERS OF BILIRUBIN METABOLISM SNOMED Code(s): 19634561 Plan: Supportive care Ultrasound and CT reviewed Continue to monitor liver enzymes Continue to monitor INR Avoid hepatotoxic medications Full liver serologies negative to date including alpha-1 antitrypsin, iron studies, ceruloplasmin, ANGEL, ASMA, AMA, hepatitis A/B/C, liver kidney antibody with other viral studies pending MRI/MRCP not performed due to body habitus No plans for ERCP at this time Vitamin K given due to slightly elevated INR today which is likely secondary to cholestasis, will order second dose tomorrow if INR remains elevated Discussion with the patient's brother who agrees with liver biopsy, we'll plan to order it when INR is improved, likely tomorrow Thank you for allowing us to participate in the care of this patient we will continue to follow
[2018-07-02] MEDS: HYDROmorphone 0.5 MG/0.5 ML SYRINGE IVP PRN (00:07)
--- NOTE | 2018-07-02 00:58 | PN ---
PROGRESS NOTE DATE OF SERVICE: July 01, 2018. PRESENTING COMPLAINT: Jaundice. INTERVAL HISTORY: This patient was seen by me yesterday on July 01, 2018. The patient admitted with transaminitis. Obstructive pattern. [place] to be drug-induced. Abdominal pain is better. Tolerating a diet. The patient has a legal guardian. Patient is keen to go home. I did tell her as per GI, until numbers start coming down, it will not be butt for her to go home. Her labs from today have not really changed. No nausea or vomiting. REVIEW OF SYSTEMS: Done for constitutional, cardiovascular, GI, pulmonary and relevant findings as above. CURRENT MEDICATIONS: Reviewed that include: Ventolin, Pepcid, Synthroid, Protonix. PHYSICAL EXAMINATION: VITAL SIGNS: Temperature 98.3, pulse 57, respiratory rate 16, blood pressure 115/89, pulse ox 95% on room air. GENERAL APPEARANCE: Well-built, sitting up, awake. EYES: Pupils equal. Conjunctivae icterus. JVD unable to assess. Mass not palpable. RESPIRATORY: Effort normal. LUNGS: Fair entry. CARDIOVASCULAR: 1st and 2nd sounds normal. No edema. ABDOMEN: Soft, nontender. Liver and spleen not palpable. PSYCHIATRY: Awake, answering simple questions. INVESTIGATIONS: White count 7.9, hemoglobin 13, potassium 3.3, AST 93, ALT 108, total bilirubin 15.3. Serologies positive for Radha-Kee virus from IgG nuclear antigen. ASSESSMENT: 1. Acute transaminitis with some obstructive picture could be drug induced. 2. Morbid obesity BMI 62.6. 3. Patient has a legal guardian. 4. Chronic fibromyalgia. 5. Gastroesophageal reflux disease. 6. Essential hypertension. 7. Osteoarthritis. 8. Hypothyroid. 9. Axonal neuropathy. 10.Irritable bowel syndrome. 11.Patient legal guardian is Hitesh Santillan. 12.Developmentally disabled. PLAN: Continue current medication and treatment plan. Repeat labs in the morning. The patient's numbers have some improvement, but not really come down. We will see how she does. MMODL / IJN: [id number] /
[2018-07-02] MEDS: LORazepam 0.5 MG TAB PO PRN ×3 (02:09→22:38)
[2018-07-02] MEDS: LEVOTHYROXINE 25 MCG TAB PO SCH (06:28)
[2018-07-02] MEDS: SODIUM CHLORIDE 0.9% 1,000 ML IV SCH ×2 (06:29→22:31)
[2018-07-02] MEDS: CLOTRIMAZOLE/BETAMETH 1-0.05% CREAM 45 GM TUBE TOPICAL SCH ×2 (10:00→22:37)
[2018-07-02] MEDS: FLUTICASONE 50MCG/SPRAY NASAL 16GM EA NOSTRIL SCH (10:01)
[2018-07-02] MEDS: PANTOPRAZOLE 40 MG TABLET PO SCH ×2 (10:01→16:41)
[2018-07-02 10:41] LABS: ALT 102 U/L (9-52); AST 95 U/L (14-36); Albumin 3.3 g/dL (3.5-5.0); Alkaline Phosphatase 608 U/L (38-126); Anion Gap 10 mmol/L; Bilirubin, Conjugated 11.9 mg/dL (0.0-0.3); Bilirubin,Unconjugated 3.5 mg/dL (0.0-1.1); Blood Urea Nitrogen 8 mg/dL (7-17); Calcium 8.9 mg/dL (8.4-10.2); Carbon Dioxide 23 mmol/L (22-30); Chloride 109 mmol/L (98-107); Glucose 100 mg/dL (74-99); Potassium 3.4 mmol/L (3.5-5.1); Sodium 142 mmol/L (137-145); Total Protein 6.4 g/dL (6.3-8.2)
[2018-07-02 10:45] LABS: Total Bilirubin 19.4 mg/dL (0.2-1.3)
[2018-07-02 11:25] LABS: INR 1.1 (<1.2); Prothrombin Time 11.1 sec (9.0-12.0)
--- NOTE | 2018-07-02 12:10 | P.PN ---
Subjective Progress Note Date: 07/02/18 Principal diagnosis: Elevated liver enzymes jaundice Increase total bilirubin 19.5 direct bilirubin 11.9. Anxious. INR 1.1. Denies abdominal pain. Afebrile. Objective - Vital Signs Vital signs: Vital Signs Temp 97.8 F 07/02/18 05:00 Pulse 79 07/02/18 05:00 Resp 20 07/02/18 05:00 BP 164/92 07/02/18 05:00 Pulse Ox 94 L 07/02/18 05:00 Intake & Output 07/01/18 07/02/18 07/02/18 18:59 06:59 18:59 Intake Total 600 Balance 600 Intake: Oral 600 Other: Voiding Method Toilet Toilet # Voids 4 6 # Bowel Movements 1 - Exam General appearance: The patient is alert, oriented, in no acute distress. Jaund ice. HET: Head is normocephalic and atraumatic. Pupils are equal and reactive. Oropharynx is clear without lesions. Sclerae icterus. Neck: Supple without lymphadenopathy. Trachea midline. Heart: S1 S2. Regular rate and rhythm. Lungs: No crackles or wheezes are heard. Abdomen: Soft, nontender, nondistended with bowel sounds. No peritoneal signs. No palpable organomegaly or masses. Extremities: Normal skin color and turgor. No cyanosis, rash, ulceration, clubbing, or edema. Radial and pedal pulses are 2/4 bilaterally. Neurological: No focal deficits. Strength and sensation are grossly intact. Mild asterixis. - Labs CBC & Chem 7: 07/01/18 08:17 07/02/18 10:09 Labs: Abnormal Lab Results - Last 24 Hours (Table) 07/02/18 Range/Units 10:09 Potassium 3.4 L (3.5-5.1) mmol/L Chloride 109 H (98-107) mmol/L Glucose 100 H (74-99) mg/dL Total Bilirubin 19.4 H* (0.2-1.3) mg/dL Conjugated Bilirubin 11.9 H (0.0-0.3) mg/dL Unconjugated Bilirubin 3.5 H (0.0-1.1) mg/dL Delta Bilirubin 4.0 H (0.0-0.2) mg/dL AST 95 H (14-36) U/L ALT 102 H (9-52) U/L Alkaline Phosphatase 608 H (38-126) U/L Albumin 3.3 L (3.5-5.0) g/dL Microbiology - Last 24 Hours (Table) 06/26/18 13:46 Blood Culture - Preliminary Blood No Growth after 120 hours Assessment and Plan (1) Transaminitis Narrative/Plan: Patient presenting with new onset jaundice and findings of market elevation in her liver enzymes and predominantly a cholestatic pattern. No evidence of biliary dilation to suggest choledocholithiasis on CT and ultrasound or elevation in white count or fevers to raise concern for cholangitis, full liver serologies have been normal to date including alpha-1 antitrypsin, ASMA, AMA, and a, iron studies, ceruloplasmin, hepatitis A/B/C with other viral studies so far unremarkable, given the nature of the elevation and the patient's reports of exposure to antibiotics concern is for a drug-induced liver injury. Current Visit: Yes Status: Acute Code(s): R74.0 - NONSPEC ELEV OF LEVELS OF TRANSAMNS & LACTIC ACID DEHYDRGNSE SNOMED Code(s): 441976287 (2) Jaundice Current Visit: Yes Status: Acute Code(s): R17 - UNSPECIFIED JAUNDICE SNOMED Code(s): 28799895 (3) Cholelithiasis Current Visit: Yes Status: Acute Code(s): K80.20 - CALCULUS OF GALLBLADDER W/O CHOLECYSTITIS W/O OBSTRUCTION SNOMED Code(s): 308175793 (4) Hyperbilirubinemia Current Visit: Yes Status: Acute Code(s): E80.6 - OTHER DISORDERS OF BILIRUBIN METABOLISM SNOMED Code(s): 02267038 Plan: 1. Liver biopsy contingent on clinical course. Will repeat CT abdomen/liver with IV contrast first considering TB is increasing and compare to previous CT study. Check AFP/ammonia. If patient's CMP and/or PT/INR continue to worsen advised transfer to tertiary center. Avoid hepatotoxic medications. Daily CMP PT/INR. Assessment and plan of care discussed with Dr. Munroe
[2018-07-02 13:19] VITALS: BMI 62.6
[2018-07-02] MEDS ORDERED: HYDROmorphone 1 MG/ML 1 ML SYRINGE IVP STA (15:24)
--- NOTE | 2018-07-02 20:55 | P.PN ---
Subjective Progress Note Date: 07/02/18 Principal diagnosis: Elevated liver enzymes, jaundice Lengthy discussion with the patients brother and co bashir Condon this evening with details of her case discussed and all questions answered to his satisfaction. It was reiterated that patient's elevation in liver enzymes are likely secondary to exposure to Macrobid in the outpatient setting for which she was being treated for a urinary tract infection, as all workup to date including viral studies and other serologies to exclude intrinsic liver disease have been unremarkable. Further workup has been impeded, with MRI/MRCP not performed due to the patient's body habitus and inability to fit into the MRI machine. Subsequent plans for liver biopsy were postponed after discussion with the interventional radiology team who reviewed the patient's initial imaging with ultrasound and CT and felt that there may in fact be ductal dilation which was not commented on in the original read. Based on this information it is felt that although less likely than a drug-induced liver injury an obstructive process should be ruled out, and the patient may benefit from transfer to a tertiary center for consultation with a hepatology team evaluation by advanced endoscopist in case there is a need for further intervention. It should also be noted that the patient has had no evidence of liver failure as there have been no signs of encephalopathy and INR which has remained normal and trended up to 1.3 yesterday was improved after administration of vitamin K, and was likely due to malabsorption of vitamin K in the setting of cholestasis. The patient's brother is in agreement, and we'll discuss the case with the patient's other coguardian Mr. Astudillo and relay their final decision to the medical team. Objective - Vital Signs Vital signs: Vital Signs Temp 97.8 F 07/02/18 05:00 Pulse 79 07/02/18 15:00 Resp 20 07/02/18 16:00 BP 162/83 07/02/18 15:00 Pulse Ox 93 L 07/02/18 15:00 Intake & Output 07/02/18 07/02/18 07/03/18 06:59 18:59 06:59 Weight 140.614 kg Other: Voiding Method Toilet Toilet # Voids 6 4 - Labs CBC & Chem 7: 07/01/18 08:17 07/02/18 10:09 Labs: Abnormal Lab Results - Last 24 Hours (Table) 07/02/18 Range/Units 10:09 Potassium 3.4 L (3.5-5.1) mmol/L Chloride 109 H (98-107) mmol/L Glucose 100 H (74-99) mg/dL Total Bilirubin 19.4 H* (0.2-1.3) mg/dL Conjugated Bilirubin 11.9 H (0.0-0.3) mg/dL Unconjugated Bilirubin 3.5 H (0.0-1.1) mg/dL Delta Bilirubin 4.0 H (0.0-0.2) mg/dL AST 95 H (14-36) U/L ALT 102 H (9-52) U/L Alkaline Phosphatase 608 H (38-126) U/L Albumin 3.3 L (3.5-5.0) g/dL Microbiology - Last 24 Hours (Table) 06/26/18 13:46 Blood Culture - Final Blood No Growth after 144 hours Assessment and Plan (1) Transaminitis Current Visit: Yes Status: Acute Code(s): R74.0 - NONSPEC ELEV OF LEVELS OF TRANSAMNS & LACTIC ACID DEHYDRGNSE SNOMED Code(s): 761819781 (2) Cholelithiasis Current Visit: Yes Status: Acute Code(s): K80.20 - CALCULUS OF GALLBLADDER W/O CHOLECYSTITIS W/O OBSTRUCTION SNOMED Code(s): 618060224 (3) Hyperbilirubinemia Current Visit: Yes Status: Acute Code(s): E80.6 - OTHER DISORDERS OF BILIRUBIN METABOLISM SNOMED Code(s): 72142074
[2018-07-02] MEDS: FAMOTIDINE 20 MG TAB PO SCH (22:38)
[2018-07-02 23:01] VITALS: BP 148/90; PULSE 61; RESP 16; TEMP 97.9
--- NOTE | 2018-07-03 01:05 | DS ---
DISCHARGE SUMMARY DATE OF ADMISSION: 06/25/2018 DATE OF DISCHARGE: 07/03/2018 FINAL DIAGNOSES: 1. Acute transaminitis with obstructive picture, possibly from gallstone. 2. Morbid obesity BMI 62.6. 3. Chronic mood disorder. 4. The patient has a legal guardian, both a brother and a court-appointed Bill Fidelinamargaretcyndi. 5. Chronic fibromyalgia. 6. Gastroesophageal reflux disease. 7. Essential hypertension. 8. Osteoarthritis likely primary. 9. Hypothyroid. 10.Axonal neuropathy. 11.Irritable bowel syndrome. 12.Developmental delay. HOSPITAL COURSE: This patient presented with jaundice. Initial bilirubin was 14.1, did climb up to 19.4. The patient's LFTs were also up currently. Alkaline phosphatase is 608. The patient had a CT scan of the abdomen and pelvis and it was reviewed yet again and I was called by Dr. Munroe from Gastroenterology that could be obstructive. The patient will probably need an ERCP. Because of patient's obesity and complications, he felt it was better that the patient be served at a higher level of care. He did speak to patient's brother, who has got legal guardian, and also the nurse did contact Kodi Jacque's office and they are all agreeable to transfer the patient. This was discussed with the patient. CONSULTATIONS: Dr. Munroe and colleagues from GI, Dr. Rucker from Infectious Disease, Dr. [facility] from Psychiatry, Dr. Snow from General surgery. PHYSICAL EXAMINATION: Temperature 97.9, pulse 61, respiratory rate 16, blood pressure 140/90, pulse ox 96% on 2 L. ABDOMEN: Soft, nontender. INVESTIGATIONS: Potassium 3.4, total bilirubin 19.4, AST 95, ALT 102, alkaline phosphatase 608. HOME GO MEDICATIONS: D/C medications: 1. Synthroid 25 mcg a day. 2. 10 mg q.h.s. 3. Vitamin B12 1000 mcg a day. 4. Duragesic 25 mcg patch every 72 hours. 5. Zantac 150 mg p.o. b.i.d. 6. Iron 325 p.o. daily. 7. Lamictal 100 mg p.o. daily. 8. Neurontin 400 mg p.o. t.i.d. 9. Allopurinol 100 mg a day. 10.Lotrisone 1 application topical b.i.d. 11.Ventolin HFA 2 puffs q.6 p.r.n. 12.Lamictal 25 mg q.h.s. 13.Pepcid 20 mg q.h.s. 14.Ativan 0.5 p.o. t.i.d. p.r.n. DISPOSITION: [facility]. Accepting physician: Internal Medicine. Additional note: I also spoke to the accepting physician at [facility] today where the patient has been accepted. Total time spent today was about 45-50 minutes with over 25 minutes of discussion. Copy to Dr. Miguel Estrada. MMMIKHAILL / IJN: [id number] /
[2018-07-03] MEDS: ZOLPIDEM 10 MG TAB PO SCH (01:29)
== END 2018-07-03 01:15 | disposition short-term general hospital (02) | DRG 445 ==
LOC: EC 09:52 → 4MS4W 13:01
PROVIDERS: ADMIT Hospitalist; ATTEND Hospitalist
DX: K80.21 Calculus of gallbladder without cholecystitis with obstruction (principal); K76.6 Portal hypertension; J98.11 Atelectasis; N17.9 Acute kidney failure, unspecified; Z68.44 Body mass index [BMI] 60.0-69.9, adult; E66.01 Morbid (severe) obesity due to excess calories; G62.9 Polyneuropathy, unspecified; R16.0 Hepatomegaly, not elsewhere classified; C50.911 Malignant neoplasm of unspecified site of right female breast; I13.10 Hypertensive heart and chronic kidney disease without heart failure, with stage 1 through stage 4 chronic kidney disease, or unspecified chronic kidney disease; K76.89 Other specified diseases of liver; E03.9 Hypothyroidism, unspecified; F32.9 Major depressive disorder, single episode, unspecified; F41.1 Generalized anxiety disorder; F79 Unspecified intellectual disabilities; G40.909 Epilepsy, unspecified, not intractable, without status epilepticus; G47.33 Obstructive sleep apnea (adult) (pediatric); G89.29 Other chronic pain; H35.30 Unspecified macular degeneration; H40.9 Unspecified glaucoma; K21.9 Gastro-esophageal reflux disease without esophagitis; K57.30 Diverticulosis of large intestine without perforation or abscess without bleeding; K58.0 Irritable bowel syndrome with diarrhea; M19.90 Unspecified osteoarthritis, unspecified site; M43.10 Spondylolisthesis, site unspecified; M79.7 Fibromyalgia; N18.3 Chronic kidney disease, stage 3 (moderate); N20.0 Calculus of kidney; R32 Unspecified urinary incontinence; R35.0 Frequency of micturition; M54.9 Dorsalgia, unspecified; Z79.890 Hormone replacement therapy; Z79.899 Other long term (current) drug therapy; Z98.84 Bariatric surgery status; Z87.442 Personal history of urinary calculi; Z88.2 Allergy status to sulfonamides; Z88.6 Allergy status to analgesic agent; Z88.1 Allergy status to other antibiotic agents; Z91.041 Radiographic dye allergy status; Z80.3 Family history of malignant neoplasm of breast; Z80.8 Family history of malignant neoplasm of other organs or systems; Z82.49 Family history of ischemic heart disease and other diseases of the circulatory system; Z81.1 Family history of alcohol abuse and dependence; Z82.3 Family history of stroke
CPT/HCPCS: 36415; 71045; 74176; 76705; 80053; 80074; 80076; 81001; 82103; 82105; 82140; 82150; 82248; 82390; 82728; 83516; 83540; 83550; 83690; 84165; 85025; 85610; 85730; 86038; 86376; 86644; 86645; 86663; 86664; 86665; 86694; 87040; 87086; 96360; 96361; 99284

== ENCOUNTER → 2018-07-08 | Outpatient (CLI) | payer MEDICARE ==
[2018-07-08 10:49] LABS: Anisocytosis Slight; HCT 43.7 % (34.0-46.0); MCH 29.8 pg (25.0-35.0); MCHC 32.1 g/dL (31.0-37.0); MCV 92.9 fL (80.0-100.0); Mean Platelet Volume 7.9; Platelet Count 364 k/uL (150-450); RDW 18.5 % (11.5-15.5); WBC 10.6 k/uL (3.8-10.6)
[2018-07-08 10:56] LABS: Appearance,Urine Cloudy (Clear); Bacteria,Urine Moderate /hpf; Bilirubin,Urine 2+ (Negative); Blood,Urine Small (Negative); Color,Urine Dark Yellow; Glucose,Urine (UA) Negative (Negative); Hyaline Casts,Urine 2 /lpf (0-2); Ketones,Urine Negative (Negative); Leukocyte Esterase,Urine Small (Negative); Mucus,Urine Rare /hpf; Nitrite,Urine Negative (Negative); Protein,Urine Negative (Negative); RBC,Urine 2 /hpf (0-5); Specific Gravity,Urine 1.006 (1.001-1.035); Squamous Epithelial Cell,Urine 5 /hpf (0-4); Urobilinogen,Urine <2.0 mg/dL (<2.0); WBC,Urine 11 /hpf (0-5)
[2018-07-08 12:41] LABS: Eosinophils # (M) 0.32 k/uL (0-0.7); Lymphocytes # (M) 1.91 k/uL (1.0-4.8); Monocytes # (M) 0.42 k/uL (0-1.0); Neutrophils # (M) 7.95 k/uL (1.3-7.7); Neutrophils % (M) 75 %; Nucleated Red Blood Cells 0 /100 WBC (0-0); Total Cells Counted 100
[2018-07-08 12:44] LABS: Stomatocytes Present
[2018-07-08 17:16] LABS: Iron Saturation 60.74 (12.00-45.00)
[2018-07-08 18:28] LABS: Parathyroid Hormone Intact 129.1 pg/mL (14.0-72.0)
[2018-07-08 18:29] LABS: Albumin 3.8 g/dL (3.80-4.90); Albumin/Globulin Ratio 1.36 (1.60-3.17); Anion Gap 11.5 mmol/L (4.00-12.00); Bilirubin, Conjugated 21.5 mg/dL (0.20-0.40); Bilirubin,Unconjugated 9.7 mg/dL; Calcium 9.2 mg/dL (8.7-10.3); Carbon Dioxide 25.5 mmol/L (21.6-31.8); Globulin 2.8 g/dL (1.6-3.3); Magnesium 1.6 mg/dL (1.5-2.4); Phosphorus 2.7 mg/dL (2.4-5.1); Potassium 3.4 mmol/L (3.5-5.5); Total Protein 6.6 g/dL (6.2-8.2); Uric Acid 4.5 mg/dL (2.9-7.7)
[2018-07-08 21:24] LABS: Creatinine,Urine Random 23.7 mg/dL
[2018-07-09 13:18] LABS: Total Bilirubin 31.2 mg/dL (0.3-1.2)
== END | disposition home or self-care (01) ==
LOC: LABWHC1 09:30
PROVIDERS: ATTEND Internal Medicine Nephrology
DX: E80.6 Other disorders of bilirubin metabolism (principal); N18.3 Chronic kidney disease, stage 3 (moderate); N39.0 Urinary tract infection, site not specified; D63.1 Anemia in chronic kidney disease; M10.9 Gout, unspecified; E55.9 Vitamin D deficiency, unspecified; E21.3 Hyperparathyroidism, unspecified; R80.9 Proteinuria, unspecified
CPT/HCPCS: 36415; 80048; 80076; 81001; 82306; 82570; 82728; 83540; 83550; 83735; 83970; 84100; 84156; 84550; 85025

== ENCOUNTER 2018-07-22 09:59 | Inpatient (IN) | payer MEDICARE ==
[2018-07-22] MEDS ORDERED: MORPHINE SULFATE 4 MG/ML SYRINGE IV STA (10:33)
[2018-07-22] MEDS ORDERED: SODIUM CHLORIDE 0.9% 1,000 ML IV STA ×2 (10:33)
[2018-07-22] MEDS ORDERED: ONDANSETRON ODT 8 MG TAB.RAPDIS PO STA (10:33)
--- NOTE | 2018-07-22 10:47 | ED ---
Abdominal Pain HPI - General Chief Complaint: Abdominal Pain Stated Complaint: abdominal pain Time Seen by Provider: 07/22/18 10:06 Source: patient, EMS, RN notes reviewed, old records reviewed Mode of arrival: EMS Limitations: no limitations - History of Present Illness Initial Comments: Patient is a 67-year-old female presents emergency department today with complaints of pain from her incision site from her recent drain placed in her liver. Patient reports that was placed at [facility]. She was discharged on Sunday of this past week. Patient states that she has had worsening pain. She continues to have drainage from the site. Patient states that she has had no fevers or chills. Patient is generally a poor historian with developmental delay. Upon reviewing patient's medical record from [facility] was sound the patient's hepatocellular disease was likely due to medication, and did have some large calcified gallstones with dilated gallbladder. Also the medications would cause this liver injury was due to medications for UTI and her psychiatric medication. She reports that she has not been on any recent antibiotics to cover for urinary tract infections. - Related Data Home Medications Medication Instructions Recorded Confirmed Levothyroxine Sodium [Synthroid] 25 mcg PO QAM 04/02/14 07/22/18 Cyanocobalamin (Vitamin B-12) 1,000 mcg PO QAM 05/28/16 07/22/18 [Vitamin B-12] Ferrous Sulfate [Iron (65 MG 325 mg PO DAILY 09/06/17 07/22/18 Elemental)] Albuterol Inhaler [Ventolin Hfa 2 puff INHALATION RT-Q6H PRN 06/25/18 07/22/18 Inhaler] Baclofen [Lioresal] 5 mg PO BID 07/22/18 07/22/18 Doxepin [SINEquan] 10 mg PO HS 07/22/18 07/22/18 Ergocalciferol [Vitamin D2] 50,000 unit PO TH 07/22/18 07/22/18 Fluticasone Nasal [place] [Flonase 2 spr EA NOSTRIL BID PRN 07/22/18 07/22/18 Nasal [place]] Furosemide [Lasix] 20 mg PO DAILY 07/22/18 07/22/18 Gabapentin [Neurontin] 400 mg PO TID 07/22/18 07/22/18 Loperamide [Imodium] 2 mg PO TID PRN 07/22/18 07/22/18 Loratadine [Claritin] 10 mg PO DAILY 07/22/18 07/22/18 Melatonin 6 mg PO HS PRN 07/22/18 07/22/18 Omeprazole 20 mg PO DAILY 07/22/18 07/22/18 Triamcinolone 0.1% Cream [Kenalog 1 applicatio TOPICAL BID 07/22/18 07/22/18 0.1% Cream] Ursodiol 900 mg PO BID 07/22/18 07/22/18 Vortioxetine Hydrobromide 10 mg PO DAILY 07/22/18 07/22/18 [Trintellix] amLODIPine [Norvasc] 5 mg PO DAILY 07/22/18 07/22/18 Previous Rx's Medication Instructions Recorded fentaNYL 25MCG/HR PATCH [Duragesic 1 patch TRANSDERM Q72H #7 patch 04/09/17 25MCG/HR] Allergies Allergy/AdvReac Type Severity Reaction Status Date / Time cefazolin sodium [From Ancef] Allergy Mild Rash/Hives Verified 07/22/18 12:41 etodolac [From Lodine] Allergy Rash/Hives Verified 07/22/18 12:41 Iodinated Contrast- Oral and Allergy Rash/Hives Verified 07/22/18 12:41 IV Dye [Iodinated Contrast Media - IV Dye] Iodine and Iodide Containing Allergy Rash/Hives Verified 07/22/18 12:41 Produc levofloxacin [From Levaquin] Allergy Swelling Verified 07/22/18 12:41 NSAIDS (Non-Steroidal Allergy Rash/Hives Verified 07/22/18 12:41 Anti-Inflamma sulfamethoxazole AdvReac Confusion, Verified 07/22/18 12:41 [From Bactrim] Increased Bun & Cr levels trimethoprim [From Bactrim] AdvReac Confusion, Verified 07/22/18 12:41 Increased Bun & Creat Review of Systems ROS Statement: Those systems with pertinent positive or pertinent negative responses have been documented in the HPI. ROS Other: All systems not noted in ROS Statement are negative. Past Medical History Past Medical History: Cancer, Eye Disorder, Fibromyalgia, GERD/Reflux, Hypertension, Osteoarthritis (OA), Sleep Apnea/CPAP/BIPAP, Thyroid Disorder Additional Past Medical History / Comment(s): Macular degeneration, glaucoma merle eyes. Axonal neuropathy, morbid obesity. IBS-freq diarrhea. Tremors; PT RECIDES AT [facility], "[facility]" TAKES CARE OF RX. GUARDIAN IS AMY MCDONOUGH & brother Dileep Condon; RIGHT BREAST CANCER-NO CHEMO/RADIATION-SCHEDULED FOR MASTECTOMY History of Any Multi-Drug Resistant Organisms: None Reported Past Surgical History: Adenoidectomy, Back Surgery, Bariatric Surgery, Orthopedic Surgery, Tonsillectomy Additional Past Surgical History / Comment(s): GASTRIC SLEEVE 2009, PANNICULECTOMY,TRIGGER FINGER RELEASE, PAIN CLINIC PROCEDURE-BACK INJECTIONS, EGD'S W/ DILATATION, Laminectomy. CYSTOSCOPE, RT URETERAL STENT. KIDNEY STONE REMOVAL Past Anesthesia/Blood Transfusion Reactions: Family History of Problems w/ Anesthesia Additional Past Anesthesia/Blood Transfusion Reaction / Comment(s): PT AND BROTHER STATES "PT HAS NARROW AIRWAY", BROTHER HAS CONFUSION WITH VERSED. Past Psychological History: Anxiety, Depression Smoking Status: Never smoker Past Alcohol Use History: None Reported Past Drug Use History: None Reported - Past Family History Mother Family Medical History: Cancer, CVA/TIA Additional Family Medical History / Comment(s): PERSONALITY DISORDER, ALCOHOLIC,ABUSIVE, pharyngeal cancer, kidney disease Father Family Medical History: Cancer, Coronary Artery Disease (CAD) Additional Family Medical History / Comment(s): PANCREAS,CABG Brother(s) Family Medical History: AICD/Pacemaker Additional Family Medical History / Comment(s): PACEMAKER,lbbb,bradycardia General Exam - General Exam Comments Initial Comments: This is a 67-year-old female. Alert and oriented. No distress. Limitations: no limitations General appearance: alert, in no apparent distress Head exam: Present: atraumatic, normocephalic, normal inspection Eye exam: Present: normal appearance, PERRL, EOMI. Absent: scleral icterus, conjunctival injection, periorbital swelling ENT exam: Present: normal exam, mucous membranes moist Neck exam: Present: normal inspection. Absent: tenderness, meningismus, lymphadenopathy Respiratory exam: Present: normal lung sounds bilaterally. Absent: respiratory distress, wheezes, rales, rhonchi, stridor Cardiovascular Exam: Present: regular rate, normal rhythm, normal heart sounds. Absent: systolic murmur, diastolic murmur, rubs, gallop, clicks GI/Abdominal exam: Present: soft, normal bowel sounds, other (Draining cholecystostomy tube with bile drainage.). Absent: distended, tenderness, guarding, rebound, rigid Extremities exam: Present: normal inspection, full ROM, normal capillary refill. Absent: tenderness, pedal edema, joint swelling, calf tenderness Back exam: Present: normal inspection Neurological exam: Present: alert, oriented X3, CN II-XII intact Psychiatric exam: Present: normal affect, normal mood Skin exam: Present: warm, dry, intact, normal color. Absent: rash Course Vital Signs 07/22/18 07/22/18 10:01 13:30 Temperature 98.6 F Pulse Rate 71 76 Respiratory 18 18 Rate Blood Pressure 120/69 106/70 O2 Sat by Pulse 96 95 Oximetry Medical Decision Making - Medical Decision Making Recent liver failure due to medications. Most medications were due to urine and tract infections and her psychiatric medication. Patient had recent biliary drain placed at [facility] and was discharged home on Sunday. She has normal drainage from the bag. She complains of some pain around the site at this time. CT abdomen and pelvis was completed. There is no evidence of drain misplacement and otherwise appears well. She has approximately 200 mL of bile within her back. Labwork was reviewed today. She has had continued have elevated bilirubin but is significant only improved from her last labs. Patient does have evidence of urinary tract infection and today. With no recent antibiotic use. Blood cultures and urine culture completed. Patient will be started on antibiotics at this time to the IV. Patient informed of these result s. - Lab Data Result diagrams: 07/22/18 13:36 07/22/18 11:01 Lab Results 07/22/18 07/22/18 07/22/18 Range/Units 11:01 11:01 12:37 WBC (3.8-10.6) k/uL RBC (3.80-5.40) m/uL Hgb (11.4-16.0) gm/dL Hct (34.0-46.0) % MCV (80.0-100.0) fL MCH (25.0-35.0) pg MCHC (31.0-37.0) g/dL RDW (11.5-15.5) % Plt Count (150-450) k/uL Neutrophils % (Manual) % Band Neutrophils % % Lymphocytes % (Manual) % Monocytes % (Manual) % Eosinophils % (Manual) % Basophils % (Manual) % Metamyelocytes % % Neutrophils # (Manual) (1.3-7.7) k/uL Lymphocytes # (Manual) (1.0-4.8) k/uL Monocytes # (Manual) (0-1.0) k/uL Eosinophils # (Manual) (0-0.7) k/uL Basophils # (Manual) (0-0.2) k/uL Metamyelocytes # (Man) (0) k/uL Nucleated RBCs (0-0) /100 WBC Manual Slide Review Anisocytosis PT 11.2 (9.0-12.0) sec INR 1.1 (<1.2) APTT 27.1 (22.0-30.0) sec Sodium 140 (137-145) mmol/L Potassium 4.1 (3.5-5.1) mmol/L Chloride 107 (98-107) mmol/L Carbon Dioxide 23 (22-30) mmol/L Anion Gap 10 mmol/L BUN 16 (7-17) mg/dL Creatinine 0.93 (0.52-1.04) mg/dL Est GFR (CKD-EPI)AfAm 75 (>60 ml/min/1.73 sqM) Est GFR (CKD-EPI)NonAf 65 (>60 ml/min/1.73 sqM) Glucose 89 (74-99) mg/dL Plasma Lactic Acid Asif 1.0 (0.7-2.0) mmol/L Calcium 9.1 (8.4-10.2) mg/dL Total Bilirubin 10.4 H (0.2-1.3) mg/dL AST 91 H (14-36) U/L ALT 81 H (9-52) U/L Alkaline Phosphatase 474 H (38-126) U/L Ammonia 18 (<30) umol/L Total Protein 7.2 (6.3-8.2) g/dL Albumin 3.8 (3.5-5.0) g/dL Amylase 74 (30-110) U/L Lipase 461 H (23-300) U/L Urine Color Urine Appearance (Clear) Urine pH (5.0-8.0) Ur Specific [place] (1.001-1.035) Urine Protein (Negative) Urine Glucose (UA) (Negative) Urine Ketones (Negative) Urine Blood (Negative) Urine Nitrite (Negative) Urine Bilirubin (Negative) Urine Urobilinogen (<2.0) mg/dL Ur Leukocyte Esterase (Negative) Urine RBC (0-5) /hpf Urine WBC (0-5) /hpf Urine WBC Clumps (None) /hpf Ur Squamous Epith Cells (0-4) /hpf Urine Bacteria (None) /hpf Urine Mucus (None) /hpf 07/22/18 07/22/18 Range/Units 13:30 13:36 WBC 13.7 H (3.8-10.6) k/uL RBC 4.29 (3.80-5.40) m/uL Hgb 12.9 (11.4-16.0) gm/dL Hct 40.2 (34.0-46.0) % MCV 93.6 (80.0-100.0) fL MCH 30.0 (25.0-35.0) pg MCHC 32.1 (31.0-37.0) g/dL RDW 18.9 H (11.5-15.5) % Plt Count 368 (150-450) k/uL Neutrophils % (Manual) 69 % Band Neutrophils % 3 % Lymphocytes % (Manual) 19 % Monocytes % (Manual) 3 % Eosinophils % (Manual) 5 % Basophils % (Manual) 1 % Metamyelocytes % 2 % Neutrophils # (Manual) 9.80 H (1.3-7.7) k/uL Lymphocytes # (Manual) 2.60 (1.0-4.8) k/uL Monocytes # (Manual) 0.41 (0-1.0) k/uL Eosinophils # (Manual) 0.69 (0-0.7) k/uL Basophils # (Manual) 0.14 (0-0.2) k/uL Metamyelocytes # (Man) 0.27 H (0) k/uL Nucleated RBCs 0 (0-0) /100 WBC Manual Slide Review Performed Anisocytosis Slight PT (9.0-12.0) sec INR (<1.2) APTT (22.0-30.0) sec Sodium (137-145) mmol/L Potassium (3.5-5.1) mmol/L Chloride (98-107) mmol/L Carbon Dioxide (22-30) mmol/L Anion Gap mmol/L BUN (7-17) mg/dL Creatinine (0.52-1.04) mg/dL Est GFR (CKD-EPI)AfAm (>60 ml/min/1.73 sqM) Est GFR (CKD-EPI)NonAf (>60 ml/min/1.73 sqM) Glucose (74-99) mg/dL Plasma Lactic Acid Asif (0.7-2.0) mmol/L Calcium (8.4-10.2) mg/dL Total Bilirubin (0.2-1.3) mg/dL AST (14-36) U/L ALT (9-52) U/L Alkaline Phosphatase (38-126) U/L Ammonia (<30) umol/L Total Protein (6.3-8.2) g/dL Albumin (3.5-5.0) g/dL Amylase (30-110) U/L Lipase (23-300) U/L Urine Color Dark Brown Urine Appearance Cloudy H (Clear) Urine pH 6.0 (5.0-8.0) Ur Specific [place] 1.022 (1.001-1.035) Urine Protein Trace H (Negative) Urine Glucose (UA) Negative (Negative) Urine Ketones Negative (Negative) Urine Blood Trace H (Negative) Urine Nitrite Negative (Negative) Urine Bilirubin 2+ H (Negative) Urine Urobilinogen <2.0 (<2.0) mg/dL Ur Leukocyte Esterase Large H (Negative) Urine RBC 9 H (0-5) /hpf Urine WBC 89 H (0-5) /hpf Urine WBC Clumps Few H (None) /hpf Ur Squamous Epith Cells 7 H (0-4) /hpf Urine Bacteria Occasional H (None) /hpf Urine Mucus Rare H (None) /hpf - Radiology Data Radiology results: report reviewed Percutaneous cholecystostomy tube appears appropriate place without surrounding fluid collection. The typical for that plane between the pancreatic head and descending duodenum is obscured it may relate to postprocedural slight inflammatory change, however correlation with serum amylase and lipase are recommended to exclude groove pancreatitis. Mild degree of hepatic states ptosis. Bilateral nonobstructing renal click.. Sigmoid diverticulosis without evidence of diverticulitis. Disposition Clinical Impression: UTI (urinary tract infection), Jaundice Disposition: ADMITTED IP TO THIS HOSP Condition: Stable Is patient prescribed a controlled substance at d/c from ED?: No Referrals: Miguel Estrada DO [Primary Care Provider] - 1-2 days Time of Disposition: 15:03
[2018-07-22 11:23] LABS: Albumin 3.8 g/dL (3.5-5.0); Calcium 9.1 mg/dL (8.4-10.2); Potassium 4.1 mmol/L (3.5-5.1); Total Bilirubin 10.4 mg/dL (0.2-1.3); Total Protein 7.2 g/dL (6.3-8.2)
[2018-07-22] MEDS ORDERED: diphenhydrAMINE 50 MG/ML 1 ML VIAL IVP STA (11:53)
[2018-07-22] MEDS ORDERED: FAMOTIDINE 20 MG/2 ML VIAL IV STA (11:53)
[2018-07-22] MEDS ORDERED: methylPREDNISolone SOD SUCCI 125 MG/2 ML VIAL IV STA (11:53)
[2018-07-22 12:53] LABS: INR 1.1 (<1.2); Partial Thromboplastin Time 27.1 sec (22.0-30.0); Prothrombin Time 11.2 sec (9.0-12.0)
--- NOTE | 2018-07-22 13:35 | CT ---
EXAMINATION TYPE: CT abdomen pelvis w con DATE OF EXAM: 07/22/2018 HISTORY: Pain, recent drain in CBD CT DLP: 2209.3mGycm Automated Exposure Control for Dose Reduction was Utilized. CONTRAST: CT scan of the abdomen and pelvis is performed with IV Contrast, patient injected with 100 ml mL of I sovue 300. COMPARISON: 06/25/2018. FINDINGS: LUNG BASES: Strand-like bibasilar subsegmental dependent atelectasis is seen. Heart is enlarged.. LIVER/GB/PANCREAS: Percutaneous cholecystostomy tube is seen from a transhepatic approach. Only very minimal central intrahepatic biliary duct dilatation is seen. Common bile duct is poorly measured as there is some artifact surrounding the cholecystostomy tube. This cholecystostomy tube coils in the p roximal carotid lumen appears appropriately placed. There is no surrounding fluid collection. Lamella gokul cholesterol containing gallstones are seen within the gallbladder. The fat plane between the panc reatic head and duodenum is obscured no significant peripancreatic fat stranding is seen. Few scatter ed nonenlarged peripancreatic lymph nodes are noted. Hepatic parenchyma is diffusely hypoattenuated i n comparison to that of the spleen, most commonly seen in hepatic steatosis. This finding limits eval uation for hepatic masses. No gross evidence of hepatic mass is seen. SPLEEN: No significant abnormality is seen. Annual is present inferior to the [place] spleen. Spleen i s prominent in size measuring 13.1 cm in longitudinal dimension. ADRENALS: Questionable subcentimeter left adrenal gland lesion emanating from the medial limb versus adjacent small lymph node on image 33. Right adrenal gland is unremarkable.. KIDNEYS: Nonobstructing left lower pole renal calculusr measures 9 mm. There is slight haziness of th e right collecting system that may due to motion as this is also seen of the liver. No torsten hydronep hrosis. 3 mm nonobstructing right lower pole renal calculus is seen.. BOWEL: Postsurgical changes are seen at the gastroesophageal junction with left lateral distal esopha geal diverticulum. Partial gastrectomy is been performed. Scattered sigmoid diverticula containing in spissated debris. No dilated large or small bowel is seen. Appendix is within normal limits. LYMPH NODES: No greater than 1cm abdominal or pelvic lymph nodes are appreciated. OSSEOUS STRUCTURES: Heterotopic ossification is seen overlying the left iliac bone at multiple sites. Punctate probable bone island is present of the left iliac bone. Postsurgical changes of the lumbosa cral spine and mild to moderate multilevel degenerative disc disease of the spine is also noted. Prob able punctate bone island of the right ischial tuberosity is also present. IMPRESSION: 1. Percutaneous cholecystostomy tube appears appropriately placed without surrounding fluid collectio n. The typical fat plane between the pancreatic head and descending duodenum is obscured and may rela te to postprocedural slight inflammatory change however correlation with serum amylase and lipase are recommended to exclude groove pancreatitis. 2. Mild degree hepatic steatosis. 3. Bilateral nonobstructing renal calculi. 4. Sigmoid diverticulosis without evidence of diverticulitis.
[2018-07-22 13:44] LABS: Appearance,Urine Cloudy (Clear); Bacteria,Urine Occasional /hpf; Bilirubin,Urine 2+ (Negative); Blood,Urine Trace (Negative); Color,Urine Dark Brown; Glucose,Urine (UA) Negative (Negative); Ketones,Urine Negative (Negative); Leukocyte Esterase,Urine Large (Negative); Mucus,Urine Rare /hpf; Nitrite,Urine Negative (Negative); Protein,Urine Trace (Negative); RBC,Urine 9 /hpf (0-5); Specific Gravity,Urine 1.022 (1.001-1.035); Squamous Epithelial Cell,Urine 7 /hpf (0-4); Urobilinogen,Urine <2.0 mg/dL (<2.0); WBC,Urine 89 /hpf (0-5)
[2018-07-22 14:00] LABS: Anisocytosis Slight; HCT 40.2 % (34.0-46.0); HGB 12.9 gm/dL (11.4-16.0); MCHC 32.1 g/dL (31.0-37.0); MCV 93.6 fL (80.0-100.0); Mean Platelet Volume 8.1; Platelet Count 368 k/uL (150-450); RBC 4.29 m/uL (3.80-5.40); RDW 18.9 % (11.5-15.5); WBC 13.7 k/uL (3.8-10.6)
[2018-07-22 14:18] LABS: Band Neutrophils % 3 %; Basophils # (M) 0.14 k/uL (0-0.2); Eosinophils # (M) 0.69 k/uL (0-0.7); Metamyelocytes # (M) 0.27 k/uL (0); Metamyelocytes % 2 %; Monocytes # (M) 0.41 k/uL (0-1.0); Neutrophils % (M) 69 %; Nucleated Red Blood Cells 0 /100 WBC (0-0); Total Cells Counted 200
[2018-07-22] MEDS ORDERED: PIPERACILLIN-TAZOBACTAM 3.375 GM in SODIUM CHLORIDE 0.9% 100 ML IVPB STA (15:02)
[2018-07-22] MEDS ORDERED: NALOXONE 0.4 MG/ML 1 ML VIAL IV PRN (15:04)
[2018-07-22] MEDS ORDERED: HYDROmorphone 0.5 MG/0.5 ML SYRINGE IVP PRN (15:04)
[2018-07-22] MEDS ORDERED: ONDANSETRON 4 MG/2 ML VIAL IVP PRN (15:04)
[2018-07-22] MEDS ORDERED: IBUPROFEN 400 MG TAB PO PRN (15:04)
[2018-07-22] MEDS ORDERED: MELATONIN 3 MG TABLET PO PRN (17:14)
[2018-07-22] MEDS ORDERED: ALBUTEROL NEBULIZED 2.5 MG/3 ML INHALATION PRN (17:14)
[2018-07-22] MEDS ORDERED: LOPERAMIDE 2 MG CAP PO PRN (17:14)
[2018-07-22] MEDS ORDERED: FLUTICASONE 50MCG/SPRAY NASAL 16GM EA NOSTRIL PRN (17:14)
[2018-07-22] MEDS: SODIUM CHLORIDE 0.9% 1,000 ML IV SCH (19:29)
[2018-07-22] MEDS: BACLOFEN 10 MG TAB PO SCH (20:19)
[2018-07-22] MEDS: DOXEPIN 10 MG CAP PO SCH (20:19)
[2018-07-22] MEDS: GABAPENTIN 400 MG CAP PO SCH (20:19)
[2018-07-22] MEDS: URSODIOL 300 MG CAP PO SCH (20:20)
[2018-07-22] MEDS: TRIAMCINOLONE 0.1% CREAM 80 GM TUBE TOPICAL SCH (20:20)
--- NOTE | 2018-07-22 23:08 | HP ---
HISTORY AND PHYSICAL DATE OF ADMISSION: July 22, 2018. DATE OF DISCHARGE: July 22, 2018 PRESENTING COMPLAINT: Tired. Abdominal pain. HISTORY OR PRESENTING COMPLAINT: This is a 67-year-old patient of Dr. Estrada. Chronic stable medical conditions include developmental delay, irritable bowel syndrome, axonal neuropathy, hypothyroid, primary osteoarthritis, hypertension, GERD, chronic fibromyalgia, chronic mood disorder, morbid obesity, BMI 62.6. Does use a wheelchair. The patient has a legal guardian, both a brother and a court-appointed Bill Schiesandeep. The patient is admitted here initially on and 06/25/2018 and transferred on 07/03/2018 to [facility] after an obstructive jaundice like picture. The patient was seen by Dr. Munroe. 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 The patient's medications including Trintellix, doxepin, Lamictal were all discontinued. Trintellix was subsequently restarted at a smaller dose. The patient also had underwent a percutaneous transhepatic cholangiogram there. The patient had a drain placed and patient changes a bag about 4 times a day. The patient's jaundice was getting better. She was tolerating a diet. Yesterday patient developed pain at the drainage site. There was no fever and no chills. No nausea, vomiting. She was brought in. The patient lives in a longterm. The ER physician did speak to Dr. Munroe and patient was therefore admitted. During my interview, the patient's brother was on the speaker phone. The patient is still somewhat jaundiced. Also patient found to have a UTI in the ER. The patient does use a wheelchair to get about. REVIEW OF SYSTEMS: CONSTITUTIONAL: Tired. HEENT: None. RESPIRATORY none. CARDIOVASCULAR: None. GASTROINTESTINAL: As above. GENITOURINARY urinary frequency. MUSCULOSKELETAL: Arthritic pain in joints. DERMATOLOGICAL, HEMATOLOGIC, LYMPHATIC: None. PSYCHIATRY: Developmental delay. NEUROLOGICAL none. PAST MEDICAL HISTORY: Developmental delay, anxiety, depression, hypertension, fibromyalgia, kidney stones, hyperlipidemia, gastric sleeve surgery, hypothyroid, GERD. Past medical history for macular degeneration, glaucoma, irritable bowel syndrome, some tremors, right breast cancer. PAST SURGICAL HISTORY: Adenoidectomy, back surgery, bariatric surgery, gastric sleeve in 2009, panniculectomy, trigger finger release, pain clinic procedures of the back, EGD with dilatation, laminectomy, cystoscope, right ureteral stent, kidney stone removed. PSYCH HISTORY: Anxiety, depression. SOCIAL HISTORY: Lives at [facility]. No smoking. No alcohol. FAMILY HISTORY: Of stroke, alcoholic abuse, pharyngeal cancer and kidney disease. HOME MEDICATIONS: 1. Fentanyl 25 mcg patch every 72 hours. 2. Norvasc 5 mg a day. 3. Trintellix 10 mg a day. 4. Ursodiol 900 mg b.i.d. 5. Kenalog 0.1% topical b.i.d. 6. Omeprazole 20 mg p.o. daily. 7. Melatonin 6 mg q.h.s. 8. Claritin 10 mg p.o. daily. 9. Imodium 2 mg p.o. t.i.d. p.r.n. 10.Synthroid 25 mcg a day. 11.Neurontin 400 mg t.i.d. 12.Lasix 20 mg p.o. daily. 13.Flonase. 14.Iron 325 p.o. daily. 15.Vitamin D2 97495 units p.o. on . 16.Sinequan 10 mg q.h.s. 17.Vitamin B12 1000 mcg p.o. daily. 18.Baclofen 5 mg p.o. b.i.d. 19.Ventolin HFA 2 puffs q.6 p.r.n. ALLERGY: TO ANCEF, LODINE, IV CONTRAST DYE, LEVAQUIN, NSAIDS, BACTRIM. PHYSICAL EXAMINATION: On examination: Temperature 98.6, pulse 71, respiratory 18, blood pressure 120/69, pulse ox 96% on room air. GENERAL APPEARANCE: Well built, BMI 62.6. Lying in bed, tired-appearing. EYES: Pupils equal. Conjunctivae icterus. HEENT: External appearance of nose and ears normal. Oral cavity normal. NECK: JVD unable to assess. Mass not palpable. RESPIRATORY EFFORT: Normal. LUNGS: Distant breath sounds. CARDIOVASCULAR: First and second sounds normal. Nonpitting edema. ABDOMEN: Distended, soft. Upper abdominal mild tenderness. No guarding or rigidity. Bowel sounds are present. The patient has got a drain with attached to a bag. LYMPHATICS: No lymph nodes palpable in the neck or axilla. PSYCHIATRY: Psychiatry able to answer simple questions. INVESTIGATIONS: White count 13.7, hemoglobin 12.9, potassium 4.1, bilirubin 10.4, it was 19.4 on 07/02/2018. AST 91, ALT 81, same as on 07/02/2018. UA positive for leukocyte esterase WBC, some squamous epithelial cells. ASSESSMENT: 1. Acute urinary tract infection with cystitis. 2. Some pain at the abdominal gallbladder drainage tube. No overt signs of infection present. 3. Chronic developmental delay. 4. Morbid obesity BMI more than 60. 5. Chronic mood disorder. 6. The patient has a legal guardian, both a brother and a court-appointed Bill Schiemen. 7. Chronic fibromyalgia. 8. Gastroesophageal reflux disease. 9. Essential hypertension. 10.Primary osteoarthritis. 11.Hypothyroid. 12.Axonal neuropathy. 13.Irritable bowel syndrome. PLAN: Patient is started on antibiotics for UTI. We will check again patient's LFTs tomorrow. The patient states her appetite is okay. Did talk to the brother over the phone. Gastroenterology is being consulted. The patient is started on IV Zosyn in the ER. Copy to Dr. Estrada. MMODL / IJN: [id number] /
[2018-07-22] MEDS: PIPERACILLIN-TAZOBACTAM 3.375 GM in SODIUM CHLORIDE 0.9% 100 ML IVPB SCH (23:12)
[2018-07-22] MEDS: MORPHINE SULFATE 4 MG/ML SYRINGE IV PRN (23:17)
[2018-07-23] MEDS: LEVOTHYROXINE 25 MCG TAB PO SCH (06:17)
[2018-07-23] MEDS: PANTOPRAZOLE 40 MG TABLET PO SCH (07:54)
[2018-07-23] MEDS: PIPERACILLIN-TAZOBACTAM 3.375 GM in SODIUM CHLORIDE 0.9% 100 ML IVPB SCH ×3 (07:54→23:21)
[2018-07-23] MEDS: FUROSEMIDE 20 MG TAB PO SCH (07:55)
[2018-07-23] MEDS: FERROUS SULFATE 325 MG TAB PO SCH (07:55)
[2018-07-23] MEDS: GABAPENTIN 400 MG CAP PO SCH ×3 (07:55→20:51)
[2018-07-23] MEDS: amLODIPine 5 MG TAB PO SCH (07:55)
[2018-07-23] MEDS: CYANOCOBALAMIN 500 MCG TAB PO SCH (07:55)
[2018-07-23] MEDS: BACLOFEN 10 MG TAB PO SCH ×2 (07:55→20:49)
[2018-07-23] MEDS: URSODIOL 300 MG CAP PO SCH ×2 (07:56→20:51)
[2018-07-23] MEDS: VORTIOXETINE HYDROBROMIDE 10 MG TABLET PO SCH (07:57)
[2018-07-23] MEDS: LORATADINE 10 MG TAB PO SCH (07:57)
[2018-07-23] MEDS: TRIAMCINOLONE 0.1% CREAM 80 GM TUBE TOPICAL SCH ×2 (08:35→20:53)
[2018-07-23] MEDS: MORPHINE SULFATE 4 MG/ML SYRINGE IV PRN ×2 (09:34→16:06)
--- NOTE | 2018-07-23 11:51 | P.CONS ---
History of Present Illness - Reason for Consult Consult date: 07/23/18 elevated liver enzymes jaundice Requesting physician: Matt Sahu - Chief Complaint abdominal pain - History of Present Illness 67-year-old female history of developmental delay brother his guardian, hypertension, morbid obesity BMI 62, gastric sleeve surgery 2009, right breast cancer, GERD, anxiety, depression admitted with abdominal pain elevated liver enzymes. Patient was recently hospitalized with jaundice earlier this month with suspected drug induced liver injury. She was transferred to [facility] secondary to worsening liver function tests. Outside CT abdomen and pelvis demonstrated large calcified gallstones with dilated gallbladder. General surgery was consulted they did not recommend surgical intervention. On 07/17/2018 percutaneous transhepatic cholangiography performed via left lobe access demonstrating marked dilated biliary system with communicating left and right main bile ducts. Distal CBD obstruction with successful placement of 10.2-[place] LOC internal/external distal loop biliary drain. Unsure if liver biopsy was performed. Discharge liver function tests from [facility] total bilirubin 23.9. Direct bilirubin 15.6. AP 582. AST 67. ALT 66. White count 13.7. Hemoglobin 12.9. INR 1.1. Total bilirubin 10.4. AST 91. ALT 81. AP 474. Ammonia 18. Lipase 461. Amylase 74. CT abdomen and pelvis yesterday reported a properly placed biliary drain. No evidence of surrounding fluid collection. Mild degree of hepatic steatosis. Presently comfortable. No fevers. Review of Systems REVIEW OF SYSTEMS: CONSTITUTIONAL: Denies any fevers, chills, weight change or fatigue. CARDIOVASCULAR: Denies any chest pain, palpitations high or low blood pressures RESPIRATORY: Denies any shortness of breath, hemoptysis or cough. GENITOURINARY: No dysuria or hematuria, but the patient does report dark urine. MUSCULOSKELETAL: No weakness reported. SKIN: Denies any new rashes or lesions, or pallor but the patient does report jaundice since this past weekend. PSYCHIATRIC: Denies any depression or anxiety. NEUROLOGY: Denies headache, denies any new focal deficits. EARS/NOSE/THROAT: No recent hearing change, congestion, nasal discharge or sore throat. EYES: No pain in eyes, discharge or change in vision. GASTROINTESTINAL: As per HPI. Past Medical History Past Medical History: Cancer, Eye Disorder, Fibromyalgia, GERD/Reflux, Hypertension, Osteoarthritis (OA), Sleep Apnea/CPAP/BIPAP, Thyroid Disorder Additional Past Medical History / Comment(s): Macular degeneration, glaucoma merle eyes. Axonal neuropathy, morbid obesity. IBS-freq diarrhea. Tremors; PT RECIDES AT [facility], "[facility]" TAKES CARE OF RX. GUARDIAN IS AMY LOTT & brother Dileep Condon; RIGHT BREAST CANCER-NO CHEMO/RADIATION- SCHEDULED FOR MASTECTOMY History of Any Multi-Drug Resistant Organisms: None Reported Past Surgical History: Adenoidectomy, Back Surgery, Bariatric Surgery, Orthopedic Surgery, Tonsillectomy Additional Past Surgical History / Comment(s): GASTRIC SLEEVE 2009, PANNICULECTOMY,TRIGGER FINGER RELEASE, PAIN CLINIC PROCEDURE-BACK INJECTIONS, EGD'S W/ DILATATION, Laminectomy. CYSTOSCOPE, RT URETERAL STENT. KIDNEY STONE REMOVAL Past Anesthesia/Blood Transfusion Reactions: Family History of Problems w/ Anesthesia Additional Past Anesthesia/Blood Transfusion Reaction / Comm: PT AND BROTHER STATES "PT HAS NARROW AIRWAY", BROTHER HAS CONFUSION WITH VERSED. Past Psychological History: Anxiety, Depression Additional Psychological History / Comment(s): "Developmentally Disabled" Smoking Status: Never smoker Past Alcohol Use History: None Reported Past Drug Use History: None Reported - Past Family History Mother Family Medical History: Cancer, CVA/TIA Additional Family Medical History / Comment(s): PERSONALITY DISORDER, ALCOHOLIC,ABUSIVE, pharyngeal cancer, kidney disease Father Family Medical History: Cancer, Coronary Artery Disease (CAD) Additional Family Medical History / Comment(s): PANCREAS,CABG Brother(s) Family Medical History: AICD/Pacemaker Additional Family Medical History / Comment(s): PACEMAKER,lbbb,bradycardia Medications and Allergies Home Medications Medication Instructions Recorded Confirmed Type Levothyroxine Sodium [Synthroid] 25 mcg PO QAM 04/02/14 07/22/18 History Cyanocobalamin (Vitamin B-12) 1,000 mcg PO QAM 05/28/16 07/22/18 History [Vitamin B-12] fentaNYL 25MCG/HR PATCH [Duragesic 1 patch TRANSDERM Q72H #7 patch 04/09/17 07/22/18 Rx 25MCG/HR] Ferrous Sulfate [Iron (65 MG 325 mg PO DAILY 09/06/17 07/22/18 History Elemental)] Albuterol Inhaler [Ventolin Hfa 2 puff INHALATION RT-Q6H PRN 06/25/18 07/22/18 History Inhaler] Baclofen [Lioresal] 5 mg PO BID 07/22/18 07/22/18 History Doxepin [SINEquan] 10 mg PO HS 07/22/18 07/22/18 History Ergocalciferol [Vitamin D2] 50,000 unit PO TH 07/22/18 07/22/18 History Fluticasone Nasal [place] [Flonase 2 spr EA NOSTRIL BID PRN 07/22/18 07/22/18 History Nasal [place]] Furosemide [Lasix] 20 mg PO DAILY 07/22/18 07/22/18 History Gabapentin [Neurontin] 400 mg PO TID 07/22/18 07/22/18 History Loperamide [Imodium] 2 mg PO TID PRN 07/22/18 07/22/18 History Loratadine [Claritin] 10 mg PO DAILY 07/22/18 07/22/18 History Melatonin 6 mg PO HS PRN 07/22/18 07/22/18 History Omeprazole 20 mg PO DAILY 07/22/18 07/22/18 History Triamcinolone 0.1% Cream [Kenalog 1 applicatio TOPICAL BID 07/22/18 07/22/18 History 0.1% Cream] Ursodiol 900 mg PO BID 07/22/18 07/22/18 History Vortioxetine Hydrobromide 10 mg PO DAILY 07/22/18 07/22/18 History [Trintellix] amLODIPine [Norvasc] 5 mg PO DAILY 07/22/18 07/22/18 History Allergies Allergy/AdvReac Type Severity Reaction Status Date / Time cefazolin sodium [From Ancef] Allergy Mild Rash/Hives Verified 07/22/18 12:41 etodolac [From Lodine] Allergy Rash/Hives Verified 07/22/18 12:41 Iodinated Contrast- Oral and Allergy Rash/Hives Verified 07/22/18 12:41 IV Dye [Iodinated Contrast Media - IV Dye] Iodine and Iodide Containing Allergy Rash/Hives Verified 07/22/18 12:41 Produc levofloxacin [From Levaquin] Allergy Swelling Verified 07/22/18 12:41 NSAIDS (Non-Steroidal Allergy Rash/Hives Verified 07/22/18 12:41 Anti-Inflamma sulfamethoxazole AdvReac Confusion, Verified 07/22/18 12:41 [From Bactrim] Increased Bun & Cr levels trimethoprim [From Bactrim] AdvReac Confusion, Verified 07/22/18 12:41 Increased Bun & Creat Physical Exam Vitals: Vital Signs Temp Pulse Pulse Resp BP BP Pulse Ox 07/23/18 08:00 53 L 16 07/23/18 05:17 97.3 F L 53 L 16 117/67 95 07/22/18 21:06 97.3 F L 59 L 17 117/66 92 L 07/22/18 18:25 98 F 67 18 127/75 92 L 07/22/18 16:20 98.4 F 67 18 128/76 07/22/18 15:00 122/69 07/22/18 14:50 122/69 94 L 07/22/18 14:40 98.0 F 18 122/69 98 07/22/18 14:30 139/67 94 L 07/22/18 14:20 139/67 07/22/18 14:10 139/67 95 07/22/18 14:00 106/70 98 07/22/18 13:50 106/70 95 07/22/18 13:40 106/70 94 L 07/22/18 13:30 76 18 106/70 95 07/22/18 13:00 98.0 F 68 18 123/66 95 07/22/18 12:50 123/66 98 07/22/18 12:40 123/66 98 07/22/18 12:30 124/52 07/22/18 12:20 124/52 95 07/22/18 12:10 124/52 95 07/22/18 12:00 119/75 91 L 07/22/18 11:50 119/75 95 07/22/18 11:40 119/75 95 07/22/18 11:30 121/79 96 Intake and Output 07/22/18 07/23/18 07/23/18 22:59 06:59 14:59 Intake Total 540 Output Total 750 Balance -210 Intake: Oral 540 Output: Drainage 750 Left Abdomen 750 Other: Voiding Method Bedside Commode Bedside Commode Bedside Commode # Voids 1 2 General appearance: The patient is alert, oriented, in no acute distress. Jaundice. HET: Head is normocephalic and atraumatic. Pupils are equal and reactive. Oropharynx is clear without lesions. Sclerae icterus. Neck: Supple without lymphadenopathy. Trachea midline. Heart: S1 S2. Regular rate and rhythm. Lungs: No crackles or wheezes are heard. Abdomen: Soft, nontender, nondistended with bowel sounds. Biliary drain in place no surrounding redness or drainage. Green bilious fluid in bag. No peritoneal signs. No palpable organomegaly or masses. Extremities: Normal skin color and turgor. No cyanosis, rash, ulceration, clubbing, or edema. Radial and pedal pulses are 2/4 bilaterally. Neurological: No focal deficits. Strength and sensation are grossly intact. Results CBC & Chem 7: 07/24/18 07:20 07/24/18 07:20 Labs: Abnormal Lab Results - Last 24 Hours (Table) 07/22/18 07/22/18 Range/Units 13:30 13:36 WBC 13.7 H (3.8-10.6) k/uL RDW 18.9 H (11.5-15.5) % Neutrophils # (Manual) 9.80 H (1.3-7.7) k/uL Metamyelocytes # (Man) 0.27 H (0) k/uL Urine Appearance Cloudy H (Clear) Urine Protein Trace H (Negative) Urine Blood Trace H (Negative) Urine Bilirubin 2+ H (Negative) Ur Leukocyte Esterase Large H (Negative) Urine RBC 9 H (0-5) /hpf Urine WBC 89 H (0-5) /hpf Urine WBC Clumps Few H (None) /hpf Ur Squamous Epith Cells 7 H (0-4) /hpf Urine Bacteria Occasional H (None) /hpf Urine Mucus Rare H (None) /hpf Microbiology - Last 24 Hours (Table) 07/22/18 13:30 Urine Culture - Preliminary Urine,Clean Catch CT scan - abdomen: report reviewed (Dr. Munroe) Assessment and Plan (1) Jaundice Narrative/Plan: 67-year-old developmentally delayed female admitted with abdominal pain elevated liver enzymes with recent hospitalization in tertiary center secondary to obstructive jaundice possible combination of drug induced liver injury status post percutaneous biliary drain placement. Serology for chronic liver disease workup unremarkable. Current Visit: Yes Status: Acute Code(s): R17 - UNSPECIFIED JAUNDICE SNOMED Code(s): 12267548 (2) Cholelithiasis Current Visit: No Status: Acute Code(s): K80.20 - CALCULUS OF GALLBLADDER W/O CHOLECYSTITIS W/O OBSTRUCTION SNOMED Code(s): 817451120 (3) Cognitive developmental delay Current Visit: Yes Status: Acute Code(s): F81.9 - DEVELOPMENTAL DISORDER OF SCHOLASTIC SKILLS, UNSPECIFIED SNOMED Code(s): 025161898 Plan: 1. Supportive measures no further workup from a GI standpoint. Follow-up [facility] specialist for reevaluation/ biliary drain exchange 5-6 weeks. Avoid hepatotoxic medications. Continue to monitor outpatient liver chemistries CBC. Thank you for this kind referral and the opportunity to participate in the care of your patient. This consultation was discussed with Dr. Munroe. The impression and plan of care have been directed as dictated.
[2018-07-23] MEDS ORDERED: LORazepam 1 MG TAB PO PRN (14:04)
--- NOTE | 2018-07-23 14:05 | P.CN ---
Psychiatric Consult - . Consult:: Increased anxiety and difficulty sleeping 07/23/18 13:48 Assessment and Plan Assessment: Patient is a 67-year-old female presents emergency department today with complaints of pain from her incision site from her recent drain placed in her liver. Patient reports that was placed at [facility]. She was discharged on Sunday of this past week. Patient states that she has had worsening pain. She continues to have drainage from the site. Patient states that she has had no fevers or chills. Patient is generally a poor historian with developmental delay. Upon reviewing patient's medical record from [facility] was sound the patient's hepatocellular disease was likely due to medication, and did have some large calcified gallstones with dilated gallbladder. Also the medications would cause this liver injury was due to medications for UTI and her psychiatric medication. - Related Data Home Medications Medication Instructions Recorded Confirmed Levothyroxine Sodium [Synthroid] 25 mcg PO QAM 04/02/14 07/22/18 Cyanocobalamin (Vitamin B-12) 1,000 mcg PO QAM 05/28/16 07/22/18 [Vitamin B-12] Ferrous Sulfate [Iron (65 MG 325 mg PO DAILY 09/06/17 07/22/18 Elemental)] Albuterol Inhaler [Ventolin Hfa 2 puff INHALATION RT-Q6H PRN 06/25/18 07/22/18 Inhaler] Baclofen [Lioresal] 5 mg PO BID 07/22/18 07/22/18 Doxepin [SINEquan] 10 mg PO HS 07/22/18 07/22/18 Ergocalciferol [Vitamin D2] 50,000 unit PO TH 07/22/18 07/22/18 Fluticasone Nasal [place] [Flonase 2 spr EA NOSTRIL BID PRN 07/22/18 07/22/18 Nasal [place]] Furosemide [Lasix] 20 mg PO DAILY 07/22/18 07/22/18 Gabapentin [Neurontin] 400 mg PO TID 07/22/18 07/22/18 Loperamide [Imodium] 2 mg PO TID PRN 07/22/18 07/22/18 Loratadine [Claritin] 10 mg PO DAILY 07/22/18 07/22/18 Melatonin 6 mg PO HS PRN 07/22/18 07/22/18 Omeprazole 20 mg PO DAILY 07/22/18 07/22/18 Triamcinolone 0.1% Cream [Kenalog 1 applicatio TOPICAL BID 07/22/18 07/22/18 0.1% Cream] Ursodiol 900 mg PO BID 07/22/18 07/22/18 Vortioxetine Hydrobromide 10 mg PO DAILY 07/22/18 07/22/18 [Trintellix] amLODIPine [Norvasc] 5 mg PO DAILY 07/22/18 07/22/18 Previous Rx's Medication Instructions Recorded fentaNYL 25MCG/HR PATCH [Duragesic 1 patch TRANSDERM Q72H #7 patch 04/09/17 25MCG/HR] Allergies Allergy/AdvReac Type Severity Reaction Status Date / Time cefazolin sodium [From Ancef] Allergy Mild Rash/Hives Verified 07/22/18 12:41 etodolac [From Lodine] Allergy Rash/Hives Verified 07/22/18 12:41 Iodinated Contrast- Oral and Allergy Rash/Hives Verified 07/22/18 12:41 IV Dye [Iodinated Contrast Media - IV Dye] Iodine and Iodide Containing Allergy Rash/Hives Verified 07/22/18 12:41 Produc levofloxacin [From Levaquin] Allergy Swelling Verified 07/22/18 12:41 NSAIDS (Non-Steroidal Allergy Rash/Hives Verified 07/22/18 12:41 Anti-Inflamma sulfamethoxazole AdvReac Confusion, Verified 07/22/18 12:41 [From Bactrim] Increased Bun & Cr levels trimethoprim [From Bactrim] AdvReac Confusion, Verified 07/22/18 12:41 Increased Bun & Creat Past Medical History Past Medical History: Cancer, Eye Disorder, Fibromyalgia, GERD/Reflux, Hypertension, Osteoarthritis (OA), Sleep Apnea/CPAP/BIPAP, Thyroid Disorder Additional Past Medical History / Comment(s): Macular degeneration, glaucoma merle eyes. Axonal neuropathy, morbid obesity. IBS-freq diarrhea. Tremors; PT RECIDES AT [facility], "[facility]" TAKES CARE OF RX. GUARDIAN IS AMY LOTT & brother Dileeplayla Condon; RIGHT BREAST CANCER-NO CHEMO/RADIATION- SCHEDULED FOR MASTECTOMY History of Any Multi-Drug Resistant Organisms: None Reported Past Surgical History: Adenoidectomy, Back Surgery, Bariatric Surgery, Orthopedic Surgery, Tonsillectomy Additional Past Surgical History / Comment(s): GASTRIC SLEEVE 2009, PANNICULECTOMY,TRIGGER FINGER RELEASE, PAIN CLINIC PROCEDURE-BACK INJECTIONS, EGD'S W/ DILATATION, Laminectomy. CYSTOSCOPE, RT URETERAL STENT. KIDNEY STONE REMOVAL Past Anesthesia/Blood Transfusion Reactions: Family History of Problems w/ Anesthesia Additional Past Anesthesia/Blood Transfusion Reaction / Comment(s): PT AND BROTHER STATES "PT HAS NARROW AIRWAY", BROTHER HAS CONFUSION WITH VERSED. Past Psychological History: Anxiety, Depression Smoking Status: Never smoker Past Alcohol Use History: None Reported Past Drug Use History: None Reported - Past Family History Mother Family Medical History: Cancer, CVA/TIA Additional Family Medical History / Comment(s): PERSONALITY DISORDER, ALCOHOLIC,ABUSIVE, pharyngeal cancer, kidney disease Father Family Medical History: Cancer, Coronary Artery Disease (CAD) Additional Family Medical History / Comment(s): PANCREAS,CABG Brother(s) Family Medical History: AICD/Pacemaker Additional Family Medical History / Comment(s): PACEMAKER,lbbb,bradycardia Mental Status Examination - Pleasant 67 year old female who has juandice due to elevated liver enzymes who is worried about her sleep. General Appearance: [well groomed, casual, appears stated age Speech/Language: [spontaneous Attitude/Behavior: [cooperative Mood: [euthymic, euphoric, anxious Affect: [full range, lively Orientation: [time, person, place situation] Thought Content: [wnl,denies delusions, obsessions, phobias, other] Risk Factors: [suicidal (ideations, plan), and/or Homicidal (ideations, plan), other] Perception: [wnl, denies hallucinations (auditory, visual, tactile), other] Thought Processes: [goal-oriented Concentration/Attention Span: [wnl] [Per observation and interview with the patient] Recent Memory: [wnl Remote Memory: [wnl] [past events, as related history] Intelligence: [ average] [based on history, based on vocabulary, syntax, grammar, and content] Judgement: [good] [per patient's behavior/history of present illness] Insight: [good] [understanding severity of illness/history of present illness] Psychiatric impression:drug induced jaundice; major depression recurrent-in remission Psychiatric recommendation: add ambien 10 mg at bedtime and could repeat if necessary and lorazepam 1 mg as needed for anxiety. (1) Mood disorder Current Visit: No Status: Acute Priority: Low Code(s): F39 - UNSPECIFIED MOOD [AFFECTIVE] DISORDER SNOMED Code(s): 59916952
[2018-07-23] MEDS: SODIUM CHLORIDE 0.9% 1,000 ML IV SCH (16:17)
--- NOTE | 2018-07-23 17:07 | PN ---
PROGRESS NOTE DATE OF SERVICE: 07/23/2018 PRESENTING COMPLAINT: Abdominal pain. INTERVAL HISTORY: This is a patient with a recent diagnosis of drug-induced liver disease and also has a bile duct drainage tube. She presented yesterday with abdominal pain. The patient was found to have acute UTI with cystitis, probably the cause of her abdominal pain. The tube is draining well. The patient overall is feeling better, though rather anxious. Did tolerate some diet. REVIEW OF SYSTEMS: Done for constitutional, cardiovascular, GI, pulmonary; relevant findings as above. CURRENT MEDICATIONS: Reviewed. PHYSICAL EXAMINATION: VITAL SIGNS: Temperature 98, pulse 53, respiration 18, blood pressure 111/61, pulse ox 95% on room air. GENERAL APPEARANCE: Lying in bed. Jaundiced. EYES: Pupils equal. Conjunctivae with icterus. NECK: JVD unable to assess. Mass not palpable. RESPIRATORY: Effort normal. LUNGS: Distant breath sounds. CARDIOVASCULAR: First and second sounds normal. Non-pitting edema. ABDOMEN: Distended, soft. No tenderness. Drain attached to her back. PSYCHIATRY: Able to answer simple questions. INVESTIGATIONS: Urine culture pending. ASSESSMENT: 1. Acute urinary tract infection with cystitis causing abdominal pain, pending culture. 2. Gallbladder drainage tube in place with improvement of liver numbers and stable; no signs of infection. 3. Developmental delay. 4. Morbid obesity with body mass index more than 60. 5. Chronic mood disorder. 6. Patient's brother is her legal guardian and also there is a court-appointed legal guardian, Kodi Santillan. 7. Chronic fibromyalgia. 8. Gastroesophageal reflux disease. 9. Essential hypertension. 10.Primary osteoarthritis. 11.Hypothyroid. 12.Axonal neuropathy. 13.Irritable bowel syndrome. PLAN: Spoke to Azeb from GI. From their standpoint, nothing further to be done. Awaiting cultures. Patient is on IV Zosyn. Hoping the culture will be back tomorrow, and then patient can be discharged. manager media relations has put in a referral for possible inpatient rehab. MMODL / IJN: [id number] /
[2018-07-23] MEDS: DOXEPIN 10 MG CAP PO SCH (20:49)
[2018-07-23] MEDS: ZOLPIDEM 10 MG TAB PO SCH (20:52)
[2018-07-24 00:50] VITALS: RESP 16
[2018-07-24] MEDS: LEVOTHYROXINE 25 MCG TAB PO SCH (06:06)
[2018-07-24 07:54] LABS: Albumin 3.2 g/dL (3.5-5.0); Calcium 8.6 mg/dL (8.4-10.2); Potassium 3.9 mmol/L (3.5-5.1); Total Bilirubin 7.3 mg/dL (0.2-1.3); Total Protein 6.2 g/dL (6.3-8.2)
[2018-07-24] MEDS: LORATADINE 10 MG TAB PO SCH (08:07)
[2018-07-24] MEDS: BACLOFEN 10 MG TAB PO SCH ×2 (08:07→20:58)
[2018-07-24] MEDS: amLODIPine 5 MG TAB PO SCH (08:07)
[2018-07-24] MEDS: PIPERACILLIN-TAZOBACTAM 3.375 GM in SODIUM CHLORIDE 0.9% 100 ML IVPB SCH ×3 (08:07→23:12)
[2018-07-24] MEDS: CYANOCOBALAMIN 500 MCG TAB PO SCH (08:07)
[2018-07-24] MEDS: PANTOPRAZOLE 40 MG TABLET PO SCH (08:07)
[2018-07-24] MEDS: FUROSEMIDE 20 MG TAB PO SCH (08:07)
[2018-07-24] MEDS: FERROUS SULFATE 325 MG TAB PO SCH (08:07)
[2018-07-24] MEDS: GABAPENTIN 400 MG CAP PO SCH ×3 (08:07→20:57)
[2018-07-24] MEDS: TRIAMCINOLONE 0.1% CREAM 80 GM TUBE TOPICAL SCH ×2 (08:08→20:58)
[2018-07-24] MEDS: VORTIOXETINE HYDROBROMIDE 10 MG TABLET PO SCH (08:09)
[2018-07-24] MEDS: URSODIOL 300 MG CAP PO SCH ×2 (08:09→20:57)
[2018-07-24 08:19] LABS: Anisocytosis Slight; Basophils # (A) 0.1 k/uL (0-0.2); Basophils % (A) 1 %; Eosinophils # (A) 0.4 k/uL (0-0.7); Eosinophils % (A) 3 %; HCT 39.9 % (34.0-46.0); HGB 12.5 gm/dL (11.4-16.0); Hypochromasia Slight; Lymphocytes # (A) 2.8 k/uL (1.0-4.8); Lymphocytes % (A) 22 %; MCH 30.4 pg (25.0-35.0); MCHC 31.3 g/dL (31.0-37.0); Macrocytosis Slight; Mean Platelet Volume 7.9; Monocytes # (A) 0.5 k/uL (0-1.0); Monocytes % (A) 4 %; Neutrophils # (A) 8.9 k/uL (1.3-7.7); Neutrophils % (A) 70 %; Platelet Count 356 k/uL (150-450); RBC 4.12 m/uL (3.80-5.40); RDW 18.3 % (11.5-15.5); WBC 12.7 k/uL (3.8-10.6)
[2018-07-24] MEDS: MORPHINE SULFATE 4 MG/ML SYRINGE IV PRN ×3 (10:01→19:41)
[2018-07-24] MEDS: SODIUM CHLORIDE 0.9% 1,000 ML IV SCH (14:59)
--- NOTE | 2018-07-24 15:36 | PN ---
PROGRESS NOTE DATE OF SERVICE: 07/24/2018 This 67-year-old woman was admitted recently with jaundice and possible obstructive jaundice was evaluated and admitted to the hospital. Patient had a liver biopsy, possibly drug induced obstructive jaundice is suspected. Patient had biliary tube drainage. The patient admitted with jaundice and severe abdominal pain at the drainage site. Patient will be closely monitored. Patient will be closely monitored. PAST MEDICAL HISTORY: Reviewed. REVIEW OF SYSTEMS: CARDIOVASCULAR: No angina. RESPIRATION: mentioned earlier. GI: As mentioned earlier. : No dysuria. NERVOUS SYSTEM: No numbness or weakness. CURRENT MEDICATIONS: Reviewed and include: 1. Ventolin 2.5 q.6. 2. Norvasc 5 mg. 4. Vitamin B12 one thousand mcg q.a.m. 5. Sinequan 10 mg p.o. q.h.s. 6. Vitamin D 2000 p.o. . 7. Duragesic patch. 8. Iron sulfate 320 mg p.o. daily. 9. Flonase 2 sprays daily. 10.Lasix 20 mg p.o. daily. 11.Neurontin 400 mg p.o. t.i.d. 12.Dilaudid 0.5 mg q.3 p.r.n. 13.Motrin 400 mg q.6 p.r.n. 14.Synthroid 25 mcg p.o. q.a.m. 15.Coumadin 2 mg p.o. t.i.d. 17.Ativan 1 mg p.o. q.8 p.r.n. 18.Melatonin 6 mg p.o. q.h.s. p.r.n. 19.Morphine sulfate 4 mg q.6 p.r.n. 20.Narcan 0.2 q.2 p.r.n. 21.Zofran 4 mg q.8 p.r.n. 22.Protonix 40 mg daily. 23.Zosyn 3.375 IV q.8. 24.Kenalog 1 application daily. 25.Actigall 900 mg p.o. b.i.d. 26.Celexa 10 mg p.o. daily. 27.Ambien 10 mg p.o. q.h.s. PHYSICAL EXAM: Patient is alert, oriented x3. Pulse 57, blood pressure 140/37, respiratory 16, temperature 97.2, pulse ox 94% on room air. HEENT: Conjunctivae normal. NECK: No jugular venous distension. CARDIOVASCULAR SYSTEM: S1, S2, muffled, No S3, no S4. RESPIRATORY: Breath sounds diminished at the bases, a few scattered rhonchi. ABDOMEN: Soft. Cholecystostomy tube present. LEGS: No edema, no swelling. NERVOUS SYSTEM: No focal deficits. LABS: WBC 12.2, hemoglobin 12.4, sodium 140, potassium 3.8, creatinine is 1.44, and total bilirubin 7.3, AST 69, ALT is 72, alkaline phosphatase is 317. UA noted. The cultures are pending at this time. Previous cultures are showing multiple infections including E coli and Klebsiella. ASSESSMENT: 1. Acute urinary tract infection with cystitis causing abdominal pain, pending the final cultures. 2. Gallbladder drainage, tube in place with obstructive jaundice. 3. Possibly drug-induced sepsis, jaundice recently had a liver biopsy and cholecystostomy tube drainage at [facility]. 4. Morbid obesity with body mass index 60. 5. Chronic mood disorder. 6. Patient's brother is legal guardian with a court-appointed legal guardian. 7. Chronic fibromyalgia. 8. Gastroesophageal reflux disease. 9. Essential hypertension. 10.Primary degenerative joint disease. 11.Hypothyroidism. 12.Axonal neuropathy. 13.Irritable bowel syndrome. RECOMMENDATION: Recommend to continue with current medications and monitor with symptomatic treatment. Continue IV antibiotics. Follow the cultures. The patient is still complaining of pain and necessitating morphine IV at this time for pain control. I would recommend continue the current medications and follow the trends in the bilirubin which is still elevated. Alk phos also still elevated. As mentioned earlier, will follow the cultures. Guarded prognosis. Further recommendations to follow. MMODL / IJN: [id number] / VIOLETTE
[2018-07-24] MEDS: DOXEPIN 10 MG CAP PO SCH (20:57)
[2018-07-24] MEDS: ZOLPIDEM 10 MG TAB PO SCH (20:57)
[2018-07-25] MEDS: LEVOTHYROXINE 25 MCG TAB PO SCH (06:31)
[2018-07-25] MEDS: CYANOCOBALAMIN 500 MCG TAB PO SCH (07:31)
[2018-07-25] MEDS: FUROSEMIDE 20 MG TAB PO SCH (07:32)
[2018-07-25] MEDS: PANTOPRAZOLE 40 MG TABLET PO SCH (07:32)
[2018-07-25] MEDS: PIPERACILLIN-TAZOBACTAM 3.375 GM in SODIUM CHLORIDE 0.9% 100 ML IVPB SCH ×2 (07:32→15:25)
[2018-07-25] MEDS: BACLOFEN 10 MG TAB PO SCH ×2 (07:32→22:38)
[2018-07-25] MEDS: LORATADINE 10 MG TAB PO SCH (07:32)
[2018-07-25] MEDS: amLODIPine 5 MG TAB PO SCH (07:32)
[2018-07-25] MEDS: FERROUS SULFATE 325 MG TAB PO SCH (07:32)
[2018-07-25] MEDS: GABAPENTIN 400 MG CAP PO SCH ×3 (07:32→22:39)
[2018-07-25] MEDS: VORTIOXETINE HYDROBROMIDE 10 MG TABLET PO SCH (07:34)
[2018-07-25] MEDS: URSODIOL 300 MG CAP PO SCH ×2 (07:34→22:38)
[2018-07-25] MEDS: MORPHINE SULFATE 4 MG/ML SYRINGE IV PRN ×2 (07:37→15:22)
[2018-07-25] MEDS: TRIAMCINOLONE 0.1% CREAM 80 GM TUBE TOPICAL SCH ×2 (07:49→22:39)
[2018-07-25 11:22] LABS: Anisocytosis Slight; Basophils # (A) 0.1 k/uL (0-0.2); Basophils % (A) 1 %; Eosinophils # (A) 0.5 k/uL (0-0.7); Eosinophils % (A) 4 %; HGB 11.9 gm/dL (11.4-16.0); Hypochromasia Slight; Lymphocytes # (A) 2.8 k/uL (1.0-4.8); Lymphocytes % (A) 20 %; MCH 30.5 pg (25.0-35.0); MCHC 31.4 g/dL (31.0-37.0); MCV 97.1 fL (80.0-100.0); Macrocytosis Slight; Mean Platelet Volume 7.2; Monocytes # (A) 0.7 k/uL (0-1.0); Monocytes % (A) 5 %; Neutrophils # (A) 9.7 k/uL (1.3-7.7); Neutrophils % (A) 70 %; Platelet Count 358 k/uL (150-450); RBC 3.91 m/uL (3.80-5.40); WBC 13.8 k/uL (3.8-10.6)
[2018-07-25 11:31] LABS: Albumin 3.2 g/dL (3.5-5.0); Calcium 8.7 mg/dL (8.4-10.2); Potassium 3.7 mmol/L (3.5-5.1); Total Bilirubin 7.8 mg/dL (0.2-1.3); Total Protein 6.2 g/dL (6.3-8.2)
[2018-07-25] MEDS ORDERED: ERGOCALCIFEROL 50,000 UNIT CAP PO SCH (12:00)
[2018-07-25] MEDS: SODIUM CHLORIDE 0.9% 1,000 ML IV SCH (15:25)
--- NOTE | 2018-07-25 19:19 | PN ---
PROGRESS NOTE DATE OF SERVICE: 07/25/2018 This 67-year-old woman was admitted with jaundice had possible obstructive jaundice . The patient undergo a cholecystostomy tube which is draining over 250 mL in 24 hours. The patient is being closely monitored. Bilirubin is still elevated. Patient has significant pain recurring, IV intravenous morphine. PT/OT is evaluating the patient. ECF rehab is also being considered. PAST MEDICAL HISTORY: Reviewed. REVIEW OF SYSTEMS: CARDIOVASCULAR: No angina or palpitations. RESPIRATIONS: As mentioned earlier. GI: As mentioned earlier. : No dysuria. CENTRAL NERVOUS SYSTEM: No numbness or weakness. CURRENT MEDICATIONS: Reviewed and include: 1. Ventolin p.r.n. 2. Norvasc. 3. Lioresal. 4. Senokot. 5. Vitamin D2. 6. Duragesic patch. 7. Iron sulfate. 8. Lasix. 9. Dilaudid. 10.Motrin. 11.Synthroid. 12.Imodium. 13.Claritin. 14.Ativan. 15.Melatonin. 16.Morphine sulfate. 17.Protonix. 18.Kenalog. 19.Actigall. 20.Trintellix. 21.Ambien. PHYSICAL EXAM: Patient is alert and oriented x3. The pulse is 64. Blood pressure is 85/52, respirations 16, temperature 97.2, pulse ox 98% on room air. HEENT: Conjunctivae normal. NECK: No jugular venous distention. CARDIOVASCULAR: S1, S2 muffled. RESPIRATORY: Breath sounds diminished in the bases. A few rhonchi. No crackles. ABDOMEN: Soft, distended. No discomfort on palpation, otherwise cholecystomy tube draining. LEGS: No edema. No swelling. NERVOUS SYSTEM: Higher functions as mentioned earlier. Moves all 4 limbs. No focal deficits. LYMPHATICS: No lymph nodes palpable in the neck, axillae or groin. SKIN: No ulcer, no rash at this time. LABS: WBC 13.2, hemoglobin 11.9, and bilirubin is 7.8, AST is 56, alkaline phosphatase is 66. ASSESSMENT: 1. Acute urinary tract infection with cystitis causing abdominal pain, pending final cultures. 2. Gallbladder drainage tube and gastrostomy tube placed for obstructive jaundice in [facility] for possible drug-induced obstructive jaundice status post liver biopsy and cholecystostomy tube drainage from [facility] recently. 3. Increased creatinine. 4. Morbid obesity with body mass 60. 5. Chronic mood disorder. 6. The patient's brother is legal guardian with a court-appointed legal guardian as well. 7. Chronic fibromyalgia. 8. Gastroesophageal reflux disease. 9. History of hypertension. 10.History of primary degenerative joint disease. 11.Hypothyroidism. 12.Axonal neuropathy. 13.Irritable bowel syndrome. 14.Relative hypotension. RECOMMENDATIONS AND DISCUSSION: Recommend to continue current medications, continue to monitor. Symptomatic treatment. Otherwise, we will continue the antibiotics. Await the final cultures. Continue the rest of the medications. We will hold Norvasc. We will continue to monitor the creatinine closely. Otherwise, we will monitor closely and further recommendations to follow. Prognosis guarded. MMODL / MALUN: [id number] / VIOLETTE
[2018-07-25] MEDS: DOXEPIN 10 MG CAP PO SCH (22:38)
[2018-07-25] MEDS: ZOLPIDEM 10 MG TAB PO SCH (22:39)
[2018-07-25] MEDS: traMADol 50 MG TAB PO PRN (22:46)
[2018-07-26] MEDS: PIPERACILLIN-TAZOBACTAM 3.375 GM in SODIUM CHLORIDE 0.9% 100 ML IVPB SCH ×2 (00:22→08:09)
[2018-07-26 05:32] VITALS: PULSE 58
[2018-07-26] MEDS: LEVOTHYROXINE 25 MCG TAB PO SCH (06:06)
[2018-07-26] MEDS: URSODIOL 300 MG CAP PO SCH (08:09)
[2018-07-26] MEDS: PANTOPRAZOLE 40 MG TABLET PO SCH (08:10)
[2018-07-26] MEDS: FERROUS SULFATE 325 MG TAB PO SCH (08:10)
[2018-07-26] MEDS: GABAPENTIN 400 MG CAP PO SCH ×2 (08:10→16:06)
[2018-07-26] MEDS: BACLOFEN 10 MG TAB PO SCH (08:10)
[2018-07-26] MEDS: VORTIOXETINE HYDROBROMIDE 10 MG TABLET PO SCH (08:10)
[2018-07-26] MEDS: CYANOCOBALAMIN 500 MCG TAB PO SCH (08:10)
[2018-07-26] MEDS: TRIAMCINOLONE 0.1% CREAM 80 GM TUBE TOPICAL SCH (08:10)
[2018-07-26] MEDS: LORATADINE 10 MG TAB PO SCH (08:10)
[2018-07-26 08:18] LABS: Anisocytosis Slight; Basophils # (A) 0.1 k/uL (0-0.2); Basophils % (A) 1 %; Eosinophils # (A) 0.4 k/uL (0-0.7); Eosinophils % (A) 3 %; HCT 36.1 % (34.0-46.0); HGB 11.5 gm/dL (11.4-16.0); Lymphocytes % (A) 24 %; MCH 30.8 pg (25.0-35.0); MCHC 31.8 g/dL (31.0-37.0); MCV 96.6 fL (80.0-100.0); Macrocytosis Slight; Mean Platelet Volume 7.5; Monocytes # (A) 0.5 k/uL (0-1.0); Monocytes % (A) 4 %; Neutrophils # (A) 8.4 k/uL (1.3-7.7); Neutrophils % (A) 67 %; Platelet Count 324 k/uL (150-450); RBC 3.74 m/uL (3.80-5.40); WBC 12.6 k/uL (3.8-10.6)
[2018-07-26] MEDS: traMADol 50 MG TAB PO PRN ×2 (08:18→14:27)
[2018-07-26 08:24] LABS: Calcium 8.7 mg/dL (8.4-10.2); Potassium 3.4 mmol/L (3.5-5.1); Total Bilirubin 7.3 mg/dL (0.2-1.3)
[2018-07-26 13:47] VITALS: BP 108/72; TEMP 97.4
[2018-07-26] MEDS: SODIUM CHLORIDE 0.9% 1,000 ML IV SCH (15:03)
--- NOTE | 2018-07-26 15:13 | P.DS ---
Providers Date of admission: 07/22/18 15:16 Expected date of discharge: 07/26/18 Attending physician: Matt Sahu Consults: 07/23/18 13:08 Consult Physician Routine Consulting Provider: Jayson Garcia Consult Reason/Comments: Increased anxiety, Difficulty sleeping Do you want consulting provider notified?: Yes Primary care physician: [facility] Course: 67-year-old female history of developmental delay brother his guardian, hypertension, morbid obesity BMI 62, gastric sleeve surgery 2009, right breast cancer, GERD, anxiety, depression admitted with abdominal pain elevated liver enzymes. Patient was recently hospitalized with jaundice earlier this month with suspected drug induced liver injury. She was transferred to [facility] secondary to worsening liver function tests. Outside CT abdomen and pelvis demonstrated large calcified gallstones with dilated gallbladder. General surgery was consulted they did not recommend surgical intervention. On 07/17/2018 percutaneous transhepatic cholangiography performed via left lobe access demonstrating marked dilated biliary system with communicating left and right main bile ducts. Distal CBD obstruction with successful placement of 10.2-[place] LOC internal/external distal loop biliary drain. Unsure if liver biopsy was performed. Discharge liver function tests from [facility] total bilirubin 23.9. Direct bilirubin 15.6. AP 582. AST 67. ALT 66. White count 13.7. Hemoglobin 12.9. INR 1.1. Total bilirubin 10.4. AST 91. ALT 81. AP 474. Ammonia 18. Lipase 461. Amylase 74. CT abdomen and pelvis yesterday reported a properly placed biliary drain. No evidence of surrounding fluid collection. Mild degree of hepatic steatosis. Patient was admitted to the hospital for elevated liver enzymes; she has been admitted to a tertiary center due to obstructive jaundice possibly combination of drug-induced liver injury and is status post biliary drain placement; patient has been seen by GI who have recommended supportive measures and no further GI workup and recommended patient to follow-up with [facility] for reevaluation/biliary drain exchange in 5-6 weeks; patient is recommended to avoid hepatotoxic medications and continue to monitor liver enzymes and CBC Patient is evaluated by PT/OT and is recommended skilled rehab Patient was started on IV antibiotics upon admission for possible UTI; urine cultures remains negative; patient did have 4 days of empiric IV antibiotic treatment; no further antibiotics at time of discharge Patient Condition at Discharge: Stable Plan - Discharge Summary New Discharge Prescriptions: New traMADol HCl [Ultram] 50 mg PO QID PRN #10 tab PRN Reason: Pain Continue amLODIPine [Norvasc] 5 mg PO DAILY Baclofen [Lioresal] 5 mg PO BID Doxepin [SINEquan] 10 mg PO HS Ergocalciferol [Vitamin D2 (DRISDOL)] 50,000 unit PO TH Fluticasone Nasal [place] [Flonase Nasal [place]] 2 spr EA NOSTRIL BID PRN PRN Reason: Allergy Symptoms Furosemide [Lasix] 20 mg PO DAILY Gabapentin [Neurontin] 400 mg PO TID Loperamide [Imodium] 2 mg PO TID PRN PRN Reason: Loose Stool Loratadine [Claritin] 10 mg PO DAILY Melatonin 6 mg PO HS PRN PRN Reason: Insomnia Omeprazole 20 mg PO DAILY Triamcinolone 0.1% Cream [Kenalog 0.1% Cream] 1 applicatio TOPICAL BID Ursodiol 900 mg PO BID Vortioxetine Hydrobromide [Trintellix] 10 mg PO DAILY fentaNYL 25MCG/HR PATCH [Duragesic 25MCG/HR] 1 patch TRANSDERM Q72H #1 patch No Action Levothyroxine Sodium [Synthroid] 25 mcg PO QAM Cyanocobalamin (Vitamin B-12) [Vitamin B-12] 1,000 mcg PO QAM Ferrous Sulfate [Iron (65 MG Elemental)] 325 mg PO DAILY Albuterol Inhaler [Ventolin Hfa Inhaler] 2 puff INHALATION RT-Q6H PRN PRN Reason: Shortness Of Breath Discharge Medication List Levothyroxine Sodium [Synthroid] 25 mcg PO QAM 04/02/14 [History] Cyanocobalamin (Vitamin B-12) [Vitamin B-12] 1,000 mcg PO QAM 05/28/16 [History] Ferrous Sulfate [Iron (65 MG Elemental)] 325 mg PO DAILY 09/06/17 [History] Albuterol Inhaler [Ventolin Hfa Inhaler] 2 puff INHALATION RT-Q6H PRN 06/25/18 [History] Baclofen [Lioresal] 5 mg PO BID 07/22/18 [History] Doxepin [SINEquan] 10 mg PO HS 07/22/18 [History] Ergocalciferol [Vitamin D2 (DRISDOL)] 50,000 unit PO TH 07/22/18 [History] Fluticasone Nasal [place] [Flonase Nasal [place]] 2 spr EA NOSTRIL BID PRN 07/22/18 [History] Furosemide [Lasix] 20 mg PO DAILY 07/22/18 [History] Gabapentin [Neurontin] 400 mg PO TID 07/22/18 [History] Loperamide [Imodium] 2 mg PO TID PRN 07/22/18 [History] Loratadine [Claritin] 10 mg PO DAILY 07/22/18 [History] Melatonin 6 mg PO HS PRN 07/22/18 [History] Omeprazole 20 mg PO DAILY 07/22/18 [History] Triamcinolone 0.1% Cream [Kenalog 0.1% Cream] 1 applicatio TOPICAL BID 07/22/18 [History] Ursodiol 900 mg PO BID 07/22/18 [History] Vortioxetine Hydrobromide [Trintellix] 10 mg PO DAILY 07/22/18 [History] amLODIPine [Norvasc] 5 mg PO DAILY 07/22/18 [History] fentaNYL 25MCG/HR PATCH [Duragesic 25MCG/HR] 1 patch TRANSDERM Q72H #1 patch 07/26/18 [Rx] traMADol HCl [Ultram] 50 mg PO QID PRN #10 tab 07/26/18 [Rx] Follow up Appointment(s)/Referral(s): Miguel Estrada DO [Primary Care Provider] - 1-2 days
== END 2018-07-26 17:05 | DRG 690 ==
LOC: EC 09:59 → 3NMEDONC 15:16
PROVIDERS: ADMIT Hospitalist; ATTEND Hospitalist
DX: N30.90 Cystitis, unspecified without hematuria (principal); Z68.44 Body mass index [BMI] 60.0-69.9, adult; K80.21 Calculus of gallbladder without cholecystitis with obstruction; E66.01 Morbid (severe) obesity due to excess calories; I95.9 Hypotension, unspecified; C50.911 Malignant neoplasm of unspecified site of right female breast; K71.9 Toxic liver disease, unspecified; G62.89 Other specified polyneuropathies; K76.0 Fatty (change of) liver, not elsewhere classified; E78.5 Hyperlipidemia, unspecified; K21.9 Gastro-esophageal reflux disease without esophagitis; F39 Unspecified mood [affective] disorder; F32.9 Major depressive disorder, single episode, unspecified; F41.9 Anxiety disorder, unspecified; E03.9 Hypothyroidism, unspecified; M79.7 Fibromyalgia; I10 Essential (primary) hypertension; K58.0 Irritable bowel syndrome with diarrhea; R25.1 Tremor, unspecified; M19.91 Primary osteoarthritis, unspecified site; G47.30 Sleep apnea, unspecified; H35.30 Unspecified macular degeneration; H40.9 Unspecified glaucoma; F89 Unspecified disorder of psychological development; Z79.890 Hormone replacement therapy; Z79.899 Other long term (current) drug therapy; Z99.89 Dependence on other enabling machines and devices; Z98.890 Other specified postprocedural states; Z98.84 Bariatric surgery status; Z87.442 Personal history of urinary calculi; Z88.2 Allergy status to sulfonamides; Z88.8 Allergy status to other drugs, medicaments and biological substances; Z88.1 Allergy status to other antibiotic agents; Z91.041 Radiographic dye allergy status; Z81.8 Family history of other mental and behavioral disorders; Z80.8 Family history of malignant neoplasm of other organs or systems; Z84.1 Family history of disorders of kidney and ureter; Z82.49 Family history of ischemic heart disease and other diseases of the circulatory system; Z82.3 Family history of stroke
CPT/HCPCS: 36415; 74177; 80053; 81001; 82140; 82150; 83605; 83690; 85025; 85610; 85730; 87040; 87086; 96361; 96365; 96366; 96375; 99285

== ENCOUNTER 2018-08-01 01:29 | Emergency (ER) | payer MEDICARE ==
[2018-08-01] MEDS ORDERED: LIDOCAINE 1% INJ 10MG/ML (20 ML MDV) SQ ONE (01:38)
[2018-08-01] MEDS ORDERED: DIPH,PERTUS(ACELL)TETVAC-LF 0.5 ML VIAL IM ONE (01:38)
--- NOTE | 2018-08-01 03:04 | CT ---
EXAM: CT Head Without Intravenous Contrast CLINICAL HISTORY: Head and neck pain post fall. TECHNIQUE: Axial computed tomography images of the head/brain without intravenous contrast. CTDI is 45.2 mGy and DLP is 1008 mGy-cm. This CT exam was performed using one or more of the following dose reduction techniques: automated exposure control, adjustment of the mA and/or kV according to patient size, and/or use of iterative reconstruction technique. COMPARISON: 04/06/2017 FINDINGS: Brain: Stable appearance of the underlying cerebral atrophy is again noted. Minimal periventricular deep white matter hypodense changes are similar to previous examination. No hemorrhage. Ventricles: Unremarkable. No ventriculomegaly. Bones/joints: Unremarkable. No acute fracture. Soft tissues: Unremarkable. Sinuses: Unremarkable as visualized. No acute sinusitis. Mastoid air cells: Unremarkable as visualized. No mastoid effusion. IMPRESSION: No acute intracranial process identified. No significant alteration from previous examination. EXAM: CT Cervical Spine Without Intravenous Contrast CLINICAL HISTORY: Head and neck pain post fall. TECHNIQUE: Axial computed tomography images of the cervical spine without intravenous contrast. CTDI is 23.7 mGy and DLP is 570.9 mGy-cm. This CT exam was performed using one or more of the following dose reduction techniques: automated exposure control, adjustment of the mA and/or kV according to patient size, and/or use of iterative reconstruction technique. COMPARISON: No relevant prior studies available. FINDINGS: Vertebrae: Anterior hypertrophic osteophyte changes are noted, most prominent at C5, C6 and the superior endplate of C7 levels. No acute fracture. Discs/spinal canal/neural foramina: No acute findings. No spinal canal stenosis. Soft tissues: Unremarkable. IMPRESSION: No acute osseous traumatic injury or significant abnormal alignment of the cervical spine.
[2018-08-01 03:38] VITALS: BP 130/72; PULSE 69; RESP 18; TEMP 98.2
--- NOTE | 2018-08-01 03:38 | ED ---
General Adult HPI - General Chief complaint: Wound/Laceration Stated complaint: Fall Lac Rt Knee Time Seen by Provider: 08/01/18 01:37 Source: patient, EMS, RN notes reviewed Mode of arrival: EMS Limitations: no limitations - History of Present Illness Initial comments: 67-year-old female with complicated past medical history presents to the emergency department for a chief complaint of fall. Patient is living in a prison due to developmental delay. Patient apparently fell out of bed approximately 2 hours prior to arrival. Patient is nonweightbearing at baseline. Patient obtaining of right-sided neck pain upon arrival.Patient has no other complaints at this time including shortness of breath, chest pain, abdominal pain, nausea or vomiting, headache, or visual changes. - Related Data Home Medications Medication Instructions Recorded Confirmed Levothyroxine Sodium [Synthroid] 25 mcg PO QAM 04/02/14 07/22/18 Cyanocobalamin (Vitamin B-12) 1,000 mcg PO QAM 05/28/16 07/22/18 [Vitamin B-12] Ferrous Sulfate [Iron (65 MG 325 mg PO DAILY 09/06/17 07/22/18 Elemental)] Albuterol Inhaler [Ventolin Hfa 2 puff INHALATION RT-Q6H PRN 06/25/18 07/22/18 Inhaler] Baclofen [Lioresal] 5 mg PO BID 07/22/18 07/22/18 Doxepin [SINEquan] 10 mg PO HS 07/22/18 07/22/18 Ergocalciferol [Vitamin D2 50,000 unit PO TH 07/22/18 07/22/18 (DRISDOL)] Fluticasone Nasal [place] [Flonase 2 spr EA NOSTRIL BID PRN 07/22/18 07/22/18 Nasal [place]] Furosemide [Lasix] 20 mg PO DAILY 07/22/18 07/22/18 Gabapentin [Neurontin] 400 mg PO TID 07/22/18 07/22/18 Loperamide [Imodium] 2 mg PO TID PRN 07/22/18 07/22/18 Loratadine [Claritin] 10 mg PO DAILY 07/22/18 07/22/18 Melatonin 6 mg PO HS PRN 07/22/18 07/22/18 Omeprazole 20 mg PO DAILY 07/22/18 07/22/18 Triamcinolone 0.1% Cream [Kenalog 1 applicatio TOPICAL BID 07/22/18 07/22/18 0.1% Cream] Ursodiol 900 mg PO BID 07/22/18 07/22/18 Vortioxetine Hydrobromide 10 mg PO DAILY 07/22/18 07/22/18 [Trintellix] amLODIPine [Norvasc] 5 mg PO DAILY 07/22/18 07/22/18 Previous Rx's Medication Instructions Recorded fentaNYL 25MCG/HR PATCH [Duragesic 1 patch TRANSDERM Q72H #1 patch 07/26/18 25MCG/HR] traMADol HCl [Ultram] 50 mg PO QID PRN #10 tab 07/26/18 Allergies Allergy/AdvReac Type Severity Reaction Status Date / Time cefazolin sodium [From Ancef] Allergy Mild Rash/Hives Verified 08/01/18 01:34 etodolac [From Lodine] Allergy Rash/Hives Verified 08/01/18 01:34 Iodinated Contrast- Oral and Allergy Rash/Hives Verified 08/01/18 01:34 IV Dye [Iodinated Contrast Media - IV Dye] Iodine and Iodide Containing Allergy Rash/Hives Verified 08/01/18 01:34 Produc levofloxacin [From Levaquin] Allergy Swelling Verified 08/01/18 01:34 NSAIDS (Non-Steroidal Allergy Rash/Hives Verified 08/01/18 01:34 Anti-Inflamma sulfamethoxazole AdvReac Confusion, Verified 08/01/18 01:34 [From Bactrim] Increased Bun & Cr levels trimethoprim [From Bactrim] AdvReac Confusion, Verified 08/01/18 01:34 Increased Bun & Creat Review of Systems ROS Statement: Those systems with pertinent positive or pertinent negative responses have been documented in the HPI. ROS Other: All systems not noted in ROS Statement are negative. Past Medical History Past Medical History: Cancer, Eye Disorder, Fibromyalgia, GERD/Reflux, Hypertension, Osteoarthritis (OA), Sleep Apnea/CPAP/BIPAP, Thyroid Disorder Additional Past Medical History / Comment(s): Macular degeneration, glaucoma merle eyes. Axonal neuropathy, morbid obesity. IBS-freq diarrhea. Tremors; PT RECIDES AT [facility], "The Medical Team" TAKES CARE OF RX. GUARDIAN IS AMY LOTT & brother Dileep Fihn; RIGHT BREAST CANCER-NO CHEMO/RADIATION- SCHEDULED FOR MASTECTOMY History of Any Multi-Drug Resistant Organisms: None Reported Past Surgical History: Adenoidectomy, Back Surgery, Bariatric Surgery, Orthopedic Surgery, Tonsillectomy Additional Past Surgical History / Comment(s): GASTRIC SLEEVE 2009, PANNICULECTOMY,TRIGGER FINGER RELEASE, PAIN CLINIC PROCEDURE-BACK INJECTIONS, EGD'S W/ DILATATION, Laminectomy. CYSTOSCOPE, RT URETERAL STENT. KIDNEY STONE REMOVAL Past Anesthesia/Blood Transfusion Reactions: Family History of Problems w/ Anesthesia Additional Past Anesthesia/Blood Transfusion Reaction / Comment(s): PT AND BROTHER STATES "PT HAS NARROW AIRWAY", BROTHER HAS CONFUSION WITH VERSED. Past Psychological History: Anxiety, Depression Smoking Status: Never smoker Past Alcohol Use History: None Reported Past Drug Use History: None Reported - Past Family History Mother Family Medical History: Cancer, CVA/TIA Additional Family Medical History / Comment(s): PERSONALITY DISORDER, ALCOHOLIC,ABUSIVE, pharyngeal cancer, kidney disease Father Family Medical History: Cancer, Coronary Artery Disease (CAD) Additional Family Medical History / Comment(s): PANCREAS,CABG Brother(s) Family Medical History: AICD/Pacemaker Additional Family Medical History / Comment(s): PACEMAKER,lbbb,bradycardia General Exam Limitations: no limitations General appearance: alert, in no apparent distress Head exam: Present: atraumatic, normocephalic, normal inspection Eye exam: Present: normal appearance, PERRL, EOMI. Absent: scleral icterus, conjunctival injection, periorbital swelling (Negative raccoon sign) ENT exam: Present: normal exam, normal oropharynx, mucous membranes moist, TM's normal bilaterally (Negative hemotympanum), normal external ear exam Neck exam: Present: normal inspection, full ROM. Absent: tenderness, meningismus, lymphadenopathy Respiratory exam: Present: normal lung sounds bilaterally. Absent: respiratory distress, wheezes, rales, rhonchi, stridor Cardiovascular Exam: Present: regular rate, normal rhythm, normal heart sounds. Absent: systolic murmur, diastolic murmur, rubs, gallop, clicks GI/Abdominal exam: Present: soft, normal bowel sounds. Absent: distended, tenderness, guarding, rebound, rigid Extremities exam: Present: full ROM (Full range motion of the right lower extremity, no pain with movement of the knee or hip), normal capillary refill (Capillary refill less than 2 seconds in the right lower extremity), other (With mild abrasion). Absent: tenderness (No tenderness in the right lower extremity), calf tenderness Neurological exam: Present: alert, oriented X3, CN II-XII intact, other (GCS 15) Psychiatric exam: Present: normal affect, normal mood Course Vital Signs 08/01/18 01:30 Temperature 97.6 F Pulse Rate 66 Respiratory 18 Rate Blood Pressure 131/79 O2 Sat by Pulse 97 Oximetry Procedures - Laceration Laceration #1 Consent Obtained: verbal consent Indication: laceration Site: lower extremity Size (cm): 3 Description: linear Depth: simple, single layer Anesthetic Used: lidocaine 1% Anesthesia Technique: local infiltration Amount (mls): 5 Pre-repair: wound explored, irrigated extensively (With pressure saline irrigation) Type of Sutures: nylon Size of Sutures: 5-0 Number of Sutures: 5 Technique: simple, interrupted Patient Tolerated Procedure: well, no complications Medical Decision Making - Medical Decision Making 67 her old female presents for fall at prison facility. Patient complaining of laceration over the right lower leg. Also complaining of right- sided neck pain.Patient is alert and oriented 3. No focal neurologic deficits. No hemotympanum or raccoon sign. CT brain shows no acute cranial process identified. CT C-spine shows no acute osseous to medic injury or significant abnormal alignment of the cervical spine. Patient has full range of motion of the right hip and knee without pain. No tenderness in the right lower extremity. 37 m laceration was repaired. Patient updated on tetanus. Patient will follow up with primary care. Patient will return to have these removed in 7-10 days or have them removed at her nursing facility. Patient resting comfortable and discharge, easily arousable. Disposition Clinical Impression: Laceration, Fall Disposition: HOME SELF-CARE Condition: Good Instructions (If sedation given, give patient instructions): Care For Your Stitches (ED), Laceration (ED) Additional Instructions: Please return if sutures removed in 7-10 days. Watch for signs of infection such as spreading or streaking redness and return if these occur. Follow-up with primary care in 1-2 days. Is patient prescribed a controlled substance at d/c from ED?: No Referrals: Daniel Naqvi DO [Primary Care Provider] - 1-2 days Time of Disposition: 03:36
== END 2018-08-01 04:05 | disposition home or self-care (01) ==
LOC: EC 01:29
DX: S81.811A Laceration without foreign body, right lower leg, initial encounter (principal); M54.2 Cervicalgia; K21.9 Gastro-esophageal reflux disease without esophagitis; I10 Essential (primary) hypertension; M19.90 Unspecified osteoarthritis, unspecified site; G47.30 Sleep apnea, unspecified; Z99.89 Dependence on other enabling machines and devices; K58.9 Irritable bowel syndrome, unspecified; H40.9 Unspecified glaucoma; E07.9 Disorder of thyroid, unspecified; F32.9 Major depressive disorder, single episode, unspecified; F41.9 Anxiety disorder, unspecified; E66.01 Morbid (severe) obesity due to excess calories; Z68.43 Body mass index [BMI] 50.0-59.9, adult; Z23 Encounter for immunization; Z79.890 Hormone replacement therapy; Z79.899 Other long term (current) drug therapy; Z91.041 Radiographic dye allergy status; Z88.1 Allergy status to other antibiotic agents; Z88.6 Allergy status to analgesic agent; Z88.8 Allergy status to other drugs, medicaments and biological substances; Z88.2 Allergy status to sulfonamides; Z85.3 Personal history of malignant neoplasm of breast; Y92.129 Unspecified place in nursing home as the place of occurrence of the external cause
CPT/HCPCS: 72125; 70450; 90715; 99283; 90471; 12002; J2001

== ENCOUNTER 2018-08-04 10:18 | Inpatient (IN) | payer MEDICARE ==
[2018-08-04] MEDS ORDERED: SODIUM CHLORIDE 0.9% 500 ML 500 ML IV STA (10:27)
--- NOTE | 2018-08-04 10:31 | ED ---
General Adult HPI <Colt Escoto - Last Filed: 08/04/18 13:23> - General Source: patient, EMS, RN notes reviewed Mode of arrival: EMS <Vitaliy Mccollum - Last Filed: 08/04/18 13:29> - General Stated complaint: weakness Time Seen by Provider: 08/04/18 10:23 - History of Present Illness Initial comments: 67 year old female with a past medical history of breast cancer, fibromyalgia, GERD, hypertension, obstructive hepatitis with biliary drain placed presents to the emergency department for a chief complaint of weakness. [facility] and [facility]argy. Patient was noted to be given 2 mg of Ativan this morning along with fentanyl, tramadol. Patient does not have any fevers or complaints of recent fevers. Patient does agree she feels somewhat more weak than normal. Patient denies any other complaints at this time however.Patient has no other complaints at this time including shortness of breath, chest pain, abdominal pain, nausea or vomiting, headache, or visual changes. (Vitaliy Mccollum) - Related Data Home Medications Medication Instructions Recorded Confirmed Levothyroxine Sodium [Synthroid] 25 mcg PO QAM 04/02/14 08/04/18 Cyanocobalamin (Vitamin B-12) 1,000 mcg PO QAM 05/28/16 08/04/18 [Vitamin B-12] Ferrous Sulfate [Iron (65 MG 325 mg PO DAILY 09/06/17 08/04/18 Elemental)] Albuterol Inhaler [Ventolin Hfa 2 puff INHALATION RT-Q6H PRN 06/25/18 08/04/18 Inhaler] Baclofen [Lioresal] 5 mg PO BID 07/22/18 08/04/18 Doxepin [SINEquan] 10 mg PO HS 07/22/18 08/04/18 Ergocalciferol [Vitamin D2 50,000 unit PO TH 07/22/18 08/04/18 (DRISDOL)] Fluticasone Nasal [place] [Flonase 2 spr EA NOSTRIL BID PRN 07/22/18 08/04/18 Nasal [place]] Furosemide [Lasix] 20 mg PO DAILY 07/22/18 08/04/18 Gabapentin [Neurontin] 400 mg PO TID 07/22/18 08/04/18 Loperamide [Imodium] 2 mg PO TID PRN 07/22/18 08/04/18 Loratadine [Claritin] 10 mg PO DAILY 07/22/18 08/04/18 Melatonin 6 mg PO HS PRN 07/22/18 08/04/18 Omeprazole 20 mg PO DAILY 07/22/18 08/04/18 Triamcinolone 0.1% Cream [Kenalog 1 applicatio TOPICAL BID 07/22/18 08/04/18 0.1% Cream] Ursodiol 900 mg PO BID 07/22/18 08/04/18 Vortioxetine Hydrobromide 10 mg PO DAILY 07/22/18 08/04/18 [Trintellix] amLODIPine [Norvasc] 5 mg PO DAILY 07/22/18 08/04/18 Previous Rx's Medication Instructions Recorded fentaNYL 25MCG/HR PATCH [Duragesic 1 patch TRANSDERM Q72H #1 patch 07/26/18 25MCG/HR] traMADol HCl [Ultram] 50 mg PO QID PRN #10 tab 07/26/18 Allergies Allergy/AdvReac Type Severity Reaction Status Date / Time cefazolin sodium [From Ancef] Allergy Mild Rash/Hives Verified 08/04/18 10:27 etodolac [From Lodine] Allergy Rash/Hives Verified 08/04/18 10:27 Iodinated Contrast- Oral and Allergy Rash/Hives Verified 08/04/18 10:27 IV Dye [Iodinated Contrast Media - IV Dye] Iodine and Iodide Containing Allergy Rash/Hives Verified 08/04/18 10:27 Produc levofloxacin [From Levaquin] Allergy Swelling Verified 08/04/18 10:27 NSAIDS (Non-Steroidal Allergy Rash/Hives Verified 08/04/18 10:27 Anti-Inflamma sulfamethoxazole AdvReac Confusion, Verified 08/04/18 10:27 [From Bactrim] Increased Bun & Cr levels trimethoprim [From Bactrim] AdvReac Confusion, Verified 08/04/18 10:27 Increased Bun & Creat Review of Systems ROS Other: All systems not noted in ROS Statement are negative. <Colt Escoto - Last Filed: 08/04/18 13:23> ROS Other: All systems not noted in ROS Statement are negative. <Chun,Vitaliy P - Last Filed: 08/04/18 13:29> ROS Statement: Those systems with pertinent positive or pertinent negative responses have been documented in the HPI. Past Medical History Past Medical History: Cancer, Eye Disorder, Fibromyalgia, GERD/Reflux, Hypertension, Osteoarthritis (OA), Sleep Apnea/CPAP/BIPAP, Thyroid Disorder Additional Past Medical History / Comment(s): Macular degeneration, glaucoma merle eyes. Axonal neuropathy, morbid obesity. IBS-freq diarrhea. Tremors; PT RECIDES AT [facility], "[facility] Medical Team" TAKES CARE OF RX. GUARDIAN IS AMY LOTT & brother Dileep Condon; RIGHT BREAST CANCER-NO CHEMO/RADIATION- SCHEDULED FOR MASTECTOMY History of Any Multi-Drug Resistant Organisms: None Reported Past Surgical History: Adenoidectomy, Back Surgery, Bariatric Surgery, Orthopedic Surgery, Tonsillectomy Additional Past Surgical History / Comment(s): GASTRIC SLEEVE 2009, PANNICULECTOMY,TRIGGER FINGER RELEASE, PAIN CLINIC PROCEDURE-BACK INJECTIONS, EGD'S W/ DILATATION, Laminectomy. CYSTOSCOPE, RT URETERAL STENT. KIDNEY STONE REMOVAL Past Anesthesia/Blood Transfusion Reactions: Family History of Problems w/ Anesthesia Additional Past Anesthesia/Blood Transfusion Reaction / Comment(s): PT AND BROTHER STATES "PT HAS NARROW AIRWAY", BROTHER HAS CONFUSION WITH VERSED. Past Psychological History: Anxiety, Depression Smoking Status: Never smoker Past Alcohol Use History: None Reported Past Drug Use History: None Reported - Past Family History Mother Family Medical History: Cancer, CVA/TIA Additional Family Medical History / Comment(s): PERSONALITY DISORDER, ALCOHOLIC,ABUSIVE, pharyngeal cancer, kidney disease Father Family Medical History: Cancer, Coronary Artery Disease (CAD) Additional Family Medical History / Comment(s): PANCREAS,CABG Brother(s) Family Medical History: AICD/Pacemaker Additional Family Medical History / Comment(s): PACEMAKER,lbbb,bradycardia <Vitaliy Mccollum P - Last Filed: 08/04/18 13:29> General Exam General appearance: alert (sleeping but easily arousable to voice) Head exam: Present: atraumatic, normocephalic, normal inspection Eye exam: Present: normal appearance, PERRL, EOMI. Absent: scleral icterus, conjunctival injection, periorbital swelling ENT exam: Present: normal exam, normal oropharynx, mucous membranes moist, normal external ear exam Neck exam: Present: normal inspection, full ROM. Absent: tenderness, meningismus, lymphadenopathy Respiratory exam: Present: normal lung sounds bilaterally. Absent: respiratory distress, wheezes, rales, rhonchi, stridor Cardiovascular Exam: Present: regular rate, normal rhythm, normal heart sounds. Absent: systolic murmur, diastolic murmur, rubs, gallop, clicks GI/Abdominal exam: Present: soft, normal bowel sounds, other (biliary drain noted). Absent: distended, tenderness, guarding, rebound, rigid Neurological exam: Present: alert, oriented X3, CN II-XII intact Psychiatric exam: Present: normal affect, normal mood Skin exam: Present: other (jaundice) <Vitaliy Mccollum - Last Filed: 08/04/18 13:29> Course <Vitaliy Mccollum - Last Filed: 08/04/18 13:29> Vital Signs 08/04/18 08/04/18 08/04/18 10:21 10:40 11:00 Temperature 97.0 F L Pulse Rate 58 L 59 L Respiratory 16 18 Rate Blood Pressure 112/71 112/71 107/70 O2 Sat by Pulse 95 Oximetry 08/04/18 08/04/18 08/04/18 12:20 12:40 12:47 Temperature Pulse Rate 56 L 57 L 56 L Respiratory 16 16 16 Rate Blood Pressure 99/67 99/68 120/75 O2 Sat by Pulse 97 95 95 Oximetry - Reevaluation(s) Reevaluation #1: 08/04/18 13:20 Patient was transferred to [facility] on 07/03/2018 due to obstructive hepatitis. Received biliary drain at that time. (Vitaliy Mccollum) EKG Findings - EKG Comments: EKG Findings:: sinus bradycardia, vent rate 59, UT int 174, QRS 116 QTc 479 <Vitaliy Mccollum - Last Filed: 08/04/18 13:29> Medical Decision Making - Lab Data Result diagrams: 08/04/18 11:23 08/04/18 11:23 <Colt Escoto - Last Filed: 08/04/18 13:23> - Lab Data Result diagrams: 08/04/18 11:23 08/04/18 11:23 <Vitaliy Mccollum - Last Filed: 08/04/18 13:29> - Medical Decision Making Patient reexamined and reevaluated by myself, Dr. Escoto. Patient resting comfortably in bed. [facility] with previous comorbidities. Patient does have concern for pneumonia on x-ray and UTI and urinalysis. Patient updated on results and plan. Case was discussed in detail with Dr. Acosta, who will admit covering for Dr. Sahu, who covers for Dr. Naqvi. I do agree with PA findings. This includes diagnostic interpretation and treatment plan. (Colt Escoto) 67-year-old female with a past medical history of breast cancer, fibromyalgia, GERD, hypertension, obstructive hepatitis with biliary drain placement presents to the emergency department for chief weakness. [facility]. Patient was given Ativan for known tramadol this morning. Does admit to feeling more weak than normal but denies any specific complaints. On exam patient does appear somewhat jaundiced however this has been going on for quite some time according to past notes. Exam is unremarkable. Biliary drain is noted. CBC unremarkable. CMP does show a creatinine of 1.52 which appears to be patient's baseline, and is actually improved. Total bilirubin of 4.7 with mild transaminitis seems to be improved as well. Lipase of 390 improved from 461 on 07/22/2018. Patient does have urinary tract infection at this time with 74 white blood cells. Chest x-ray shows left basilar infiltrate. Patient is [facility] so will be treated for hcap. Started on Zosyn, azithromycin, and vancomycin. Lactic 0.9. Vitals have been stable, no evidence for hypotension. At this time patient will be admitted for weakness secondary to HCAP And urinary tract infection. (Vitaliy Mccollum) - Lab Data Lab Results 08/04/18 08/04/18 08/04/18 Range/Units 11:23 11:23 11:23 WBC 8.8 (3.8-10.6) k/uL RBC 4.43 (3.80-5.40) m/uL Hgb 13.6 (11.4-16.0) gm/dL Hct 40.9 (34.0-46.0) % MCV 92.2 (80.0-100.0) fL MCH 30.8 (25.0-35.0) pg MCHC 33.4 (31.0-37.0) g/dL RDW 18.9 H (11.5-15.5) % Plt Count 331 (150-450) k/uL Neutrophils % 56 % Lymphocytes % 32 % Monocytes % 5 % Eosinophils % 4 % Basophils % 1 % Neutrophils # 5.0 (1.3-7.7) k/uL Lymphocytes # 2.8 (1.0-4.8) k/uL Monocytes # 0.4 (0-1.0) k/uL Eosinophils # 0.4 (0-0.7) k/uL Basophils # 0.1 (0-0.2) k/uL Poikilocytosis Slight Anisocytosis Slight PT 11.8 (9.0-12.0) sec INR 1.1 (<1.2) APTT 20.9 L (22.0-30.0) sec Sodium 138 (137-145) mmol/L Potassium 3.7 (3.5-5.1) mmol/L Chloride 108 H (98-107) mmol/L Carbon Dioxide 20 L (22-30) mmol/L Anion Gap 10 mmol/L BUN 45 H (7-17) mg/dL Creatinine 1.52 H (0.52-1.04) mg/dL Est GFR (CKD-EPI)AfAm 41 (>60 ml/min/1.73 sqM) Est GFR (CKD-EPI)NonAf 36 (>60 ml/min/1.73 sqM) Glucose 94 (74-99) mg/dL Plasma Lactic Acid Asif (0.7-2.0) mmol/L Calcium 9.3 (8.4-10.2) mg/dL Magnesium 2.3 (1.6-2.3) mg/dL Total Bilirubin 4.7 H (0.2-1.3) mg/dL AST 61 H (14-36) U/L ALT 57 H (9-52) U/L Alkaline Phosphatase 200 H (38-126) U/L Ammonia (<30) umol/L Troponin I (0.000-0.034) ng/mL Total Protein 7.0 (6.3-8.2) g/dL Albumin 3.7 (3.5-5.0) g/dL Amylase (30-110) U/L Lipase (23-300) U/L Urine Color Urine Appearance (Clear) Urine pH (5.0-8.0) Ur Specific [place] (1.001-1.035) Urine Protein (Negative) Urine Glucose (UA) (Negative) Urine Ketones (Negative) Urine Blood (Negative) Urine Nitrite (Negative) Urine Bilirubin (Negative) Urine Urobilinogen (<2.0) mg/dL Ur Leukocyte Esterase (Negative) Urine WBC (0-5) /hpf Urine WBC Clumps (None) /hpf Ur Squamous Epith Cells (0-4) /hpf Cellular Casts (0) /lpf Hyaline Casts (0-2) /lpf Urine Mucus (None) /hpf Urine Yeast (Budding) (None) /hpf Urine HCG, Qual (Not Detectd) 08/04/18 08/04/18 08/04/18 Range/Units 11:23 11:23 12:05 WBC (3.8-10.6) k/uL RBC (3.80-5.40) m/uL Hgb (11.4-16.0) gm/dL Hct (34.0-46.0) % MCV (80.0-100.0) fL MCH (25.0-35.0) pg MCHC (31.0-37.0) g/dL RDW (11.5-15.5) % Plt Count (150-450) k/uL Neutrophils % % Lymphocytes % % Monocytes % % Eosinophils % % Basophils % % Neutrophils # (1.3-7.7) k/uL Lymphocytes # (1.0-4.8) k/uL Monocytes # (0-1.0) k/uL Eosinophils # (0-0.7) k/uL Basophils # (0-0.2) k/uL Poikilocytosis Anisocytosis PT (9.0-12.0) sec INR (<1.2) APTT (22.0-30.0) sec Sodium (137-145) mmol/L Potassium (3.5-5.1) mmol/L Chloride (98-107) mmol/L Carbon Dioxide (22-30) mmol/L Anion Gap mmol/L BUN (7-17) mg/dL Creatinine (0.52-1.04) mg/dL Est GFR (CKD-EPI)AfAm (>60 ml/min/1.73 sqM) Est GFR (CKD-EPI)NonAf (>60 ml/min/1.73 sqM) Glucose (74-99) mg/dL Plasma Lactic Acid Asif 0.9 (0.7-2.0) mmol/L Calcium (8.4-10.2) mg/dL Magnesium (1.6-2.3) mg/dL Total Bilirubin (0.2-1.3) mg/dL AST (14-36) U/L ALT (9-52) U/L Alkaline Phosphatase (38-126) U/L Ammonia 20 (<30) umol/L Troponin I <0.012 (0.000-0.034) ng/mL Total Protein (6.3-8.2) g/dL Albumin (3.5-5.0) g/dL Amylase (30-110) U/L Lipase (23-300) U/L Urine Color Urine Appearance (Clear) Urine pH (5.0-8.0) Ur Specific [place] (1.001-1.035) Urine Protein (Negative) Urine Glucose (UA) (Negative) Urine Ketones (Negative) Urine Blood (Negative) Urine Nitrite (Negative) Urine Bilirubin (Negative) Urine Urobilinogen (<2.0) mg/dL Ur Leukocyte Esterase (Negative) Urine WBC (0-5) /hpf Urine WBC Clumps (None) /hpf Ur Squamous Epith Cells (0-4) /hpf Cellular Casts (0) /lpf Hyaline Casts (0-2) /lpf Urine Mucus (None) /hpf Urine Yeast (Budding) (None) /hpf Urine HCG, Qual (Not Detectd) 08/04/18 08/04/18 08/04/18 Range/Units 12:05 12:42 12:42 WBC (3.8-10.6) k/uL RBC (3.80-5.40) m/uL Hgb (11.4-16.0) gm/dL Hct (34.0-46.0) % MCV (80.0-100.0) fL MCH (25.0-35.0) pg MCHC (31.0-37.0) g/dL RDW (11.5-15.5) % Plt Count (150-450) k/uL Neutrophils % % Lymphocytes % % Monocytes % % Eosinophils % % Basophils % % Neutrophils # (1.3-7.7) k/uL Lymphocytes # (1.0-4.8) k/uL Monocytes # (0-1.0) k/uL Eosinophils # (0-0.7) k/uL Basophils # (0-0.2) k/uL Poikilocytosis Anisocytosis PT (9.0-12.0) sec INR (<1.2) APTT (22.0-30.0) sec Sodium (137-145) mmol/L Potassium (3.5-5.1) mmol/L Chloride (98-107) mmol/L Carbon Dioxide (22-30) mmol/L Anion Gap mmol/L BUN (7-17) mg/dL Creatinine (0.52-1.04) mg/dL Est GFR (CKD-EPI)AfAm (>60 ml/min/1.73 sqM) Est GFR (CKD-EPI)NonAf (>60 ml/min/1.73 sqM) Glucose (74-99) mg/dL Plasma Lactic Acid Aisf (0.7-2.0) mmol/L Calcium (8.4-10.2) mg/dL Magnesium (1.6-2.3) mg/dL Total Bilirubin (0.2-1.3) mg/dL AST (14-36) U/L ALT (9-52) U/L Alkaline Phosphatase (38-126) U/L Ammonia (<30) umol/L Troponin I (0.000-0.034) ng/mL Total Protein (6.3-8.2) g/dL Albumin (3.5-5.0) g/dL Amylase 47 (30-110) U/L Lipase 390 H (23-300) U/L Urine Color Dark Yellow Urine Appearance Cloudy H (Clear) Urine pH 5.5 (5.0-8.0) Ur Specific [place] 1.016 (1.001-1.035) Urine Protein 1+ H (Negative) Urine Glucose (UA) Negative (Negative) Urine Ketones Negative (Negative) Urine Blood Negative (Negative) Urine Nitrite Negative (Negative) Urine Bilirubin 1+ H (Negative) Urine Urobilinogen <2.0 (<2.0) mg/dL Ur Leukocyte Esterase Large H (Negative) Urine WBC 74 H (0-5) /hpf Urine WBC Clumps Few H (None) /hpf Ur Squamous Epith Cells 4 (0-4) /hpf Cellular Casts 4 (0) /lpf Hyaline Casts 7 H (0-2) /lpf Urine Mucus Rare H (None) /hpf Urine Yeast (Budding) Occasional H (None) /hpf Urine HCG, Qual Not Detected (Not Detectd) Disposition <Colt Escoto - Last Filed: 08/04/18 13:23> Is patient prescribed a controlled substance at d/c from ED?: No Time of Disposition: 13:28 <Vitaliy Mccollum - Last Filed: 08/04/18 13:29> Clinical Impression: Hyperbilirubinemia, Transaminitis, Urinary tract infection Disposition: ADMITTED IP TO THIS HOSP Condition: Fair Referrals: Daniel Naqvi DO [Primary Care Provider] - 1-2 days
--- NOTE | 2018-08-04 11:11 | XR ---
EXAMINATION TYPE: XR chest 2V DATE OF EXAM: 08/04/2018 HISTORY: Weakness. REFERENCE: Previous study dated 06/25/2018. FINDINGS: The heart remains enlarged. There is a left basilar infiltrate. The right lung is clear. Th ere is blunting of the left CP angle. I could not exclude a small effusion. IMPRESSION: 1. CARDIOMEGALY. 2. LEFT BASILAR INFILTRATE. 3. I CANNOT EXCLUDE A SMALL, LEFT EFFUSION.
[2018-08-04 11:40] LABS: Anisocytosis Slight; Basophils # (A) 0.1 k/uL (0-0.2); Basophils % (A) 1 %; Eosinophils # (A) 0.4 k/uL (0-0.7); Eosinophils % (A) 4 %; HCT 40.9 % (34.0-46.0); HGB 13.6 gm/dL (11.4-16.0); Lymphocytes # (A) 2.8 k/uL (1.0-4.8); Lymphocytes % (A) 32 %; MCH 30.8 pg (25.0-35.0); MCHC 33.4 g/dL (31.0-37.0); MCV 92.2 fL (80.0-100.0); Mean Platelet Volume 7.9; Monocytes # (A) 0.4 k/uL (0-1.0); Monocytes % (A) 5 %; Neutrophils % (A) 56 %; Platelet Count 331 k/uL (150-450); Poikilocytosis Slight; RBC 4.43 m/uL (3.80-5.40); RDW 18.9 % (11.5-15.5); WBC 8.8 k/uL (3.8-10.6)
[2018-08-04 11:51] LABS: INR 1.1 (<1.2); Prothrombin Time 11.8 sec (9.0-12.0)
[2018-08-04] MEDS ORDERED: VANCOMYCIN IV PER PHARMACY 1 EACH MISC MISCELLANE PRN (11:55)
[2018-08-04 11:58] LABS: Partial Thromboplastin Time 20.9 sec (22.0-30.0)
[2018-08-04 12:00] LABS: Albumin 3.7 g/dL (3.5-5.0); Calcium 9.3 mg/dL (8.4-10.2); Magnesium 2.3 mg/dL (1.6-2.3); Potassium 3.7 mmol/L (3.5-5.1); Total Bilirubin 4.7 mg/dL (0.2-1.3)
[2018-08-04] MEDS ORDERED: AZITHROMYCIN 500 MG in SODIUM CHLORIDE 0.9% 250 ML IVPB ONE (12:00)
[2018-08-04] MEDS ORDERED: PIPERACILLIN-TAZOBACTAM 3.375 GM in SODIUM CHLORIDE 0.9% 100 ML IVPB STA (12:02)
[2018-08-04] MEDS ORDERED: VANCOMYCIN 2,500 MG in SODIUM CHLORIDE 0.9% 500 ML 500 ML IVPB ONE (12:30)
[2018-08-04 12:44] LABS: Amylase 47 U/L (30-110); Lipase 390 U/L (23-300)
[2018-08-04 13:00] LABS: Appearance,Urine Cloudy (Clear); Bilirubin,Urine 1+ (Negative); Blood,Urine Negative (Negative); Budding Yeast,Urine Occasional /hpf; Cellular Casts,Urine 4 /lpf (0); Color,Urine Dark Yellow; Glucose,Urine (UA) Negative (Negative); Hyaline Casts,Urine 7 /lpf (0-2); Ketones,Urine Negative (Negative); Leukocyte Esterase,Urine Large (Negative); Mucus,Urine Rare /hpf; Nitrite,Urine Negative (Negative); PH, Urine 5.5 (5.0-8.0); Protein,Urine 1+ (Negative); Specific Gravity,Urine 1.016 (1.001-1.035); Squamous Epithelial Cell,Urine 4 /hpf (0-4); Urobilinogen,Urine <2.0 mg/dL (<2.0); WBC,Urine 74 /hpf (0-5)
[2018-08-04] MEDS ORDERED: HYDROmorphone 0.5 MG/0.5 ML SYRINGE IVP PRN (13:29)
[2018-08-04] MEDS ORDERED: NALOXONE 0.4 MG/ML 1 ML VIAL IV PRN (13:29)
[2018-08-04] MEDS ORDERED: SODIUM CHLORIDE 0.9% 1,000 ML IV SCH (13:30)
[2018-08-04] MEDS ORDERED: MELATONIN 3 MG TABLET PO PRN (16:01)
[2018-08-04] MEDS ORDERED: ALBUTEROL NEBULIZED 2.5 MG/3 ML INHALATION PRN (16:01)
[2018-08-04] MEDS ORDERED: FLUCONAZOLE 100 MG TAB PO ONE (16:05)
--- NOTE | 2018-08-04 16:16 | P.HPIM ---
History of Present Illness 67-year-old female was [facility] because of generalized weakness lethargy. I believe this is due to due to poly-pharmacy patient [facility] multiple [facility] the [facility] including Ativan. Patient does have ventral patch did receive tramadol that reason, maintained. Patient is bedbound did have a fall last few days ago from the bed. Patient has a biliary drain in place patient is not on any antibiotics. As asked to admit this patient for pneumonia as well as UTI although I do not believe patient has either of them patient will not require any antiemetics on and medics were discontinued patient has vaginal candidiasis for which she'll use one dose of flucanazole. Patient denied any fever chills patient is a doesn't have any dysuria patient urine is bit abnormal but not consistent with urinary tract infection patient has a symptomatically bacteriuria. Patient chest x-ray is not consistent with pneumonia admitted to be the chest x-ray. All her symptoms are secondary to acute renal failure, continued and other medications he received today. Patient has depression patient is crying and asking for something to sleep. Patient has been sleeping all day today and Review of Systems REVIEW OF SYSTEMS: CONSTITUTIONAL: No fever, no malaise, no fatigue. HEENT: No recent visual problems or hearing problems. Denied any sore throat. CARDIOVASCULAR: No chest pain, orthopnea, PND, no palpitations, no syncope. PULMONARY: No shortness of breath, no cough, no hemoptysis. GASTROINTESTINAL: No diarrhea, no nausea, no vomiting, no abdominal pain. NEUROLOGICAL: No headaches, no weakness, no numbness. HEMATOLOGICAL: Denies any bleeding or petechiae. GENITOURINARY: Denies any burning micturition, frequency, or urgency. MUSCULOSKELETAL/RHEUMATOLOGICAL: Denies any joint pain, swelling, or any muscle pain. ENDOCRINE: Denies any polyuria or polydipsia. The rest of the 14-point review of systems is negative. Patient is a very poor historian Past Medical History Past Medical History: Cancer, Eye Disorder, Fibromyalgia, GERD/Reflux, Hypertension, Osteoarthritis (OA), Sleep Apnea/CPAP/BIPAP, Thyroid Disorder Additional Past Medical History / Comment(s): Macular degeneration, glaucoma merle eyes. Axonal neuropathy, morbid obesity. IBS-freq diarrhea. Tremors; PT RECIDES AT [facility], "[facility]" TAKES CARE OF RX. GUARDIAN IS AMY LOTT & brother Dileep Condon; RIGHT BREAST CANCER-NO CHEMO/RADIATION- SCHEDULED FOR MASTECTOMY History of Any Multi-Drug Resistant Organisms: None Reported Past Surgical History: Adenoidectomy, Back Surgery, Bariatric Surgery, Orthopedic Surgery, Tonsillectomy Additional Past Surgical History / Comment(s): GASTRIC SLEEVE 2009, PANNICULECTOMY,TRIGGER FINGER RELEASE, PAIN CLINIC PROCEDURE-BACK INJECTIONS, EGD'S W/ DILATATION, Laminectomy. CYSTOSCOPE, RT URETERAL STENT. KIDNEY STONE REMOVAL Past Anesthesia/Blood Transfusion Reactions: Family History of Problems w/ Anesthesia Additional Past Anesthesia/Blood Transfusion Reaction / Comment(s): PT AND BROTHER STATES "PT HAS NARROW AIRWAY", BROTHER HAS CONFUSION WITH VERSED. Past Psychological History: Anxiety, Depression Smoking Status: Never smoker Past Alcohol Use History: None Reported Past Drug Use History: None Reported - Past Family History Mother Family Medical History: Cancer, CVA/TIA Additional Family Medical History / Comment(s): PERSONALITY DISORDER, ALC OHOLIC,ABUSIVE, pharyngeal cancer, kidney disease Father Family Medical History: Cancer, Coronary Artery Disease (CAD) Additional Family Medical History / Comment(s): PANCREAS,CABG Brother(s) Family Medical History: AICD/Pacemaker Additional Family Medical History / Comment(s): PACEMAKER,lbbb,bradycardia Medications and Allergies Home Medications Medication Instructions Recorded Confirmed Type Levothyroxine Sodium [Synthroid] 25 mcg PO QAM 04/02/14 08/04/18 History Cyanocobalamin (Vitamin B-12) 1,000 mcg PO QAM 05/28/16 08/04/18 History [Vitamin B-12] Ferrous Sulfate [Iron (65 MG 325 mg PO DAILY 09/06/17 08/04/18 History Elemental)] Albuterol Inhaler [Ventolin Hfa 2 puff INHALATION RT-Q6H PRN 06/25/18 08/04/18 H istory Inhaler] Baclofen [Lioresal] 5 mg PO BID 07/22/18 08/04/18 History Doxepin [SINEquan] 10 mg PO HS 07/22/18 08/04/18 History Ergocalciferol [Vitamin D2 50,000 unit PO TH 07/22/18 08/04/18 History (DRISDOL)] Fluticasone Nasal [place] [Flonase 2 spr EA NOSTRIL BID PRN 07/22/18 08/04/18 History Nasal [place]] Furosemide [Lasix] 20 mg PO DAILY 07/22/18 08/04/18 History Gabapentin [Neurontin] 400 mg PO TID 07/22/18 08/04/18 History Loperamide [Imodium] 2 mg PO TID PRN 07/22/18 08/04/18 History Loratadine [Claritin] 10 mg PO DAILY 07/22/18 08/04/18 History Melatonin 6 mg PO HS PRN 07/22/18 08/04/18 History Omeprazole 20 mg PO DAILY 07/22/18 08/04/18 History Triamcinolone 0.1% Cream [Kenalog 1 applicatio TOPICAL BID 07/22/18 08/04/18 History 0.1% Cream] Ursodiol 900 mg PO BID 07/22/18 08/04/18 History Vortioxetine Hydrobromide 10 mg PO DAILY 07/22/18 08/04/18 History [Trintellix] amLODIPine [Norvasc] 5 mg PO DAILY 07/22/18 08/04/18 History fentaNYL 25MCG/HR PATCH [Duragesic 1 patch TRANSDERM Q72H #1 patch 07/26/18 08/04/18 Rx 25MCG/HR] traMADol HCl [Ultram] 50 mg PO QID PRN #10 tab 07/26/18 08/04/18 Rx Allergies Allergy/AdvReac Type Severity Reaction Status Date / Time cefazolin sodium [From Ancef] Allergy Mild Rash/Hives Verified 08/04/18 10:27 etodolac [From Lodine] Allergy Rash/Hives Verified 08/04/18 10:27 Iodinated Contrast- Oral and Allergy Rash/Hives Verified 08/04/18 10:27 IV Dye [Iodinated Contrast Media - IV Dye] Iodine and Iodide Containing Allergy Rash/Hives Verified 08/04/18 10:27 Produc levofloxacin [From Levaquin] Allergy Swelling Verified 08/04/18 10:27 NSAIDS (Non-Steroidal Allergy Rash/Hives Verified 08/04/18 10:27 Anti-Inflamma sulfamethoxazole AdvReac Confusion, Verified 08/04/18 10:27 [From Bactrim] Increased Bun & Cr levels trimethoprim [From Bactrim] AdvReac Confusion, Verified 08/04/18 10:27 Increased Bun & Creat Physical Exam Vitals: Vital Signs Temp Pulse Resp BP Pulse Ox 08/04/18 15:20 57 L 18 114/63 08/04/18 15:00 58 L 18 104/70 08/04/18 14:20 58 L 18 113/77 08/04/18 14:00 57 L 18 106/61 08/04/18 13:40 55 L 16 102/82 08/04/18 13:20 57 L 18 96/54 08/04/18 12:47 56 L 16 120/75 95 08/04/18 12:40 57 L 16 99/68 95 08/04/18 12:20 56 L 16 99/67 97 08/04/18 11:00 59 L 18 107/70 08/04/18 10:40 112/71 08/04/18 10:21 97.0 F L 58 L 16 112/71 95 Intake and Output 08/04/18 08/04/18 08/04/18 06:59 14:59 22:59 Other: Weight 130.635 kg PHYSICAL EXAMINATION: GENERAL: The patient is alert and oriented x3, not in any acute distress. Morbidly obese bedbound does have intertrigo skin fold fungal infection HEENT: Pupils are round and equally reacting to light. EOMI. No scleral icterus. No conjunctival pallor. Normocephalic, atraumatic. No pharyngeal erythema. No thyromegaly. CARDIOVASCULAR: S1 and S2 present. No murmurs, rubs, or gallops. PULMONARY: Chest is clear to auscultation, no wheezing or crackles. ABDOMEN: Soft, nontender, nondistended, normoactive bowel sounds. No palpable organomegaly. MUSCULOSKELETAL: No joint swelling or deformity. EXTREMITIES: No cyanosis, clubbing, or pedal edema. NEUROLOGICAL: Gross neurological examination did not reveal any new focal deficits. Does have chronic generalized weakness bedbound SKIN: No rashes. Results CBC & Chem 7: 08/04/18 11:23 08/04/18 11:23 Labs: Abnormal Lab Results - Last 24 Hours (Table) 08/04/18 08/04/18 08/04/18 Range/Units 11:23 11:23 11:23 RDW 18.9 H (11.5-15.5) % APTT 20.9 L (22.0-30.0) sec Chloride 108 H (98-107) mmol/L Carbon Dioxide 20 L (22-30) mmol/L BUN 45 H (7-17) mg/dL Creatinine 1.52 H (0.52-1.04) mg/dL Total Bilirubin 4.7 H (0.2-1.3) mg/dL AST 61 H (14-36) U/L ALT 57 H (9-52) U/L Alkaline Phosphatase 200 H (38-126) U/L Lipase (23-300) U/L Urine Appearance (Clear) Urine Protein (Negative) Urine Bilirubin (Negative) Ur Leukocyte Esterase (Negative) Urine WBC (0-5) /hpf Urine WBC Clumps (None) /hpf Hyaline Casts (0-2) /lpf Urine Mucus (None) /hpf Urine Yeast (Budding) (None) /hpf 08/04/18 08/04/18 Range/Units 12:05 12:42 RDW (11.5-15.5) % APTT (22.0-30.0) sec Chloride (98-107) mmol/L Carbon Dioxide (22-30) mmol/L BUN (7-17) mg/dL Creatinine (0.52-1.04) mg/dL Total Bilirubin (0.2-1.3) mg/dL AST (14-36) U/L ALT (9-52) U/L Alkaline Phosphatase (38-126) U/L Lipase 390 H (23-300) U/L Urine Appearance Cloudy H (Clear) Urine Protein 1+ H (Negative) Urine Bilirubin 1+ H (Negative) Ur Leukocyte Esterase Large H (Negative) Urine WBC 74 H (0-5) /hpf Urine WBC Clumps Few H (None) /hpf Hyaline Casts 7 H (0-2) /lpf Urine Mucus Rare H (None) /hpf Urine Yeast (Budding) Occasional H (None) /hpf Assessment and Plan Plan: -Increased lethargy and weakness: Secondary to polypharmacy fentanyl patch will discuss reviewed and patient will continue on tramadol or gabapentin dose will be decreased. All her anti-medics were discontinued except a dose of flucanazole patient does not have any clinical signs or symptoms of pneumonia or urinary tract infection urease abnormal and this is secondary to asymptomatic bacteriuria and will not require any antibiotics. Baclofen will be discontinued as well -Vaginal candidiasis due to excess antibiotics, one dose of flucanazole -Ruled out pneumonia -Patient has bleed obstruction for which patient is a biliary drain no evidence of obstruction at this time -Asymptomatic bacteriuria -Mental delay and severe depression: We will get the opinion of psychiatric regarding her present medications -Generalized deconditioning chronically bedbound. Supportive care -Hypertension: Patient is actually hypotensive amlodipine will be discontinued -Acute renal failure: Baseline creatinine is around 1 patient's present creatinine is 1.5 secondary to excessive diuretic therapy and antidepressive medications will be discontinued and patient was started on IV fluids monitor basic metabolic profile tomorrow -Peripheral neuropathy continue gabapentin but to decrease dose -Intertrigo: Topical nystatin powder -Fibromyalgia -Sleep apnea on CPAP machine. Hypothyroidism -Patient will need for pharmacologic DVT as well as GI prophylaxis
[2018-08-04] MEDS: SODIUM CHLORIDE 0.9% 1,000 ML IV SCH (17:15)
[2018-08-04] MEDS ORDERED: PIPERACILLIN-TAZOBACTAM 3.375 GM in SODIUM CHLORIDE 0.9% 100 ML IVPB SCH (20:00)
[2018-08-04] MEDS ORDERED: DOXEPIN 10 MG CAP PO SCH (21:00)
[2018-08-04] MEDS: GABAPENTIN 100 MG CAP PO SCH (21:56)
[2018-08-04] MEDS: URSODIOL 300 MG CAP PO SCH (21:57)
[2018-08-04] MEDS: TRIAMCINOLONE 0.1% CREAM 80 GM TUBE TOPICAL SCH (21:59)
[2018-08-04] MEDS: traMADol 50 MG TAB PO PRN (22:04)
[2018-08-05] MEDS: NYSTATIN 100,000 UNIT/GM POWD 15 GM TOPICAL SCH ×3 (03:44→21:53)
[2018-08-05] MEDS: SODIUM CHLORIDE 0.9% 1,000 ML IV SCH ×3 (03:45→22:05)
[2018-08-05] MEDS: LEVOTHYROXINE 25 MCG TAB PO SCH (06:09)
[2018-08-05] MEDS: traMADol 50 MG TAB PO PRN ×3 (06:09→22:00)
[2018-08-05] MEDS: PANTOPRAZOLE 40 MG TABLET PO SCH (06:55)
[2018-08-05] MEDS: CYANOCOBALAMIN 500 MCG TAB PO SCH (06:56)
[2018-08-05] MEDS: URSODIOL 300 MG CAP PO SCH ×2 (06:56→21:54)
[2018-08-05] MEDS: GABAPENTIN 100 MG CAP PO SCH ×3 (06:56→22:03)
[2018-08-05] MEDS: TRIAMCINOLONE 0.1% CREAM 80 GM TUBE TOPICAL SCH ×2 (07:07→21:54)
[2018-08-05] MEDS ORDERED: ACETAMINOPHEN TAB 325 MG TAB PO PRN (08:47)
[2018-08-05] MEDS ORDERED: VORTIOXETINE HYDROBROMIDE 10 MG TABLET PO SCH (09:00)
[2018-08-05] MEDS ORDERED: VANCOMYCIN 2,000 MG in SODIUM CHLORIDE 0.9% 500 ML 500 ML IVPB ONE (09:00)
--- NOTE | 2018-08-05 10:22 | P.CN ---
Psychiatric Consult - . Consult date: 08/05/18 Consult:: 08/05/18 10:10 Depression and anxiety Assessment and Plan (1) Mood disorder Narrative/Plan: 67-year-old female was sent from [facility] because of generalized weakness lethargy. I believe this is due to due to poly-pharmacy patient received multiple medications at the the [facility] facility including Ativan. Patient does have ventral patch did receive tramadol that reason, maintained. Patient is bedbound did have a fall last few days ago from the bed. Patient has a biliary drain in place patient is not on any antibiotics. As asked to admit this patient for pneumonia as well as UTI although I do not believe patient has either of them patient will not require any antiemetics on and medics were discontinued patient has vaginal candidiasis for which she'll use one dose of flucanazole. Patient denied any fever chills patient is a doesn't have any dysuria patient urine is bit abnormal but not consistent with urinary tract infection patient has a symptomatically bacteriuria. Patient chest x-ray is not consistent with pneumonia admitted to be the chest x-ray. All her symptoms are secondary to acute renal failure, continued and other medications he received today. Patient has depression patient is crying and asking for something to sleep. Patient has been sleeping all day today and Past Medical History Past Medical History: Cancer, Eye Disorder, Fibromyalgia, GERD/Reflux, Hypertension, Osteoarthritis (OA), Sleep Apnea/CPAP/BIPAP, Thyroid Disorder Additional Past Medical History / Comment(s): Macular degeneration, glaucoma merle eyes. Axonal neuropathy, morbid obesity. IBS-freq diarrhea. Tremors; PT RECIDES AT [facility], "[facility]" TAKES CARE OF RX. GUARDIAN IS AMY LOTT & brother Dileep Condon; RIGHT BREAST CANCER-NO CHEMO/RADIATION- SCHEDULED FOR MASTECTOMY History of Any Multi-Drug Resistant Organisms: None Reported Past Surgical History: Adenoidectomy, Back Surgery, Bariatric Surgery, Orthopedic Surgery, Tonsillectomy Additional Past Surgical History / Comment(s): GASTRIC SLEEVE 2009, PANNICULECTOMY,TRIGGER FINGER RELEASE, PAIN CLINIC PROCEDURE-BACK INJECTIONS, EGD'S W/ DILATATION, Laminectomy. CYSTOSCOPE, RT URETERAL STENT. KIDNEY STONE REMOVAL Past Anesthesia/Blood Transfusion Reactions: Family History of Problems w/ Anesthesia Additional Past Anesthesia/Blood Transfusion Reaction / Comment(s): PT AND BROTHER STATES "PT HAS NARROW AIRWAY", BROTHER HAS CONFUSION WITH VERSED. Past Psychological History: Anxiety, Depression Smoking Status: Never smoker Past Alcohol Use History: None Reported Past Drug Use History: None Reported - Past Family History Mother Family Medical History: Cancer, CVA/TIA Additional Family Medical History / Comment(s): PERSONALITY DISORDER, ALCOHOLIC,ABUSIVE, pharyngeal cancer, kidney disease Father Family Medical History: Cancer, Coronary Artery Disease (CAD) Additional Family Medical History / Comment(s): PANCREAS,CABG Brother(s) Family Medical History: AICD/Pacemaker Additional Family Medical History / Comment(s): PACEMAKER,lbbb,bradycardia Medications and Allergies Home Medications Medication Instructions Recorded Confirmed Type Levothyroxine Sodium [Synthroid] 25 mcg PO QAM 04/02/14 08/04/18 History Cyanocobalamin (Vitamin B-12) 1,000 mcg PO QAM 05/28/16 08/04/18 History [Vitamin B-12] Ferrous Sulfate [Iron (65 MG 325 mg PO DAILY 09/06/17 08/04/18 History Elemental)] Albuterol Inhaler [Ventolin Hfa 2 puff INHALATION RT-Q6H PRN 06/25/18 08/04/18 History Inhaler] Baclofen [Lioresal] 5 mg PO BID 07/22/18 08/04/18 History Doxepin [SINEquan] 10 mg PO HS 07/22/18 08/04/18 History Ergocalciferol [Vitamin D2 50,000 unit PO TH 07/22/18 08/04/18 History (DRISDOL)] Fluticasone Nasal [place] [Flonase 2 spr EA NOSTRIL BID PRN 07/22/18 08/04/18 History Nasal [place]] Furosemide [Lasix] 20 mg PO DAILY 07/22/18 08/04/18 History Gabapentin [Neurontin] 400 mg PO TID 07/22/18 08/04/18 History Loperamide [Imodium] 2 mg PO TID PRN 07/22/18 08/04/18 History Loratadine [Claritin] 10 mg PO DAILY 07/22/18 08/04/18 History Melatonin 6 mg PO HS PRN 07/22/18 08/04/18 History Omeprazole 20 mg PO DAILY 07/22/18 08/04/18 History Triamcinolone 0.1% Cream [Kenalog 1 applicatio TOPICAL BID 07/22/18 08/04/18 History 0.1% Cream] Ursodiol 900 mg PO BID 07/22/18 08/04/18 History Vortioxetine Hydrobromide 10 mg PO DAILY 07/22/18 08/04/18 History [Trintellix] amLODIPine [Norvasc] 5 mg PO DAILY 07/22/18 08/04/18 History fentaNYL 25MCG/HR PATCH [Duragesic 1 patch TRANSDERM Q72H #1 patch 07/26/18 08/04/18 Rx 25MCG/HR] traMADol HCl [Ultram] 50 mg PO QID PRN #10 tab 07/26/18 08/04/18 Rx Allergies Allergy/AdvReac Type Severity Reaction Status Date / Time cefazolin sodium [From Ancef] Allergy Mild Rash/Hives Verified 08/04/18 10:27 etodolac [From Lodine] Allergy Rash/Hives Verified 08/04/18 10:27 Iodinated Contrast- Oral and Allergy Rash/Hives Verified 08/04/18 10:27 IV Dye [Iodinated Contrast Media - IV Dye] Iodine and Iodide Containing Allergy Rash/Hives Verified 08/04/18 10:27 Produc levofloxacin [From Levaquin] Allergy Swelling Verified 08/04/18 10:27 NSAIDS (Non-Steroidal Allergy Rash/Hives Verified 08/04/18 10:27 Anti-Inflamma sulfamethoxazole AdvReac Confusion, Verified 08/04/18 10:27 [From Bactrim] Increased Bun & Cr levels trimethoprim [From Bactrim] AdvReac Confusion, Verified 08/04/18 10:27 Increased Bun & Creat Mental Status Examination - Pleasant 67 year old female who has juandice due to elevated liver enzymes who is worried about her sleep. General Appearance: [well groomed, casual, appears stated age Speech/Language: [spontaneous Attitude/Behavior: [cooperative Mood: [euthymic, euphoric, anxious Affect: [full range, lively Orientation: [time, person, place situation] Thought Content: [wnl,denies delusions, obsessions, phobias, other] Risk Factors: [suicidal (ideations, plan), and/or Homicidal (ideations, plan), other] Perception: [wnl, denies hallucinations (auditory, visual, tactile), other] Thought Processes: [goal-oriented Concentration/Attention Span: [wnl] [Per observation and interview with the patient] Recent Memory: [wnl Remote Memory: [wnl] [past events, as related history] Intelligence: [ average] [based on history, based on vocabulary, syntax, grammar, and content] Judgement: [good] [per patient's behavior/history of present illness] Insight: [good] [understanding severity of illness/history of present illness] Psychiatric impression:drug induced jaundice; major depression recurrent-in remission; restless leg syndrome Psychiatric recommendation: stop Doxepin, Melatonin,Vortioxetine Hydrobromide, fentaNYL and change to Zoloft 50 mg po qhs; may use ambien 10 mg for sleep or mirapex for restless leg syndrome. She does not meet criteria for 3 [facility] [place]. Thank you for the consult Jayson Garcia Current Visit: No Status: Acute Priority: Low Code(s): F39 - UNSPECIFIED MOOD [AFFECTIVE] DISORDER SNOMED Code(s): 08592755 Time with Patient: Less than 30
[2018-08-05] MEDS ORDERED: AZITHROMYCIN 500 MG in SODIUM CHLORIDE 0.9% 250 ML IVPB SCH (12:00)
--- NOTE | 2018-08-05 14:06 | CT ---
EXAMINATION TYPE: CT brain wo con DATE OF EXAM: 08/05/2018 COMPARISON: Prior CT brain 08/01/2018 HISTORY: CVA CT DLP: 1121 mGycm Automated exposure control for dose reduction was used. CT brain performed using departmental protoco l FINDINGS: There is no hemorrhage or hydrocephalus. Cortical atrophy is present. White matter demyelination is p resent. Cerebral vascular calcifications are noted. Calvarium is intact. Paranasal sinuses are clear, mastoid air cells are well aerated. IMPRESSION: NO ACUTE ABNORMALITY. AGE-RELATED CHANGES OF ATROPHY AND PROBABLE CHRONIC SMALL VESSEL ISCHEMIA. CONS IDER MRI INDICATED.
[2018-08-05] MEDS ORDERED: ZOLPIDEM 10 MG TAB PO PRN (16:34)
--- NOTE | 2018-08-05 16:49 | P.PN ---
Subjective Patient was admitted for generalized weakness and lethargy secondary to polypharmacy. Today morning and had at length discussion with the brother who has concerns about stroke And a CAT scan of the head which did not show any acute stroke patient does not have any clinical signs of acute the several vascular accident patient is fine if we leave her alone but then be going to the room patient starts crying will complain about lack of sleep. I did explain at length to the patient of the limitation of using pain medications and the opiates are not recommended for her fibromyalgia. Patient the appears to have understood. Patient has nonspecific diffuse pain now complaining about abdominal pain often ultrasound of the abdomen string that she has a biliary drain was connected to the drain and see if it drains anything. The catheter that's coming out of the biliary tract is not to obtain a drain. Her serum creatinine improved psychiatric valid the patient multiple medication changes were recommended by psychiatric which were done. Constitutional: Denied any fatigue denied any fever. Cardio vascular: denied any chest pain, palpitations Gastrointestinal denied any nausea vomiting Pulmonary: Denied any shortness of breath cough Neurologic denied any new focal deficits All inpatient medications were reviewed and appropriate changes in these medications as dictated in the interval history and assessment and plan. Objective - Vital Signs Vital signs: Vital Signs Temp 97.6 F 08/05/18 12:49 Pulse 60 08/05/18 12:49 Resp 16 08/05/18 12:49 BP 95/59 08/05/18 12:49 Pulse Ox 98 08/05/18 12:49 Intake & Output 08/04/18 08/05/18 08/05/18 18:59 06:59 18:59 Intake Total 740 240 Output Total 0 550 Balance 740 -310 Weight 130.635 kg Intake: Oral 740 240 Output: Urine 550 Straight 550 Stool 0 Other: Voiding Method Diaper Diaper Incontinent Incontinent # Voids 3 - Exam PHYSICAL EXAMINATION: GENERAL: The patient is alert and oriented x3, not in any acute distress. Morbidly obese bedbound does have intertrigo skin fold fungal infection HEENT: Pupils are round and equally reacting to light. EOMI. No scleral icterus. No conjunctival pallor. Normocephalic, atraumatic. No pharyngeal erythema. No thyromegaly. CARDIOVASCULAR: S1 and S2 present. No murmurs, rubs, or gallops. PULMONARY: Chest is clear to auscultation, no wheezing or crackles. ABDOMEN: Soft, nontender, nondistended, normoactive bowel sounds. No palpable organomegaly. MUSCULOSKELETAL: No joint swelling or deformity. EXTREMITIES: No cyanosis, clubbing, or pedal edema. NEUROLOGICAL: Gross neurological examination did not reveal any new focal deficits. Does have chronic generalized weakness bedbound SKIN: No rashes. - Labs CBC & Chem 7: 08/04/18 11:23 08/05/18 08:00 Labs: Abnormal Lab Results - Last 24 Hours (Table) 08/05/18 Range/Units 08:00 Creatinine 1.13 H (0.52-1.04) mg/dL Microbiology - Last 24 Hours (Table) 08/04/18 12:05 Blood Culture - Preliminary Blood No Growth after 24 hours Assessment and Plan Plan: -Increased lethargy and weakness: Secondary to polypharmacy fentanyl patch will discuss reviewed and patient will continue on tramadol or gabapentin dose will be decreased. All these medications were discontinued and multiple medications were changed as recommended by psychiatry except a dose of flucanazole patient does not have any clinical signs or symptoms of pneumonia or urinary tract infection urine analysis abnormal and this is secondary to asymptomatic bacteri uria and will not require any antibiotics. -Vaginal candidiasis due to excess antibiotics, received one dose of flucanazole -Ruled out pneumonia -Patient has yearly obstruction for which patient is a biliary drain no evidence of obstruction at this time, obtain ultrasound - ruled out acute CVA -Asymptomatic bacteriuria -Developmental delay and severe depression: I Evaluated the patient -Generalized deconditioning chronically bedbound. Supportive care -Hypertension: Amlodipine was discontinued as patient is hypotensive -Acute renal failure: Improved serum creatinine with IV fluids which will be continued -Peripheral neuropathy continue gabapentin but to decrease dose -Intertrigo: Topical nystatin powder -Fibromyalgia: I avoid opiate analgesia -Sleep apnea on CPAP machine. Hypothyroidism -Patient will need for pharmacologic DVT as well as GI prophylaxis
[2018-08-05] MEDS ORDERED: SERTRALINE 50 MG TAB PO SCH (21:00)
[2018-08-05] MEDS ORDERED: PRAMIPEXOLE 0.5 MG TAB PO SCH (21:00)
[2018-08-06] MEDS: LEVOTHYROXINE 25 MCG TAB PO SCH (06:26)
[2018-08-06] MEDS: URSODIOL 300 MG CAP PO SCH (08:16)
[2018-08-06] MEDS: GABAPENTIN 100 MG CAP PO SCH (08:16)
[2018-08-06] MEDS: SODIUM CHLORIDE 0.9% 1,000 ML IV SCH ×2 (08:17→15:11)
[2018-08-06] MEDS: CYANOCOBALAMIN 500 MCG TAB PO SCH (08:17)
[2018-08-06] MEDS: PANTOPRAZOLE 40 MG TABLET PO SCH (08:17)
[2018-08-06] MEDS: NYSTATIN 100,000 UNIT/GM POWD 15 GM TOPICAL SCH (08:18)
[2018-08-06] MEDS: TRIAMCINOLONE 0.1% CREAM 80 GM TUBE TOPICAL SCH (08:18)
[2018-08-06] MEDS: traMADol 50 MG TAB PO PRN (08:20)
--- NOTE | 2018-08-06 08:35 | US ---
EXAMINATION TYPE: US abdomen complete DATE OF EXAM: 08/06/2018 COMPARISON: CT 07/22/2018, US 06/25/2018 CLINICAL HISTORY: 67-year-old female biliary drain and abd pain. FINDINGS: EXAM MEASUREMENTS: Liver Length: 18.2 cm Gallbladder Wall: 0.3 cm CBD: 1.2 cm Spleen: 12.9 cm Right Kidney: 10.2 x 4.1 x 3.9 cm Left Kidney: 11.1 x 5.3 x 4.6 cm SECURITY THREAT ANALYST NOTES: Difficult and limited exam, patient is morbidly obese. Pancreas: Only small portions of the pancreatic neck and body are seen. The remainder is obscured fr om bowel gas shadowing. Liver: Mildly enlarged. No focal lesion seen. Gallbladder: Hydropic with calculi measuring up to 2.3 cm. Gallbladder wall measuring upper limits of normal. Patient unable to roll onto side to evaluate gallbladder in LLD. Evidence for sonographic Galicia's sign: No CBD: Bile duct appears dilated at 1.2 cm with a plastic biliary drain demonstrated traversing the elaina t. Spleen: wnl as visualized Right Kidney: No hydronephrosis. Left Kidney: No hydronephrosis. Upper IVC: wnl Abd Aorta: wnl as visualized IMPRESSION: 1. Mild hepatomegaly (18.2 cm). 2. Hydropic gallbladder with cholelithiasis. Gallbladder wall thickness is at the upper limits of nor mal. Sonographic Galicia sign is reported absent. Correlate for any pain medication use and clinical s uspicion for early acute cholecystitis. Follow-up ultrasound or HIDA scan if indicated. 3. Dilatation of the bile duct up to 1.2 cm with aplastic biliary drain demonstrated.
[2018-08-06 10:01] LABS: Albumin 3.2 g/dL (3.5-5.0); Calcium 8.6 mg/dL (8.4-10.2); Total Bilirubin 3.6 mg/dL (0.2-1.3); Total Protein 6.2 g/dL (6.3-8.2)
[2018-08-06 10:21] LABS: Potassium 3.9 mmol/L (3.5-5.1)
[2018-08-06 13:06] VITALS: BP 114/76; PULSE 65; RESP 16; TEMP 98
--- NOTE | 2018-08-06 15:09 | P.DS ---
Providers Date of admission: 08/04/18 13:29 Attending physician: Ross Acosta Consults: 08/04/18 16:06 Consult Physician Routine Consulting Provider: Jayson Garcia Consult Reason/Comments: depression Do you want consulting provider notified?: Yes 08/05/18 08:51 Consult Physician Routine Consulting Provider: William Stovall Consult Reason/Comments: altered mental status, rule out stroke Do you want consulting provider notified?: Yes Primary care physician: [facility] Course: Patient was admitted for generalized weakness and lethargy secondary to polypharmacy. Today morning and had at length discussion with the brother who has concerns about stroke And a CAT scan of the head which did not show any acute stroke patient does not have any clinical signs of acute the several v ascular accident patient is fine if we leave her alone but then be going to the room patient starts crying will complain about lack of sleep. I did explain at length to the patient of the limitation of using pain medications and the opiates are not recommended for her fibromyalgia. Patient the appears to have understood. Patient has nonspecific diffuse pain now complaining about abdominal pain often ultrasound of the abdomen string that she has a biliary drain was connected to the drain and see if it drains anything. The catheter that's coming out of the biliary tract is not to obtain a drain. Her serum creatinine improved psychiatric valid the patient multiple medication changes were recommended by psychiatric which were done. 08/06/2018 no overnight events patient is clinically doing well although she still complains about the being shaky inside. I did obtain ultrasound of the abdomen which did not show any significant obstruction. Clinically patient doesn't appear to have any significant biliary obstruction nothing much was drain into the drain. Patient will be discharged back to group home. There is no evidence of pneumonia or urinary tract infection did her renal function improved creatinine came down. PHYSICAL EXAMINATION: GENERAL: The patient is alert and oriented x3, not in any acute distress. Morbidly obese bedbound does have intertrigo skin fold fungal infection patient is an anxious person HEENT: Pupils are round and equally reacting to light. EOMI. No scleral icterus. No conjunctival pallor. Normocephalic, atraumatic. No pharyngeal erythema. No t hyromegaly. CARDIOVASCULAR: S1 and S2 present. No murmurs, rubs, or gallops. PULMONARY: Chest is clear to auscultation, no wheezing or crackles. ABDOMEN: Soft, nontender, nondistended, normoactive bowel sounds. No palpable organomegaly. MUSCULOSKELETAL: No joint swelling or deformity. EXTREMITIES: No cyanosis, clubbing, or pedal edema. NEUROLOGICAL: Gross neurological examination did not reveal any new focal deficits. Does have chronic generalized weakness bedbound SKIN: No rashes. Assessment and Plan Plan: -Increased lethargy and weakness: Secondary to polypharmacy fentanyl patch discontinued patient will continue on tramadol , gabapentin dose will be decreased. multiple medications were changed as recommended by psychiatry . patient does not have any clinical signs or symptoms of pneumonia or urinary tract infection urine analysis abnormal and this is secondary to asymptomatic bacteriuria and will not require any antibiotics. -Vaginal candidiasis due to excess antibiotics, received one dose of flucanazole -Ruled out pneumonia -Patient has biliary obstruction for which patient is a biliary drain no evidence of obstruction at this time. - ruled out acute CVA -Asymptomatic bacteriuria -Developmental delay and severe depression: Psychiatrist evaluated the patient -Generalized deconditioning chronically bedbound. Supportive care -Hypertension: Amlodipine was discontinued as patient is hypotensive -Acute renal failure: Improved serum creatinine with IV fluids -Peripheral neuropathy continue gabapentin but to decrease dose -Intertrigo: Topical nystatin powder -Fibromyalgia: avoid opiate analgesia -Sleep apnea on CPAP machine. Hypothyroidism Patient Condition at Discharge: Fair Plan - Discharge Summary Discharge Rx Participant: No New Discharge Prescriptions: New Zolpidem [Ambien] 10 mg PO HS PRN #10 tab PRN Reason: Insomnia Pramipexole [Mirapex] 0.5 mg PO HS tab Nystatin 100,000 Unit/gm Powd [Mycostatin Powder] 1 applic TOPICAL BID applic Gabapentin [Neurontin] 200 mg PO TID cap Sertraline [Zoloft] 50 mg PO HS tab Continue Levothyroxine Sodium [Synthroid] 25 mcg PO QAM Cyanocobalamin (Vitamin B-12) [Vitamin B-12] 1,000 mcg PO QAM Ferrous Sulfate [Iron (65 MG Elemental)] 325 mg PO DAILY Albuterol Inhaler [Ventolin Hfa Inhaler] 2 puff INHALATION RT-Q6H PRN PRN Reason: Shortness Of Breath Doxepin [SINEquan] 10 mg PO HS Ergocalciferol [Vitamin D2 (DRISDOL)] 50,000 unit PO TH Fluticasone Nasal [place] [Flonase Nasal [place]] 2 spr EA NOSTRIL BID PRN PRN Reason: Allergy Symptoms Loperamide [Imodium] 2 mg PO TID PRN PRN Reason: Loose Stool Melatonin 6 mg PO HS PRN PRN Reason: Insomnia Omeprazole 20 mg PO DAILY Triamcinolone 0.1% Cream [Kenalog 0.1% Cream] 1 applicatio TOPICAL BID Ursodiol 900 mg PO BID traMADol HCl [Ultram] 50 mg PO QID PRN #10 tab PRN Reason: Pain Discontinued amLODIPine [Norvasc] 5 mg PO DAILY Baclofen [Lioresal] 5 mg PO BID Furosemide [Lasix] 20 mg PO DAILY Gabapentin [Neurontin] 400 mg PO TID Loratadine [Claritin] 10 mg PO DAILY Vortioxetine Hydrobromide [Trintellix] 10 mg PO DAILY fentaNYL 25MCG/HR PATCH [Duragesic 25MCG/HR] 1 patch TRANSDERM Q72H #1 patch Discharge Medication List Levothyroxine Sodium [Synthroid] 25 mcg PO QAM 04/02/14 [History] Cyanocobalamin (Vitamin B-12) [Vitamin B-12] 1,000 mcg PO QAM 05/28/16 [History] Ferrous Sulfate [Iron (65 MG Elemental)] 325 mg PO DAILY 09/06/17 [History] Albuterol Inhaler [Ventolin Hfa Inhaler] 2 puff INHALATION RT-Q6H PRN 06/25/18 [History] Doxepin [SINEquan] 10 mg PO HS 07/22/18 [History] Ergocalciferol [Vitamin D2 (DRISDOL)] 50,000 unit PO TH 07/22/18 [History] Fluticasone Nasal [place] [Flonase Nasal [place]] 2 spr EA NOSTRIL BID PRN 07/22/18 [History] Loperamide [Imodium] 2 mg PO TID PRN 07/22/18 [History] Melatonin 6 mg PO HS PRN 07/22/18 [History] Omeprazole 20 mg PO DAILY 07/22/18 [History] Triamcinolone 0.1% Cream [Kenalog 0.1% Cream] 1 applicatio TOPICAL BID 07/22/18 [History] Ursodiol 900 mg PO BID 07/22/18 [History] Gabapentin [Neurontin] 200 mg PO TID cap 08/06/18 [Rx] Nystatin 100,000 Unit/gm Powd [Mycostatin Powder] 1 applic TOPICAL BID applic 08/06/18 [Rx] Pramipexole [Mirapex] 0.5 mg PO HS tab 08/06/18 [Rx] Sertraline [Zoloft] 50 mg PO HS tab 08/06/18 [Rx] Zolpidem [Ambien] 10 mg PO HS PRN #10 tab 08/06/18 [Rx] traMADol HCl [Ultram] 50 mg PO QID PRN #10 tab 08/06/18 [Rx] Follow up Appointment(s)/Referral(s): Daniel Naqvi DO [Primary Care Provider] - 3 Days [facility] Vincenzo Chase, [NON-STAFF] - 1 Week Patient Instructions/Handouts: Percutaneous Transhepatic Biliary Drainage (DC) Activity/Diet/Wound Care/Special Instructions: Fall precautions, turn q 2 hours. Assist with all meals, HOB elevated. Biliary drainage bag to gravity. Follow up as outpatient for removal. Nystatin cream to folds. Legal guardian is brother Rich and Hitesh Aranda. Sleep apnea, on CPAP machine. Discharge Disposition: TRANSFER TO SNF/ECF
--- NOTE | 2018-08-08 03:31 | CDI ---
Documentation Clarification Form Date: 08/08/18 From: Trino Pemberton Phone: call to [phone] Admit Date: 08/04/2018 1:29:00 PM Patient Name: Aubree Condon Visit Number: [id number] Discharge Date: 08/06/2018 3:38:00 PM ATTENTION: The Clinical Documentation Specialists (CDI) and [facility] Coding Staff appreciate your assistance in clarifying documentation. Please respond to the clarification below the line at the bottom and electronically sign. The CDI & [facility] Coding staff will review the response and follow-up if needed. Please note: Queries are made part of the Legal Health Record. If you have any questions, please contact the author of this message via ITS. Dr. Ross Acosta The patients principal diagnosis has not been clearly identified and requires clarification. He/She presented with the following Weakness and lethargy and in discharge summary given consult reason is AMS. In Discharge summary documented as "Increased lethargy and weakness: Secondary to polypharmacy fentanyl patch discontinued patient will continue on tramadol , gabapentin dose will be decreased. multiple medications were changed as recommended by psychiatry". patient had depression also.... In your professional opinion, can you please clarify which diagnosis, after study, accounted for the patients presenting symptoms and was the reason chiefly responsible for the admission? Overdose of Multiple medications Toxic Encephalopathy Both(Overdose and Toxic encephalopathy) Symptoms followed by Adverse effect of drugs. already dictated toxic encephalopathy in my note MTDD
--- NOTE | 2018-08-14 00:12 | CDI ---
Documentation Clarification Form Date: 08/14/18 From: Trino Pemberton Phone: call to [phone] Admit Date: 08/04/2018 1:29:00 PM Patient Name: Aubree Condon Visit Number: [id number] Discharge Date: 08/06/2018 3:38:00 PM ATTENTION: The Clinical Documentation Specialists (CDI) and [facility] Coding Staff appreciate your assistance in clarifying documentation. Please respond to the clarification below the line at the bottom and electronically sign. The CDI & [facility] Coding staff will review the response and follow-up if needed. Please note: Queries are made part of the Legal Health Record. If you have any questions, please contact the author of this message via ITS. Dr. Ross Acosta, The patients principal diagnosis has not been clearly identified and requires clarification. He/She presented with the following Weakness and lethargy and in discharge summary given consult reason is AMS. In Discharge summary documented as "Increased lethargy and weakness: Secondary to polypharmacy fentanyl patch discontinued patient will continue on tramadol , gabapentin dose will be decreased. multiple medications were changed as recommended by psychiatry". patient had depression also. In your professional opinion, can you please clarify which diagnosis, after study, accounted for the patients presenting symptoms and was the reason ch iefly responsible for the admission? Toxic Encephalopathy due to Overdose(Polypharmacy) Toxic Encephaloapthy due to Symptoms Weakness/Lethargy followed by Adverse effect of drugs. Toxic Encephalopathy due to Overdose(Polypharmacy) MTDD
== END 2018-08-06 15:38 | DRG 917 ==
LOC: EC 10:18 → 4SSUR 13:29 → 4MS4W 14:35
PROVIDERS: ADMIT Internal Medicine; ATTEND Internal Medicine
DX: T50.991A Poisoning by other drugs, medicaments and biological substances, accidental (unintentional), initial encounter (principal); G92 Toxic encephalopathy; Z68.43 Body mass index [BMI] 50.0-59.9, adult; N17.9 Acute kidney failure, unspecified; F32.2 Major depressive disorder, single episode, severe without psychotic features; R53.83 Other fatigue; R53.1 Weakness; E03.9 Hypothyroidism, unspecified; F32.9 Major depressive disorder, single episode, unspecified; G47.30 Sleep apnea, unspecified; F41.9 Anxiety disorder, unspecified; M19.90 Unspecified osteoarthritis, unspecified site; E66.01 Morbid (severe) obesity due to excess calories; B37.3 Candidiasis of vulva and vagina; T40.4X5A Adverse effect of other synthetic narcotics, initial encounter; I10 Essential (primary) hypertension; G62.9 Polyneuropathy, unspecified; L30.4 Erythema intertrigo; K21.9 Gastro-esophageal reflux disease without esophagitis; M79.7 Fibromyalgia; H35.30 Unspecified macular degeneration; Z74.01 Bed confinement status; Z99.89 Dependence on other enabling machines and devices; Z90.89 Acquired absence of other organs; Z82.49 Family history of ischemic heart disease and other diseases of the circulatory system; Z80.8 Family history of malignant neoplasm of other organs or systems; Z87.442 Personal history of urinary calculi; Z98.84 Bariatric surgery status; Z79.890 Hormone replacement therapy; Z79.899 Other long term (current) drug therapy; Z88.1 Allergy status to other antibiotic agents; Z91.041 Radiographic dye allergy status; Z88.2 Allergy status to sulfonamides; Z88.6 Allergy status to analgesic agent; Z91.048 Other nonmedicinal substance allergy status; Z88.8 Allergy status to other drugs, medicaments and biological substances
CPT/HCPCS: 12002; 36415; 70450; 71046; 72125; 76700; 80048; 80053; 81001; 81025; 82140; 82150; 82565; 83605; 83690; 83735; 84484; 85025; 85027; 85610; 85730; 87040; 90471; 90715; 93005; 94640; 94760; 96361; 96365; 96367; 99283; 99285

== ENCOUNTER 2018-08-09 00:44 | Emergency (ER) | payer MEDICARE ==
[2018-08-09 00:53] VITALS: TEMP 98.3
--- NOTE | 2018-08-09 02:50 | ED ---
General Adult HPI - General Chief complaint: Recheck/Abnormal Lab/Rx Stated complaint: Bile Duct Tube Leaking Time Seen by Provider: 08/09/18 01:19 Source: EMS, RN notes reviewed, old records reviewed Mode of arrival: EMS Limitations: no limitations - History of Present Illness Initial comments: 67-year-old female patient with significant past medical history presents ED with PTC drain leaking. Patient reports that the drainage leaking around the site. Still draining into bag at baseline. Patient does not have any other complaints at that time. Family chest pain shortness breath abdominal pain, nausea vomiting diarrhea. Patient states that the drain was placed by [facility]. Systemic: Pt denies fatigue, myalgia, fever/chills, rash. Pt denies weakness, night sweats, weight loss. Neuro: Pt denies headache, visual disturbances, syncope or pre-syncope. HEENT: Pt denies ocular discharge or irritation, otalgia, rhinorrhea, pharyngitis or notable lymphadenopathy. Cardiopulmonary: Pt denies chest pain, SOB, heart palpitations, dyspnea on exertion. Abdominal/GI: Pt denies abdominal pain, n/v/d. : Pt denies dysuria, burning w/ urination, frequency/urgency. Denies new onset urinary or bowel incontinence. MSK: Pt denies myalgia, loss of strength or function in extremities. Neuro: Pt denies new onset weakness, paresthesias. - Related Data Home Medications Medication Instructions Recorded Confirmed Levothyroxine Sodium [Synthroid] 25 mcg PO QAM 04/02/14 08/04/18 Cyanocobalamin (Vitamin B-12) 1,000 mcg PO QAM 05/28/16 08/04/18 [Vitamin B-12] Ferrous Sulfate [Iron (65 MG 325 mg PO DAILY 09/06/17 08/04/18 Elemental)] Albuterol Inhaler [Ventolin Hfa 2 puff INHALATION RT-Q6H PRN 06/25/18 08/04/18 Inhaler] Doxepin [SINEquan] 10 mg PO HS 07/22/18 08/04/18 Ergocalciferol [Vitamin D2 50,000 unit PO TH 07/22/18 08/04/18 (DRISDOL)] Fluticasone Nasal [place] [Flonase 2 spr EA NOSTRIL BID PRN 07/22/18 08/04/18 Nasal [place]] Loperamide [Imodium] 2 mg PO TID PRN 07/22/18 08/04/18 Melatonin 6 mg PO HS PRN 07/22/18 08/04/18 Omeprazole 20 mg PO DAILY 07/22/18 08/04/18 Triamcinolone 0.1% Cream [Kenalog 1 applicatio TOPICAL BID 07/22/18 08/04/18 0.1% Cream] Ursodiol 900 mg PO BID 07/22/18 08/04/18 Previous Rx's Medication Instructions Recorded Gabapentin [Neurontin] 200 mg PO TID cap 08/06/18 Nystatin 100,000 Unit/gm Powd 1 applic TOPICAL BID applic 08/06/18 [Mycostatin Powder] Pramipexole [Mirapex] 0.5 mg PO HS tab 08/06/18 Sertraline [Zoloft] 50 mg PO HS tab 08/06/18 Zolpidem [Ambien] 10 mg PO HS PRN #10 tab 08/06/18 traMADol HCl [Ultram] 50 mg PO QID PRN #10 tab 08/06/18 Allergies Allergy/AdvReac Type Severity Reaction Status Date / Time cefazolin sodium [From Ancef] Allergy Mild Rash/Hives Verified 08/09/18 00:53 etodolac [From Lodine] Allergy Rash/Hives Verified 08/09/18 00:53 Iodinated Contrast- Oral and Allergy Rash/Hives Verified 08/09/18 00:53 IV Dye [Iodinated Contrast Media - IV Dye] Iodine and Iodide Containing Allergy Rash/Hives Verified 08/09/18 00:53 Produc levofloxacin [From Levaquin] Allergy Swelling Verified 08/09/18 00:53 NSAIDS (Non-Steroidal Allergy Rash/Hives Verified 08/09/18 00:53 Anti-Inflamma sulfamethoxazole AdvReac Confusion, Verified 08/09/18 00:53 [From Bactrim] Increased Bun & Cr levels trimethoprim [From Bactrim] AdvReac Confusion, Verified 08/09/18 00:53 Increased Bun & Creat Review of Systems ROS Statement: Those systems with pertinent positive or pertinent negative responses have been documented in the HPI. ROS Other: All systems not noted in ROS Statement are negative. Past Medical History Past Medical History: Cancer, Eye Disorder, Fibromyalgia, GERD/Reflux, Hypertension, Osteoarthritis (OA), Sleep Apnea/CPAP/BIPAP, Thyroid Disorder Additional Past Medical History / Comment(s): Macular degeneration, glaucoma merle eyes. Axonal neuropathy, morbid obesity. IBS-freq diarrhea. Tremors; PT RECIDES AT [facility], "The Medical Team" TAKES CARE OF RX. GUARDIAN IS AMY LOTT & brother Dileep Condon; RIGHT BREAST CANCER-NO CHEMO/RADIATION- SCHEDULED FOR MASTECTOMY History of Any Multi-Drug Resistant Organisms: None Reported Past Surgical History: Adenoidectomy, Back Surgery, Bariatric Surgery, Orthopedic Surgery, Tonsillectomy Additional Past Surgical History / Comment(s): GASTRIC SLEEVE 2009, PANNICULECTOMY,TRIGGER FINGER RELEASE, PAIN CLINIC PROCEDURE-BACK INJECTIONS, EGD'S W/ DILATATION, Laminectomy. CYSTOSCOPE, RT URETERAL STENT. KIDNEY STONE REMOVAL Past Anesthesia/Blood Transfusion Reactions: Family History of Problems w/ Anesthesia Additional Past Anesthesia/Blood Transfusion Reaction / Comment(s): PT AND BROTHER STATES "PT HAS NARROW AIRWAY", BROTHER HAS CONFUSION WITH VERSED. Past Psychological History: Anxiety, Depression Smoking Status: Never smoker Past Alcohol Use History: None Reported Past Drug Use History: None Reported - Past Family History Mother Family Medical History: Cancer, CVA/TIA Additional Family Medical History / Comment(s): PERSONALITY DISORDER, ALCOHOLIC,ABUSIVE, pharyngeal cancer, kidney disease Father Family Medical History: Cancer, Coronary Artery Disease (CAD) Additional Family Medical History / Comment(s): PANCREAS,CABG Brother(s) Family Medical History: AICD/Pacemaker Additional Family Medical History / Comment(s): PACEMAKER,lbbb,bradycardia General Exam - General Exam Comments Initial Comments: Constitutional: NAD, AOX3, Pt has pleasant affect. HEENT: NC/AT, trachea midline, neck supple, no lymphadenopathy. Posterior pharynx non erythematous, without exudates. External ears appear normal, without discharge. Mucous membranes moist. Eyes PERRLA, EOM intact. No pallor noted. Cardiopulmonary: RRR, no murmurs, rubs or gallops, no JVD noted. Lungs CTAB in anterior and posterior allen. No peripheral edema. Abdominal exam: Abdomen soft and non-distended. Abdomen non-tender to palpation in all 4 quadrants. Bowel sounds active in LLQ. No hepatosplenomegaly. No ecchymosis Neuro: CN II-XII grossly intact. No nuchal rigidity. MSK: No posterior calf tenderness bilaterally, homans sign negative bilaterally. Posterior tibialis and radial pulse +2 bilaterally. Sensation intact in upper and lower extremities. Full active ROM in upper and lower extremities, 5/5 stregnth. Derm: Site of drain examined, no erythema, no streaking, no signs of infection. Limitations: no limitations Course Vital Signs 08/09/18 00:50 Temperature 98.3 F Pulse Rate 63 Respiratory 18 Rate Blood Pressure 122/67 O2 Sat by Pulse 98 Oximetry Medical Decision Making - Medical Decision Making 67-year-old female patient with significant past medical history presents ED with PTC drain leaking. Patient reports that the drainage leaking around the site. Still draining into bag at baseline. Patient does not have any other complaints at that time. Family chest pain shortness breath abdominal pain, nausea vomiting diarrhea. Patient states that the drain was placed by [facility] Pt VSS, afebrile. Physical exam displayed: Site of drain examined, no erythema, no streaking, no signs of infection. Patient will be discharged and will follow-up with [facility] who plays strain. Patient return to ER immediately if condition worsens in any way. Case discussed with Dr. Cowan. Disposition Clinical Impression: Post-operative complication Disposition: HOME SELF-CARE Condition: Stable Instructions (If sedation given, give patient instructions): Percutaneous Transhepatic Biliary Drainage (ED) Additional Instructions: Patient to adhere to previously discussed treatment plan and will take medication(s) as directed. Patient to follow up with PCP in 1-2 days. Patient to return to ED if symptoms do not improve. Follow-up with [facility] for continued evaluation of drain. Is patient prescribed a controlled substance at d/c from ED?: No Referrals: Daniel Naqvi DO [Primary Care Provider] - 1-2 days
[2018-08-09 05:01] VITALS: BP 133/62; PULSE 74; RESP 20
== END 2018-08-09 04:59 | disposition home or self-care (01) ==
LOC: EC 00:44
DX: T85.590A Other mechanical complication of bile duct prosthesis, initial encounter (principal); K21.9 Gastro-esophageal reflux disease without esophagitis; E07.9 Disorder of thyroid, unspecified; F41.9 Anxiety disorder, unspecified; F32.9 Major depressive disorder, single episode, unspecified; G47.30 Sleep apnea, unspecified; Z99.89 Dependence on other enabling machines and devices; E66.01 Morbid (severe) obesity due to excess calories; Z68.44 Body mass index [BMI] 60.0-69.9, adult; Z98.84 Bariatric surgery status; Z85.3 Personal history of malignant neoplasm of breast; Z79.890 Hormone replacement therapy; Z79.899 Other long term (current) drug therapy; Z88.1 Allergy status to other antibiotic agents; Z88.6 Allergy status to analgesic agent; Z91.041 Radiographic dye allergy status; Z88.2 Allergy status to sulfonamides
CPT/HCPCS: 99283

== ENCOUNTER 2018-08-12 02:01 | Emergency (ER) | payer MEDICARE ==
--- NOTE | 2018-08-12 02:09 | ED ---
General Adult HPI - General Stated complaint: Decreased appetite Time Seen by Provider: 08/12/18 02:08 - History of Present Illness Initial comments: Aubree is a 67-year-old female with an extensive history most significant for recent admission to an outside hospital for cholecystitis for which she was with a biliary drain in prescribed ciprofloxacin. Patient was discharged from this facility to a fpc in our area. Patient was reevaluated our emergency department on the and again discharged back to the fpc, patient reports that today she's had no appetite, she states she has not eaten anything for 2 days and she just doesn't feel good. Patient also states that her anxiety is through the roof and she feels like she needs a psychiatric evaluation, she denies any suicidal or homicidal ideations. Patient also reports that her stools are been looser than usual and she is worried this is because she is on antibiotics. She reports having 2-3 stools daily. - Related Data Home Medications Medication Instructions Recorded Confirmed Levothyroxine Sodium [Synthroid] 25 mcg PO QAM 04/02/14 08/12/18 Cyanocobalamin (Vitamin B-12) 1,000 mcg PO QAM 05/28/16 08/12/18 [Vitamin B-12] Ferrous Sulfate [Iron (65 MG 325 mg PO DAILY 09/06/17 08/12/18 Elemental)] Albuterol Inhaler [Ventolin Hfa 2 puff INHALATION RT-Q6H PRN 06/25/18 08/12/18 Inhaler] Doxepin [SINEquan] 10 mg PO HS 07/22/18 08/12/18 Ergocalciferol [Vitamin D2 50,000 unit PO TH 07/22/18 08/12/18 (DRISDOL)] Fluticasone Nasal [place] [Flonase 2 spr EA NOSTRIL BID PRN 07/22/18 08/12/18 Nasal [place]] Loperamide [Imodium] 2 mg PO TID PRN 07/22/18 08/12/18 Melatonin 6 mg PO HS PRN 07/22/18 08/12/18 Omeprazole 20 mg PO DAILY 07/22/18 08/12/18 Triamcinolone 0.1% Cream [Kenalog 1 applicatio TOPICAL BID 07/22/18 08/12/18 0.1% Cream] Ursodiol 900 mg PO BID 07/22/18 08/12/18 Ciprofloxacin HCl [Cipro] 500 mg PO BID 08/12/18 08/12/18 rOPINIRole HCL [Requip] 1 mg PO HS 08/12/18 08/12/18 Previous Rx's Medication Instructions Recorded Gabapentin [Neurontin] 200 mg PO TID cap 08/06/18 Nystatin 100,000 Unit/gm Powd 1 applic TOPICAL BID applic 08/06/18 [Mycostatin Powder] Sertraline [Zoloft] 50 mg PO HS tab 08/06/18 Zolpidem [Ambien] 10 mg PO HS PRN #10 tab 08/06/18 traMADol HCl [Ultram] 50 mg PO QID PRN #10 tab 08/06/18 Ondansetron [Zofran ODT] 4 mg PO Q8HR #12 tab 08/12/18 oxyCODONE HCL [Oxaydo] 5 mg PO Q6H PRN 3 Days #12 tab 08/12/18 Allergies Allergy/AdvReac Type Severity Reaction Status Date / Time cefazolin sodium [From Ancef] Allergy Mild Rash/Hives Verified 08/12/18 02:10 etodolac [From Lodine] Allergy Rash/Hives Verified 08/12/18 02:10 Iodinated Contrast- Oral and Allergy Rash/Hives Verified 08/12/18 02:10 IV Dye [Iodinated Contrast Media - IV Dye] Iodine and Iodide Containing Allergy Rash/Hives Verified 08/12/18 02:10 Produc levofloxacin [From Levaquin] Allergy Swelling Verified 08/12/18 02:10 NSAIDS (Non-Steroidal Allergy Rash/Hives Verified 08/12/18 02:10 Anti-Inflamma sulfamethoxazole AdvReac Confusion, Verified 08/12/18 02:10 [From Bactrim] Increased Bun & Cr levels trimethoprim [From Bactrim] AdvReac Confusion, Verified 08/12/18 02:10 Increased Bun & Creat Review of Systems ROS Statement: Those systems with pertinent positive or pertinent negative responses have been documented in the HPI. ROS Other: All systems not noted in ROS Statement are negative. Past Medical History Past Medical History: Cancer, Eye Disorder, Fibromyalgia, GERD/Reflux, Hypertension, Osteoarthritis (OA), Sleep Apnea/CPAP/BIPAP, Thyroid Disorder Additional Past Medical History / Comment(s): Macular degeneration, glaucoma merle eyes. Axonal neuropathy, morbid obesity. IBS-freq diarrhea. Tremors; PT RECIDES AT [facility], "The Medical Team" TAKES CARE OF RX. GUARDIAN IS AMY LOTT & brother Dileep Condon; RIGHT BREAST CANCER-NO CHEMO/RADIATION- SCHEDULED FOR MASTECTOMY History of Any Multi-Drug Resistant Organisms: None Reported Past Surgical History: Adenoidectomy, Back Surgery, Bariatric Surgery, Orthope dic Surgery, Tonsillectomy Additional Past Surgical History / Comment(s): GASTRIC SLEEVE 2009, PANNICULECTOMY,TRIGGER FINGER RELEASE, PAIN CLINIC PROCEDURE-BACK INJECTIONS, EG D'S W/ DILATATION, Laminectomy. CYSTOSCOPE, RT URETERAL STENT. KIDNEY STONE REMOVAL Past Anesthesia/Blood Transfusion Reactions: Family History of Problems w/ Anesthesia Additional Past Anesthesia/Blood Transfusion Reaction / Comment(s): PT AND BROT HER STATES "PT HAS NARROW AIRWAY", BROTHER HAS CONFUSION WITH VERSED. Past Psychological History: Anxiety, Depression Smoking Status: Never smoker Past Alcohol Use History: None Reported Past Drug Use History: None Reported - Past Family History Mother Family Medical History: Cancer, CVA/TIA Additional Family Medical History / Comment(s): PERSONALITY DISORDER, ALCOHOLIC,ABUSIVE, pharyngeal cancer, kidney disease Father Family Medical History: Cancer, Coronary Artery Disease (CAD) Additional Family Medical History / Comment(s): PANCREAS,CABG Brother(s) Family Medical History: AICD/Pacemaker Additional Family Medical History / Comment(s): PACEMAKER,lbbb,bradycardia General Exam - General Exam Comments Initial Comments: Physical Exam GENERAL: Chronically ill appearing debilitated female HENT: Normocephalic, Atraumatic. EYES: PERRL, EOMI Scleral icterus PULMONARY: Unlabored respirations. No audible rales rhonchi or wheezing was noted. CARDIOVASCULAR: There is a regular rate and rhythm without any murmurs gallops or rubs. ABDOMEN: Soft and nontender with normal bowel sounds. Surgical drain in the mid abdomen draining dark bilious fluid SKIN: Jaundice : Deferred NEUROLOGIC: Patient is alert and oriented x3 but poor historian regarding medical history Moving all extremities spontaneously MUSCULOSKELETAL: Generalized atrophy PSYCHIATRIC: Anxious, crying Course Vital Signs 08/12/18 08/12/18 08/12/18 02:04 04:19 05:14 Temperature 98.9 F 97.7 F Pulse Rate 65 56 L 71 Respiratory 18 18 18 Rate Blood Pressure 130/94 149/98 116/61 O2 Sat by Pulse 93 L 98 97 Oximetry Medical Decision Making - Medical Decision Making Patient was seen and evaluated history was obtained from the patient and review of medical record 67-year-old female with a urinary drain in place, patient appears jaundiced and reports she has not ate or drink for 2 days Labs and imaging ordered KUB with no acute findings Labs seem to be improving, patient's liver function and bilirubin are improving Lab and imaging results were discussed with the patient expresses relief that things are improving. Patient feeling better after pain medications and Zofran. Advised patient that she needs follow-up with her surgeon but does not require admission possible this time. Patient agreeable to plan for discharge home. All questions pertaining to care were answered to the best of my ability and the patient was discharged back to her half-way facility. - Lab Data Result diagrams: 08/12/18 02:23 08/12/18 02:23 Lab Results 08/12/18 08/12/18 08/12/18 Range/Units 02:23 02:23 02:23 WBC 6.4 (3.8-10.6) k/uL RBC 4.24 (3.80-5.40) m/uL Hgb 12.7 (11.4-16.0) gm/dL Hct 39.2 (34.0-46.0) % MCV 92.5 (80.0-100.0) fL MCH 30.0 (25.0-35.0) pg MCHC 32.4 (31.0-37.0) g/dL RDW 16.9 H (11.5-15.5) % Plt Count 273 (150-450) k/uL Neutrophils % 53 % Lymphocytes % 33 % Monocytes % 6 % Eosinophils % 6 % Basophils % 1 % Neutrophils # 3.4 (1.3-7.7) k/uL Lymphocytes # 2.1 (1.0-4.8) k/uL Monocytes # 0.4 (0-1.0) k/uL Eosinophils # 0.4 (0-0.7) k/uL Basophils # 0.0 (0-0.2) k/uL Poikilocytosis Slight Anisocytosis Slight PT 12.0 (9.0-12.0) sec INR 1.2 H (<1.2) APTT 25.6 (22.0-30.0) sec Sodium 141 (137-145) mmol/L Potassium 3.3 L (3.5-5.1) mmol/L Chloride 110 H (98-107) mmol/L Carbon Dioxide 25 (22-30) mmol/L Anion Gap 6 mmol/L BUN 9 (7-17) mg/dL Creatinine 0.90 (0.52-1.04) mg/dL Est GFR (CKD-EPI)AfAm 77 (>60 ml/min/1.73 sqM) Est GFR (CKD-EPI)NonAf 67 (>60 ml/min/1.73 sqM) Glucose 87 (74-99) mg/dL Calcium 9.1 (8.4-10.2) mg/dL Total Bilirubin 3.0 H (0.2-1.3) mg/dL AST 42 H (14-36) U/L ALT 34 (9-52) U/L Alkaline Phosphatase 173 H (38-126) U/L Total Protein 5.7 L (6.3-8.2) g/dL Albumin 3.1 L (3.5-5.0) g/dL Amylase <30 L (30-110) U/L Lipase 137 (23-300) U/L Urine Color Urine Appearance (Clear) Urine pH (5.0-8.0) Ur Specific [place] (1.001-1.035) Urine Protein (Negative) Urine Glucose (UA) (Negative) Urine Ketones (Negative) Urine Blood (Negative) Urine Nitrite (Negative) Urine Bilirubin (Negative) Urine Urobilinogen (<2.0) mg/dL Ur Leukocyte Esterase (Negative) Urine RBC (0-5) /hpf Urine WBC (0-5) /hpf Urine Mucus (None) /hpf 08/12/18 Range/Units 03:45 WBC (3.8-10.6) k/uL RBC (3.80-5.40) m/uL Hgb (11.4-16.0) gm/dL Hct (34.0-46.0) % MCV (80.0-100.0) fL MCH (25.0-35.0) pg MCHC (31.0-37.0) g/dL RDW (11.5-15.5) % Plt Count (150-450) k/uL Neutrophils % % Lymphocytes % % Monocytes % % Eosinophils % % Basophils % % Neutrophils # (1.3-7.7) k/uL Lymphocytes # (1.0-4.8) k/uL Monocytes # (0-1.0) k/uL Eosinophils # (0-0.7) k/uL Basophils # (0-0.2) k/uL Poikilocytosis Anisocytosis PT (9.0-12.0) sec INR (<1.2) APTT (22.0-30.0) sec Sodium (137-145) mmol/L Potassium (3.5-5.1) mmol/L Chloride (98-107) mmol/L Carbon Dioxide (22-30) mmol/L Anion Gap mmol/L BUN (7-17) mg/dL Creatinine (0.52-1.04) mg/dL Est GFR (CKD-EPI)AfAm (>60 ml/min/1.73 sqM) Est GFR (CKD-EPI)NonAf (>60 ml/min/1.73 sqM) Glucose (74-99) mg/dL Calcium (8.4-10.2) mg/dL Total Bilirubin (0.2-1.3) mg/dL AST (14-36) U/L ALT (9-52) U/L Alkaline Phosphatase (38-126) U/L Total Protein (6.3-8.2) g/dL Albumin (3.5-5.0) g/dL Amylase (30-110) U/L Lipase (23-300) U/L Urine Color Yellow Urine Appearance Clear (Clear) Urine pH 5.5 (5.0-8.0) Ur Specific [place] 1.010 (1.001-1.035) Urine Protein Trace H (Negative) Urine Glucose (UA) Negative (Negative) Urine Ketones Trace H (Negative) Urine Blood Trace H (Negative) Urine Nitrite Negative (Negative) Urine Bilirubin Negative (Negative) Urine Urobilinogen <2.0 (<2.0) mg/dL Ur Leukocyte Esterase Large H (Negative) Urine RBC 1 (0-5) /hpf Urine WBC 63 H (0-5) /hpf Urine Mucus Rare H (None) /hpf Disposition Clinical Impression: Nausea, Toxic liver disease, Jaundice, Weakness Disposition: HOME SELF-CARE Condition: Stable Instructions (If sedation given, give patient instructions): Acute Nausea and Vomiting (ED) Prescriptions: oxyCODONE HCL [Oxaydo] 5 mg PO Q6H PRN 3 Days #12 tab PRN Reason: Pain Ondansetron [Zofran ODT] 4 mg PO Q8HR #12 tab Is patient prescribed a controlled substance at d/c from ED?: Yes When asked, does pt state using other controlled substances?: Yes If prescribed controlled substance>3 days was MAPS reviewed?: Prescribed <3 Days If opioid is for acute pain is fill amount 7 days or less?: Yes If Rx opioid, was Start Talking consent form obtained?: No Referrals: Daniel Naqvi DO [Primary Care Provider] - 1-2 days
[2018-08-12 02:12] VITALS: RESP 18
[2018-08-12] MEDS ORDERED: SODIUM CHLORIDE 0.9% 1,000 ML IV ONE (02:42)
--- NOTE | 2018-08-12 02:49 | XR ---
EXAM: XR Abdomen, 2 Views CLINICAL HISTORY: Abdominal pain TECHNIQUE: Frontal view of the abdomen/pelvis with upright view of the abdomen. COMPARISON: No relevant prior studies available. FINDINGS: Intraperitoneal space: No free air. Calcification is seen at the right L1-2 disc space which is of unknown clinical significance. Gastrointestinal tract: Unremarkable. No dilation. Bones/joints: Post surgical changes within the lower lumbar spine. Tubes, lines and devices: Catheter projects over the left upper abdomen with the tip seen left of midline. IMPRESSION: Catheter projects over the left upper abdomen with the tip seen left of midline.
[2018-08-12 02:59] LABS: ALT 34 U/L (9-52); AST 42 U/L (14-36); Albumin 3.1 g/dL (3.5-5.0); Alkaline Phosphatase 173 U/L (38-126); Anion Gap 6 mmol/L; Anisocytosis Slight; Basophils % (A) 1 %; Blood Urea Nitrogen 9 mg/dL (7-17); Calcium 9.1 mg/dL (8.4-10.2); Carbon Dioxide 25 mmol/L (22-30); Chloride 110 mmol/L (98-107); Eosinophils # (A) 0.4 k/uL (0-0.7); Eosinophils % (A) 6 %; Glucose 87 mg/dL (74-99); HCT 39.2 % (34.0-46.0); HGB 12.7 gm/dL (11.4-16.0); Lipase 137 U/L (23-300); Lymphocytes # (A) 2.1 k/uL (1.0-4.8); Lymphocytes % (A) 33 %; MCHC 32.4 g/dL (31.0-37.0); MCV 92.5 fL (80.0-100.0); Mean Platelet Volume 7.1; Monocytes # (A) 0.4 k/uL (0-1.0); Monocytes % (A) 6 %; Neutrophils # (A) 3.4 k/uL (1.3-7.7); Neutrophils % (A) 53 %; Platelet Count 273 k/uL (150-450); Poikilocytosis Slight; Potassium 3.3 mmol/L (3.5-5.1); RBC 4.24 m/uL (3.80-5.40); RDW 16.9 % (11.5-15.5); Sodium 141 mmol/L (137-145); Total Protein 5.7 g/dL (6.3-8.2); WBC 6.4 k/uL (3.8-10.6)
[2018-08-12 03:02] LABS: Amylase <30 U/L (30-110)
[2018-08-12 03:03] LABS: INR 1.2 (<1.2); Partial Thromboplastin Time 25.6 sec (22.0-30.0)
[2018-08-12] MEDS ORDERED: POTASSIUM CHLORIDE ER 20 MEQ TAB.ER PO STA (03:31)
[2018-08-12] MEDS ORDERED: MORPHINE SULFATE 4 MG/ML SYRINGE IVP STA (04:12)
[2018-08-12 04:14] LABS: Appearance,Urine Clear (Clear); Bilirubin,Urine Negative (Negative); Blood,Urine Trace (Negative); Color,Urine Yellow; Glucose,Urine (UA) Negative (Negative); Ketones,Urine Trace (Negative); Leukocyte Esterase,Urine Large (Negative); Mucus,Urine Rare /hpf; Nitrite,Urine Negative (Negative); PH, Urine 5.5 (5.0-8.0); Protein,Urine Trace (Negative); RBC,Urine 1 /hpf (0-5); Urobilinogen,Urine <2.0 mg/dL (<2.0); WBC,Urine 63 /hpf (0-5)
[2018-08-12] MEDS ORDERED: ONDANSETRON 4 MG/2 ML VIAL IVP STA (04:17)
[2018-08-12 05:15] VITALS: BP 116/61; PULSE 71; TEMP 97.7
== END 2018-08-12 06:22 | disposition home or self-care (01) ==
LOC: EC 02:01
DX: R17 Unspecified jaundice (principal); R11.0 Nausea; R53.1 Weakness; F41.9 Anxiety disorder, unspecified; M79.7 Fibromyalgia; K21.9 Gastro-esophageal reflux disease without esophagitis; I10 Essential (primary) hypertension; M19.90 Unspecified osteoarthritis, unspecified site; H40.9 Unspecified glaucoma; E66.01 Morbid (severe) obesity due to excess calories; Z68.44 Body mass index [BMI] 60.0-69.9, adult; G47.30 Sleep apnea, unspecified; Z99.89 Dependence on other enabling machines and devices; E07.9 Disorder of thyroid, unspecified; Z79.890 Hormone replacement therapy; Z79.899 Other long term (current) drug therapy; Z88.1 Allergy status to other antibiotic agents; Z91.041 Radiographic dye allergy status; Z88.6 Allergy status to analgesic agent; Z88.2 Allergy status to sulfonamides; Z88.8 Allergy status to other drugs, medicaments and biological substances; Z85.3 Personal history of malignant neoplasm of breast; Z98.84 Bariatric surgery status
CPT/HCPCS: 36415; 51701; 74018; 80053; 81001; 82150; 83690; 85025; 85610; 85730; 96361; 96374; 96375; 99284

== ENCOUNTER 2018-08-23 10:09 | Emergency (ER) | payer MEDICARE ==
[2018-08-23] MEDS ORDERED: ONDANSETRON 4 MG/2 ML VIAL IVP STA (10:26)
[2018-08-23] MEDS ORDERED: SODIUM CHLORIDE 0.9% 1,000 ML IV STA (10:26)
[2018-08-23] MEDS ORDERED: FAMOTIDINE 20 MG/2 ML VIAL IV STA (10:30)
[2018-08-23 10:33] VITALS: BP 131/75; PULSE 59; RESP 18; TEMP 97.7
--- NOTE | 2018-08-23 10:33 | ED ---
General Adult HPI - General Stated complaint: nausea Time Seen by Provider: 08/23/18 10:15 Source: patient, EMS, RN notes reviewed, old records reviewed Mode of arrival: EMS Limitations: altered mental status - History of Present Illness Initial comments: Patient is a pleasant 67-year-old female presenting to the emergency department with nausea. Patient is a poor historian. Patient states she has known liver disease however is unclear what it is. Patient has been having dry heaves. Patient has had limited oral intake over the past several days. Patient does have some abdominal discomfort however this is chronic for her and not very severe. Patient is concerned she could be getting dehydrated. Nausea has been persistent. - Related Data Home Medications Medication Instructions Recorded Confirmed Levothyroxine Sodium [Synthroid] 25 mcg PO QAM 04/02/14 08/23/18 Cyanocobalamin (Vitamin B-12) 1,000 mcg PO QAM 05/28/16 08/23/18 [Vitamin B-12] Ferrous Sulfate [Iron (65 MG 325 mg PO HS 09/06/17 08/23/18 Elemental)] Ergocalciferol [Vitamin D2 50,000 unit PO TH 07/22/18 08/23/18 (DRISDOL)] Fluticasone Nasal [place] [Flonase 2 spr EA NOSTRIL BID PRN 07/22/18 08/23/18 Nasal [place]] Loperamide [Imodium] 2 mg PO TID PRN 07/22/18 08/23/18 Melatonin 6 mg PO HS PRN 07/22/18 08/23/18 Triamcinolone 0.1% Cream [Kenalog 1 applicatio TOPICAL BID 07/22/18 08/23/18 0.1% Cream] Ursodiol 900 mg PO BID@0800,1600 07/22/18 08/23/18 rOPINIRole HCL [Requip] 1 mg PO HS 08/12/18 08/23/18 ALPRAZolam [Xanax] 0.25 mg PO TID PRN 08/23/18 08/23/18 Esomeprazole Magnesium 20 mg PO DAILY 08/23/18 08/23/18 Gabapentin [Neurontin] 200 mg PO TID@0800,1200,1800 08/23/18 08/23/18 Promethazine HCl 25 mg PO Q6H PRN 08/23/18 08/23/18 Vortioxetine Hydrobromide 10 mg PO DAILY 08/23/18 08/23/18 [Trintellix] lamoTRIgine [LaMICtal] 25 mg PO BID@0800,1600 08/23/18 08/23/18 Previous Rx's Medication Instructions Recorded Nystatin 100,000 Unit/gm Powd 1 applic TOPICAL BID applic 08/06/18 [Mycostatin Powder] oxyCODONE HCL [Oxaydo] 5 mg PO Q6H PRN 3 Days #12 tab 08/12/18 Ondansetron Odt [Zofran Odt] 4 mg PO Q8HR PRN #10 tab 08/23/18 Allergies Allergy/AdvReac Type Severity Reaction Status Date / Time cefazolin sodium [From Ancef] Allergy Mild Rash/Hives Verified 08/23/18 11:41 etodolac [From [place]] Allergy Rash/Hives Verified 08/23/18 11:41 Iodinated Contrast- Oral and Allergy Rash/Hives Verified 08/23/18 11:41 IV Dye [Iodinated Contrast Media - IV Dye] Iodine and Iodide Containing Allergy Rash/Hives Verified 08/23/18 11:41 Produc levofloxacin [From Levaquin] Allergy Swelling Verified 08/23/18 11:41 NSAIDS (Non-Steroidal Allergy Rash/Hives Verified 08/23/18 11:41 Anti-Inflamma sulfamethoxazole AdvReac Confusion, Verified 08/23/18 11:41 [From Bactrim] Increased Bun & Cr levels trimethoprim [From Bactrim] AdvReac Confusion, Verified 08/23/18 11:41 Increased Bun & Creat Review of Systems ROS Statement: Those systems with pertinent positive or pertinent negative responses have been documented in the HPI. ROS Other: All systems not noted in ROS Statement are negative. Constitutional: Denies: fever Eyes: Denies: eye pain ENT: Denies: ear pain Respiratory: Denies: cough Cardiovascular: Denies: chest pain Endocrine: Reports: fatigue Gastrointestinal: Reports: abdominal pain, nausea. Denies: vomiting Genitourinary: Denies: dysuria Musculoskeletal: Denies: back pain Skin: Denies: rash Neurological: Denies: weakness Past Medical History Past Medical History: Cancer, Eye Disorder, Fibromyalgia, GERD/Reflux, Hypertension, Osteoarthritis (OA), Sleep Apnea/CPAP/BIPAP, Thyroid Disorder Additional Past Medical History / Comment(s): Macular degeneration, glaucoma merle eyes. Axonal neuropathy, morbid obesity. IBS-freq diarrhea. Tremors; RIGHT BREAST CANCER-NO CHEMO/RADIATION-SCHEDULED FOR MASTECTOMY History of Any Multi-Drug Resistant Organisms: None Reported Past Surgical History: Adenoidectomy, Back Surgery, Bariatric Surgery, Orthopedic Surgery, Tonsillectomy Additional Past Surgical History / Comment(s): GASTRIC SLEEVE 2009, PANNICULECTOMY,TRIGGER FINGER RELEASE, PAIN CLINIC PROCEDURE-BACK INJECTIONS, EGD'S W/ DILATATION, Laminectomy. CYSTOSCOPE, RT URETERAL STENT. KIDNEY STONE REMOVAL Past Anesthesia/Blood Transfusion Reactions: Family History of Problems w/ Anesthesia Additional Past Anesthesia/Blood Transfusion Reaction / Comment(s): PT AND BROTHER STATES "PT HAS NARROW AIRWAY", BROTHER HAS CONFUSION WITH VERSED. Past Psychological History: Anxiety, Depression Smoking Status: Never smoker Past Alcohol Use History: None Reported Past Drug Use History: None Reported - Past Family History Mother Family Medical History: Cancer, CVA/TIA Additional Family Medical History / Comment(s): PERSONALITY DISORDER, ALCOHOLIC,ABUSIVE, pharyngeal cancer, kidney disease Father Family Medical History: Cancer, Coronary Artery Disease (CAD) Additional Family Medical History / Comment(s): PANCREAS,CABG Brother(s) Family Medical History: AICD/Pacemaker Additional Family Medical History / Comment(s): PACEMAKER,lbbb,bradycardia General Exam Limitations: altered mental status General appearance: alert, in no apparent distress, obese Head exam: Present: atraumatic Eye exam: Present: PERRL, scleral icterus ENT exam: Present: normal oropharynx Neck exam: Present: normal inspection Respiratory exam: Present: normal lung sounds bilaterally Cardiovascular Exam: Present: regular rate, normal rhythm GI/Abdominal exam: Present: soft, tenderness (Mild diffuse tenderness), other (Patient does have a draining tube from the epigastric region which she states is draining her liver.). Absent: distended Extremities exam: Present: normal inspection Neurological exam: Present: alert Psychiatric exam: Present: normal affect, normal mood Skin exam: Present: normal color Course Vital Signs 08/23/18 10:20 Temperature 97.7 F Pulse Rate 59 L Respiratory 18 Rate Blood Pressure 131/75 O2 Sat by Pulse 95 Oximetry EKG Findings - EKG Comments: EKG Findings:: Sinus bradycardia 59. CO 164. QRS 108. QT 470. QTc 473. Left axis. Normal QRS. No acute ST change. Medical Decision Making - Medical Decision Making Patient reevaluated and resting comfortably in bed. Patient states nausea has improved. Patient requests morphine specifically for her chronic abdominal discomfort. Patient states this is no worse than her chronic pain. Patient offered computed tomography scan however does not feel this is necessary. Case was discussed in detail with Dr. Sahu who is familiar with this patient. He states liver problems are chronic and patient can be discharged with GI follow- up. - Lab Data Result diagrams: 08/23/18 11:08 08/23/18 11:08 Lab Results 08/23/18 08/23/18 08/23/18 Range/Units 11:08 11:08 11:08 WBC 6.8 (3.8-10.6) k/uL RBC 4.57 (3.80-5.40) m/uL Hgb 14.2 (11.4-16.0) gm/dL Hct 42.9 (34.0-46.0) % MCV 94.0 (80.0-100.0) fL MCH 31.2 (25.0-35.0) pg MCHC 33.2 (31.0-37.0) g/dL RDW 15.5 (11.5-15.5) % Plt Count 346 (150-450) k/uL Neutrophils % 53 % Lymphocytes % 34 % Monocytes % 5 % Eosinophils % 6 % Basophils % 1 % Neutrophils # 3.6 (1.3-7.7) k/uL Lymphocytes # 2.3 (1.0-4.8) k/uL Monocytes # 0.4 (0-1.0) k/uL Eosinophils # 0.4 (0-0.7) k/uL Basophils # 0.1 (0-0.2) k/uL Poikilocytosis Slight PT 11.5 (9.0-12.0) sec INR 1.1 (<1.2) APTT 25.6 (22.0-30.0) sec Sodium 141 (137-145) mmol/L Potassium 3.2 L (3.5-5.1) mmol/L Chloride 107 (98-107) mmol/L Carbon Dioxide 27 (22-30) mmol/L Anion Gap 7 mmol/L BUN 12 (7-17) mg/dL Creatinine 1.13 H (0.52-1.04) mg/dL Est GFR (CKD-EPI)AfAm 59 (>60 ml/min/1.73 sqM) Est GFR (CKD-EPI)NonAf 51 (>60 ml/min/1.73 sqM) Glucose 92 (74-99) mg/dL Calcium 9.2 (8.4-10.2) mg/dL Total Bilirubin 2.2 H (0.2-1.3) mg/dL AST 27 (14-36) U/L ALT 24 (9-52) U/L Alkaline Phosphatase 113 (38-126) U/L Creatine Kinase <20 L (30-135) U/L Troponin I (0.000-0.034) ng/mL Total Protein 6.1 L (6.3-8.2) g/dL Albumin 3.4 L (3.5-5.0) g/dL Amylase 37 (30-110) U/L Lipase 208 (23-300) U/L 08/23/18 Range/Units 11:08 WBC (3.8-10.6) k/uL RBC (3.80-5.40) m/uL Hgb (11.4-16.0) gm/dL Hct (34.0-46.0) % MCV (80.0-100.0) fL MCH (25.0-35.0) pg MCHC (31.0-37.0) g/dL RDW (11.5-15.5) % Plt Count (150-450) k/uL Neutrophils % % Lymphocytes % % Monocytes % % Eosinophils % % Basophils % % Neutrophils # (1.3-7.7) k/uL Lymphocytes # (1.0-4.8) k/uL Monocytes # (0-1.0) k/uL Eosinophils # (0-0.7) k/uL Basophils # (0-0.2) k/uL Poikilocytosis PT (9.0-12.0) sec INR (<1.2) APTT (22.0-30.0) sec Sodium (137-145) mmol/L Potassium (3.5-5.1) mmol/L Chloride (98-107) mmol/L Carbon Dioxide (22-30) mmol/L Anion Gap mmol/L BUN (7-17) mg/dL Creatinine (0.52-1.04) mg/dL Est GFR (CKD-EPI)AfAm (>60 ml/min/1.73 sqM) Est GFR (CKD-EPI)NonAf (>60 ml/min/1.73 sqM) Glucose (74-99) mg/dL Calcium (8.4-10.2) mg/dL Total Bilirubin (0.2-1.3) mg/dL AST (14-36) U/L ALT (9-52) U/L Alkaline Phosphatase (38-126) U/L Creatine Kinase (30-135) U/L Troponin I <0.012 (0.000-0.034) ng/mL Total Protein (6.3-8.2) g/dL Albumin (3.5-5.0) g/dL Amylase (30-110) U/L Lipase (23-300) U/L - Radiology Data Radiology results: image reviewed (Chest x-ray shows no acute process. Abdominal x-ray shows a catheter projecting to the left upper abdomen with the tip left of midline. There is hepatomegaly. Calculi left pole of kidney. Radiopaque densities left of midline near the urinary bladder.) Disposition Clinical Impression: Nausea Disposition: HOME SELF-CARE Condition: Stable Instructions (If sedation given, give patient instructions): Acute Nausea and Vomiting (ED) Additional Instructions: Please follow-up with primary care physician and GI in the being the week. Return for uncontrolled vomiting, fevers, uncontrolled pain, worsening or change in symptoms or other concerns. Prescriptions: Ondansetron Odt [Zofran Odt] 4 mg PO Q8HR PRN #10 tab PRN Reason: Nausea Is patient prescribed a controlled substance at d/c from ED?: No Referrals: Miguel Estrada DO [Primary Care Provider] - 1-2 days Emmett Munroe MD [STAFF PHYSICIAN] - 1-2 days Time of Disposition: 12:45
[2018-08-23 11:34] LABS: Basophils # (A) 0.1 k/uL (0-0.2); Basophils % (A) 1 %; Eosinophils # (A) 0.4 k/uL (0-0.7); Eosinophils % (A) 6 %; HCT 42.9 % (34.0-46.0); HGB 14.2 gm/dL (11.4-16.0); Lymphocytes # (A) 2.3 k/uL (1.0-4.8); Lymphocytes % (A) 34 %; MCH 31.2 pg (25.0-35.0); MCHC 33.2 g/dL (31.0-37.0); Monocytes # (A) 0.4 k/uL (0-1.0); Monocytes % (A) 5 %; Neutrophils # (A) 3.6 k/uL (1.3-7.7); Neutrophils % (A) 53 %; Platelet Count 346 k/uL (150-450); Poikilocytosis Slight; RBC 4.57 m/uL (3.80-5.40); RDW 15.5 % (11.5-15.5); WBC 6.8 k/uL (3.8-10.6)
[2018-08-23 11:36] LABS: ALT 24 U/L (9-52); AST 27 U/L (14-36); Albumin 3.4 g/dL (3.5-5.0); Alkaline Phosphatase 113 U/L (38-126); Amylase 37 U/L (30-110); Anion Gap 7 mmol/L; Blood Urea Nitrogen 12 mg/dL (7-17); Calcium 9.2 mg/dL (8.4-10.2); Carbon Dioxide 27 mmol/L (22-30); Chloride 107 mmol/L (98-107); Creatine Kinase <20 U/L (30-135); Glucose 92 mg/dL (74-99); INR 1.1 (<1.2); Lipase 208 U/L (23-300); Partial Thromboplastin Time 25.6 sec (22.0-30.0); Potassium 3.2 mmol/L (3.5-5.1); Prothrombin Time 11.5 sec (9.0-12.0); Sodium 141 mmol/L (137-145); Total Bilirubin 2.2 mg/dL (0.2-1.3); Total Protein 6.1 g/dL (6.3-8.2)
--- NOTE | 2018-08-23 11:53 | XR ---
EXAMINATION TYPE: XR chest 2V DATE OF EXAM: 08/23/2018 COMPARISON: 08/04/2018 HISTORY: Shortness of breath TECHNIQUE: Frontal and lateral views of the chest are obtained. FINDINGS: Scattered senescent parenchymal changes noted. No evidence for infiltrate. No evidence for atelectasis. Heart size is stable. Mediastinal structures are stable and grossly unremarkable. No evidence for hilar prominence. Degenerative changes dorsal spine. IMPRESSION: 1. No evidence for acute pulmonary disease.
--- NOTE | 2018-08-23 11:56 | XR ---
EXAMINATION TYPE: XR KUB DATE OF EXAM: 08/23/2018 COMPARISON: 08/12/2018 HISTORY: Pain TECHNIQUE: Single supine KUB image of the abdomen is obtained FINDINGS: Small bowel demonstrates no evidence for dilatation or air fluid levels. Gas and fecal material is seen in non-distended colon. No convincing evidence for pneumoperitoneum. 8.6 mm calculus overlying the mid pole left kidney in the region of the renal pelvis. Radiopaque densities overlie the region of the urinary bladder just to the left of midline. Correlate clinically. No additional calculi seen with certainty. The lung bases are clear. The osseous structures are intact. Stopped changes lower lumbar spine. Catheter projects over the lef t upper abdomen with the tip seen left of midline. IMPRESSION: 1. 8.6 mm calculus overlying the mid pole left kidney in the region of the renal pelvis. Radiopaque densities overlie the region of the urinary bladder just to the left of midline. Correlate clinically. No additional calculi seen with certainty.
[2018-08-23] MEDS ORDERED: MORPHINE SULFATE 4 MG/ML SYRINGE IV STA (12:38)
== END 2018-08-23 14:11 | disposition home or self-care (01) ==
LOC: EC 10:09
DX: R11.0 Nausea (principal); M79.7 Fibromyalgia; K21.9 Gastro-esophageal reflux disease without esophagitis; G62.9 Polyneuropathy, unspecified; E07.9 Disorder of thyroid, unspecified; F41.9 Anxiety disorder, unspecified; F32.9 Major depressive disorder, single episode, unspecified; G47.30 Sleep apnea, unspecified; Z99.89 Dependence on other enabling machines and devices; E66.01 Morbid (severe) obesity due to excess calories; Z68.44 Body mass index [BMI] 60.0-69.9, adult; Z85.3 Personal history of malignant neoplasm of breast; Z98.84 Bariatric surgery status; Z79.890 Hormone replacement therapy; Z79.899 Other long term (current) drug therapy; Z88.1 Allergy status to other antibiotic agents; Z88.6 Allergy status to analgesic agent; Z91.041 Radiographic dye allergy status; Z88.2 Allergy status to sulfonamides
CPT/HCPCS: 36415; 93005; 80053; 82150; 82550; 83690; 84484; 85025; 85610; 85730; 71046; 74018; 99284; 96374; 96375 ×2; 96361 ×3; J2270; J2405

== ENCOUNTER → 2018-09-19 | Outpatient (CLI) | payer MEDICARE ==
[2018-09-19 08:33] VITALS: BP 136/85; PULSE 71; RESP 18; TEMP 97.6; BMI 56.7
--- NOTE | 2018-09-19 09:20 | P.PN ---
Subjective Progress Note Date: 09/19/18 Principal diagnosis: Breast cancer, bile duct cancer Aubree is a 67-year-old white female who is a resident of [facility]. She underwent a routine screening mammogram in March 2018. At that time she was noted to have an area of concern at the 9 o'clock position of the right breast. An ultrasound was performed and she was noted to have an 8 x 8 x 7 mm irregular solid lesion at 9:00. She also has several lymph nodes noted in the axilla. She underwent a core biopsy which revealed invasive ductal carcinoma in the breast, and the lymph node was benign. The patient was scheduled to undergo a mastectomy. However prior to the mastectomy the patient developed jaundice and was transferred to [facility] for evaluation. At [facility] she was diagnosed with a bile duct tumor which was felt to be a second primary. The pigtail catheter was placed and remains in place at this time. The patient was recently admitted to [facility] with nausea and vomiting. The patient has multiple medical comorbidities including hypertension, osteoarthritis, obstructive sleep apnea, macular degeneration of both eyes, axilla neuropathy, morbid obesity, GERD, fibromyalgia, and stage III kidney disease. Family history: Mother: Throat cancer Father: Pancreatic cancer Hormonal history: Menarche: 11 Pregnancies: None Menopause: Late 40s Post control pills: 6 months and an IUD Hormones: None Surgical history: 1. Surgery/laminectomy 2. Excess skin removal 3. Gastric bypass Medical history: 1. Fibromyalgia 2. Hypertension 3. Kidney failure 4. Osteoarthritis 5. Sleep apnea 6. Macular degeneration 7. Axonal neuropathy 8. Morbid obesity 9. Recent diagnosis of bile duct tumor Social history: Smoking: Negative alcohol: Negative Drugs: Negative Review of systems: Constitutional: Morbid obesity, recent admission with nausea vomiting HEENT: Macular degeneration Breasts: Right breast cancer not treated at this time Cardiovascular: Hypertension Respiratory: Negative GI: Recently diagnosed bile ducts cancer with pigtail catheter in place : Kidney stones kidney failure Musculoskeletal skeletal: Back pain, arthritis, fibromyalgia Psychiatric: Depression Endocrine: Thyroid disorder Social history: Objective - Vital Signs Vital signs: Vital Signs Temp 97.6 F 09/19/18 08:30 Pulse 71 09/19/18 08:30 Resp 18 09/19/18 08:30 BP 136/85 09/19/18 08:30 Pulse Ox 93 L 09/19/18 08:30 Intake & Output 09/18/18 09/19/18 09/19/18 18:59 06:59 18:59 Weight 127.459 kg - Exam BMI 56.8 - Constitutional General appearance: Present: morbidly obese - EENT Eyes: Present: EOMI ENT: Present: hearing grossly normal - Neck Neck: Present: normal ROM - Respiratory Respiratory: bilateral: CTA - Cardiovascular Rhythm: regular Heart sounds: normal: S1, S2 - Gastrointestinal Gastrointestinal Comment(s): Pigtail catheter in place No guarding or rebound General gastrointestinal: Present: soft - Musculoskeletal Musculoskeletal Comment(s): wheel chair bound - Psychiatric Psychiatric: Present: A&O x's 3, appropriate affect, intact judgment & insight Assessment and Plan Assessment: Impression: 1. Stage IA right breast cancer awaiting treatment T1 N0 M0 ER/MS positive HER-2/sujey negative grade 1 2. Newly diagnosed bile duct cancer 3. Stage III kidney disease 4. Hypertension 5. Degenerative joint disease 6. Macular degeneration 7. Glaucoma 8. Anxiety/depression morbid obesity 9. Sleep apnea 10.morbid obesity 11. Fibromyalgia 12. wheel chair bound/ able to walk only a short distance Plan: 1. Patient at this time is seen gastroenterology team at [facility] to determine treatment for bile duct lesion 2. Appointment with medical oncology in the interim would consider hormonal therapy as tumor is estrogen receptor positive 3. Medical management of medical conditions 4. Follow-up here in 1 month Cc: Dr. Estrada
== END | disposition home or self-care (01) ==
LOC: WWCWWP 08:22
PROVIDERS: ATTEND Surgery
DX: Z53.9 Procedure and treatment not carried out, unspecified reason (principal)

== ENCOUNTER 2018-10-08 12:52 | Inpatient (IN) | payer MEDICARE ==
[2018-10-08] MEDS ORDERED: SODIUM CHLORIDE 0.9% 500 ML 500 ML IV ONE (13:46)
[2018-10-08] MEDS ORDERED: SODIUM CHLORIDE 0.9% 1,000 ML IV SCH (14:00)
[2018-10-08 14:29] LABS: Basophils % (A) 0 %; Eosinophils # (A) 0.2 k/uL (0-0.7); Eosinophils % (A) 1 %; HCT 48.1 % (34.0-46.0); HGB 16.2 gm/dL (11.4-16.0); Lymphocytes % (A) 15 %; MCH 29.5 pg (25.0-35.0); MCHC 33.7 g/dL (31.0-37.0); MCV 87.4 fL (80.0-100.0); Mean Platelet Volume 7.8; Monocytes # (A) 0.4 k/uL (0-1.0); Monocytes % (A) 3 %; Neutrophils # (A) 10.9 k/uL (1.3-7.7); Neutrophils % (A) 80 %; Platelet Count 293 k/uL (150-450); RBC 5.51 m/uL (3.80-5.40); RDW 14.5 % (11.5-15.5); WBC 13.7 k/uL (3.8-10.6)
[2018-10-08 14:58] LABS: ALT <6 U/L (9-52); AST 30 U/L (14-36); Albumin 4.5 g/dL (3.5-5.0); Alkaline Phosphatase 142 U/L (38-126); Anion Gap 28 mmol/L; Calcium 6.6 mg/dL (8.4-10.2); Carbon Dioxide 12 mmol/L (22-30); Chloride 85 mmol/L (98-107); Creatine Kinase 24 U/L (30-135); Glucose 90 mg/dL (74-99); Magnesium 2.3 mg/dL (1.6-2.3); Potassium 4.1 mmol/L (3.5-5.1); Sodium 125 mmol/L (137-145); Total Bilirubin 0.9 mg/dL (0.2-1.3); Total Protein 8.1 g/dL (6.3-8.2)
[2018-10-08 15:02] LABS: Appearance,Urine Cloudy (Clear); Bilirubin,Urine Negative (Negative); Blood,Urine Small (Negative); Color,Urine Yellow; Glucose,Urine (UA) Negative (Negative); Ketones,Urine Negative (Negative); Leukocyte Esterase,Urine Large (Negative); Mucus,Urine Rare /hpf; Nitrite,Urine Negative (Negative); Protein,Urine 1+ (Negative); RBC,Urine 8 /hpf (0-5); Specific Gravity,Urine 1.026 (1.001-1.035); Urobilinogen,Urine <2.0 mg/dL (<2.0); WBC,Urine 168 /hpf (0-5)
[2018-10-08 15:03] LABS: African American GFR (CKD) 5 (>60 ml/min/1.73 sqM)
[2018-10-08 15:18] LABS: Blood Urea Nitrogen 119 mg/dL (7-17)
[2018-10-08] MEDS ORDERED: ONDANSETRON 4 MG/2 ML VIAL IVP STA (15:50)
[2018-10-08] MEDS ORDERED: CALCIUM GLUCONATE 2 GM in SODIUM CHLORIDE 0.9% 100 ML IVPB ONE (15:54)
--- NOTE | 2018-10-08 16:50 | ED ---
Recheck HPI - General Chief Complaint: Recheck/Abnormal Lab/Rx Stated Complaint: Abn labs Time Seen by Provider: 10/08/18 13:14 Source: patient, EMS Mode of arrival: EMS Limitations: physical limitation - History of Present Illness Initial Comments: 67yo female presenting for chief complaint of sent by primary care. Patient states she was sent by primary care doctor laboratory studies revealed renal failure. Elevated BUN and creatinine from baseline. Patient states she has history of acute renal failure. Patient states recovered. Patient states that she does see Dr. Horan, service counselor. Patient states that she has been nauseous on and off for the past month. Patient denies any chest pain source of breath. Patient states she has felt generalized weakness denies any headache dizziness vomiting diarrhea. Patient states she does have history of kidney stones. Patient denies any back or flank pain. Patient states she has been producing less urine. Patient denies fever remaining review of system negative. Upon arrival patient appears in no acute distress. - Related Data Home Medications Medication Instructions Recorded Confirmed Levothyroxine Sodium [Synthroid] 25 mcg PO QAM 04/02/14 10/08/18 Cyanocobalamin (Vitamin B-12) 1,000 mcg PO QAM 05/28/16 10/08/18 [Vitamin B-12] Ferrous Sulfate [Iron (65 MG 325 mg PO HS 09/06/17 10/08/18 Elemental)] Ergocalciferol [Vitamin D2 50,000 unit PO TH 07/22/18 10/08/18 (DRISDOL)] Fluticasone Nasal [place] [Flonase 2 spr EA NOSTRIL BID PRN 07/22/18 10/08/18 Nasal [place]] Loperamide [Imodium] 2 mg PO Q8H PRN 07/22/18 10/08/18 Melatonin 6 mg PO HS PRN 07/22/18 10/08/18 Ursodiol 900 mg PO BID@0800,1600 07/22/18 10/08/18 rOPINIRole HCL [Requip] 1 mg PO HS 08/12/18 10/08/18 Promethazine HCl 25 mg PO Q6H PRN 08/23/18 10/08/18 Vortioxetine Hydrobromide 10 mg PO DAILY 08/23/18 10/08/18 [Trintellix] lamoTRIgine [LaMICtal] 25 mg PO BID@0800,1600 08/23/18 10/08/18 Albuterol Inhaler [Ventolin Hfa 2 puff INHALATION RT-Q6H PRN 09/11/18 10/08/18 Inhaler] diphenhydrAMINE [Benadryl] 50 mg PO Q8H PRN 09/19/18 10/08/18 Esomeprazole Magnesium [NexIUM] 40 mg PO DAILY 10/08/18 10/08/18 LORazepam [Ativan] 1 mg PO Q6H PRN 10/08/18 10/08/18 Previous Rx's Medication Instructions Recorded Gabapentin [Neurontin] 200 mg PO TID@0800,1200,1800 3 09/12/18 Days #9 cap oxyCODONE HCL [Oxaydo] 5 mg PO Q6H PRN 3 Days #12 tab 09/12/18 Allergies Allergy/AdvReac Type Severity Reaction Status Date / Time cefazolin sodium [From Ancef] Allergy Mild Rash/Hives Verified 10/08/18 13:13 etodolac [From Lodine] Allergy Rash/Hives Verified 10/08/18 13:13 Iodinated Contrast- Oral and Allergy Rash/Hives Verified 10/08/18 13:13 IV Dye [Iodinated Contrast Media - IV Dye] Iodine and Iodide Containing Allergy Rash/Hives Verified 10/08/18 13:13 Produc levofloxacin [From Levaquin] Allergy Swelling Verified 10/08/18 13:13 NSAIDS (Non-Steroidal Allergy Rash/Hives Verified 10/08/18 13:13 Anti-Inflamma nitrofurantoin AdvReac Abdominal Verified 10/08/18 13:13 [From Macrobid] Pain sulfamethoxazole AdvReac Confusion, Verified 10/08/18 13:13 [From Bactrim] Increased Bun & Cr levels trimethoprim [From Bactrim] AdvReac Confusion, Verified 10/08/18 13:13 Increased Bun & Creat Review of Systems ROS Statement: Those systems with pertinent positive or pertinent negative responses have been documented in the HPI. ROS Other: All systems not noted in ROS Statement are negative. Past Medical History Past Medical History: Cancer, Eye Disorder, Fibromyalgia, GERD/Reflux, Hypertension, Osteoarthritis (OA), Sleep Apnea/CPAP/BIPAP, Thyroid Disorder Additional Past Medical History / Comment(s): Macular degeneration, glaucoma merle eyes. Axonal neuropathy, morbid obesity. IBS-freq diarrhea. Tremors; RIGHT BREAST CANCER-NO CHEMO/RADIATION-SCHEDULED FOR MASTECTOMY History of Any Multi-Drug Resistant Organisms: None Reported Date of last positivie culture/infection: 09/11/18 MDRO Source:: Urine-VRE Past Surgical History: Adenoidectomy, Back Surgery, Bariatric Surgery, Orthopedic Surgery, Tonsillectomy Additional Past Surgical History / Comment(s): GASTRIC SLEEVE 2009, PANNICULECTOMY,TRIGGER FINGER RELEASE, PAIN CLINIC PROCEDURE-BACK INJECTIONS, EGD'S W/ DILATATION, Laminectomy. CYSTOSCOPE, RT URETERAL STENT. KIDNEY STONE REMOVAL Past Anesthesia/Blood Transfusion Reactions: Family History of Problems w/ Anesthesia Additional Past Anesthesia/Blood Transfusion Reaction / Comment(s): PT AND BROTHER STATES "PT HAS NARROW AIRWAY", BROTHER HAS CONFUSION WITH VERSED. Past Psychological History: Anxiety, Depression Smoking Status: Never smoker Past Alcohol Use History: None Reported Past Drug Use History: None Reported - Past Family History Mother Family Medical History: Cancer, CVA/TIA Additional Family Medical History / Comment(s): PERSONALITY DISORDER, ALCOHOLIC,ABUSIVE, pharyngeal cancer, kidney disease Father Family Medical History: Cancer, Coronary Artery Disease (CAD) Additional Family Medical History / Comment(s): PANCREAS,CABG Brother(s) Family Medical History: AICD/Pacemaker Additional Family Medical History / Comment(s): PACEMAKER,lbbb,bradycardia General Exam - General Exam Comments Initial Comments: General: The patient is awake and alert, head tremor Eye: Pupils are equal, round and reactive to light, extra-ocular movements are intact. No nystagmus. There is normal conjunctiva bilaterally. No signs of icterus. Ears, nose, mouth and throat: There are moist mucous membranes and no oral lesions. Neck: The neck is supple, there is no tenderness or JVD. Cardiovascular: There is a regular rate and rhythm. No murmur, rub or gallop is appreciated. Respiratory: Lungs are clear to auscultation, respirations are non-labored, breath sounds are equal. No wheezes, stridor, rales, or rhonchi. Gastrointestinal: Soft, non-distended, non-tender abdomen without masses or organomegaly noted. There is no rebound or guarding present. Musculoskeletal: Normal ROM, no tenderness. Strength 5/5. Sensation intact. Pulses equal bilaterally 2+. Neurological: A&O x 3. CN II-XII intact, There are no obvious motor or sensory deficits. Coordination appears grossly intact. Speech is normal. Skin: Skin is warm and dry and no rashes or lesions are noted. Psychiatric: Cooperative, appropriate mood & affect, normal judgment. Limitations: physical limitation Course Vital Signs 10/08/18 10/08/18 12:53 17:14 Temperature 96.8 F L Pulse Rate 64 69 Respiratory 17 17 Rate Blood Pressure 97/52 109/65 O2 Sat by Pulse 96 98 Oximetry Medical Decision Making - Medical Decision Making 67-year-old female presenting for acute renal failure. Evidence of acute renal failure on laboratory studies. She has low sodium, low chloride as well as low calcium. Pt given NaCl, as well as calcium gluconate. Patient EKG no acute findings. Potassium WNL. Patient has no focalized complaints aside from 1 month of nausea, generalized weakness. No focal deficits on examination. Benign abd ominal exam. Patient denies chest pain or shortness of breath. Patient will be admitted for nephrology consultation. Strict I's and O's in place. Patient in person by my attending provider Dr. Crook, who spoke with admitting provider Dr. Sahu. At time of admission, urine studies and CT pending. Attending will follow results. Patient agreeable with admission, stable. - Lab Data Result diagrams: 10/08/18 14:20 10/08/18 14:20 Lab Results 10/08/18 10/08/18 10/08/18 Range/Units 14:20 14:20 14:27 WBC 13.7 H (3.8-10.6) k/uL RBC 5.51 H (3.80-5.40) m/uL Hgb 16.2 H (11.4-16.0) gm/dL Hct 48.1 H (34.0-46.0) % MCV 87.4 (80.0-100.0) fL MCH 29.5 (25.0-35.0) pg MCHC 33.7 (31.0-37.0) g/dL RDW 14.5 (11.5-15.5) % Plt Count 293 (150-450) k/uL Neutrophils % 80 % Lymphocytes % 15 % Monocytes % 3 % Eosinophils % 1 % Basophils % 0 % Neutrophils # 10.9 H (1.3-7.7) k/uL Lymphocytes # 2.0 (1.0-4.8) k/uL Monocytes # 0.4 (0-1.0) k/uL Eosinophils # 0.2 (0-0.7) k/uL Basophils # 0.0 (0-0.2) k/uL Sodium 125 L (137-145) mmol/L Potassium 4.1 (3.5-5.1) mmol/L Chloride 85 L (98-107) mmol/L Carbon Dioxide 12 L (22-30) mmol/L Anion Gap 28 mmol/L BUN 119 H* (7-17) mg/dL Creatinine 8.73 H* (0.52-1.04) mg/dL Est GFR (CKD-EPI)AfAm 5 (>60 ml/min/1.73 sqM) Est GFR (CKD-EPI)NonAf 4 (>60 ml/min/1.73 sqM) Glucose 90 (74-99) mg/dL Calcium 6.6 L (8.4-10.2) mg/dL Magnesium 2.3 (1.6-2.3) mg/dL Total Bilirubin 0.9 (0.2-1.3) mg/dL AST 30 (14-36) U/L ALT <6 L (9-52) U/L Alkaline Phosphatase 142 H (38-126) U/L Ammonia (<30) umol/L Creatine Kinase 24 L (30-135) U/L Total Protein 8.1 (6.3-8.2) g/dL Albumin 4.5 (3.5-5.0) g/dL Urine Color Yellow Urine Appearance Cloudy H (Clear) Urine pH 5.0 (5.0-8.0) Ur Specific [place] 1.026 (1.001-1.035) Urine Protein 1+ H (Negative) Urine Glucose (UA) Negative (Negative) Urine Ketones Negative (Negative) Urine Blood Small H (Negative) Urine Nitrite Negative (Negative) Urine Bilirubin Negative (Negative) Urine Urobilinogen <2.0 (<2.0) mg/dL Ur Leukocyte Esterase Large H (Negative) Urine RBC 8 H (0-5) /hpf Urine WBC 168 H (0-5) /hpf Urine Mucus Rare H (None) /hpf U Random Total Protein (<12) mg/dL 10/08/18 10/08/18 Range/Units 14:27 14:35 WBC (3.8-10.6) k/uL RBC (3.80-5.40) m/uL Hgb (11.4-16.0) gm/dL Hct (34.0-46.0) % MCV (80.0-100.0) fL MCH (25.0-35.0) pg MCHC (31.0-37.0) g/dL RDW (11.5-15.5) % Plt Count (150-450) k/uL Neutrophils % % Lymphocytes % % Monocytes % % Eosinophils % % Basophils % % Neutrophils # (1.3-7.7) k/uL Lymphocytes # (1.0-4.8) k/uL Monocytes # (0-1.0) k/uL Eosinophils # (0-0.7) k/uL Basophils # (0-0.2) k/uL Sodium (137-145) mmol/L Potassium (3.5-5.1) mmol/L Chloride (98-107) mmol/L Carbon Dioxide (22-30) mmol/L Anion Gap mmol/L BUN (7-17) mg/dL Creatinine (0.52-1.04) mg/dL Est GFR (CKD-EPI)AfAm (>60 ml/min/1.73 sqM) Est GFR (CKD-EPI)NonAf (>60 ml/min/1.73 sqM) Glucose (74-99) mg/dL Calcium (8.4-10.2) mg/dL Magnesium (1.6-2.3) mg/dL Total Bilirubin (0.2-1.3) mg/dL AST (14-36) U/L ALT (9-52) U/L Alkaline Phosphatase (38-126) U/L Ammonia 19 (<30) umol/L Creatine Kinase (30-135) U/L Total Protein (6.3-8.2) g/dL Albumin (3.5-5.0) g/dL Urine Color Urine Appearance (Clear) Urine pH (5.0-8.0) Ur Specific [place] (1.001-1.035) Urine Protein (Negative) Urine Glucose (UA) (Negative) Urine Ketones (Negative) Urine Blood (Negative) Urine Nitrite (Negative) Urine Bilirubin (Negative) Urine Urobilinogen (<2.0) mg/dL Ur Leukocyte Esterase (Negative) Urine RBC (0-5) /hpf Urine WBC (0-5) /hpf Urine Mucus (None) /hpf U Random Total Protein 56 H (<12) mg/dL Disposition Clinical Impression: Acute renal failure, Hypocalcemia, Nausea Disposition: ADMITTED IP TO THIS [facility] Condition: Serious Is patient prescribed a controlled substance at d/c from ED?: No Referrals: Daniel Naqvi DO [Primary Care Provider] - 1-2 days Time of Disposition: 17:04 Decision to Admit Reason: Admit from EC Decision Date: 10/08/18 Decision Time: 17:04
[2018-10-08] MEDS ORDERED: NALOXONE 0.4 MG/ML 1 ML VIAL IV PRN (17:01)
--- NOTE | 2018-10-08 18:46 | CT ---
EXAMINATION TYPE: CT abdomen pelvis wo con DATE OF EXAM: 10/08/2018 COMPARISON: CT 07/22/2018 HISTORY: Dysuria CT DLP: 2097.9 mGycm Automated exposure control for dose reduction was used. TECHNIQUE: Helical acquisition of images was performed from the lung bases through the pelvis. FINDINGS: LIVER: No significant abnormality is appreciated. BILIARY CATHETERS: The previously seen percutaneous cholecystostomy catheter and the new catheter ext ending from the gallbladder to the duodenum appear to be appropriately placed without surrounding flu id collection. No intrahepatic or extrahepatic biliary tree dilation. Calcified cholelithiasis is red emonstrated. PANCREAS: The uncinate process is enlarged and the pancreatic head is indistinct. The main portal vei n cannot be seen throughout its extent.These structures can be better seen utilizing MRI/MRA, or high -resolution arterial, venous, and delayed venous phase CT. SPLEEN: No significant abnormality is seen. ADRENALS: No significant abnormality is seen. KIDNEYS AND URETERS: No significant abnormality is seen. URINARY BLADDER: No significant abnormality is seen. FREE AIR: No free air is visualized RETROPERITONEAL ADENOPATHY: None visualized REPRODUCTIVE ORGANS: No significant abnormality is seen PELVIC ADENOPATHY: None visualized. OSSEOUS STRUCTURES: No significant abnormality is seen. BOWEL: No significant abnormality is seen. OTHER: No acute femoral pelvic vascular findings. Visualized lung bases and pleural spaces are negati ve. IMPRESSION: 1. NO FINDING REFERABLE TO DYSURIA. 2. PANCREATIC HEAD INDISTINCTNESS.
[2018-10-08 19:16] VITALS: BMI 52.3
[2018-10-08] MEDS ORDERED: LORazepam 1 MG TAB PO PRN (20:01)
[2018-10-08] MEDS ORDERED: MELATONIN 3 MG TABLET PO PRN (20:01)
[2018-10-08] MEDS ORDERED: LOPERAMIDE 2 MG CAP PO PRN (20:01)
[2018-10-08] MEDS ORDERED: ALBUTEROL NEBULIZED 2.5 MG/3 ML INHALATION PRN (20:01)
[2018-10-08] MEDS: SODIUM CHLORIDE 0.9% 1,000 ML IV SCH (20:44)
--- NOTE | 2018-10-08 22:09 | P.HPIM ---
History of Present Illness H&P Date: 10/08/18 Chief Complaint: Nausea History of presenting complaint: This is a very pleasant 67-year-old patient of Dr. Naqvi. Rather extensive medical history. Chronic stable medical conditions include fibromyalgia, GERD, essential hypertension, osteoarthritis, obstructive sleep apnea, hypothyroid, axonal neuropathy morbid obesity, breast cancer scheduled for mastectomy. Patient is currently a resident of [facility] on. That is [facility]. Patient presents with generalized symptoms to include decreased sleep, nausea, feeling weak and tired. Not had a bowel movement for 7 days. Patient was discovered to have a abnormal renal function with a bun of 119 and creatinine of 8.73. Sodium was down to 125. Started on fluids and nephrology was consulted. Patient does use a wheelchair. Review of systems: GEN.: Weak and tired EYES: None HEENT: None NECK: None RESPIRATORY: None CARDIOVASCULAR: None GASTROINTESTINAL: Constipation GENITOURINARY: None MUSCULOSKELETAL: Pain in the joints LYMPHATICS: None HEMATOLOGICAL: None PSYCHIATRY: None NEUROLOGICAL: [Chronic weakness lower extremity Past medical history: Dub developmental delay, irritable bowel syndrome, axonal neuropathy, hypothyroid, primary osteoarthritis, hypertension, GERD, chronic fibromyalgia, Coreg mood disorder, morbid obesity,. In June of this year patient had gone to [facility] where she was found to have drug-induced obstructive hepatitis. Patient did have a percutaneous transhepatic cholangiogram. And has a drain in place. Drain is still present. Social history: Currently currently at [facility], [facility]. No smoking no alcohol. Family history: Of stroke, alcohol abuse, pharyngeal cancer, kidney disease Physical examination: VITAL SIGNS: 96.8, 64, 17, 97/52, 96% room air GENERAL: BMI 64.6, laying in bed, awake tired. EYES: Pupils equal. Conjunctiva normal. HEENT: External appearance of nose and ears normal, oral cavity dry. NECK: JVD not raised; masses not palpable. HEART: First and second heart sounds are normal; no edema. LUNGS: Respiratory rate normal; distant breath sounds. ABDOMEN: Soft, nontender, liver spleen not palpable, no masses palpable, biliary drain in place. PSYCH: Alert and oriented x3; mood and affect normal. NEUROLOGICAL: Cranial nerves grossly intact; no facial asymmetry, decreased bowel lower extremity. LYMPHATICS: No lymph nodes palpable in the axilla and neck INVESTIGATIONS, reviewed in the clinical context: White count 13.7 hemoglobin 16.2 platelets 293 potassium 4.1 bun 119, creatinine 8.73 Patient renal function and July of this year showed a bun of 20 and creatinine 1.01 Assessment: -Acute renal failure, severe prerenal,. Cannot rule out ATN -Chronic fibromyalgia -Chronic GERD -Essential hypertension -Primary osteoarthritis -Alternative sleep apnea -Hypothyroid -Chronic axonal neuropathy -Morbid obesity BMI 64.6 -Irritable bowel syndrome with frequent diarrhea -Rest cancer scheduled for a mastectomy Plan: Patient be started on IV fluids. Strict I's and O's. We'll get a renal ultrasound. Nephrology was consulted. Other home medications reviewed and renewed. Hold of any renal offensive drugs. Care was discussed with the patient. Past Medical History Past Medical History: Cancer, Eye Disorder, Fibromyalgia, GERD/Reflux, Hypertension, Osteoarthritis (OA), Renal Disease, Sleep Apnea/CPAP/BIPAP, Thyroid Disorder Additional Past Medical History / Comment(s): Macular degeneration, glaucoma merle eyes. Axonal neuropathy, morbid obesity. IBS-freq diarrhea. Tremors; RIGHT BREAST CANCER-NO CHEMO/RADIATION-SCHEDULED FOR MASTECTOMY History of Any Multi-Drug Resistant Organisms: None Reported Date of last positivie culture/infection: 09/11/18 MDRO Source:: Urine-VRE Past Surgical History: Adenoidectomy, Back Surgery, Bariatric Surgery, Orthopedic Surgery, Tonsillectomy Additional Past Surgical History / Comment(s): GASTRIC SLEEVE 2009, PANNICULECTOMY,TRIGGER FINGER RELEASE, PAIN CLINIC PROCEDURE-BACK INJECTIONS, EGD'S W/ DILATATION, Laminectomy. CYSTOSCOPE, RT URETERAL STENT. KIDNEY STONE REMOVAL Past Anesthesia/Blood Transfusion Reactions: Family History of Problems w/ Anesthesia Additional Past Anesthesia/Blood Transfusion Reaction / Comment(s): PT AND BROTHER STATES "PT HAS NARROW AIRWAY", BROTHER HAS CONFUSION WITH VERSED. Past Psychological History: Anxiety, Depression Additional Psychological History / Comment(s): "Developmentally Disabled" Smoking Status: Never smoker Past Alcohol Use History: None Reported Past Drug Use History: None Reported - Past Family History Mother Family Medical History: Cancer, CVA/TIA Additional Family Medical History / Comment(s): PERSONALITY DISORDER, ALCOHOLIC,ABUSIVE, pharyngeal cancer, kidney disease Father Family Medical History: Cancer, Coronary Artery Disease (CAD) Additional Family Medical History / Comment(s): PANCREAS,CABG Brother(s) Family Medical History: AICD/Pacemaker Additional Family Medical History / Comment(s): PACEMAKER,lbbb,bradycardia Medications and Allergies Home Medications Medication Instructions Recorded Confirmed Type Levothyroxine Sodium [Synthroid] 25 mcg PO QAM 04/02/14 10/08/18 History Cyanocobalamin (Vitamin B-12) 1,000 mcg PO QAM 05/28/16 10/08/18 History [Vitamin B-12] Ferrous Sulfate [Iron (65 MG 325 mg PO HS 09/06/17 10/08/18 History Elemental)] Ergocalciferol [Vitamin D2 50,000 unit PO TH 07/22/18 10/08/18 History (DRISDOL)] Fluticasone Nasal [place] [Flonase 2 spr EA NOSTRIL BID PRN 07/22/18 10/08/18 History Nasal [place]] Loperamide [Imodium] 2 mg PO Q8H PRN 07/22/18 10/08/18 History Melatonin 6 mg PO HS PRN 07/22/18 10/08/18 History Ursodiol 900 mg PO BID@0800,1600 07/22/18 10/08/18 History rOPINIRole HCL [Requip] 1 mg PO HS 08/12/18 10/08/18 History Promethazine HCl 25 mg PO Q6H PRN 08/23/18 10/08/18 History Vortioxetine Hydrobromide 10 mg PO DAILY 08/23/18 10/08/18 History [Trintellix] lamoTRIgine [LaMICtal] 25 mg PO BID@0800,1600 08/23/18 10/08/18 History Albuterol Inhaler [Ventolin Hfa 2 puff INHALATION RT-Q6H PRN 09/11/18 10/08/18 History Inhaler] Gabapentin [Neurontin] 200 mg PO TID@0800,1200,1800 3 09/12/18 10/08/18 Rx Days #9 cap oxyCODONE HCL [Oxaydo] 5 mg PO Q6H PRN 3 Days #12 tab 09/12/18 10/08/18 Rx diphenhydrAMINE [Benadryl] 50 mg PO Q8H PRN 09/19/18 10/08/18 History Esomeprazole Magnesium [NexIUM] 40 mg PO DAILY 10/08/18 10/08/18 History LORazepam [Ativan] 1 mg PO Q6H PRN 10/08/18 10/08/18 History Allergies Allergy/AdvReac Type Severity Reaction Status Date / Time cefazolin sodium [From Ancef] Allergy Mild Rash/Hives Verified 10/08/18 13:13 etodolac [From Lodine] Allergy Rash/Hives Verified 10/08/18 13:13 Iodinated Contrast- Oral and Allergy Rash/Hives Verified 10/08/18 13:13 IV Dye [Iodinated Contrast Media - IV Dye] Iodine and Iodide Containing Allergy Rash/Hives Verified 10/08/18 13:13 Produc levofloxacin [From Levaquin] Allergy Swelling Verified 10/08/18 13:13 NSAIDS (Non-Steroidal Allergy Rash/Hives Verified 10/08/18 13:13 Anti-Inflamma nitrofurantoin AdvReac Abdominal Verified 10/08/18 13:13 [From Macrobid] Pain sulfamethoxazole AdvReac Confusion, Verified 10/08/18 13:13 [From Bactrim] Increased Bun & Cr levels trimethoprim [From Bactrim] AdvReac Confusion, Verified 10/08/18 13:13 Increased Bun & Creat Physical Exam Vitals: Vital Signs Temp Pulse Pulse Resp BP BP Pulse Ox 10/08/18 20:37 97.4 F L 69 18 95/64 96 10/08/18 17:14 69 17 109/65 98 10/08/18 12:53 96.8 F L 64 17 97/52 96 Intake and Output 10/08/18 10/08/18 10/08/18 06:59 14:59 22:59 Intake Total 1290 Balance 1290 Intake: Amount of Fluid Infused ( 700 ml) Oral 590 Other: # Voids 1 Weight 145.15 kg Results CBC & Chem 7: 10/08/18 14:20 10/08/18 14:20 Labs: Abnormal Lab Results - Last 24 Hours (Table) 10/08/18 10/08/18 10/08/18 Range/Units 14:20 14:20 14:27 WBC 13.7 H (3.8-10.6) k/uL RBC 5.51 H (3.80-5.40) m/uL Hgb 16.2 H (11.4-16.0) gm/dL Hct 48.1 H (34.0-46.0) % Neutrophils # 10.9 H (1.3-7.7) k/uL Sodium 125 L (137-145) mmol/L Chloride 85 L (98-107) mmol/L Carbon Dioxide 12 L (22-30) mmol/L BUN 119 H* (7-17) mg/dL Creatinine 8.73 H* (0.52-1.04) mg/dL Calcium 6.6 L (8.4-10.2) mg/dL ALT <6 L (9-52) U/L Alkaline Phosphatase 142 H (38-126) U/L Creatine Kinase 24 L (30-135) U/L Urine Appearance Cloudy H (Clear) Urine Protein 1+ H (Negative) Urine Blood Small H (Negative) Ur Leukocyte Esterase Large H (Negative) Urine RBC 8 H (0-5) /hpf Urine WBC 168 H (0-5) /hpf Urine Mucus Rare H (None) /hpf U Random Total Protein (<12) mg/dL 10/08/18 Range/Units 14:27 WBC (3.8-10.6) k/uL RBC (3.80-5.40) m/uL Hgb (11.4-16.0) gm/dL Hct (34.0-46.0) % Neutrophils # (1.3-7.7) k/uL Sodium (137-145) mmol/L Chloride (98-107) mmol/L Carbon Dioxide (22-30) mmol/L BUN (7-17) mg/dL Creatinine (0.52-1.04) mg/dL Calcium (8.4-10.2) mg/dL ALT (9-52) U/L Alkaline Phosphatase (38-126) U/L Creatine Kinase (30-135) U/L Urine Appearance (Clear) Urine Protein (Negative) Urine Blood (Negative) Ur Leukocyte Esterase (Negative) Urine RBC (0-5) /hpf Urine WBC (0-5) /hpf Urine Mucus (None) /hpf U Random Total Protein 56 H (<12) mg/dL Thrombosis Risk Factor Assmnt - Choose All That Apply Any of the Below Risk Factors Present?: No Other Risk Factors: Yes Each Risk Factor Represents 2 Points: Age 61-74 years Other congenital or acquired thrombophilia - If yes, enter type in comment: No Thrombosis Risk Factor Assessment Total Risk Factor Score: 2 Thrombosis Risk Factor Assessment Level: Low Risk
[2018-10-08] MEDS: ENOXAPARIN 30 MG/0.3 ML SYRINGE SQ SCH (23:06)
[2018-10-09] MEDS: SODIUM CHLORIDE 0.9% 1,000 ML IV SCH (03:28)
[2018-10-09] MEDS: LEVOTHYROXINE 25 MCG TAB PO SCH (05:28)
[2018-10-09] MEDS: GABAPENTIN 100 MG CAP PO SCH ×3 (08:24→16:58)
[2018-10-09] MEDS: VORTIOXETINE HYDROBROMIDE 10 MG TABLET PO SCH (08:24)
[2018-10-09] MEDS: URSODIOL 300 MG CAP PO SCH ×2 (08:24→16:58)
[2018-10-09] MEDS: lamoTRIgine 25 MG TAB PO SCH ×2 (08:24→16:58)
[2018-10-09] MEDS: PANTOPRAZOLE 40 MG TABLET PO SCH (08:24)
[2018-10-09 08:41] LABS: Albumin 3.3 g/dL (3.5-5.0); Potassium 3.5 mmol/L (3.5-5.1); Total Bilirubin 0.6 mg/dL (0.2-1.3); Total Protein 6.2 g/dL (6.3-8.2)
[2018-10-09 09:16] LABS: Calcium 6.4 mg/dL (8.4-10.2)
[2018-10-09] MEDS ORDERED: CALCIUM GLUCONATE 1 GM in SODIUM CHLORIDE 0.9% 100 ML IVPB ONE (11:16)
--- NOTE | 2018-10-09 11:17 | P.NPCON ---
History of Present Illness - Reason for Consult acute renal failure, chronic renal failure - History of Present Illness Reason for consultation: Acute kidney injury on chronic kidney disease History of present illness: Patient is a 67-year-old female seen in renal consultation for acute kidney injury on chronic kidney disease. Patient has chronic kidney disease stage III Baseline creatinine in the range of 1-1.2 most likely secondary to nephrosclerosis. There is also concern for interstitial nephritis as she has family history of the disease. Serologies outpatient have been negative. Furthermore she hasn't had significant proteinuria on 24-hour urine collection to warrant a kidney biopsy. Patient presented to the hospital with generalized weakness. She resides at an extended care facility. Patient states her oral intake has been quite poor. She denies any vomiting or diarrhea. Patient states her urine output was minimal prior to admission but has now improved. Patient's blood pressure was in the systolic 90s on admission. She did receive 1 L of normal saline bolus and was started on normal saline at 1 25 mL an hour. She is also acidotic with bicarb level of 14 this morning. Creatinine was 3.73 on admission and is down to 6.03 today. Patient also has history of drug-induce d hepatitis for which she follows at [facility]. Currently denies chest pain or shortness of breath. No edema. No hematuria or dysuria. Denies use of nonsteroidals. No history of diabetes. Vital signs are stable. General: The patient appeared well nourished and normally developed. HEENT: Head exam is unremarkable. Neck is without jugular venous distension. LUNGS: Lungs are clear to auscultation and percussion. Breath sounds decreased. HEART: Rate and Rhythm are regular. First and second heart sounds normal. No murmurs, rubs or gallops. ABDOMEN: Abdominal exam reveals normal bowel sounds. Non-tender and non- distended. No evidence of peritonitis. EXTREMITITES: No clubbing, cyanosis, or edema. Past Medical History Past Medical History: Cancer, Eye Disorder, Fibromyalgia, GERD/Reflux, Hypertension, Osteoarthritis (OA), Renal Disease, Sleep Apnea/CPAP/BIPAP, Thyroid Disorder Additional Past Medical History / Comment(s): Macular degeneration, glaucoma merle eyes. Axonal neuropathy, morbid obesity. IBS-freq diarrhea. Tremors; RIGHT BREAST CANCER-NO CHEMO/RADIATION-SCHEDULED FOR MASTECTOMY History of Any Multi-Drug Resistant Organisms: None Reported Date of last positivie culture/infection: 09/11/18 MDRO Source:: Urine-VRE Past Surgical History: Adenoidectomy, Back Surgery, Bariatric Surgery, Orthopedic Surgery, Tonsillectomy Additional Past Surgical History / Comment(s): GASTRIC SLEEVE 2009, PANNICULECTOMY,TRIGGER FINGER RELEASE, PAIN CLINIC PROCEDURE-BACK INJECTIONS, EGD'S W/ DILATATION, Laminectomy. CYSTOSCOPE, RT URETERAL STENT. KIDNEY STONE REMOVAL Past Anesthesia/Blood Transfusion Reactions: Family History of Problems w/ Anesthesia Additional Past Anesthesia/Blood Transfusion Reaction / Comment(s): PT AND BROTHER STATES "PT HAS NARROW AIRWAY", BROTHER HAS CONFUSION WITH VERSED. Past Psychological History: Anxiety, Depression Additional Psychological History / Comment(s): "Developmentally Disabled" Smoking Status: Never smoker Past Alcohol Use History: None Reported Past Drug Use History: None Reported - Past Family History Mother Family Medical History: Cancer, CVA/TIA Additional Family Medical History / Comment(s): PERSONALITY DISORDER, ALCOHOLIC,ABUSIVE, pharyngeal cancer, kidney disease Father Family Medical History: Cancer, Coronary Artery Disease (CAD) Additional Family Medical History / Comment(s): PANCREAS,CABG Brother(s) Family Medical History: AICD/Pacemaker Additional Family Medical History / Comment(s): PACEMAKER,lbbb,bradycardia Medications and Allergies Home Medications Medication Instructions Recorded Confirmed Type Levothyroxine Sodium [Synthroid] 25 mcg PO QAM 04/02/14 10/08/18 History Cyanocobalamin (Vitamin B-12) 1,000 mcg PO QAM 05/28/16 10/08/18 History [Vitamin B-12] Ferrous Sulfate [Iron (65 MG 325 mg PO HS 09/06/17 10/08/18 History Elemental)] Ergocalciferol [Vitamin D2 50,000 unit PO TH 07/22/18 10/08/18 History (DRISDOL)] Fluticasone Nasal [place] [Flonase 2 spr EA NOSTRIL BID PRN 07/22/18 10/08/18 History Nasal [place]] Loperamide [Imodium] 2 mg PO Q8H PRN 07/22/18 10/08/18 History Melatonin 6 mg PO HS PRN 07/22/18 10/08/18 History Ursodiol 900 mg PO BID@0800,1600 07/22/18 10/08/18 History rOPINIRole HCL [Requip] 1 mg PO HS 08/12/18 10/08/18 History Promethazine HCl 25 mg PO Q6H PRN 08/23/18 10/08/18 History Vortioxetine Hydrobromide 10 mg PO DAILY 08/23/18 10/08/18 History [Trintellix] lamoTRIgine [LaMICtal] 25 mg PO BID@0800,1600 08/23/18 10/08/18 History Albuterol Inhaler [Ventolin Hfa 2 puff INHALATION RT-Q6H PRN 09/11/18 10/08/18 History Inhaler] Gabapentin [Neurontin] 200 mg PO TID@0800,1200,1800 3 09/12/18 10/08/18 Rx Days #9 cap oxyCODONE HCL [Oxaydo] 5 mg PO Q6H PRN 3 Days #12 tab 09/12/18 10/08/18 Rx diphenhydrAMINE [Benadryl] 50 mg PO Q8H PRN 09/19/18 10/08/18 History Esomeprazole Magnesium [NexIUM] 40 mg PO DAILY 10/08/18 10/08/18 History LORazepam [Ativan] 1 mg PO Q6H PRN 10/08/18 10/08/18 History Allergies Allergy/AdvReac Type Severity Reaction Status Date / Time cefazolin sodium [From Ancef] Allergy Mild Rash/Hives Verified 10/08/18 13:13 etodolac [From Lodine] Allergy Rash/Hives Verified 10/08/18 13:13 Iodinated Contrast- Oral and Allergy Rash/Hives Verified 10/08/18 13:13 IV Dye [Iodinated Contrast Media - IV Dye] Iodine and Iodide Containing Allergy Rash/Hives Verified 10/08/18 13:13 Produc levofloxacin [From Levaquin] Allergy Swelling Verified 10/08/18 13:13 NSAIDS (Non-Steroidal Allergy Rash/Hives Verified 10/08/18 13:13 Anti-Inflamma nitrofurantoin AdvReac Abdominal Verified 10/08/18 13:13 [From Macrobid] Pain sulfamethoxazole AdvReac Confusion, Verified 10/08/18 13:13 [From Bactrim] Increased Bun & Cr levels trimethoprim [From Bactrim] AdvReac Confusion, Verified 10/08/18 13:13 Increased Bun & Creat Physical Exam Vitals: Vital Signs Temp Pulse Pulse Resp BP BP Pulse Ox 10/09/18 07:24 98.6 F 66 101/67 98 10/09/18 03:10 17 10/09/18 01:13 97.5 F L 64 18 91/58 95 10/08/18 23:21 17 10/08/18 20:37 97.4 F L 69 18 95/64 96 10/08/18 20:35 18 10/08/18 17:14 69 17 109/65 98 10/08/18 12:53 96.8 F L 64 17 97/52 96 Intake and Output 10/08/18 10/09/18 10/09/18 22:59 06:59 14:59 Intake Total 1290 1500 Output Total 100 Balance 1290 1400 Intake: Amount of Fluid Infused ( 700 ml) Intake, IV Titration 1500 Amount Sodium Chloride 0.9% 1, 1500 000 ml @ 125 mls/hr IV . Q8H TOSHIA Rx#:[id number] Oral 590 Output: Drainage 100 Medial Abdomen 100 Other: Voiding Method Incontinent # Voids 1 1 Results - Lab Results Most recent lab results Calcium 6.4 mg/dL (8.4-10.2) L* 10/09/18 07:41 Magnesium 2.0 mg/dL (1.6-2.3) 10/09/18 07:41 10/08/18 14:20 10/09/18 07:41 Assessment and Plan Plan: Assessment: 1. Acute kidney injury mostly prerenal improving with IV hydration. Creatinine 8.73 on admission and is down to 6.03 today. Rule out obstructive uropathy. 2. Chronic kidney disease stage III Baseline creatinine in the range of 1-1.2 most likely secondary to nephrosclerosis. Patient does a family history of interstitial nephritis. Serologic workup outpatient has been negative. No significant proteinuria outpatient on 24-hour urine collection. 3. History of kidney stones. 4. Metabolic acidosis secondary to acute kidney injury. 5. Hypovolemic hyponatremia improving with IV hydration. 6. Drug-induced hepatitis. Patient follows at [facility]. 7. Hypocalcemia secondary to acute kidney injury. Corrected calcium is near 6.7. Plan: Discontinue normal saline and start sodium bicarbonate drip at 100 mL an hour. Follow-up renal ultrasound. Follow-up urine eosinophils. Avoid nephrotoxins. 1 g IV calcium gluconate today. Repeat electrolytes in the morning. Thank you for the consultation. I will continue to follow the patient with you during her hospital stay.
[2018-10-09] MEDS: DEXTROSE 5% IN WATER 1,000 ML with SODIUM BICARB (1 MEQ/ML) 150 ML IV SCH (11:48)
--- NOTE | 2018-10-09 14:29 | US ---
EXAMINATION TYPE: US renals and bladder DATE OF EXAM: 10/09/2018 COMPARISON: NONE CLINICAL HISTORY: Acute renal failure. Acute renal failure EXAM MEASUREMENTS: Right Kidney: 11.0 x 4.3 x 4.7 cm Left Kidney: 10.9 x 5.8 x 4.9 cm Right Kidney: no evidence of hydronephrosis Left Kidney: no evidence of hydronephrosis Bladder: not fully distended Bilateral Jets seen: no IMPRESSION: 1. Normal renal ultrasound
[2018-10-09] MEDS: ENOXAPARIN 30 MG/0.3 ML SYRINGE SQ SCH (21:25)
--- NOTE | 2018-10-09 23:59 | P.PN ---
Progress Note - Text Progress Note Date: 10/09/18 History of presenting complaint: This is a very pleasant 67-year-old patient of Dr. Naqvi. Rather extensive medical history. Chronic stable medical conditions include fibromyalgia, GERD, essential hypertension, osteoarthritis, obstructive sleep apnea, hypothyroid, axonal neuropathy morbid obesity, breast cancer scheduled for mastectomy. Patient is currently a resident of [facility] on. That is [facility]. Patient presents with generalized symptoms to include decreased sleep, nausea, feeling weak and tired. Not had a bowel movement for 7 days. Patient was discovered to have a abnormal renal function with a bun of 119 and creatinine of 8.73. Sodium was down to 125. Started on fluids and nephrology was consulted. Patient does use a wheelchair. Today-laying in bed. Awake. Did tolerate her diet. No new issues. Review of systems: Was done for constitutional, cardiovascular, GI, pulmonary. relevant finding as above Current medications are reviewed that include:: Normal saline was switched to bicarbonate drip - Physical examination: VITAL SIGNS: 98.6, 66, 17, 101/67, 98% room air GENERAL: Laying in bed, awake EYES: Pupils equal. Conjunctiva normal. HEENT: External appearance of nose and ears normal, oral cavity dry. NECK: JVD not raised; masses not palpable. HEART: First and second heart sounds are normal; no edema. LUNGS: Respiratory rate normal; distant breath sounds. ABDOMEN: Soft, nontender, liver spleen not palpable, no masses palpable, biliary drain in place. PSYCH: Alert and oriented x3; mood and affect normal. NEUROLOGICAL: Cranial nerves grossly intact; no facial asymmetry, decreased bowel lower extremity. INVESTIGATIONS, reviewed in the clinical context: Sodium 129 potassium 3.5 bun 111 creatinine 6.03 Patient renal function and July of this year showed a bun of 20 and creatinine 1.01 Assessment: -Acute renal failure, severe prerenal,. Cannot rule out ATN, slow to respond Chronic kidney disease stage III likely secondary to nephrosclerosis with a baseline creatinine of 1-1.2 -High poor limits hyponatremia -Chronic fibromyalgia -Chronic GERD -Essential hypertension -Primary osteoarthritis -Alternative sleep apnea -Hypothyroid -Chronic axonal neuropathy -Morbid obesity BMI 64.6 -Irritable bowel syndrome with frequent diarrhea -Rest cancer scheduled for a mastectomy Plan: Patient on bicarbonate drip. Follow lites closely. Patient was seen by nephrology. Care was discussed past. Renal Ultrasound ordered.
[2018-10-10] MEDS: DEXTROSE 5% IN WATER 1,000 ML with SODIUM BICARB (1 MEQ/ML) 150 ML IV SCH (01:39)
[2018-10-10] MEDS: LEVOTHYROXINE 25 MCG TAB PO SCH (05:24)
[2018-10-10 07:29] LABS: Magnesium 1.7 mg/dL (1.6-2.3)
[2018-10-10 07:39] LABS: Potassium 2.5 mmol/L (3.5-5.1)
[2018-10-10 07:40] LABS: Calcium 6.3 mg/dL (8.4-10.2)
[2018-10-10] MEDS: PANTOPRAZOLE 40 MG TABLET PO SCH (08:52)
[2018-10-10] MEDS: lamoTRIgine 25 MG TAB PO SCH ×2 (08:52→17:18)
[2018-10-10] MEDS: URSODIOL 300 MG CAP PO SCH ×2 (08:53→17:18)
[2018-10-10] MEDS: GABAPENTIN 100 MG CAP PO SCH ×3 (08:53→17:18)
[2018-10-10] MEDS: VORTIOXETINE HYDROBROMIDE 10 MG TABLET PO SCH (08:53)
[2018-10-10] MEDS ORDERED: CALCIUM GLUCONATE 1 GM in SODIUM CHLORIDE 0.9% 100 ML IVPB ONE (09:11)
[2018-10-10] MEDS ORDERED: MAGNESIUM SULFATE-D5W PMX 1 GM in DEXTROSE/WATER 1 100ML.BAG IVPB ONE (09:12)
[2018-10-10] MEDS ORDERED: POTASSIUM CHLORIDE 40 MEQ in WATER FOR INJECTION 1 100ML.BAG IVPB STA (09:25)
[2018-10-10] MEDS ORDERED: POTASSIUM CHLORIDE ER 20 MEQ TAB.ER PO STA (09:28)
[2018-10-10] MEDS: PROMETHAZINE 25 MG TAB PO PRN ×3 (09:43→23:09)
--- NOTE | 2018-10-10 09:59 | P.PN ---
Subjective Patient is seen in follow-up for acute kidney injury on chronic kidney disease. Patient is chronic kidney disease stage III with baseline creatinine in the range of 1-1.2 most likely secondary to nephrosclerosis. There is also concern for interstitial nephritis as she has family history of the disease. Serologies outpatient have been negative. Patient's creatinine was 8.73 on admission and is down to 2.64 today. Oral intake is fair. Urine output is good. She is working with physical therapy. Vital signs are stable. General: The patient appeared well nourished and normally developed. HEENT: Head exam is unremarkable. Neck is without jugular venous distension. LUNGS: Lungs are clear to auscultation and percussion. Breath sounds decreased. HEART: Rate and Rhythm are regular. First and second heart sounds normal. No murmurs, rubs or gallops. ABDOMEN: Abdominal exam reveals normal bowel sounds. Non-tender and non- distended. No evidence of peritonitis. EXTREMITITES: No clubbing, cyanosis, or edema. Objective - Vital Signs Vital signs: Vital Signs Temp 97.4 F L 10/10/18 07:00 Pulse 71 10/10/18 07:00 Resp 14 10/10/18 07:00 BP 96/62 10/10/18 07:00 Pulse Ox 95 10/10/18 07:00 Intake & Output 10/09/18 10/10/18 10/10/18 18:59 06:59 18:59 Intake Total 150 Output Total 200 200 Balance -200 -50 Intake: Oral 150 Output: Drainage 200 200 Medial Abdomen 200 200 Other: Voiding Method Incontinent Diaper Incontinent # Voids 1 - Labs CBC & Chem 7: 10/08/18 14:20 10/10/18 06:22 Labs: Abnormal Lab Results - Last 24 Hours (Table) 10/10/18 Range/Units 06:22 Sodium 131 L (137-145) mmol/L Potassium 2.5 L* (3.5-5.1) mmol/L Chloride 93 L (98-107) mmol/L Carbon Dioxide 21 L (22-30) mmol/L BUN 91 H (7-17) mg/dL Creatinine 2.64 H (0.52-1.04) mg/dL Calcium 6.3 L* (8.4-10.2) mg/dL Assessment and Plan Plan: Assessment: 1. Acute kidney injury mostly prerenal improving with IV hydration. Creatinine 8.73 on admission and is down to 2.64 today. No evidence of hydronephrosis noted on kidney ultrasound. Urine eosinophils negative. 2. Chronic kidney disease stage III Baseline creatinine in the range of 1-1.2 most likely secondary to nephrosclerosis. Patient does a family history of interstitial nephritis. Serologic workup outpatient has been negative. No significant proteinuria outpatient on 24-hour urine collection. 3. History of kidney stones. 4. Metabolic acidosis secondary to acute kidney injury. Better. 5. Hypovolemic hyponatremia improving with IV hydration. 6. Drug-induced hepatitis. Patient follows at [facility]. 7. Hypocalcemia secondary to acute kidney injury. Corrected calcium is near 6.7. Plan: Discontinue bicarbonate drip. Start normal saline at 70 mL an hour. Add oral sodium bicarbonate. Add midodrine. Avoid nephrotoxins. 1 g IV calcium gluconate today. Replace potassium. 100 mEq total today. Replace magnesium. 1 g IV today. Repeat electrolytes in the morning.
[2018-10-10] MEDS: SODIUM BICARBONATE TAB 650 MG TAB PO SCH ×2 (11:00→21:07)
[2018-10-10] MEDS: POTASSIUM CHLORIDE ER 20 MEQ TAB.ER PO SCH ×3 (11:00→14:53)
[2018-10-10] MEDS: SODIUM CHLORIDE 0.9% 1,000 ML IV SCH (11:01)
[2018-10-10] MEDS: POTASSIUM CHLORIDE 10 MEQ in WATER FOR INJECTION 1 100ML.BAG IVPB SCH ×4 (12:28→19:54)
[2018-10-10] MEDS: MIDODRINE 5 MG TAB PO SCH ×2 (12:38→17:18)
--- NOTE | 2018-10-10 17:46 | P.PN ---
Progress Note - Text Progress Note Date: 10/10/18 Presenting complaint: Tired Interval history: This is a very pleasant 67-year-old patient of Dr. Naqvi. Rather extensive medical history. Chronic stable medical conditions include fibromyalgia, GERD, essential hypertension, osteoarthritis, obstructive sleep apnea, hypothyroid, axonal neuropathy morbid obesity, breast cancer scheduled for mastectomy. Patient is currently a resident [facility] on. [facility] Patient presents with generalized symptoms to include decreased sleep, nausea, feeling weak and tired. Not had a bowel movement for 7 days. Patient was discovered to have a abnormal renal function with a bun of 119 and creatinine of 8.73. Sodium was down to 125. Started on fluids and nephrology was consulted. Patient does use a wheelchair. Admitted with acute severe renal failure with underlying chronic kidney disease. Today- Feels a bit better. Some nausea. Bicarb drip was stopped today. Put on normal saline. Also midodrine was added. Review of systems: Was done for constitutional, cardiovascular, GI, pulmonary. relevant finding as above Active Medications Albuterol Sulfate (Ventolin Nebulized) 2.5 mg INHALATION RT-Q6H PRN PRN Reason: Shortness Of Breath Enoxaparin Sodium (Lovenox) 30 mg SQ Q24H [facility] Last Admin: 10/09/18 21:25 Dose: 30 mg Documented by: Gabapentin (Neurontin) 200 mg PO TID@0800,1200,1800 [facility] Last Admin: 10/10/18 17:18 Dose: 200 mg Documented by: Sodium Chloride (Saline 0.9%) 1,000 mls @ 70 mls/hr IV .[id number] [facility] Last Admin: 10/10/18 11:01 Dose: 70 mls/hr Documented by: Lamotrigine (Lamictal) 25 mg PO BID@0800,1600 [facility] Last Admin: 10/10/18 17:18 Dose: 25 mg Documented by: Levothyroxine Sodium (Synthroid) 25 mcg PO QAM@0630 [facility] Last Admin: 10/10/18 05:24 Dose: 25 mcg Documented by: Loperamide HCl (Imodium) 2 mg PO Q8H PRN PRN Reason: Loose Stool Lorazepam (Ativan) 1 mg PO Q6H PRN PRN Reason: Insomnia Melatonin (Melatonin) 6 mg PO HS PRN PRN Reason: Insomnia Midodrine (Proamatine) 5 mg PO AC-TID [facility] Last Admin: 10/10/18 17:18 Dose: 5 mg Documented by: Naloxone HCl (Narcan) 0.2 mg IV Q2M PRN PRN Reason: Opioid Reversal Oxycodone HCl (Oxyir) 5 mg PO Q6H PRN PRN Reason: Pain Pantoprazole Sodium (Protonix) 40 mg PO AC-BRKFST [facility] Last Admin: 10/10/18 08:52 Dose: 40 mg Documented by: Promethazine HCl (Phenergan) 25 mg PO Q6H PRN PRN Reason: Nausea Last Admin: 10/10/18 09:43 Dose: 25 mg Documented by: Ropinirole HCl (Requip) 1 mg PO [facility] Last Admin: 10/09/18 20:17 Dose: 1 mg Documented by: Sodium Bicarbonate (Sodium Bicarbonate Tab) 650 mg PO BID [facility] Last Admin: 10/10/18 11:00 Dose: 650 mg Documented by: Ursodiol (Actigall) 900 mg PO BID@0800,1600 [facility] Last Admin: 10/10/18 17:18 Dose: 900 mg Documented by: Vortioxetine (Trintellix) 10 mg PO DAILY [facility] Last Admin: 10/10/18 08:53 Dose: 10 mg Documented by: - Physical examination: VITAL SIGNS: 97.4, 71, 14, 99 x 62, 95% room air GENERAL: Laying in bed, awake, tired EYES: Pupils equal. Conjunctiva normal. HEENT: External appearance of nose and ears normal, oral cavity dry. NECK: JVD not raised; masses not palpable. HEART: First and second heart sounds are normal; no edema. LUNGS: Respiratory rate normal; distant breath sounds. ABDOMEN: Soft, nontender, liver spleen not palpable, no masses palpable, biliary drain in place. PSYCH: Alert and oriented x3; mood and affect normal. NEUROLOGICAL: Cranial nerves grossly intact; no facial asymmetry, decreased power in the lower extremity. INVESTIGATIONS, reviewed in the clinical context: Sodium 131, potassium 2.5, bun 91, creatinine 2.64 calcium 6.3 Patient renal function and July of this year showed a bun of 20 and creatinine 1.01 Assessment: -Acute renal failure, severe prerenal,. Cannot rule out ATN, improving Chronic kidney disease stage III likely secondary to nephrosclerosis with a baseline creatinine of 1-1.2 -Hypovolemic hyponatremia -Severe hypokalemia, new diagnosis -Chronic fibromyalgia -Chronic GERD -Essential hypertension -Primary osteoarthritis -Obstructive sleep apnea -Hypothyroid -Chronic axonal neuropathy -Morbid obesity BMI 64.6 -Irritable bowel syndrome with frequent diarrhea -Breast cancer scheduled for a mastectomy Plan: Patient renal functions improving. Switch from a bicarbonate drip to normal saline. Oral intake is improving. Hoping to come down baseline by tomorrow.. Care was discussed with the patient. Aggressive replacement of potassium will be done. Patient be kept in telemetry.
[2018-10-10 21:09] LABS: Calcium 6.8 mg/dL (8.4-10.2)
[2018-10-10] MEDS: ENOXAPARIN 30 MG/0.3 ML SYRINGE SQ SCH (23:25)
[2018-10-11] MEDS: SODIUM CHLORIDE 0.9% 1,000 ML IV SCH ×2 (02:13→12:54)
[2018-10-11] MEDS: LEVOTHYROXINE 25 MCG TAB PO SCH (05:23)
[2018-10-11] MEDS ORDERED: LACTULOSE 20 GM/30 ML CUP PO ONE (06:00)
[2018-10-11 07:28] VITALS: RESP 16
[2018-10-11] MEDS: GABAPENTIN 100 MG CAP PO SCH ×2 (09:07→12:53)
[2018-10-11] MEDS: URSODIOL 300 MG CAP PO SCH ×3 (09:07→16:53)
[2018-10-11] MEDS: VORTIOXETINE HYDROBROMIDE 10 MG TABLET PO SCH (09:07)
[2018-10-11] MEDS: SODIUM BICARBONATE TAB 650 MG TAB PO SCH (09:07)
[2018-10-11] MEDS: lamoTRIgine 25 MG TAB PO SCH ×2 (09:08→16:53)
[2018-10-11] MEDS: MIDODRINE 5 MG TAB PO SCH ×3 (09:08→16:49)
[2018-10-11] MEDS: PANTOPRAZOLE 40 MG TABLET PO SCH (09:08)
[2018-10-11 09:21] LABS: Calcium 7.5 mg/dL (8.4-10.2); Magnesium 1.9 mg/dL (1.6-2.3); Potassium 3.5 mmol/L (3.5-5.1); Total Bilirubin 0.7 mg/dL (0.2-1.3); Total Protein 5.7 g/dL (6.3-8.2)
[2018-10-11] MEDS ORDERED: DICYCLOMINE 20 MG TAB PO PRN (11:18)
--- NOTE | 2018-10-11 13:15 | P.PN ---
Subjective Patient is seen in follow-up for acute kidney injury on chronic kidney disease. Patient is chronic kidney disease stage III with baseline creatinine in the range of 1-1.2 most likely secondary to nephrosclerosis. There is also concern for interstitial nephritis as she has family history of the disease. Serologies outpatient have been negative. Patient's creatinine was 8.73 on admission and is down to 1.25 today. Oral intake is fair. Urine output is good. Feels constipated. Vital signs are stable. General: The patient appeared well nourished and normally developed. HEENT: Head exam is unremarkable. Neck is without jugular venous distension. LUNGS: Lungs are clear to auscultation and percussion. Breath sounds decreased. HEART: Rate and Rhythm are regular. First and second heart sounds normal. No murmurs, rubs or gallops. ABDOMEN: Abdominal exam reveals normal bowel sounds. Non-tender and non- distended. No evidence of peritonitis. EXTREMITITES: No clubbing, cyanosis, or edema. Objective - Vital Signs Vital signs: Vital Signs Temp 97.9 F 10/11/18 07:00 Pulse 68 10/11/18 07:00 Resp 16 10/11/18 07:00 BP 102/68 10/11/18 07:00 Pulse Ox 94 L 10/11/18 07:00 Intake & Output 10/10/18 10/11/18 10/11/18 18:59 06:59 18:59 Intake Total 150 1416 Output Total 350 100 125 Balance -200 -100 1291 Intake: Intake, IV Titration 700 Amount Sodium Chloride 0.9% 1, 700 000 ml @ 70 mls/hr IV . [id number] [facility] Rx#:[id number] Oral 150 716 Output: Drainage 350 100 125 Medial Abdomen 350 100 125 Other: Voiding Method Diaper Diaper Incontinent Incontinent # Voids 1 # Bowel Movements 1 - Labs CBC & Chem 7: 10/08/18 14:20 10/11/18 08:23 Labs: Abnormal Lab Results - Last 24 Hours (Table) 10/10/18 10/11/18 Range/Units 20:41 08:23 Sodium 133 L (137-145) mmol/L Carbon Dioxide 21 L (22-30) mmol/L BUN 79 H 60 H (7-17) mg/dL Creatinine 1.74 H 1.25 H (0.52-1.04) mg/dL Calcium 6.8 L 7.5 L (8.4-10.2) mg/dL Total Protein 5.7 L (6.3-8.2) g/dL Albumin 3.0 L (3.5-5.0) g/dL Microbiology - Last 24 Hours (Table) 10/09/18 Unknown Urine Culture - Preliminary Urine,Voided Assessment and Plan Plan: Assessment: 1. Acute kidney injury mostly prerenal improving with IV hydration. Creatinine 8.73 on admission and is down to 1.25 today. No evidence of hydronephrosis noted on kidney ultrasound. Urine eosinophils negative. 2. Chronic kidney disease stage III Baseline creatinine in the range of 1-1.2 most likely secondary to nephrosclerosis. Patient does a family history of interstitial nephritis. Serologic workup outpatient has been negative. No significant proteinuria outpatient on 24-hour urine collection. 3. History of kidney stones. 4. Metabolic acidosis secondary to acute kidney injury. Better. 5. Hypovolemic hyponatremia improving with IV hydration. 6. Drug-induced hepatitis. Patient follows at [facility]. 7. Hypocalcemia secondary to acute kidney injury. Resolved. Plan: Hep-Lock IV fluids. Maintain midodrine. Avoid nephrotoxins. Stable to be discharged from nephrology standpoint. Follow up outpatient in the next 2 weeks.
--- NOTE | 2018-10-11 15:27 | P.DS ---
Providers Date of admission: 10/08/18 17:01 Expected date of discharge: 10/11/18 Attending physician: Matt Sahu Consults: 10/08/18 17:01 Consult Physician Routine Consulting Provider: Esperanza Horan Consult Reason/Comments: acute renal failure Do you want consulting provider notified?: Yes Primary care physician: [facility] Course: Interval history: This is a very pleasant 67-year-old patient of Dr. Naqvi. Rather extensive medical history. Chronic stable medical conditions include fibromyalgia, GERD, essential hypertension, osteoarthritis, obstructive sleep apnea, hypothyroid, axonal neuropathy morbid obesity, breast cancer scheduled for mastectomy. Patient is currently a resident of [facility] on. That is [facility]. Patient presents with generalized symptoms to include decreased sleep, nausea, feeling weak and tired. Not had a bowel movement for 7 days. Patient was discovered to have a abnormal renal function with a bun of 119 and creatinine of 8.73. Sodium was down to 125. Started on fluids and nephrology was consulted. Patient does use a wheelchair. Admitted with acute severe renal failure with underlying chronic kidney disease. Patient was treated with IV fluids and bicarbonate drip. Did well. Creatinine did come down from 8.73 down to 1.25 and bun Did come down from 119 from down to 60 Sodium also went up from 125-137. Patient is doing well. Today-care was discussed at length with the patient. Patient may take Bentyl when necessary for occasional abdominal cramping. Did tolerate her diet. Care was discussed with the nurse. Discussion and discharge planning more than 35 minutes Consultations: Dr. Hess and associates from nephrology Physical examination: VITAL SIGNS: 97.9, 68, 16, 102/68, 94% room air GENERAL: Laying in bed, awake, tired EYES: Pupils equal. Conjunctiva normal. HEENT: External appearance of nose and ears normal, oral cavity dry. NECK: JVD not raised; masses not palpable. HEART: First and second heart sounds are normal; no edema. LUNGS: Respiratory rate normal; distant breath sounds. ABDOMEN: Soft, nontender, liver spleen not palpable, no masses palpable, biliary drain in place. PSYCH: Alert and oriented x3; mood and affect normal. NEUROLOGICAL: Cranial nerves grossly intact; no facial asymmetry, decreased power in the lower extremity. INVESTIGATIONS, reviewed in the clinical context: Potassium 3.5 bun 60 creatinine 1.25 sodium 137 hemoglobin 16.2 Patient renal function and July of this year showed a bun of 20 and creatinine 1.01 Renal ultrasound unremarkable Computed tomography scan of the abdomen: Nonspecific findings of the pancreas Assessment: -Acute renal failure, severe prerenal,. Chronic kidney disease stage III likely secondary to nephrosclerosis with a baseline creatinine of 1-1.2 -Hypovolemic hyponatremia -Severe hypokalemia, new diagnosis -Metabolic acidosis secondary to acute kidney injury -Chronic fibromyalgia -Chronic GERD -Essential hypertension -Primary osteoarthritis -Obstructive sleep apnea -Hypothyroid -Chronic axonal neuropathy -Morbid obesity BMI 64.6 -Irritable bowel syndrome with frequent diarrhea -Breast cancer scheduled for a mastectomy -Drug-induced hepatitis, patient follows at [facility] Patient Condition at Discharge: Stable Plan - Discharge Summary Discharge Rx Participant: No New Discharge Prescriptions: New Dicyclomine [Bentyl] 5 mg PO Q6HR PRN #20 tab PRN Reason: Gi Upset Midodrine [ProAmatine] 5 mg PO AC-TID #90 tab Continue Levothyroxine Sodium [Synthroid] 25 mcg PO QAM Cyanocobalamin (Vitamin B-12) [Vitamin B-12] 1,000 mcg PO QAM Ferrous Sulfate [Iron (65 MG Elemental)] 325 mg PO HS Ergocalciferol [Vitamin D2 (DRISDOL)] 50,000 unit PO TH Loperamide [Imodium] 2 mg PO Q8H PRN PRN Reason: Loose Stool Melatonin 6 mg PO HS PRN PRN Reason: Insomnia Ursodiol 900 mg PO BID@0800,1600 rOPINIRole HCL [Requip] 1 mg PO HS lamoTRIgine [LaMICtal] 25 mg PO BID@0800,1600 Promethazine HCl 25 mg PO Q6H PRN PRN Reason: Nausea Vortioxetine Hydrobromide [Trintellix] 10 mg PO DAILY Albuterol Inhaler [Ventolin Hfa Inhaler] 2 puff INHALATION RT-Q6H PRN PRN Reason: Shortness Of Breath Gabapentin [Neurontin] 200 mg PO TID@0800,1200,1800 3 Days #9 cap oxyCODONE HCL [Oxaydo] 5 mg PO Q6H PRN 3 Days #12 tab PRN Reason: Pain Esomeprazole Magnesium [NexIUM] 40 mg PO DAILY LORazepam [Ativan] 1 mg PO Q6H PRN PRN Reason: Insomnia Discontinued Fluticasone Nasal [place] [Flonase Nasal [place]] 2 spr EA NOSTRIL BID PRN PRN Reason: Allergy Symptoms diphenhydrAMINE [Benadryl] 50 mg PO Q8H PRN PRN Reason: Allergy Symptoms Discharge Medication List Levothyroxine Sodium [Synthroid] 25 mcg PO QAM 04/02/14 [History] Cyanocobalamin (Vitamin B-12) [Vitamin B-12] 1,000 mcg PO QAM 05/28/16 [History] Ferrous Sulfate [Iron (65 MG Elemental)] 325 mg PO HS 09/06/17 [History] Ergocalciferol [Vitamin D2 (DRISDOL)] 50,000 unit PO TH 07/22/18 [History] Loperamide [Imodium] 2 mg PO Q8H PRN 07/22/18 [History] Melatonin 6 mg PO HS PRN 07/22/18 [History] Ursodiol 900 mg PO BID@0800,1600 07/22/18 [History] rOPINIRole HCL [Requip] 1 mg PO HS 08/12/18 [History] Promethazine HCl 25 mg PO Q6H PRN 08/23/18 [History] Vortioxetine Hydrobromide [Trintellix] 10 mg PO DAILY 08/23/18 [History] lamoTRIgine [LaMICtal] 25 mg PO BID@0800,1600 08/23/18 [History] Albuterol Inhaler [Ventolin Hfa Inhaler] 2 puff INHALATION RT-Q6H PRN 09/11/18 [History] Gabapentin [Neurontin] 200 mg PO TID@0800,1200,1800 3 Days #9 cap 09/12/18 [Rx] oxyCODONE HCL [Oxaydo] 5 mg PO Q6H PRN 3 Days #12 tab 09/12/18 [Rx] Esomeprazole Magnesium [NexIUM] 40 mg PO DAILY 10/08/18 [History] LORazepam [Ativan] 1 mg PO Q6H PRN 10/08/18 [History] Dicyclomine [Bentyl] 5 mg PO Q6HR PRN #20 tab 10/11/18 [Rx] Midodrine [ProAmatine] 5 mg PO AC-TID #90 tab 10/11/18 [Rx] Follow up Appointment(s)/Referral(s): Daniel Naqvi DO [Primary Care Provider] - 3 Days (ECF ) Ambulatory/Diagnostic Orders: Basic Metabolic Panel [LAB.AMB] Time Frame: 3 Days, Location: None Selected
[2018-10-11 15:29] VITALS: BP 99/62; PULSE 76; TEMP 98.6
[2018-10-11] MEDS ORDERED: ENOXAPARIN 40 MG/0.4 ML SYRINGE SQ SCH (21:00)
== END 2018-10-11 18:28 | DRG 683 ==
LOC: EC 12:52 → 4SSUR 17:01
PROVIDERS: ADMIT Hospitalist; ATTEND Hospitalist
DX: N17.9 Acute kidney failure, unspecified (principal); E87.1 Hypo-osmolality and hyponatremia; E87.2 Acidosis; Z68.44 Body mass index [BMI] 60.0-69.9, adult; N18.3 Chronic kidney disease, stage 3 (moderate); E66.01 Morbid (severe) obesity due to excess calories; G62.9 Polyneuropathy, unspecified; E83.51 Hypocalcemia; K75.89 Other specified inflammatory liver diseases; C50.911 Malignant neoplasm of unspecified site of right female breast; H40.9 Unspecified glaucoma; E03.9 Hypothyroidism, unspecified; I12.9 Hypertensive chronic kidney disease with stage 1 through stage 4 chronic kidney disease, or unspecified chronic kidney disease; K21.9 Gastro-esophageal reflux disease without esophagitis; K58.0 Irritable bowel syndrome with diarrhea; M19.91 Primary osteoarthritis, unspecified site; M79.7 Fibromyalgia; E86.1 Hypovolemia; E87.6 Hypokalemia; F32.9 Major depressive disorder, single episode, unspecified; F41.9 Anxiety disorder, unspecified; G47.33 Obstructive sleep apnea (adult) (pediatric); H35.30 Unspecified macular degeneration; R62.50 Unspecified lack of expected normal physiological development in childhood; Z79.890 Hormone replacement therapy; Z79.899 Other long term (current) drug therapy; Z88.6 Allergy status to analgesic agent; Z88.1 Allergy status to other antibiotic agents; Z91.041 Radiographic dye allergy status; Z98.84 Bariatric surgery status; Z87.442 Personal history of urinary calculi; Z82.49 Family history of ischemic heart disease and other diseases of the circulatory system; Z82.3 Family history of stroke; Z80.8 Family history of malignant neoplasm of other organs or systems; Z81.8 Family history of other mental and behavioral disorders; Z80.0 Family history of malignant neoplasm of digestive organs
CPT/HCPCS: 36415; 51701; 74176; 76770; 80048; 80053; 81001; 82140; 82550; 83735; 84133; 84156; 84300; 85025; 87077; 87086; 87186; 87205; 93005; 96361; 96365; 96366; 96375; 99285